=== PATIENT | male | born 1940 | race Two or more races ===

== ENCOUNTER 2020-03-06 09:46 | Outpatient (REF) | payer MEDICARE, SELFPAY ==
[2020-03-06 12:20] LABS: PSA,Total (Free>4and<10) 0.65 ng/mL (0.00-4.00)
== END 2020-03-06 09:47 | disposition home or self-care (01) ==
LOC: HO.10HDL 09:46
PROVIDERS: Visit Provider Urology
DX: N40.1 Benign prostatic hyperplasia with lower urinary tract symptoms (principal); N13.8 Other obstructive and reflux uropathy
CPT/HCPCS: 36415; 84153

== ENCOUNTER → 2020-03-10 08:28 | Outpatient (BNVA) | payer MEDICARE, SELFPAY | PROVIDERS: PCP Internal Medicine Endocrinology, Diabetes & Metabolism; Visit Provider Urology | DX: N40.1 Benign prostatic hyperplasia with lower urinary tract symptoms (principal); N13.8 Other obstructive and reflux uropathy; R39.15 Urgency of urination; N52.9 Male erectile dysfunction, unspecified | CPT/HCPCS: 99214 ==

== ENCOUNTER → 2020-06-26 13:04 | Outpatient (BNVA) | payer MEDICARE, SELFPAY | PROVIDERS: PCP Internal Medicine; Visit Provider Urology | DX: N40.1 Benign prostatic hyperplasia with lower urinary tract symptoms (principal); N13.8 Other obstructive and reflux uropathy; R39.15 Urgency of urination; N52.9 Male erectile dysfunction, unspecified | CPT/HCPCS: 51798; 81002; 99212 ==

== ENCOUNTER → 2021-01-24 13:08 | Outpatient (BNVA) | payer OTHER, SELFPAY | PROVIDERS: Visit Provider Urology | DX: N40.1 Benign prostatic hyperplasia with lower urinary tract symptoms (principal); N13.8 Other obstructive and reflux uropathy; R39.15 Urgency of urination | CPT/HCPCS: 99212 ==

== ENCOUNTER → 2021-08-07 08:49 | Outpatient (BNVA) | payer OTHER, SELFPAY | PROVIDERS: PCP Internal Medicine; Visit Provider Urology | DX: Z13.89 Encounter for screening for other disorder (principal) ==

== ENCOUNTER → 2022-02-15 08:53 | Outpatient (BNVA) | payer OTHER, SELFPAY | PROVIDERS: PCP Internal Medicine; Visit Provider Urology | DX: N40.1 Benign prostatic hyperplasia with lower urinary tract symptoms (principal); N13.8 Other obstructive and reflux uropathy; R39.15 Urgency of urination | CPT/HCPCS: 51798; 99212 ==

== ENCOUNTER → 2022-04-12 14:27 | Outpatient (BNVA) | payer OTHER, SELFPAY | PROVIDERS: PCP Internal Medicine; Visit Provider Urology | DX: N40.1 Benign prostatic hyperplasia with lower urinary tract symptoms (principal); N13.8 Other obstructive and reflux uropathy; N32.81 Overactive bladder; R35.0 Frequency of micturition; N52.9 Male erectile dysfunction, unspecified; Z79.82 Long term (current) use of aspirin; Z79.899 Other long term (current) drug therapy | CPT/HCPCS: 52000; 99212 ==

== ENCOUNTER 2022-04-29 10:42 | Day surgery (SDC) | payer OTHER, SELFPAY ==
[2022-04-29 12:31] VITALS: BMI 38.2
--- NOTE | 2022-04-29 13:09 | P.CONAN_ITS ---
[facility] Active Problems Active Problems: All Active Problems (Updated 04/12/22 @ 15:51 by Juan De Luna MD) Overactive bladder (Acute) Urgency of micturition (Acute) Erectile dysfunction (Acute) BPH with obstruction/lower urinary tract symptoms (Acute) Past Medical History Medical History Coronary artery disease GERD (gastroesophageal reflux disease) HTN (hypertension) Obstructive sleep apnea of adult Tubular adenoma of colon Family History Family History Father No problems noted. Mother No problems noted. Family history of problems with anesthesia: No Surgical History Surgical History H/O angioplasty H/O colonoscopy History of hip replacement History of mandibular surgery History of Problems with Anesthesia: No Social History Social History Patient Tobacco Use Status: Former Tobacco user Advance Directives: Yes Advance Directives on File: Yes Advance Directives Date on File: 03/06/20 Nutrition Risks: No Nutritional Risk Meds Allergies Allergy/AdvReac Type Severity Reaction Status Date / Time mirabegron AdvReac Unknown Hallucinati Verified 04/29/22 11:56 ons Active Medications: Current Medications Fentanyl (Fentanyl Citrate/Pf 100 Mcg/2 Ml Vial) 25 mcg IVPUSH Q5M PRN; Protoc ol PRN Reason: Pain, Moderate (Pain Scale 4-6 Levofloxacin (Levaquin) 500 mg in 100 mls @ 100 mls/hr IV PREOP ONE Stop: 04/29/22 13:25 Ondansetron HCl (Ondansetron Hcl 4 Mg/2 Ml Vial) 4 mg IVPUSH ONCE PRN PRN Reason: Nausea and Vomiting Oxycodone HCl (Oxycodone Hcl Immed Release 5 Mg Tablet) 5 mg PO ONCE PRN PRN Reason: Pain, Severe (Pain Scale 7-10) Home Medications Medication Instructions Recorded Confirmed Last Taken Type aspirin 81 mg tablet,delayed 81 mg PO DAILY 03/04/20 04/29/22 04/22/22 History release budesonide-formoterol HFA 160 2 puff inhalation Q12H 03/04/20 04/29/22 Unknown History mcg-4.5 mcg/actuation aerosol inhaler docusate sodium 100 mg capsule 100 mg PO BID 03/04/20 04/29/22 Unknown History duloxetine 20 mg capsule,delayed 20 mg PO DAILY 03/04/20 04/29/22 Unknown History release flu vacc [id number](65yr up)-PF 240 IM 03/04/20 06/26/20 Unknown History mcg/0.7 mL intramuscular syringe hydrochlorothiazide 12.5 mg tablet 12.5 mg PO DAILY 03/04/20 04/29/22 Unknown History ipratropium 20 mcg-albuterol 100 1 puff inhalation Q6H PRN dyspnea 03/04/20 04/29/22 Unknown History mcg/actuation mist for inhalation metoprolol tartrate 25 mg tablet 25 mg PO BID 03/04/20 04/29/22 Unknown History nitroglycerin 0.4 mg sublingual mg sublingual DIRECTED 03/04/20 06/26/20 Unknown History tablet omeprazole 20 mg capsule,delayed 20 mg PO BID 03/04/20 04/29/22 Unknown History release rosuvastatin 20 mg tablet 20 mg PO BEDTIME 03/04/20 04/29/22 Unknown History tamsulosin 0.4 mg capsule 0.4 mg PO DAILY 03/04/20 04/29/22 Unknown History alendronate 70 mg tablet 70 mg PO QWEEK 08/07/21 04/29/22 Unknown History cholecalciferol (vitamin D3) 25 25 mcg PO DAILY 08/07/21 04/29/22 Unknown History mcg (1,000 unit) tablet (Vitamin D3) donepezil 10 mg tablet 10 mg PO DAILY 08/07/21 04/29/22 Unknown History duloxetine 30 mg capsule,delayed 30 mg PO DAILY 08/07/21 04/29/22 Unknown History release lactulose 10 gram/15 mL oral ml PO 08/07/21 Unknown History solution Exam Exam Date and Time: April 29, 2022 1309 Height,Weight and Vital Signs: Height 5 ft 4 in Weight 101.151 kg Airway Mallampati Class: III Neck ROM: Full Denture: Upper and Lower Heart: rrr Lungs: clear Assessment and Plan Final Anesthetic Review Family History of Problems with Anesthesia: No History of Problems with Anesthesia: No NPO: Yes ASA Class: III Final Preanesthetic Review: No Changes in Pt Med Stat, Meds/Allgs Chart Reviewed, Consent Obtained/Reviewed and Anes Risks/Benef Reviewed Patient Risk: High Procedure Risk: Low Anesthetic Plan Anesthetic Plan: MAC: Disposition: Standard PACU
--- NOTE | 2022-04-29 13:12 | PC.NURSE ---
IV attempt by author to right hand. attempt and insertion completed by abiel washington rn
[2022-04-29 13:13] VITALS: BP 132/67; PULSE 59; RESP 18; TEMP 36.6; O2SAT 96
--- NOTE | 2022-04-29 13:45 | MHC.SHP ---
Pre-Procedural Eval Section A Date of Service: 04/29/22 The patient is an INPATIENT: No Changes since office visit: No Cold of Flu in the past 2 weeks, No New Medical Problems, No Changes in Medication and No Patient answered all questions The History & Physical has been completed within 30 days and I have reviewed it.: Yes Section B Chief Complaint: Overactive bladder Allergies: Allergies Allergy/AdvReac Type Severity Reaction Status Date / Time mirabegron AdvReac Unknown Hallucinati Verified 04/29/22 11:56 ons Plan Diagnosis/Plan: Unchanged (Cystoscopy with Botox) I have reviewed the history and physical and performed a pertinent physical examination on my patient. No changes have occurred unless specified.
--- NOTE | 2022-04-29 14:38 | W.PM.OPN ---
Operative Note Operative Note Date of Service: 04/29/22 Narrative: PreOperative Diagnosis: Overactive bladder with failure of medications Post Operative Diagnosis: Overactive bladder with failure of medications Procedure: Cystoscopy with injection 100 units Botox intra detrusor muscle Surgeon: Dr Juan De Luna Anesthesia: Sedation Indications for procedure: Is a very pleasant 82-year-old male. Has persistent urgency and frequency. Has failed oral medications. At office cystoscopy has effective emptying. For cystoscopy and Botox injection. Is aware of the risks and benefits particularly related to urinary retention and possible infection. Procedure: After informed consent was verified the patient was brought to the operating room and placed in a supine position. Anesthesia was administered per protocol. Cystoscopy performed with 22 Marshallese cystoscope. Bladder was emptied of urine. Bladder was refilled. Using 100 units of Botox mixed in 10 cc of normal saline injections were placed at the back wall of the bladder. 0.5cc placed at each injection site. Injections were placed in a grid 5 across and for high. Injections were placed from the inferior to superior position. Trabeculations on the bladder wall with targeted for each injection site. Procedure was tolerated well. Patient was extubated and transferred in stable condition to the recovery area. Pathology: None Drains: None
[2022-04-29 14:46] VITALS: BP 130/54; PULSE 57; RESP 16; TEMP 36.6; O2SAT 96
[2022-04-29 15:00] VITALS: BP 149/62; PULSE 57; RESP 18; TEMP 36.3; O2SAT 97
== END 2022-04-29 15:30 | disposition home or self-care (01) ==
PROVIDERS: PCP Internal Medicine; Visit Provider Urology
PROC: 3E0K8GC Introduction of Other Therapeutic Substance into Genitourinary Tract, Via Natural or Artificial Opening Endoscopic (ICD-10-PCS; CPT 52287; principal; 2022-04-29 12:20)
DX: N32.81 Overactive bladder (principal); N40.1 Benign prostatic hyperplasia with lower urinary tract symptoms; N13.8 Other obstructive and reflux uropathy; R35.0 Frequency of micturition; R39.15 Urgency of urination; I10 Essential (primary) hypertension; Z79.82 Long term (current) use of aspirin; Z79.899 Other long term (current) drug therapy; Z88.8 Allergy status to other drugs, medicaments and biological substances
CPT/HCPCS: 52287; J0585; J1956

== ENCOUNTER → 2022-05-14 14:40 | Outpatient (BNVA) | payer OTHER, SELFPAY | PROVIDERS: PCP Internal Medicine; Visit Provider Nurse Practitioner Family | DX: N40.1 Benign prostatic hyperplasia with lower urinary tract symptoms (principal); R39.15 Urgency of urination; N13.8 Other obstructive and reflux uropathy; N32.81 Overactive bladder | CPT/HCPCS: 51798; 99212 ==

== ENCOUNTER → 2022-09-12 09:30 | Outpatient (BNVA) | payer OTHER, SELFPAY | PROVIDERS: PCP Internal Medicine; Visit Provider Nurse Practitioner Family | DX: N32.81 Overactive bladder (principal) | CPT/HCPCS: 51798; 99212 ==

== ENCOUNTER 2023-03-14 09:41 | Outpatient (AMB) | payer OTHER, SELFPAY ==
--- NOTE | 2023-03-14 09:51 | A.OFFVIS_ITS ---
Intake Intake Visit Reasons: 6m/PVR Intake Note: Patient is present for 4mo follow up OAB/urinary frequency Urology Medications: vesicare, tamsulosin Blood Thinner: aspirin PVR: 69ml's Ostomy Care Nurse Required: Yes Ostomy Care Nurse Name: Mehul Accompanied by: Self / Same As Patient Allergies mirabegron Adverse Reaction (Unknown, Verified 03/14/23 10:29) Hallucinations Medication List - Last Reconciled 03/14/23 by VASILE Gill-MAGGIE acetaminophen 1,000 mg PO Q8H PRN alendronate 70 mg PO QWEEK aspirin 81 mg PO DAILY blood sugar diagnostic (Vitaldent Ultra Test strips) As directed budesonide-formoterol 160-4.5 mcg/actuation 2 puffs inhalation Q12H cholecalciferol (vitamin D3) (Vitamin D3) 25 mcg PO DAILY docusate sodium 100 mg PO BID donepezil 10 mg PO DAILY duloxetine 30 mg PO DAILY ipratropium-albuterol 20-100 mcg/actuation 1 puff inhalation Q6H PRN lidocaine 5% 1 patch topical DAILY metoprolol tartrate 25 mg PO BID nitroglycerin mg sublingual DIRECTED omeprazole 20 mg PO BID polyethylene glycol 3350 (Gavilax) 17 grams PO DAILY polyvinyl alcohol 1.4% 1 drp ophthalmic (eye) BID-QID PRN rosuvastatin 20 mg PO BEDTIME solifenacin (Vesicare) 10 mg PO BID tamsulosin 0.4 mg PO DAILY HPI HPI Comments History of Present Illness Details Craig is a 82-year-old Central African-speaking male patient of Dr. Bolanos. He has a past medical history of coronary disease, hypertension, GERD, obstructive sleep apnea, and overactive bladder. He presents to the office today for follow-up of his overactive bladder and BPH. In discussion with the patient today reports to be doing and feeling well. He reports episodes of urinary frequency when drinking increased amounts of water. He otherwise denies any bothersome urinary issues or concerns. He is happy with his current voiding parameters on 10 mg of VESIcare and 0.4 mg of Flomax daily. He has previously trialed bladder Botox with Dr. De Luna. In discussion with the patient today he reports urinary symptoms to still be somewhat well controlled. He reports compliance with VESIcare and Flomax daily. In office urinalysis results reviewed with the patient today. PVR 69 mL. When asked he denies urinary urgency, urinary frequency, incontinence, nocturia, hematuria, dysuria, foul smelling urine, changes to urinary stream, flank pain, fever, and or chills. He discusses his upcoming birthday. When asked he offers no other issues or concerns at this time. [facility] Medical History Coronary artery disease HTN (hypertension) GERD (gastroesophageal reflux disease) Obstructive sleep apnea of adult Tubular adenoma of colon Surgical History History of mandibular surgery H/O colonoscopy H/O angioplasty History of hip replacement Family History Father No problems noted. Mother No problems noted. Social History Patient Tobacco Use Status: Former Tobacco user Advance Directives Date on File: 03/06/20 Review of Systems Const All systems reviewed & are unremarkable except as noted in HPI and below Reports as per HPI Eyes Reports no additional complaints Card Reports as per HPI Resp Reports as per HPI GI Reports as per HPI Reports as per HPI Musc Reports no additional complaints Neuro Reports no additional complaints Psych Reports no additional complaints Endo Reports no additional complaints Quintin/Lymph Reports as per HPI Aller/Immun Reports as per HPI Physical Exam Const General: cooperative, healthy appearing, comfortable, no acute distress, well developed and alert Nutritional Appearance: overweight Orientation/consciousness: patient oriented x3 Limitations: ambulation with cane HEENT Head: Yes normal to inspection and Yes normocephalic Eyes General: appearance normal, both eyes and all related structures Neck Neck: Yes normal visual inspection and Yes trachea midline Chest Chest palpation & inspection: normal inspection of the chest GI Inspection: Yes normal to inspection (abdomen is prodruberant ) General: Yes no CVA tenderness Back/Spine/Pelvis Back: no CVA tenderness Skin General skin exam: no rashes or lesions noted Neuro General: patient oriented x3 Extrem General: Yes normal to inspection Psych Appearance: grossly normal Mental Status: mental status grossly normal Speech and movement: Normal speech and movement present Affect: normal affect Attitude: cooperative Thought process: Normal thought process present Thought content: Normal thought content present Insight: Fair insight present (Psych) Judgement: Fair judgement present (Psych) Office Procedures Post Void Residual Post Residual Void Post Void Residual (PVR): 69 [id number] Void Residual by ultrasound Results AMB Urinalysis, Automated UA Leukoctes 0 Mark/uL Last Edit by Charles Navarrete on 03/14/23 10:13 UA Nitrite Negative Last Edit by Makoondikary Navarrete on 03/14/23 10:13 UA Urobilinogen 0.2 mg/dL Last Edit by Intelligent Fingerprintinghuber on 03/14/23 10:13 UA Protein 0 mg/dL Last Edit by Intelligent Fingerprintinghuber on 03/14/23 10:13 UA pH 6.0 Last Edit by Intelligent Fingerprintinghuber on 03/14/23 10:13 UA Blood 0 Bassem/uL Last Edit by Enval on 03/14/23 10:13 UA Specific [place] 1.010 Last Edit by Intelligent Fingerprintinghuber on 03/14/23 10:13 UA Ketone Negative Last Edit by Intelligent Fingerprintinghuber on 03/14/23 10:13 UA Bilirubin 0 mg/dL Last Edit by Enval on 03/14/23 10:13 UA Glucose 0 mg/dL Last Edit by Intelligent Fingerprintinghuber on 03/14/23 10:13 Results Reviewed Results Reviewed: Laboratory Last Values Urine pH (Auto) 6.0 03/14/23 10:00 Specific [place] (Auto) 1.010 03/14/23 10:00 Urine Protein (Auto) 0 mg/dL 03/14/23 10:00 Glucose (UA)(Auto) 0 mg/dL 03/14/23 10:00 Urine Ketones (Auto) Negative 03/14/23 10:00 Urine Blood (Auto) 0 Bassem/uL 03/14/23 10:00 Urine Nitrite (Auto) Negative 03/14/23 10:00 Urine Bilirubin (Auto) 0 mg/dL 03/14/23 10:00 Urine Urobilinogen (Auto) 0.2 mg/dL 03/14/23 10:00 Leukocyte Esterase (Auto) 0 Mark/uL 03/14/23 10:00 Assessment & Plan Assessment & Plan (1) BPH with obstruction/lower urinary tract symptoms: Code(s): N40.1 - Benign prostatic hyperplasia with lower urinary tract symptoms; N13.8 - Other obstructive and reflux uropathy (2) Overactive bladder: Code(s): N32.81 - Overactive bladder Plan In office urinalysis results reviewed with the patient today; as noted above. PVR 69ml's Continue VESIcare and Flomax as prescribed discussed. Will obtain retroperitoneal ultrasound for further assessment evaluation. Will obtain PSA for further assess evaluation. Will further assess lower urinary tract symptoms and question of redo bladder Botox at next follow-up appointment as patient reports symptoms are somewhat returning however still manageable at this time. Follow-up in 3 months with imaging and labs to be completed prior; or sooner with any issues, concerns, in the her questions Orders: Orders AMB Urinalysis Automated 03/14/23 Z13.9 - Encounter for screening, unspecified AMB Post Void Residual by ultrasound 03/14/23 N32.81 - Overactive bladder US retroperitoneal comp 03/14/23 N13.8 - Other obstructive and reflux uropathy, N40.1 - Benign prostatic hyperplasia with lower urinary tract symptoms Patient Instructions: The patient had an opportunity to ask questions regarding the treatment plan. All questions were answered. Physical exam, labs, and imaging were discussed and reviewed in detail. As well as risks, benefits, and discussion of treatment choices. No major barriers to understanding were identified. The patient expressed understanding and agreement with the above treatment plan. The patient was made aware they should contact our office by phone for worsening of their current condition, the appearance of new symptoms, or with any questions or concerns. Compliance is encouraged with any medications and follow up testing that is ordered. It is a privilege to be allowed the opportunity to participate in? your urological care.? Again, if you have any questions or concerns If you have any questions or concerns please do not hesitate to contact me. The office is [phone]. This note is constructed using voice recognition software. While every effort has been made to ensure accuracy hotbed operator errors may have been included. Yours sincerely, VASILE Gill-MAGGIE Coding Level of Care Code Est Pt Level 3 (39756) Diagnoses BPH with obstruction/lower urinary tract symptoms N40.1; N13.8 Overactive bladder N32.81 CPT Codes Post Residual Void - PVR CPT Code: 50893-Ibne Void Residual by ultrasound ([id number])
== END 2023-03-14 11:01 | disposition home or self-care (01) ==
PROVIDERS: PCP Internal Medicine; Visit Provider Nurse Practitioner Family
DX: N40.1 Benign prostatic hyperplasia with lower urinary tract symptoms (principal); N13.8 Other obstructive and reflux uropathy; N32.81 Overactive bladder
CPT/HCPCS: 99213

== ENCOUNTER → 2023-03-14 09:41 | Outpatient (BNVA) | payer OTHER, SELFPAY | PROVIDERS: Visit Provider Nurse Practitioner Family | DX: N40.1 Benign prostatic hyperplasia with lower urinary tract symptoms (principal); N13.8 Other obstructive and reflux uropathy; N32.81 Overactive bladder | CPT/HCPCS: 51798; 81003; 99212 ==

== ENCOUNTER 2023-06-11 11:12 | Outpatient (REF) | payer OTHER, SELFPAY ==
--- NOTE | ~2023-06-11 | US_ITS ---
EXAMINATION: US RETROPERITONEAL COMPLETE (RENAL) CLINICAL INFORMATION: Benign prostatic hyperplasia with lower urinary tract symptoms. COMPARISON: None available. TECHNIQUE: Real-time imaging of the kidneys and bladder. FINDINGS: RIGHT KIDNEY: 9.4 x 5.0 x 5.7 cm (SAG x AP x TRV). The kidney is normal in size, contour, and echogenicity. Renal cortical thickness is normal. No renal calculi or hydronephrosis. A lower pole 14 mm cyst is present. LEFT KIDNEY: 10.4 x 5.4 x 5.8 cm (SAG x AP x TRV). The kidney is normal in size, contour, and echogenicity. Renal cortical thickness is normal. No renal calculi or hydronephrosis. Several cysts are present including a 14 mm mid pole cyst and and an 11 mm upper pole cyst. BLADDER: Bladder is not distended. US/US retroperitoneal comp IMPRESSION: 1. Multiple bilateral renal cysts; no specific follow-up is needed. 2. No obstructive uropathy. 3. Nondistended urinary bladder..
== END 2023-06-11 11:13 | disposition home or self-care (01) ==
LOC: HO.HMGCX 11:12
PROVIDERS: PCP Internal Medicine; Visit Provider Nurse Practitioner Family
DX: N40.1 Benign prostatic hyperplasia with lower urinary tract symptoms (principal); N13.8 Other obstructive and reflux uropathy
CPT/HCPCS: 76770

== ENCOUNTER 2023-08-25 11:18 | Outpatient (AMB) | payer OTHER, SELFPAY ==
--- NOTE | 2023-08-25 11:41 | MHC.OFFVIS ---
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: Yes Accompanied by: Daughter Allergies mirabegron Adverse Reaction (Unknown, Verified 08/25/23 12:09) Hallucinations Medication List - Last Reconciled 08/25/23 by VASILE Gill-MAGGIE acetaminophen 1,000 mg PO Q8H PRN alendronate 70 mg PO QWEEK aspirin 81 mg PO DAILY blood sugar diagnostic ([employer] Ultra Test strips) As directed budesonide-formoterol 160-4.5 mcg/actuation 2 puffs inhalation Q12H cholecalciferol (vitamin D3) (Vitamin D3) 25 mcg PO DAILY docusate sodium 100 mg PO BID donepezil 10 mg PO DAILY duloxetine 30 mg PO DAILY ipratropium-albuterol 20-100 mcg/actuation 1 puff inhalation Q6H PRN lidocaine 5% 1 patch topical DAILY metoprolol tartrate 25 mg PO BID nitroglycerin mg sublingual DIRECTED omeprazole 20 mg PO BID polyethylene glycol 3350 (Gavilax) 17 grams PO DAILY polyvinyl alcohol 1.4% 1 drp ophthalmic (eye) BID-QID PRN rosuvastatin 20 mg PO BEDTIME solifenacin (Vesicare) 10 mg PO BID tamsulosin 0.4 mg PO DAILY HPI HPI Comments History of Present Illness Details Craig is a 83-year-old Citizen Of [place]-speaking male patient of Dr. Bolanos who was accompanied by his daughter at today's office visit. He has a past medical history of coronary disease, hypertension, GERD, obstructive sleep apnea, and overactive bladder. He presents to the office today for follow-up of his overactive bladder and BPH. In discussion with the patient today reports to be doing and feeling well. He reports feeling lower urinary tract symptoms continue despite continuation of Flomax and VESIcare. He reports just this past weekend having had multiple incontinent episodes. He reports urinary urgency and frequency with episodes of incontinence. He otherwise denies nocturia, hematuria, dysuria, foul-smelling urine, changes to urinary stream, flank pain, fever, and or chills. Retroperitoneal ultrasound was ordered for further assessment evaluation. These results reviewed with the patient today. Bilateral kidneys with no hydronephrosis or renal calculi. A lower right renal pole cyst is present. Several cysts are present including a 14 mm mid pole cyst and and an 11 mm upper pole cyst. The bladder is not distended. He has previously trialed Myrbetriq however experienced hallucinations. He has also previously trialed bladder Botox however did not find significant improvement lower urinary tract symptoms. In office urinalysis results reviewed with the patient today. PVR 16 mL. PSAs are as follows: 04/19 0.5, 04/20 0.7, 03/21 0.7, 07/26 0.6 PFSH Medical History Coronary artery disease HTN (hypertension) GERD (gastroesophageal reflux disease) Obstructive sleep apnea of adult Tubular adenoma of colon Surgical History History of mandibular surgery H/O colonoscopy H/O angioplasty History of hip replacement Family History Father No problems noted. Mother No problems noted. Social History Patient Tobacco Use Status: Former Tobacco user Advance Directives Date on File: 03/06/20 Review of Systems Const All systems reviewed & are unremarkable except as noted in HPI and below Reports as per HPI Eyes Reports no additional complaints Card Reports as per HPI Resp Reports as per HPI GI Reports as per HPI Reports as per HPI Musc Reports no additional complaints Neuro Reports no additional complaints Psych Reports no additional complaints Endo Reports no additional complaints Quintin/Lymph Reports as per HPI Aller/Immun Reports as per HPI Physical Exam Const General: cooperative, healthy appearing, comfortable, no acute distress, well developed and alert Nutritional Appearance: overweight Orientation/consciousness: patient oriented x3 Limitations: ambulation with cane HEENT Head: Yes normal to inspection and Yes normocephalic Eyes General: appearance normal, both eyes and all related structures Neck Neck: Yes normal visual inspection and Yes trachea midline Chest Chest palpation & inspection: normal inspection of the chest GI Inspection: Yes normal to inspection (abdomen is prodruberant ) General: Yes no CVA tenderness Back/Spine/Pelvis Back: no CVA tenderness Skin General skin exam: no rashes or lesions noted Neuro General: patient oriented x3 Extrem General: Yes normal to inspection Psych Appearance: grossly normal Mental Status: mental status grossly normal Speech and movement: Normal speech and movement present Affect: normal affect Attitude: cooperative Thought process: Normal thought process present Thought content: Normal thought content present Insight: Fair insight present (Psych) Judgement: Fair judgement present (Psych) Office Procedures Post Void Residual Post Residual Void Post Void Residual (PVR): 16 20326-Suxz Void Residual by ultrasound Results AMB Urinalysis, Automated UA Leukoctes 0 Mark/uL Last Edit by [employer] on 08/25/23 11:53 UA Nitrite Negative Last Edit by [employer] on 08/25/23 11:53 UA Urobilinogen 0.2 mg/dL Last Edit by [employer] on 08/25/23 11:53 UA Protein 0 mg/dL Last Edit by [employer] on 08/25/23 11:53 UA pH 6.0 Last Edit by [employer] on 08/25/23 11:53 UA Blood 0 Bassem/uL Last Edit by [employer] on 08/25/23 11:53 UA Specific Pitman 1.010 Last Edit by [employer] on 08/25/23 11:53 UA Ketone Negative Last Edit by [employer] on 08/25/23 11:53 UA Bilirubin 0 mg/dL Last Edit by [employer] on 08/25/23 11:53 UA Glucose 0 mg/dL Last Edit by [employer] on 08/25/23 11:53 Results Reviewed Results Reviewed: Laboratory Last Values Urine pH (Auto) 6.0 08/25/23 11:43 Specific Pitman (Auto) 1.010 08/25/23 11:43 Urine Protein (Auto) 0 mg/dL 08/25/23 11:43 Glucose (UA)(Auto) 0 mg/dL 08/25/23 11:43 Urine Ketones (Auto) Negative 08/25/23 11:43 Urine Blood (Auto) 0 Bassem/uL 08/25/23 11:43 Urine Nitrite (Auto) Negative 08/25/23 11:43 Urine Bilirubin (Auto) 0 mg/dL 08/25/23 11:43 Urine Urobilinogen (Auto) 0.2 mg/dL 08/25/23 11:43 Leukocyte Esterase (Auto) 0 Mark/uL 08/25/23 11:43 Date of Service: 06/11/23 Procedure(s): US retroperitoneal comp EXAMINATION: US RETROPERITONEAL COMPLETE (RENAL) FINDINGS: RIGHT KIDNEY: 9.4 x 5.0 x 5.7 cm (SAG x AP x TRV). The kidney is normal in size, contour, and echogenicity. Renal cortical thickness is normal. No renal calculi or hydronephrosis. A lower pole 14 mm cyst is present. LEFT KIDNEY: 10.4 x 5.4 x 5.8 cm (SAG x AP x TRV). The kidney is normal in size, contour, and echogenicity. Renal cortical thickness is normal. No renal calculi or hydronephrosis. Several cysts are present including a 14 mm mid pole cyst and and an 11 mm upper pole cyst. BLADDER: Bladder is not distended. IMPRESSION: 1. Multiple bilateral renal cysts; no specific follow-up is needed. 2. No obstructive uropathy. 3. Nondistended urinary bladder. Assessment & Plan Assessment & Plan (1) Overactive bladder: Code(s): N32.81 - Overactive bladder (2) Urgency of micturition: Code(s): R39.15 - Urgency of urination (3) BPH with obstruction/lower urinary tract symptoms: Code(s): N40.1 - Benign prostatic hyperplasia with lower urinary tract symptoms; N13.8 - Other obstructive and reflux uropathy Plan In office urinalysis results reviewed with the patient today; as noted above. PVR 16 mL. Recent retroperitoneal ultrasound results reviewed with the patient today; as noted above. Recent PSA results reviewed with the patient today; as noted above. Patient with multiple failed overactive bladder medications to include Flomax, Myrbetriq, and VESIcare as well as bladder Botox. Continue Flomax and VESIcare; however discussed discontinuation prior to urodynamics testing. Discussed urodynamics for further assessment evaluation; discussed possible InterStim verses trial of Gemtesa. Follow-up in office urodynamics; or sooner with any issues, concerns, and or questions. Orders: Orders AMB Post Void Residual by ultrasound Today N32.81 - Overactive bladder AMB Urinalysis Automated Today Z13.9 - Encounter for screening, unspecified Patient Instructions: The patient had an opportunity to ask questions regarding the treatment plan. All questions were answered. Physical exam, labs, and imaging were discussed and reviewed in detail. As well as risks, benefits, and discussion of treatment choices. No major barriers to understanding were identified. The patient expressed understanding and agreement with the above treatment plan. The patient was made aware they should contact our office by phone for worsening of their current condition, the appearance of new symptoms, or with any questions or concerns. Compliance is encouraged with any medications and follow up testing that is ordered. It is a privilege to be allowed the opportunity to participate in? your urological care.? Again, if you have any questions or concerns If you have any questions or concerns please do not hesitate to contact me. The office is [phone]. This note is constructed using voice recognition software. While every effort has been made to ensure accuracy riveter helper errors may have been included. Yours sincerely, DUSTIN Gill Coding Level of Care Code Est Pt Level 4 (41705) Diagnoses Overactive bladder N32.81 Urgency of micturition R39.15 BPH with obstruction/lower urinary tract symptoms N40.1; N13.8 CPT Codes Post Residual Void - PVR CPT Code: 75664-Gcvv Void Residual by ultrasound ([id number])
== END 2023-08-25 12:08 | disposition home or self-care (01) ==
PROVIDERS: PCP Internal Medicine; Visit Provider Nurse Practitioner Family
DX: N32.81 Overactive bladder (principal); N40.1 Benign prostatic hyperplasia with lower urinary tract symptoms; R39.15 Urgency of urination; N13.8 Other obstructive and reflux uropathy; Z13.9 Encounter for screening, unspecified
CPT/HCPCS: 99214

== ENCOUNTER → 2023-08-25 11:18 | Outpatient (BNVA) | payer OTHER, SELFPAY | PROVIDERS: PCP Internal Medicine; Visit Provider Nurse Practitioner Family | DX: N40.1 Benign prostatic hyperplasia with lower urinary tract symptoms (principal); N13.8 Other obstructive and reflux uropathy; R39.15 Urgency of urination; N32.81 Overactive bladder | CPT/HCPCS: 51798; 81003; 99212 ==

== ENCOUNTER 2023-10-21 11:18 | Outpatient (REF) | payer OTHER, SELFPAY | END 2023-10-21 11:19 | disposition home or self-care (01) | LOC: HO.LAB 11:18 | PROVIDERS: Visit Provider Urology | DX: N32.81 Overactive bladder (principal); R39.15 Urgency of urination; N40.1 Benign prostatic hyperplasia with lower urinary tract symptoms; N13.8 Other obstructive and reflux uropathy | CPT/HCPCS: 87086 ==

== ENCOUNTER 2023-10-31 10:49 | Outpatient (AMB) | payer OTHER, SELFPAY ==
--- NOTE | 2023-10-31 11:07 | AM.OFFVISNUR ---
Intake Intake Visit Reasons: Urodynamics Allergies mirabegron Adverse Reaction (Unknown, Verified 08/25/23 12:09) Hallucinations Office Procedures Urodynamic Studies Consent Discussed risk and benefit or proposed procedure with the patient. Information consent for procedure given to the patient. Discussed technical aspects, risks, benefits and alternatives in full. Addressed all of the patient's questions and concerns regarding the procedure. The patient demonstrated knowledge and understanding. They wish to proceed with this procedure. Preparation The patient was prepped in the usual manner. A tile trimmer was present and in the room. Genitalia was prepped with betadine solution in a sterile manner. Prep: The patient was prepped in the usual manner. A tile trimmer was present and in the room. Genitalia was prepped with betadine solution in a sterile manner. 82285-Ptlhhdnfvnenmx w/ PATIENT NAVIGATOR 89516-Frrkwky-Znlcrrcyegvm First 11965-Dgrd/Urinary Muscle Study 21234-Elwcf-Ugeryycot Pressure Test Procedure code (CPT) selection complete Office Meds nitrofurantoin monohydrate/macrocrystals 100 mg capsule Performing Provider: Raysa Dailey MD Performing Location[facility] [place] [facility] Administered by: Mulugeta Monroe LPN on 10/31/23 11:07 Dose Route Admin Location Dispensed Lot Number Expiration Date NDC Folder Machine Operator 100 mg PO 1 cap Coding CPT Codes Urodynamic Studies - CPT: 52016-Afafvtwbjzowia w/ PATIENT NAVIGATOR ([id number]) Urodynamic Studies - CPT: 11070-Zacisil-Ojdnmgoqfgty First ([id number]) Urodynamic Studies - CPT: 02428-Mkqe/Urinary Muscle Study ([id number]) Urodynamic Studies - CPT: 51984-Eeyiu-Yxahvkldp Pressure Test ([id number]) Assessment & Plan Assessment & Plan Orders: Orders AMB Urodynamics Studies Today N32.81 - Overactive bladder, R39.15 - Urgency of urination Medications: New nitrofurantoin monohyd/m-cryst 100 mg 100 mg PO ONCE 1 cap 0RF N32.81 - Overactive bladder, R39.15 - Urgency of urination
--- NOTE | 2023-10-31 11:13 | A.OFFVIS_ITS ---
Intake Visit Reasons: Urodynamics Intake Note: Patient presents today for a URODYNAMIC Procedure: Meds: Vesicare & Tamsulosin Allergies to Antibiotic: No Known Allergies Blood Thinner: Aspirin Career Technology Teacher Required: Yes Career Technology Teacher Language: Client Services Vice President Name: Keri CastanoSABINO Accompanied by: Self / Same As Patient Allergies mirabegron Adverse Reaction (Unknown, Verified 10/31/23 12:02) Hallucinations HPI Comments Details: 10/31/23--Here for urodynamics. CMG parameters detailed below. Interpretation: During the filling phase sensory urgency was noted, strong urge was noted at 362 mL. the patient felt that he was at capacity at 362 mL Findings consistent with detrusor overactivity. EMG- Appropriate changes in the waveforms were noted through out the study. Review of chart: 08/24/22----Craig is a 83-year-old Sinhala-speaking male patient of Dr. Bolanos who was accompanied by his daughter at today's office visit. He has a past medical history of coronary disease, hypertension, GERD, obstructive sleep apnea, and overactive bladder. He presents to the office today for follow-up of his overactive bladder and BPH. In discussion with the patient today reports to be doing and feeling well. He reports feeling lower urinary tract symptoms continue despite continuation of Flomax and VESIcare. He reports just this past weekend having had multiple incontinent episodes. He reports urinary urgency and frequency with episodes of incontinence. He otherwise denies nocturia, hemat uria, dysuria, foul-smelling urine, changes to urinary stream, flank pain, fever, and or chills. Retroperitoneal ultrasound was ordered for further assessment evaluation. These results reviewed with the patient today. Bilateral kidneys with no hydronephrosis or renal calculi. A lower right renal pole cyst is present. Several cysts are present including a 14 mm mid pole cyst and and an 11 mm upper pole cyst. The bladder is not distended. He has previously trialed Myrbetriq however experienced hallucinations. He has also previously trialed bladder Botox however did not find significant improvement lower urinary tract symptoms. In office urinalysis results reviewed with the patient today. PVR 16 mL. PSAs are as follows: 04/19 0.5, 04/20 0.7, 03/21 0.7, 07/26 0.6 PFSH Medical History Coronary artery disease HTN (hypertension) GERD (gastroesophageal reflux disease) Obstructive sleep apnea of adult Tubular adenoma of colon Surgical History History of mandibular surgery H/O colonoscopy H/O angioplasty History of hip replacement Family History Father No problems noted. Mother No problems noted. Social History Patient Tobacco Use Status: Former Tobacco user Advance Directives Date on File: 03/06/20 Office Procedures Urodynamic Studies Consent Discussed risk and benefit or proposed procedure with the patient. Information consent for procedure given to the patient. Discussed technical aspects, risks, benefits and alternatives in full. Addressed all of the patient's questions and concerns regarding the procedure. The patient demonstrated knowledge and under standing. They wish to proceed with this procedure. Preparation The patient was prepped in the usual manner. A caustic pump operator was present and in the room. Genitalia was prepped with betadine solution in a sterile manner. Prep: The patient was prepped in the usual manner. A caustic pump operator was present and in the room. Genitalia was prepped with betadine solution in a sterile manner. Complex Uroflow Complex uroflow performed by: Raysa Dailey Maximum urinary flow rate (mL/second): 7.9 Voiding time (seconds): 27 Voided volume (mL): 80 Residual urine (mL): 14 ml via Bladder scan Cystometrogram Vaginal/rectal catheter type: rectal First sensation at (mL): 99 mL First desire at (mL): 168 mL Strong desire to void occured at (mL): 362 mL Strong desire detrussor pressure (cm H2O): 41 Maximum fill (mL): 362 mL Voided with max detrussor pressure of (cm H2O): 23 Maximum flow rate (mL/second): 23 mL/s 21804-Pdfwyliyzmcwlg w/ WATERMELON HARVESTING SUPERVISOR 76718-Liqwwwn-Zazvbgqdrpfy First 38333-Qbfl/Urinary Muscle Study 61017-Nqbeu-Haycmizzm Pressure Test Procedure code (CPT) selection complete Office Meds nitrofurantoin monohydrate/macrocrystals 100 mg capsule Performing Provider: Raysa Dailey MD Performing Location[facility] [place] [facility] Administered by: Mulugeta Monroe LPN on 10/31/23 11:07 Dose Route Admin Location Dispensed Lot Number Expiration Date NDC Transcript Clerk 100 mg PO 1 cap Assessment & Plan Assessment & Plan (1) Overactive bladder: Code(s): N32.81 - Overactive bladder Category: Medical Plan UDS consistent with detrusor overactivity Orders: Orders AMB Urodynamics Studies 10/31/23 R39.15 - Urgency of urination, N32.81 - Overactive bladder Patient Instructions: The patient had an opportunity to ask questions regarding treatment plan. The patient expressed understanding and agreement with the above treatment plan. The patient is aware they should contact our office by phone for worsening of their current condition or the appearance of new symptoms. Compliance is encouraged with any medications and followup testing that is ordered. It is a privilege to be allowed the opportunity to participate in the urologic care of your patient. If you have any questions or concerns regarding treatment for the above conditions please do not hesitate to contact me. The office telephone contact is [phone]. This note is constructed in part using voice recognition software. While every effort has been made to ensure accuracy card placer errors may have been included. Yours sincerely, Raysa Dailey MD Coding Level of Care Code Procedure Only Diagnoses Overactive bladder N32.81 CPT Codes Urodynamic Studies - CPT: 81875-Tpbslwkyoedbji w/ WATERMELON HARVESTING SUPERVISOR ([id number]) Urodynamic Studies - CPT: 26928-Ousfgqm-Wvezxifmmapx First ([id number]) Urodynamic Studies - CPT: 45203-Nstn/Urinary Muscle Study ([id number]) Urodynamic Studies - CPT: 33026-Agbti-Juliptcnr Pressure Test ([id number])
== END 2023-10-31 12:29 | disposition home or self-care (01) ==
PROVIDERS: PCP Internal Medicine; Visit Provider Urology
DX: R39.15 Urgency of urination (principal); N32.81 Overactive bladder
CPT/HCPCS: 51728; 51741; 51784; 51797

== ENCOUNTER → 2023-10-31 10:49 | Outpatient (BNVA) | payer OTHER, SELFPAY | PROVIDERS: PCP Internal Medicine; Visit Provider Urology | DX: N32.81 Overactive bladder (principal); R39.15 Urgency of urination | CPT/HCPCS: 51728; 51741; 51784; 51797 ==

== ENCOUNTER 2024-02-05 14:19 | Outpatient (AMB) | payer OTHER, SELFPAY ==
--- NOTE | 2024-02-05 14:21 | MHC.OFFVIS ---
Intake Visit Reasons: overactive bladder follow up Intake Note: Patient presents today for A OVERACTIVE BLADDER F/U Meds: Vesicare & Tamsulosin Allergies to Antibiotic: No Known Allergies Blood Thinner: Aspirin TODAY'S PVR:0ML'S Ammonia Operator Required: Yes Ammonia Operator Language: Bounty Hunter Name: SABINO Forbes Accompanied by: Self / Same As Patient Allergies mirabegron Adverse Reaction (Unknown, Verified 02/05/24 14:22) Hallucinations Medication List - Last Reconciled 02/05/24 by Raysa Dailey MD acetaminophen 1,000 mg PO Q8H PRN alendronate 70 mg PO QWEEK aspirin 81 mg PO DAILY blood sugar diagnostic ([employer] Ultra Test strips) As directed budesonide-formoterol 160-4.5 mcg/actuation 2 puffs inhalation Q12H cholecalciferol (vitamin D3) (Vitamin D3) 25 mcg PO DAILY docusate sodium 100 mg PO BID donepezil 10 mg PO DAILY duloxetine 30 mg PO DAILY ipratropium-albuterol 20-100 mcg/actuation 1 puff inhalation Q6H PRN lidocaine 5% 1 patch topical DAILY metoprolol tartrate 25 mg PO BID mirabegron ER (Myrbetriq) 50 mg PO QAM nitroglycerin mg sublingual DIRECTED omeprazole 20 mg PO BID polyethylene glycol 3350 (Gavilax) 17 grams PO DAILY polyvinyl alcohol 1.4% 1 drp ophthalmic (eye) BID-QID PRN rosuvastatin 20 mg PO BEDTIME solifenacin (Vesicare) 10 mg PO BID tamsulosin 0.4 mg PO DAILY HPI Comments Details: 02/05/24--FU was started on vesicare for OAB symptoms, he had UDS on 10/31/23 which was c/w DO. He is here with his daughter who states he is still leaking alot. Plan will add Myrbetriq 50 mg to take in the AM and vesicare 10 mg q hs and cont. Tamsulosin 0.4 mg qhs. FU in 6 weeks to review symptoms. Review of chart: 10/31/23--Here for urodynamics. CMG parameters detailed below. Interpretation: During the filling phase sensory urgency was noted, strong urge was noted at 362 mL. the patient felt that he was at capacity at 362 mL Findings consistent with detrusor overactivity. EMG- Appropriate changes in the waveforms were noted through out the study. 08/24/22----Craig is a 83-year-old Kiswahili-speaking male patient of Dr. Bolanos who was accompanied by his daughter at today's office visit. He has a past medical history of coronary disease, hypertension, GERD, obstructive sleep apnea, and overactive bladder. He presents to the office today for follow-up of his overactive bladder and BPH. In discussion with the patient today reports to be doing and feeling well. He reports feeling lower urinary tract symptoms continue despite continuation of Flomax and VESIcare. He reports just this past weekend having had multiple incontinent episodes. He reports urinary urgency and frequency with episodes of incontinence. He otherwise denies nocturia, hematuria, dysuria, foul-smelling urine, changes to urinary stream, flank pain, fever, and or chills. Retroperitoneal ultrasound was ordered for further assessment evaluation. These results reviewed with the patient today. Bilateral kidneys with no hydronephrosis or renal calculi. A lower right renal pole cyst is present. Several cysts are present including a 14 mm mid pole cyst and and an 11 mm upper pole cyst. The bladder is not distended. He has previously trialed Myrbetriq however experienced hallucinations. He has also previously trialed bladder Botox however did not find significant improvement lower urinary tract symptoms. In office urinalysis results reviewed with the patient today. PVR 16 mL. PSAs are as follows: 04/19 0.5, 04/20 0.7, 03/21 0.7, 07/26 0.6 PFSH Medical History Coronary artery disease HTN (hypertension) GERD (gastroesophageal reflux disease) Obstructive sleep apnea of adult Tubular adenoma of colon Surgical History History of mandibular surgery H/O colonoscopy H/O angioplasty History of hip replacement Family History Father No problems noted. Mother No problems noted. Social History Patient Tobacco Use Status: Former Tobacco user Advance Directives Date on File: 03/06/20 Review of Systems Const All systems reviewed & are unremarkable except as noted in HPI and below Reports no additional complaints Eyes Reports no additional complaints ENT Reports no additional complaints Card Reports no additional complaints Resp Reports no additional complaints GI Reports no additional complaints Reports as per HPI Musc Reports no additional complaints Skin/Breast Reports system reviewed and no additional complaints, except as documented Neuro Reports no additional complaints Psych Reports no additional complaints Endo Reports no additional complaints Quintin/Lymph Reports no additional complaints Aller/Immun Reports no additional complaints Office Procedures Post Void Residual Post Residual Void Post Void Residual (PVR): 0 [id number] Void Residual by ultrasound Results AMB Urinalysis, Automated UA Leukoctes 0 Mark/uL Last Edit by SHRUTI Byrd on 02/05/24 14:36 UA Nitrite Negative Last Edit by Ramirez Thomas [facility] on 02/05/24 14:36 UA Urobilinogen 0.2 mg/dL Last Edit by Ramirez Thomas [facility] on 02/05/24 14:36 UA Protein 0 mg/dL Last Edit by Ramirez Thomas [facility] on 02/05/24 14:36 UA pH 7.0 Last Edit by Ramirez Thomas [facility] on 02/05/24 14:36 UA Blood 0 Bassem/uL Last Edit by Ramirez Thomas [facility] on 02/05/24 14:36 UA Specific [place] 1.010 Last Edit by Ramirez Thomas [facility] on 02/05/24 14:36 UA Ketone Negative Last Edit by Ramirez Thomas [facility] on 02/05/24 14:36 UA Bilirubin 0 mg/dL Last Edit by Ramirez Thomas [facility] on 02/05/24 14:36 UA Glucose 0 mg/dL Last Edit by Ramirez Thomas [facility] on 02/05/24 14:36 Results Reviewed Results Reviewed: Laboratory Last Values Urine pH (Auto) 7.0 02/05/24 14:35 Specific [place] (Auto) 1.010 02/05/24 14:35 Urine Protein (Auto) 0 mg/dL 02/05/24 14:35 Glucose (UA)(Auto) 0 mg/dL 02/05/24 14:35 Urine Ketones (Auto) Negative 02/05/24 14:35 Urine Blood (Auto) 0 Bassem/uL 02/05/24 14:35 Urine Nitrite (Auto) Negative 02/05/24 14:35 Urine Bilirubin (Auto) 0 mg/dL 02/05/24 14:35 Urine Urobilinogen (Auto) 0.2 mg/dL 02/05/24 14:35 Leukocyte Esterase (Auto) 0 Mark/uL 02/05/24 14:35 Date of Service: 06/11/23 Procedure(s): US retroperitoneal comp EXAMINATION: US RETROPERITONEAL COMPLETE (RENAL) FINDINGS: RIGHT KIDNEY: 9.4 x 5.0 x 5.7 cm (SAG x AP x TRV). The kidney is normal in size, contour, and echogenicity. Renal cortical thickness is normal. No renal calculi or hydronephrosis. A lower pole 14 mm cyst is present. LEFT KIDNEY: 10.4 x 5.4 x 5.8 cm (SAG x AP x TRV). The kidney is normal in size, contour, and echogenicity. Renal cortical thickness is normal. No renal calculi or hydronephrosis. Several cysts are present including a 14 mm mid pole cyst and and an 11 mm upper pole cyst. BLADDER: Bladder is not distended. IMPRESSION: 1. Multiple bilateral renal cysts; no specific follow-up is needed. 2. No obstructive uropathy. 3. Nondistended urinary bladder. Assessment & Plan Assessment & Plan (1) Overactive bladder: Code(s): N32.81 - Overactive bladder Category: Medical (2) BPH with obstruction/lower urinary tract symptoms: Code(s): N40.1 - Benign prostatic hyperplasia with lower urinary tract symptoms; N13.8 - Other obstructive and reflux uropathy Category: Medical Plan UDS consistent with detrusor overactivity Orders: Orders AMB Urinalysis Automated Today Z13.9 - Encounter for screening, unspecified Medications: New mirabegron ER (Myrbetriq) 50 mg PO QAM 30 tabs 6RF tamsulosin 0.4 mg PO DAILY 90 caps 2RF Patient Instructions: The patient had an opportunity to ask questions regarding treatment plan. The patient expressed understanding and agreement with the above treatment plan. The patient is aware they should contact our office by phone for worsening of their current condition or the appearance of new symptoms. Compliance is encouraged with any medications and followup testing that is ordered. It is a privilege to be allowed the opportunity to participate in the urologic care of your patient. If you have any questions or concerns regarding treatment for the above conditions please do not hesitate to contact me. The office telephone contact is [phone]. This note is constructed in part using voice recognition software. While every effort has been made to ensure accuracy cotton puller errors may have been included. Yours sincerely, Raysa Dailey MD Coding Level of Care Code Est Pt Level 4 (61116) Diagnoses Overactive bladder N32.81 BPH with obstruction/lower urinary tract symptoms N40.1; N13.8 CPT Codes Post Residual Void - PVR CPT Code: 09509-Yovp Void Residual by ultrasound ([id number])
== END 2024-02-05 15:21 | disposition home or self-care (01) ==
PROVIDERS: PCP Internal Medicine; Visit Provider Urology
DX: N32.81 Overactive bladder (principal); N40.1 Benign prostatic hyperplasia with lower urinary tract symptoms; N13.8 Other obstructive and reflux uropathy; Z13.9 Encounter for screening, unspecified
CPT/HCPCS: 99214

== ENCOUNTER → 2024-02-05 14:19 | Outpatient (BNVA) | payer OTHER, SELFPAY | PROVIDERS: PCP Internal Medicine; Visit Provider Urology | DX: N32.81 Overactive bladder (principal); N40.1 Benign prostatic hyperplasia with lower urinary tract symptoms; N13.8 Other obstructive and reflux uropathy | CPT/HCPCS: 51798; 81003; 99212 ==

== ENCOUNTER 2024-03-22 09:26 | Outpatient (AMB) | payer OTHER, SELFPAY ==
--- NOTE | 2024-03-22 09:21 | MHC.OFFVIS ---
Intake Visit Reasons: 6w/med review Intake Note: Patient is present for 6W/MED REVIEW Urology Medication:TAMSULSOIN, VERICARE, MYRBETRIQ Antibiotic Allergy:NONE Blood Thinner:ASPIRIN Electronic Device Monitor Required: Yes Electronic Device Monitor Services: Electronic Device Monitor Present Electronic Device Monitor Name: [id number] Allergies mirabegron Adverse Reaction (Unknown, Verified 03/22/24 09:23) Hallucinations HPI Comments Details: 03/22/24-- Craig is a 84-year-old [place]er-speaking male with past medical history of coronary disease, hypertension, GERD, obstructive sleep apnea. He presents for follow-up of his overactive bladder and BPH. Doing much better with the addition of the Myrbetriq 50 mg. Will cont combination medication therapy for bladder symptoms. FU in 6 months. Review of chart: 02/05/24--FU was started on vesicare for OAB symptoms, he had UDS on 10/31/23 which was c/w DO. He is here with his daughter who states he is still leaking alot. Plan will add Myrbetriq 50 mg to take in the AM and vesicare 10 mg q hs and cont. Tamsulosin 0.4 mg qhs. FU in 6 weeks to review symptoms. 10/31/23--Here for urodynamics. CMG parameters detailed below. Interpretation: During the filling phase sensory urgency was noted, strong urge was noted at 362 mL. the patient felt that he was at capacity at 362 mL Findings consistent with detrusor overactivity. EMG- Appropriate changes in the waveforms were noted through out the study. 08/24/22----Craig is a 83-year-old [place]er-speaking male patient of Dr. Bolanos who was accompanied by his daughter at today's office visit. He has a past medical history of coronary disease, hypertension, GERD, obstructive sleep apnea, and overactive bladder. He presents to the office today for follow-up of his overactive bladder and BPH. In discussion with the patient today reports to be doing and feeling well. He reports feeling lower urinary tract symptoms continue despite continuation of Flomax and VESIcare. He reports just this past weekend having had multiple incontinent episodes. He reports urinary urgency and frequency with episodes of incontinence. He otherwise denies nocturia, hematuria, dysuria, foul-smelling urine, changes to urinary stream, flank pain, fever, and or chills. Retroperitoneal ultrasound was ordered for further assessment evaluation. These results reviewed with the patient today. Bilateral kidneys with no hydronephrosis or renal calculi. A lower right renal pole cyst is present. Several cysts are present including a 14 mm mid pole cyst and and an 11 mm upper pole cyst. The bladder is not distended. He has previously trialed Myrbetriq however experienced hallucinations. He has also previously trialed bladder Botox however did not find significant improvement lower urinary tract symptoms. In office urinalysis results reviewed with the patient today. PVR 16 mL. PSAs are as follows: 04/19 0.5, 04/20 0.7, 03/21 0.7, 07/26 0.6 PFSH Medical History Coronary artery disease HTN (hypertension) GERD (gastroesophageal reflux disease) Obstructive sleep apnea of adult Tubular adenoma of colon Surgical History History of mandibular surgery H/O colonoscopy H/O angioplasty History of hip replacement Family History Father No problems noted. Mother No problems noted. Social History Patient Tobacco Use Status: Former Tobacco user Advance Directives Date on File: 03/06/20 Review of Systems Const All systems reviewed & are unremarkable except as noted in HPI and below Reports no additional complaints Eyes Reports no additional complaints ENT Reports no additional complaints Card Reports no additional complaints Resp Reports no additional complaints GI Reports no additional complaints Reports as per HPI Musc Reports no additional complaints Skin/Breast Reports system reviewed and no additional complaints, except as documented Neuro Reports no additional complaints Psych Reports no additional complaints Endo Reports no additional complaints Quintin/Lymph Reports no additional complaints Aller/Immun Reports no additional complaints Telehealth Telehealth Telehealth Platform: Telephone Location of provider rendering services: practice address Location of patient: address on file Patient Identification confirmed using: Name, : Yes Telehealth method: voice only Patient verbally consented to treatment: Yes Patient verbally consented to billing insurance company: Yes Patient informed of any privacy concerns related to visit: Yes Minutes spent on Phone/Video with Pt.: 13 Assessment & Plan Assessment & Plan (1) Overactive bladder: Code(s): N32.81 - Overactive bladder Category: Medical (2) BPH with obstruction/lower urinary tract symptoms: Code(s): N40.1 - Benign prostatic hyperplasia with lower urinary tract symptoms; N13.8 - Other obstructive and reflux uropathy Category: Medical Plan fu in 6 months Coding Level of Care Code Tele Est Pt Level 3 (59823) Diagnoses Overactive bladder N32.81 BPH with obstruction/lower urinary tract symptoms N40.1; N13.8
== END 2024-03-22 11:28 | disposition home or self-care (01) ==
LOC: HO.HUSH 09:26
PROVIDERS: PCP Internal Medicine; Visit Provider Urology
DX: N32.81 Overactive bladder (principal); N40.1 Benign prostatic hyperplasia with lower urinary tract symptoms; N13.8 Other obstructive and reflux uropathy
CPT/HCPCS: 99442

== ENCOUNTER → 2024-03-22 09:26 | Outpatient (BNVA) | payer OTHER, SELFPAY | PROVIDERS: PCP Internal Medicine; Visit Provider Urology ==

== ENCOUNTER 2024-09-13 10:52 | Outpatient (AMB) | payer OTHER, SELFPAY ==
--- NOTE | 2024-09-13 11:38 | MHC.OFFVIS ---
Intake Visit Reasons: 6m/PVR Intake Note: Patient is present for 6m/PVR Urology Medication:TAMSULSOIN, VERICARE, MYRBETRIQ Antibiotic Allergy:NONE Blood Thinner:ASPIRIN PVR:12ml Signal Inspector Required: Yes Signal Inspector Services: Signal Inspector Present Signal Inspector Name: [id number] Duran Allergies mirabegron Adverse Reaction (Unknown, Verified 09/13/24 11:42) Hallucinations Medication List - Last Reconciled 09/13/24 by Raysa Dailey MD acetaminophen 1,000 mg PO Q8H PRN alendronate 70 mg PO QWEEK aspirin 81 mg PO DAILY blood sugar diagnostic (C[employer]uch Ultra Test strips) As directed budesonide-formoterol 160-4.5 mcg/actuation 2 puffs inhalation Q12H cholecalciferol (vitamin D3) (Vitamin D3) 25 mcg PO DAILY docusate sodium 100 mg PO BID donepezil 10 mg PO DAILY duloxetine 30 mg PO DAILY ipratropium-albuterol 20-100 mcg/actuation 1 puff inhalation Q6H PRN lactulose mL PO lidocaine 5% 1 patch topical DAILY losartan 25 mg PO DAILY metoprolol tartrate 25 mg PO BID mirabegron ER (Myrbetriq) 50 mg PO QAM nitroglycerin mg sublingual DIRECTED omeprazole 20 mg PO BID polyethylene glycol 3350 (Gavilax) 17 grams PO DAILY polyvinyl alcohol 1.4% 1 drp ophthalmic (eye) BID-QID PRN rosuvastatin 20 mg PO BEDTIME solifenacin (Vesicare) 10 mg PO BEDTIME tamsulosin 0.4 mg PO DAILY HPI Comments Details: 09/13/24--Craig is an 84-year-old Polish-speaking male here with his daughter who interprets for him, with past medical history of coronary disease, hypertension, GERD, obstructive sleep apnea. He presents for follow-up of his overactive bladder and BPH. Doing much better with the addition of the Myrbetriq 50 mg. Will cont combination medication therapy for bladder symptoms. Continue VESIcare 10 mg in the evening, tamsulosin at bedtime. FU in 6 months. 03/22/24-- Craig is an 84-year-old Polish-speaking male with past medical history of coronary disease, hypertension, GERD, obstructive sleep apnea. He presents for follow-up of his overactive bladder and BPH. Doing much better with the addition of the Myrbetriq 50 mg. Will cont combination medication therapy for bladder symptoms. FU in 6 months. 02/05/24--FU was started on vesicare for OAB symptoms, he had UDS on 10/31/23 which was c/w DO. He is here with his daughter who states he is still leaking alot. Plan will add Myrbetriq 50 mg to take in the AM and vesicare 10 mg q hs and cont. Tamsulosin 0.4 mg qhs. FU in 6 weeks to review symptoms. 10/31/23--Here for urodynamics. CMG parameters detailed below. Interpretation: During the filling phase sensory urgency was noted, strong urge was noted at 362 mL. the patient felt that he was at capacity at 362 mL Findings consistent with detrusor overactivity. EMG- Appropriate changes in the waveforms were noted through out the study. 08/24/22----Craig is a 83-year-old Polish-speaking male patient of Dr. Bolanos who was accompanied by his daughter at today's office visit. He has a past medical history of coronary disease, hypertension, GERD, obstructive sleep apnea, and overactive bladder. He presents to the office today for follow-up of his overactive bladder and BPH. In discussion with the patient today reports to be doing and feeling well. He reports feeling lower urinary tract symptoms continue despite continuation of Flomax and VESIcare. He reports just this past weekend having had multiple incontinent episodes. He reports urinary urgency and frequency with episodes of incontinence. He otherwise denies nocturia, hematuria, dysuria, foul-smelling urine, changes to urinary stream, flank pain, fever, and or chills. Retroperitoneal ultrasound was ordered for further assessment evaluation. These results reviewed with the patient today. Bilateral kidneys with no hydronephrosis or renal calculi. A lower right renal pole cyst is present. Several cysts are present including a 14 mm mid pole cyst and and an 11 mm upper pole cyst. The bladder is not distended. He has previously trialed Myrbetriq however experienced hallucinations. He has also previously trialed bladder Botox however did not find significant improvement lower urinary tract symptoms. In office urinalysis results reviewed with the patient today. PVR 16 mL. PSAs are as follows: 04/19 0.5, 04/20 0.7, 03/21 0.7, 07/26 0.6 PFSH Medical History Coronary artery disease HTN (hypertension) GERD (gastroesophageal reflux disease) Obstructive sleep apnea of adult Tubular adenoma of colon Surgical History History of mandibular surgery H/O colonoscopy H/O angioplasty History of hip replacement Family History Father No problems noted. Mother No problems noted. Social History Patient Tobacco Use Status: Former Tobacco user Advance Directives Date on File: 03/06/20 Review of Systems Const All systems reviewed & are unremarkable except as noted in HPI and below Reports no additional complaints Eyes Reports no additional complaints ENT Reports no additional complaints Card Reports no additional complaints Resp Reports no additional complaints GI Reports no additional complaints Reports as per HPI Musc Reports no additional complaints Skin/Breast Reports system reviewed and no additional complaints, except as documented Neuro Reports no additional complaints Psych Reports no additional complaints Endo Reports no additional complaints Quintin/Lymph Reports no additional complaints Aller/Immun Reports no additional complaints Assessment & Plan Assessment & Plan (1) Overactive bladder: Code(s): N32.81 - Overactive bladder Category: Medical (2) BPH with obstruction/lower urinary tract symptoms: Code(s): N40.1 - Benign prostatic hyperplasia with lower urinary tract symptoms; N13.8 - Other obstructive and reflux uropathy Category: Medical Plan Myrbetriq 50 mg q am, vesicare 10 mg q pm, flomax 0.4 mg fu in 6 months, PSA prior Medications: Changed From solifenacin (Vesicare) 10 mg PO ONCE 90 tabs 3RF R39.15 - Urgency of urination To solifenacin (Vesicare) 10 mg PO BEDTIME 90 tabs 3RF R39.15 - Urgency of urination From solifenacin (Vesicare) 10 mg PO BID 60 tabs 6RF R39.15 - Urgency of urination To solifenacin (Vesicare) 10 mg PO ONCE 90 tabs 3RF R39.15 - Urgency of urination Patient Instructions: The patient had an opportunity to ask questions regarding treatment plan. The patient expressed understanding and agreement with the above treatment plan. The patient is aware they should contact our office by phone for worsening of their current condition or the appearance of new symptoms. Compliance is encouraged with any medications and followup testing that is ordered. It is a privilege to be allowed the opportunity to participate in the urologic care of your patient. If you have any questions or concerns regarding treatment for the above conditions please do not hesitate to contact me. The office telephone contact is [phone]. This note is constructed in part using voice recognition software. While every effort has been made to ensure accuracy slitting machine feeder errors may have been included. Yours sincerely, Raysa Dailey MD Coding Level of Care Code Est Pt Level 4 (25798) Complex EM visit Add On G2211 Diagnoses Overactive bladder N32.81 BPH with obstruction/lower urinary tract symptoms N40.1; N13.8
--- OUTSIDE RECORDS SUMMARY | 2024-09-13 12:45 | XMS_ITS | Patient Health Record ---
[facility] Address [address] [place] [address] Care Team Providers Care Event Mgr Name Role Phone Desire Bolanos III Primary Care Provider Unavailab Aftab Powers Unavailable [phone] Clinical, Operations Unavailable Unavailable Jeremy Maggie Unavailable [phone] Pamela Whitney Unavailable [phone] Allergies No Known Allergies Results Component Value Reference Range Notes Hemoglobin A1c Reviewed date:08/24/2024 11:12:27 AM Interpretation: Performing Lab: Notes/Report: Hemoglobin A1c 6.2 CBC, Platelet; No Differenti al Reviewed date:08/24/2024 11:10:16 AM Interpretation: Performing Lab: Notes/Report: WBC 9.7 RBC 4.50 Hemoglobin 12.7 Hematocrit 38.6 MCV 86.4 MCH 28.4 MCHC 32.9 Platelets 244 RDW 15.3 Vitamin D, 1,25 Dihydroxy Reviewed date:08/24/2024 11:13:37 AM Interpretation: Performing Lab: Notes/Report: Vitamin D, 1,25 Dihydroxy 34.1 Lipid Panel And Chol/HDL Rat io Reviewed date:08/24/2024 11:11:36 AM Interpretation: Performing Lab: Notes/Report: Cholesterol, Total 146 Triglycerides 102 HDL Cholesterol 54 VLDL Cholesterol Bhargav 20.4 LDL Cholesterol Calc 72 T. Chol/HDL Ratio 2.7 Hepatic Function Panel (7) Reviewed date:08/24/2024 11:07:06 AM Interpretation: Performing Lab: Notes/Report: Protein, Total, Serum 6.9 Albumin, Serum 3.4 Bilirubin, Total 0.4 Alkaline Phosphatase, S 58 AST (SGOT) 23 ALT (SGPT) 29 Basic Metabolic Panel (8) Reviewed date:08/24/2024 11:04:46 AM Interpretation: Performing Lab: Notes/Report: Calcium, Serum 10.7 Glucose, Serum 97 BUN 19 Potassium, Serum 4.5 Sodium, Serum 138 Chloride, Serum 104 Creatinine, Serum 1.02 Carbon Dioxide, Total 27 BUN/Creatinine Ratio 18.6 Reason For Referral Reason Initial HMK 13 hrs p er week Auth #[id number]) Diagnosis 1 Other malaise (R53.8 1) Referring Provider First Name Operations Referring Provider Last Name Clinical Referring Provider Speciality Unknown Referred Provider [facility] Referred Provider Specialty Certified [facility] General Notes This referral is lucía ng sent to supply the member's demographic information for authorization # #[id number]) , , This is in addition to the Approval Letter that was sent from [facility]. , , If for any reason you are unable to accommodate this request, please call [facility] at [phone], , Thank You., Yesy Tsai 09/18/2023 12:54:40 PM > Referral Priority Routine Reason inc 4 packs of eric ansing wipes monthly 120 XL pull ups monthly 2 boxes of large gloves monthly prescriber npi [phone] desire bolanos fax [phone] Diagnosis 1 Incontinence (R32) Referring Provider First Name Operations Referring Provider Last Name Clinical Referring Provider Speciality Unknown Referred Provider [employer] General Notes Dwight Kinney 024 08:31:37 AM > fxd per cmp Clinical Notes See doc #[id number]. Sc ript for Pullups Gloves PersonalWipes script Referral Priority Routine Reason Initial [facility] [employer]CH [employer] RECOVERY TECHNICIAN Refe rral Request: Functional Assessment Faxed Separately Diagnosis 1 Dementia without beh avioral disturbance, unspecified dementia type (F03.90) Referring Provider First Name Operations Referring Provider Last Name Clinical Referring Provider Speciality Unknown Referred Provider [facility] Referred Provider Specialty Adult Foster Care Clinical Notes Is the Member ICO or [facility]CO?, Response :, [facility]CO, 2. Primary Contact for Member:, Response :, Contact Name & Number -Contact Name: Mikki Youngblood, Contact Name & Number -Contact Number:: [phone], Notes :Secondary contact: Mireya Kothari, Daughter, , 3. Member's preferred language:, Response :, Mozambican, 4. Still Operator Gin Info:, Response :, Still Operator Gin Name & email -Still Operator Gin Name:: Angela Salguero, Still Operator Gin Name & email -Still Operator Gin email address:: [email or web address], 5. Is this request for any of the following?, Response :, Initial, 6. Is the Member experiencing a change/decline in the following:, Response :, Change in informal support or living situation -Please explain:: Daughter would like to switch from [facility] to AIRCRAFT LAUNCH AND RECOVERY TECHNICIAN services. Reports having a difficult time getting a responsible aide from agency, and some concerns are related due to multiple no shows, conflicts with scheduling and language barrier. Current aide doesn't have a license and is unable to bring member to medical appointments., 7. Who is requesting AIRCRAFT LAUNCH AND RECOVERY TECHNICIAN services or changes in service?, Response :, Member, 8. Will member likely need a surrogate to manage a AIRCRAFT LAUNCH AND RECOVERY TECHNICIAN?, Response :, Yes -Provide surrogate contact if available:: Mikki Youngblood, Daughter, [phone], 9. Please list the ICD-10 diagnosis that supports the need for AIRCRAFT LAUNCH AND RECOVERY TECHNICIAN, Response :, ICD-10 Code & Dx name: -ICD-10 Code:: F03.90, ICD-10 Code & Dx name: -ICD-10 Dx name:: Dementia without behavioral disturbance, unspecified dementia type, 10. List (at least 2) hands on ADL needs this member will require assistance, Response :, List 2 ADL's: -ADL #1: bathing, List 2 ADL's: -ADL#2: dressing, 11. What are the Member's informal supports?, Response :, Limited informal support from daughter, Mikki Youngblood. Daughter works head cager and only provides assistance with phone use, scheduling and managing appointments., 12. Does the Member have an existing LTSS (Halfway Support Service)?, Response :, Yes -Select the following:: Personal Care Agency, 13. Will the AIRCRAFT LAUNCH AND RECOVERY TECHNICIAN be replacing the current LTSS?, Response :, Yes -Select all that apply:: Personal Care Agency, 14. Provide the PCM (Personal Care Management) Agency Name/Contact the member will be using:, Response :, [facility], Notes :Current ALEX: [facility] Not listed, 15. Has the GSSC (Geriatric Senior Pipe Liner)/LTSC (Split Leather Department Supervisor Medical Housekeeper) been notified/aware of AIRCRAFT LAUNCH AND RECOVERY TECHNICIAN request?, Response :, Yes -GSSC Name:: Lawrence Mancia, Yes -GSSC Contact Number:: [phone], Yesy Tsai 08/23/2024 09:59:36 AM > Referral Priority Routine Medications Medication SIG (Take, Route, Frequency, Duration) Notes Start Date End Date Status Losartan Potassium 25 MG 1 tablet Orally Once a day Active Metoprolol Tartrate 25 MG 1 tablet with food Orally Twice a day Per dtr, member is not taking Not-Taking Mirabegron ER 50 MG 1 tablet Orally Once a day Active Omeprazole 20 MG 1 capsule 30 minutes before morning meal Orally Once a day Active Aspirin 81 81 MG 1 tablet Orally Once a day Active Alendronate Sodium 70 MG 1 tablet 30 minutes before the first food, beverage or medicine of the day with plain water Orally 1X Weekly friday Active Symbicort 160-4.5 MCG/ACT 2 puffs Inhalation once daily Active Refresh 1.4-0.6 % 1 drop both eyes Ophthalmic Three times a day Active Tamsulosin HCl 0.4 MG 1 capsule Orally Once a day Active DULoxetine HCl 20 MG 1 capsule Orally Once a day Active Docusate Sodium 100 MG 1 capsule Orally Twice a day Active VESIcare 10 MG 1 tablet Orally Once a day Active Combivent Respimat 20-100 MCG/ACT 1 puff as needed Inhalation every 6 hrs Active Multivitamin - 1 tablet Orally Once a day Active Naproxen 500 MG 1 tablet with food or milk as needed Orally every 12 hrs Per dtr, member is not taking Not-Taking Ammonium Lactate 12 % 1 application as needed Externally Twice a day Per dtr, member is not taking Not-Taking Senna 8.6 MG 1 tablet at bedtime as needed Orally Once a day Active Donepezil HCl 10 MG 1 tablet at bedtime Orally Once a day Active Lidocaine 5 % 1 patch remove after 12 hours Externally Once a day Active Vitamin D3 50 MCG (2000 UT) 1 capsule Orally Once a day Per dtr, member is not taking Not-Taking Albuterol Sulfate 108 (90 Base) MCG/ACT 1 puff as needed Inhalation every 4 hrs Active Acetaminophen Extra Strength 500 MG 1 tablet as needed Orally every 6 hrs Active Fluticasone Propionate 50 MCG/ACT 1 spray in each nostril Nasally as needed for allergies Active Fish Oil 1200 MG 1 capsule Orally Once a day Active Rosuvastatin Calcium 20 MG 1 tablet Orally Once a day Active Immunizations Vaccine Route Administration Date Status Comme nts [id number] Flu Vac (Fluad) PFS Unknown 03/02/2024 Admini stered Flu Vac (Fluad) QIV PFS Adjuvanted Unknown 03/29/2023 A dministered influenza, high-dose, quadrivalent Unknown 02/29/2020 A dministered influenza, high-dose, quadrivalent Unknown 01/30/2021 A dministered influenza, high-dose, quadrivalent Unknown 04/05/2022 A dministered Christopher (J&J) COVID-19 Vaccine IM Unknown 08/28/2020 Ad ministered Christopher (J&J) COVID-19 Vaccine IM Unknown 05/10/2021 Ad ministered PNEUMOCOCCAL VAC (Prevnar 13), PFS Unknown 11/23/2015 A dministered TD ADSORBED 7 YR (adult) Unknown 07/01/2005 Administere d Td Vaccine, 7 Yrs or Older, SDV, IM Unknown 03/27/2016 Administered Zoster Vac ( Zostavax) Unknown 01/08/2017 Administered Problems Problem Type SNOMED Code ICD Code Onset Dates Problem Status W/U Status Risk Notes Problem 59382244 Age-related osteoporosis without current pathological fracture (M81.0) Active confirmed Problem Incontinence (69785694) Incontinence (R32) Inactive confirmed Problem Gastroesophageal reflux disease (140102607) GERD (gastroesophagea l reflux disease) (K21.9) Active confirmed Problem 81630063 SUSANNA (obstructive sleep apnea) (G47.33) Active confirmed Problem Hypertension (86197730) HTN (hypertension) (I10) Inactive confirmed Problem 074876905 Risk for falls (Z91.81) Active confirmed Problem Vitamin D deficiency (78326749) Vitamin D deficiency (E55.9) Active confirmed Problem Benign prostatic hyperplasia (981500311) BPH (benign prostatic hyperplasia) (N40.0) Inactive confirmed Problem Sleep apnea (96922745) Sleep apnea (G47.30) Inactive confirmed Problem Back pain (585243738) Back pain (M54.9) Inactive confirmed Problem DM - Diabetes mellitus (05924552) DM (diabetes mellitus) (E11.9) Inactive confirmed Problem Hyperlipidaemia (66250120) HLD (hyperlipidemia) (E78.5) Active confirmed Problem Arthritis (0255049) Arthritis (M19.90) Inactive confirmed Problem Hypercalcemia (92610284) Hypercalcemia (E83.52) Inactive confirmed Problem 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) History of CT (myocardial infarction) (I25.2) Active confirmed Problem 900803530 Mild cognitive impairment, so stated (G31.84) Inactive confirmed Problem Bladder incontinence (049433681) Bladder incontinence (R32) Active confirmed Problem Hyperparathyroidism (18108634) Hyperparathyroid ism, unspecified (E21.3) Active confirmed dx verified via [facility] Claims Problem 256686917 Cataract extraction status, unspecified eye (Z98.49) Active confirmed Problem Monoclonal gammopath y (11866064) Monoclonal gammopathy (D47.2) Active confirmed dx verified via [facility] Claims Problem Degeneration of cervicothoracic intervertebral disc (3884767091) 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) Active confirmed Problem Sickle cell trait (34813675) Sickle-cell trait (D57.3) Active confirmed dx verified via [facility] Claims Problem 229632257 OAB (overactive bladder) (N32.81) Active confirmed Problem 3882645 Hallucination (R44.3) Inactive confirmed Problem 945585011 Effusion, right wrist (M25.431) Inactive confirmed Problem 684495661845512 Effusion, left wrist (M25.432) Inactive confirmed Problem 811188908 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 (Z79.51) Active confirmed Problem 476938860337000 intermediate (current) use of aspirin (Z79.82) Active confirmed Problem 201262612 Presence of intraocular lens (Z96.1) Active confirmed Problem 009510756 Atherosclerosis of [place] coronary artery of [place] heart without angina pectoris (I25.10) Active confirmed Problem 34682748 Other chronic pain (G89.29) Active confirmed Problem 21709760 Constipation, unspecified constipation type (K59.00) Active confirmed Problem 654850013 Osteoarthritis, unspecified osteoarthritis type, unspecified site (M19.90) Active confirmed Problem 79929569 Hypertensive heart disease without heart failure (I11.9) Active confirmed Problem 65171733289161 Morbid (severe) obesity due to excess calories (E66.01) Active confirmed Problem Long-term current us e of antiplatelet drug (170629704800468) Long-term use of aspirin therapy (Z79.82) Inactive confirmed Problem 22197547 Dementia without behavioral disturbance, unspecified dementia type (F03.90) Active confirmed Problem 38727753 Recurrent major depressive disorder, in full remission (F33.42) Active confirmed Problem 47062890 Type 2 diabetes mellitus with diabetic polyneuropathy, 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) Active confirmed Problem 160469298 Insomnia, unspecified type (G47.00) Active confirmed Problem Pure hypercholesterolemia (599842925) Pure hypercholesterol emia, unspecified (E78.00) Active confirmed dx verified via [facility] Claims Problem 032830003 Benign prostatic hyperplasia with lower urinary tract symptoms, symptom details unspecified (N40.1) Active confirmed Problem 185984773 Moderate persistent asthma, unspecified whether complicated (J45.40) Active confirmed Problem 483035999 Body mass index (BMI) of 38.0 to 38.9 in adult (Z68.38) Active confirmed Problem History of COVID-19 (455121700732573822) History of COVID-19 (Z86.16) Inactive confirmed Vital Signs Height-cm 162.56 cm 08/19/2024 per member repo rt Weight-kg 95.26 kg 08/19/2024 per member repo rt Height 64 in 08/19/2024 per member repo rt Weight 210 lbs 08/19/2024 per member repo rt BMI 36.04 kg/m2 08/19/2024 per member repo rt Encounters Encounter Location Date Provider Diagnosis [address] [address] 06/28/2024 Operations Clinical [address] [address] 08/19/2024 Iris Jeremy Dementia without behavioral disturbance, unspecified dementia type F03.90 ; Recurrent major depressive disorder, in full remission F33.42 ; Moderate persistent asthma, unspecified whether complicated J45.40 ; Type 2 diabetes mellitus with diabetic polyneuropathy, without long-term current use of insulin E11.42 ; Osteoarthritis, unspecified osteoarthritis type, unspecified site M19.90 ; Atherosclerosis of [place] coronary artery of [place] heart without angina pectoris I25.10 ; 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 ; History of CT (myocardial infarction) I25.2 ; Bladder incontinence R32 ; Hypertensive heart disease without heart failure I11.9 ; Vitamin D deficiency E55.9 ; HLD (hyperlipidemia) E78.5 ; GERD (gastroesophageal reflux disease) K21.9 ; Insomnia, unspecified type G47.00 ; Other chronic pain G89.29 ; Morbid (severe) obesity due to excess calories E66.01 ; Constipation, unspecified constipation type K59.00 ; Benign prostatic hyperplasia with lower urinary tract symptoms, symptom details unspecified N40.1 ; 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 Z79.51 ; medical terminologist (current) use of aspirin Z79.82 ; SUSANNA (obstructive sleep apnea) G47.33 ; OAB (overactive bladder) N32.81 ; Body mass index (BMI) of 38.0 to 38.9 in adult Z68.38 ; Risk for falls Z91.81 ; Cataract extraction status, unspecified eye Z98.49 ; Presence of intraocular lens Z96.1 ; Age-related osteoporosis without current pathological fracture M81.0 ; Hyperparathyroidism, unspecified E21.3 ; Sickle-cell trait D57.3 ; Monoclonal gammopathy D47.2 and Pure hypercholesterolemia, unspecified E78.00 [place] [id number] [address] [address] 08/19/2024 Pamela Whitney Dementia without behavioral disturbance, unspecified dementia type F03.90 ; Type 2 diabetes mellitus with diabetic polyneuropathy, without long-term current use of insulin E11.42 ; Osteoarthritis, unspecified osteoarthritis type, unspecified site M19.90 and Other chronic pain G89.29 [facility] 10/18/2023 Operati ons Clinical Dementia without behavioral disturbance, unspecified dementia type F03.90 ; Recurrent major depressive disorder, in full remission F33.42 ; Moderate persistent asthma, unspecified whether complicated J45.40 ; Type 2 diabetes mellitus with diabetic polyneuropathy, without long-term current use of insulin E11.42 ; Osteoarthritis, unspecified osteoarthritis type, unspecified site M19.90 ; Atherosclerosis of [place] coronary artery of [place] heart without angina pectoris I25.10 ; 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 ; History of CT (myocardial infarction) I25.2 ; Bladder incontinence R32 ; Hypertensive heart disease without heart failure I11.9 ; Vitamin D deficiency E55.9 ; HLD (hyperlipidemia) E78.5 ; GERD (gastroesophageal reflux disease) K21.9 ; Insomnia, unspecified type G47.00 ; Other chronic pain G89.29 ; Morbid (severe) obesity due to excess calories E66.01 ; Constipation, unspecified constipation type K59.00 ; Benign prostatic hyperplasia with lower urinary tract symptoms, symptom details unspecified N40.1 ; 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 Z79.51 ; medical terminologist (current) use of aspirin Z79.82 ; SUSANNA (obstructive sleep apnea) G47.33 ; OAB (overactive bladder) N32.81 ; Body mass index (BMI) of 38.0 to 38.9 in adult Z68.38 ; Risk for falls Z91.81 ; Cataract extraction status, unspecified eye Z98.49 and Presence of intraocular lens Z96.[address] [address] 07/17/2024 Operations Clinical Dementia without behavioral disturbance, unspecified dementia type F03.90 ; Recurrent major depressive disorder, in full remission F33.42 ; Moderate persistent asthma, unspecified whether complicated J45.40 ; Type 2 diabetes mellitus with diabetic polyneuropathy, without long-term current use of insulin E11.42 ; Osteoarthritis, unspecified osteoarthritis type, unspecified site M19.90 ; Atherosclerosis of [place] coronary artery of [place] heart without angina pectoris I25.10 ; 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 ; History of CT (myocardial infarction) I25.2 ; Bladder incontinence R32 ; Hypertensive heart disease without heart failure I11.9 ; Vitamin D deficiency E55.9 ; HLD (hyperlipidemia) E78.5 ; GERD (gastroesophageal reflux disease) K21.9 ; Insomnia, unspecified type G47.00 ; Other chronic pain G89.29 ; Morbid (severe) obesity due to excess calories E66.01 ; Constipation, unspecified constipation type K59.00 ; Benign prostatic hyperplasia with lower urinary tract symptoms, symptom details unspecified N40.1 ; 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 Z79.51 ; intermediate (current) use of aspirin Z79.82 ; SUSANNA (obstructive sleep apnea) G47.33 ; OAB (overactive bladder) N32.81 ; Body mass index (BMI) of 38.0 to 38.9 in adult Z68.38 ; Risk for falls Z91.81 ; Cataract extraction status, unspecified eye Z98.49 ; Presence of intraocular lens Z96.1 and Age-related osteoporosis without current pathological fracture M81.0 Assessments Encounter Date Diagnosis (ICD Code) Assessment Notes Treatment Notes Treatment Clinical Notes Section Notes 10/18/2023 Dementia without behavioral disturbance, unspecified dementia type (ICD-10 - F03.90) 07/17/2024 Dementia without behavioral disturbance, unspecified dementia type (ICD-10 - F03.90) [facility] 08/19/2024 Dementia without behavioral disturbance, unspecified dementia type (ICD-10 - F03.90) 08/19/2024 Recurrent major depressive disorder, in full remission (ICD-10 - F33.42) 08/19/2024 Dementia without behavioral disturbance, unspecified dementia type (ICD-10 - F03.90) 08/19/2024 Type 2 diabetes mellitus with diabetic polyneuropathy, without long-term current use of insulin (ICD-10 - E11.42) 08/19/2024 Moderate persistent asthma, unspecified whether complicated (ICD-10 - J45.40) 07/17/2024 Recurrent major depressive disorder, in full remission (ICD-10 - F33.42) Diagnosis from [facility] 10/18/2023 Recurrent major depressive disorder, in full remission (ICD-10 - F33.42) 10/18/2023 Moderate persistent asthma, unspecified whether complicated (ICD-10 - J45.40) 07/17/2024 Moderate persistent asthma, unspecified whether complicated (ICD-10 - J45.40) Diagnosis from [facility] 08/19/2024 Type 2 diabetes mellitus with diabetic polyneuropathy, without long-term current use of insulin (ICD-10 - E11.42) 08/19/2024 Osteoarthritis, unspecified osteoarthritis type, unspecified site (ICD-10 - M19.90) 08/19/2024 Other chronic pain (ICD-10 - G89.29) This OT finds member presents with a need for assistance in 2 plus ADLS, as such this OT recommends that member qualifies for AIRCRAFT LAUNCH AND RECOVERY TECHNICIAN Program. See LUX Luna's Functional Assessment in [facility] for details. 08/19/2024 Osteoarthritis, unspecified osteoarthritis type, unspecified site (ICD-10 - M19.90) 07/17/2024 Type 2 diabetes mellitus with diabetic polyneuropathy, without long-term current use of insulin (ICD-10 - E11.42) Diagnosis [facility] 10/18/2023 Type 2 diabetes mellitus with diabetic polyneuropathy, without long-term current use of insulin (ICD-10 - E11.42) 10/18/2023 Osteoarthritis, unspecified osteoarthritis type, unspecified site (ICD-10 - M19.90) 07/17/2024 Osteoarthritis, unspecified osteoarthritis type, unspecified site (ICD-10 - M19.90) Diagnosis [facility] 08/19/2024 Atherosclerosis of [place] coronary artery of [place] heart without angina pectoris (ICD-10 - I25.10) 08/19/2024 Degeneration of cervicothoracic intervertebral disc (ICD-10 - M50.33) 07/17/2024 Atherosclerosis of [place] coronary artery of [place] heart without angina pectoris (ICD-10 - I25.10) Diagnosis from [facility] 10/18/2023 Atherosclerosis of [place] coronary artery of [place] heart without angina pectoris (ICD-10 - I25.10) 10/18/2023 Degeneration of cervicothoracic intervertebral disc (ICD-10 - M50.33) 07/17/2024 Degeneration of cervicothoracic intervertebral disc (ICD-10 - M50.33) Diagnosis from [facility] 08/19/[address] (myocardial infarction) (ICD-10 - I25.2) 08/19/2024 Bladder incontinence (ICD-10 - R32) 07/17/[address] (myocardial infarction) (ICD-10 - I25.2) Diagnosis from [facility] 10/18/[address] (myocardial infarction) (ICD-10 - I25.2) 10/18/2023 Bladder incontinence (ICD-10 - R32) 07/17/2024 Bladder incontinence (ICD-10 - R32) Diagnosis from [facility] 08/19/2024 Hypertensive heart disease without heart failure (ICD-10 - I11.9) 08/19/2024 Vitamin D deficiency (ICD-10 - E55.9) 07/17/2024 Hypertensive heart disease without heart failure (ICD-10 - I11.9) Diagnosis from [facility] 10/18/2023 Hypertensive heart disease without heart failure (ICD-10 - I11.9) 10/18/2023 Vitamin D deficiency (ICD-10 - E55.9) 07/17/2024 Vitamin D deficiency (ICD-10 - E55.9) Diagnosis from [facility] 08/19/2024 HLD (hyperlipidemia) (ICD-10 - E78.5) 08/19/2024 GERD (gastroesophageal reflux disease) (ICD-10 - K21.9) 07/17/2024 HLD (hyperlipidemia) (ICD-10 - E78.5) Diagnosis from [facility] 10/18/2023 HLD (hyperlipidemia) (ICD-10 - E78.5) 10/18/2023 GERD (gastroesophageal reflux disease) (ICD-10 - K21.9) 07/17/2024 GERD (gastroesophageal reflux disease) (ICD-10 - K21.9) Diagnosis from [facility] 08/19/2024 Insomnia, unspecified type (ICD-10 - G47.00) 08/19/2024 Other chronic pain (ICD-10 - G89.29) 07/17/2024 Insomnia, unspecified type (ICD-10 - G47.00) Diagnosis from [facility] 10/18/2023 Insomnia, unspecified type (ICD-10 - G47.00) 10/18/2023 Other chronic pain (ICD-10 - G89.29) 07/17/2024 Other chronic pain (ICD-10 - G89.29) Diagnosis from [facility] 08/19/2024 Morbid (severe) obesity due to excess calories (ICD-10 - E66.01) 08/19/2024 Constipation, unspecified constipation type (ICD-10 - K59.00) 07/17/2024 Morbid (severe) obesity due to excess calories (ICD-10 - E66.01) Diagnosis from [facility] 10/18/2023 Morbid (severe) obesity due to excess calories (ICD-10 - E66.01) 10/18/2023 Constipation, unspecified constipation type (ICD-10 - K59.00) 07/17/2024 Constipation, unspecified constipation type (ICD-10 - K59.00) [facility] 08/19/2024 Benign prostatic hyperplasia with lower urinary tract symptoms, symptom details unspecified (ICD-10 - N40.1) 08/19/2024 intermediate (current) use of inhaled steroids (ICD-10 - Z79.51) 07/17/2024 Benign prostatic hyperplasia with lower urinary tract symptoms, symptom details unspecified (ICD-10 - N40.1) Diagnosis from [facility] 10/18/2023 Benign prostatic hyperplasia with lower urinary tract symptoms, symptom details unspecified (ICD-10 - N40.1) 10/18/2023 intermediate (current) use of inhaled steroids (ICD-10 - Z79.51) 07/17/2024 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 (ICD-10 - Z79.51) Diagnosis from [facility] 08/19/2024 medical terminologist (current) use of aspirin (ICD-10 - Z79.82) 08/19/2024 SUSANNA (obstructive sleep apnea) (ICD-10 - G47.33) 07/17/2024 intermediate (current) use of aspirin (ICD-10 - Z79.82) Diagnosis from [facility] 10/18/2023 medical terminologist (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) use of aspirin (ICD-10 - Z79.82) 10/18/2023 SUSANNA (obstructive sleep apnea) (ICD-10 - G47.33) 07/17/2024 SUSANNA (obstructive sleep apnea) (ICD-10 - G47.33) Diagnosis from [facility] 08/19/2024 OAB (overactive bladder) (ICD-10 - N32.81) 08/19/2024 Body mass index (BMI) of 38.0 to 38.9 in adult (ICD-10 - Z68.38) 07/17/2024 OAB (overactive bladder) (ICD-10 - N32.81) Diagnosis from [facility] 10/18/2023 OAB (overactive bladder) (ICD-10 - N32.81) 10/18/2023 Body mass index (BMI) of 38.0 to 38.9 in adult (ICD-10 - Z68.38) 07/17/2024 Body mass index (BMI) of 38.0 to 38.9 in adult (ICD-10 - Z68.38) Diagnosis from [facility] 08/19/2024 Risk for falls (ICD-10 - Z91.81) 08/19/2024 Cataract extraction status, unspecified eye (ICD-10 - Z98.49) 07/17/2024 Risk for falls (ICD-10 - Z91.81) Diagnosis from [facility] 10/18/2023 Risk for falls (ICD-10 - Z91.81) 10/18/2023 Cataract extraction status, unspecified eye (ICD-10 - Z98.49) 07/17/2024 Cataract extraction status, unspecified eye (ICD-10 - Z98.49) Diagnosis from [facility] 08/19/2024 Presence of intraocular lens (ICD-10 - Z96.1) 08/19/2024 Age-related osteoporosis without current pathological fracture (ICD-10 - M81.0) 07/17/2024 Presence of intraocular lens (ICD-10 - Z96.1) Diagnosis from [facility] 10/18/2023 Presence of intraocular lens (ICD-10 - Z96.1) 07/17/2024 Age-related osteoporosis without current pathological fracture (ICD-10 - M81.0) Diagnosis from [facility] 08/19/2024 Hyperparathyroidism , unspecified (ICD-10 - E21.3) dx verified via [facility] 08/19/2024 Sickle-cell trait (ICD-10 - D57.3) dx verified via [facility] 08/19/2024 Monoclonal gammopathy (ICD-10 - D47.2) dx verified via [facility] 08/19/2024 Pure hypercholesterolemi a, unspecified (ICD-10 - E78.00) dx verified via [facility] Plan Of Treatment No Information Insurance Providers Payer Name Payer Address Payer Phone Subscriber Number Group Number Insured Name Patient Relationship to Insured Coverage Start Date Coverage End Date [facility] [place] [employer] ([id number] [facility] [address] [place] [address] [id number] Craig Kothari Self - patient is the insured 9 Medical (General) History Surgical History Surgery Date(Month/Year) L MEGHANA 2001 angioplasty 1997
--- OUTSIDE RECORDS SUMMARY | 2024-09-13 12:45 | XMS_ITS | Clinical Summary ---
Author Organization [facility] Address [address] [place] [address] Care Team Providers Care Field Observer Name Role Phone Navdeep Bolanos MD Primary Care Provider [phone] Allergies No known active allergies Medications Medication Sig Dispensed Refills Start Date End Date Status omeprazole (PriLOSEC) 20 MG capsule Take 1 capsule (20 mg total) by mouth daily. 0 Active Docusate Sodium 100 MG capsule Take 100 mg by mouth 2 (two) times a day. 0 Active Metoprolol Succinate 25 MG CS24 Take by mouth 2 (two) times a day. 0 Active solifenacin (VESICARE) 5 MG tablet Take 2 tablets (10 mg total) by mouth daily. 0 Active DULOXETINE HCL PO Take by mouth. 0 Act joshua aspirin EC 81 MG tablet Take 1 tablet (81 mg total) by mouth daily. 0 Active tamsulosin (FLOMAX) 0.4 MG CAPS Take 1 capsule (0.4 mg total) by mouth daily. 0 Active rosuvastatin (CRESTOR) tablet 20 mg Take 1 tablet (20 mg total) by mouth daily. 0 Active donepezil (ARICEPT) 5 MG tablet Take 1 tablet (5 mg total) by mouth every night at bedtime. 0 Active alendronate (FOSAMAX) tablet 70 mg Take 1 tablet (70 mg total) by mouth every 7 days. Take with water on empty stomach/Nothing by mouth and do not lie down for next 30 minutes 0 Active [place]-3 Fatty Acids (FISH OIL OMEGA-3 PO) Take by mouth. 0 Active Multiple Vitamin (MULTI-VITAMIN PO) Take by mouth. 0 Ac tive senna (SENOKOT) 8.6 MG tablet Take 1 tablet by mouth daily. 0 Active acetaminophen (TYLENOL) 325 MG tablet Take 2 tablets (650 mg total) by mouth 2 (two) times a day. 0 Active Budesonide-Formoterol Fumarate (SYMBICORT IN) Inhale into the lungs. 0 Active fluticasone (FLONASE) 50 MCG/ACT nasal spray spray/apply 1 spray in each nostril daily. 0 Active Ipratropium-Albuterol (COMBIVENT RESPIMAT IN) Inhale into the lungs. 0 Active Active Problems No known active problems Family History Medical History Relation Name Comments Cancer Brother Colon Cancer Mother Stomach Cancer Sister Luekima Relation Name Status Comments Brother Mother Sister Social History Tobacco Use Types Packs/Day Years Used Date Smoking Tobacco: Former Smokeless Tobacco: Never Alcohol Use Standard Drinks/Week Comments Never 0 (1 standard drink = 0.6 oz pur e alcohol) Sex and Gender Information Value Date Recorded Sex Assigned at Not on file Gender Identity Not on file Sexual Orientation Not on file Job Start Date Occupation Industry Not on file Not on file Not on file Last Filed Vital Signs Vital Sign Reading Time Taken Comments Blood Pressure 140/69 09/11/2023 10:40 AM EDT Pulse 58 09/11/2023 10:40 AM EDT Temperature 36.2 ??C (97.2 ??F) 09/11/2023 10:40 AM E DT Respiratory Rate - - Oxygen Saturation 99% 09/11/2023 10:40 AM EDT Inhaled Oxygen Concentration - - Weight 98.4 kg (217 lb) 09/11/2023 10:40 AM EDT Height 157.5 cm (5' 2 ) 09/11/2023 10:40 AM EDT Body Mass Index 39.69 09/11/2023 10:40 AM EDT Plan of Treatment Health Maintenance Due Date Last Done Comments Depression Screening 1953 Preventative Health Evaluation 1959 DTap / Tdap / Td (1 - Tdap) 1960 Shingrix-Zoster Vaccine (1 of 2) 1991 Fall Risk Assessment 2006 RSV Adult > 60+ Yrs or (1 - 1-dose 75+ series) 2016 COVID-19 Vaccine (3 - 2024-25 season) 2024 05/10/2021, 08/28/2020 Influenza Vaccine (#1) 2024 3, 04/05/2022, 01/30/2021, Additional history exists Pneumococcal Vaccine Completed 11/23/2015, 08/02/19 11 Hepatitis B Vaccines Aged Out No long er eligible based on patient's age to complete this topic RSV Ped < 20 months Aged Out No longe r eligible based on patient's age to complete this topic Care Teams Field Observer Relationship Specialty Start Date End Date Navdeep Bolanos MD PCP - General Internal Medicine 01/17/21
--- OUTSIDE RECORDS SUMMARY | 2024-09-13 12:45 | XMS_ITS | Encounter Summary ---
Author Organization [facility] Address [address] [place] [address] Care Team Providers Care Hardware Assembler Name Role Phone Navdeep Bolanos MD Primary Care Provider [phone] Encounter Details Date Type Department Care Team (Late st Contact Info) Description 03/23/2024 8:00 AM EDT Hospital Encounter TH HISTORIC ENCOUNTERS [facility]AST[facility] CONVERSION ONLY Navdeep Bolanos MD [address] [place] [id number] Social History Tobacco Use Types Packs/Day Years [...] Encounters Date Type Department Care Team (Late st Contact Info) Description 01/12/2025 8:15 AM EDT [facility] [address] [phone] Conchita Pedraza MD [address] [id number] 01/26/2025 8:30 AM EDT Office Visit [facility] - [address] [phone] Navdeep Bolanos MD [address] [place] [id number] 05/02/2025 9:30 AM EST Office Visit Endocrinology - [address] [phone] Alfredo Cole MD [address] [place] [address] 08/31/2025 9:30 AM EDT Office Visit [facility] Hematology Oncology [address] [place] [phone] Etelvina Johnson MD [address] [place] [address] documented as of this encounter Visit Diagnoses Not on filedocumented in this encounter Care Teams Hardware Assembler Relationship Specialty Start Date End Date Navdeep Bolanos MD PCP - General Internal Medicine 12/14/19 04/26/24 documented as of this encounter
--- OUTSIDE RECORDS SUMMARY | 2024-09-13 12:45 | XMS_ITS ---
Author Organization [facility] Address [address] [place] [address] Care Team Providers [facility] Director Name Role Phone Epi Bolanos MD Primary Care Provider Jose Ramon Spann Unavailable [phone] Allergies No Known Allergies REASON FOR VISIT At Risk Footcare, Ingrown Nail, Toe Irritation Medications Medication SIG (Take, Route, Frequency, Duration) Notes Start Date End Date Status Compression Stockings 20-30mm Hg 1 pair wear daily for 30 days Active Ammonium Lactate 12 % 1 application to affected area Externally to feet Twice a day for 30 days Active Vitamin D 25 MCG (1000 UT) 1 tablet Orally Once a day for 30 day(s) Not-Taking Extra Depth Orthopedic Shoes (1 Pair) with Customized Heat Molded Multidensity Innersoles (3 Pair) as directed Dx: NIDDM/Polyneuropathy (E11.42), Hammertoe Foot Deformity (M20.41,M20.42), Preulcerative Skin Lesion(s) (L85.1 Active VESIcare 10 MG 1 tablet Orally Once a day for 30 day(s) Active Tamsulosin HCl 0.4 MG 1 capsule Orally O nce a day for 30 day(s) Active Rosuvastatin Calcium 20 MG 1 tablet Orally Once a day for 30 day(s) Active Omeprazole 20 MG 1 capsule 30 minutes before morning meal Orally Once a day for 30 day(s) Active Polyvinyl Alcohol 1.4 % as directed Ophthalmic Active Polyethylene Glycol - as directed Active Nitroglycerin 0.4 MG as directed Sublingual Active Lidocaine 5 % 1 patch remove after 12 hours Externally Once a day Active Gabapentin 100 MG 1 capsule Orally Onc e a day for 30 day(s) Active Naproxen 500 MG 1 tablet with food o r milk as needed Orally every 12 hrs Active Metoprolol Tartrate 25 MG 1 tablet with food Orally Twice a day for 30 day(s) Active DULoxetine HCl 30 MG 1 capsule Orally On ce a day for 30 day(s) Active Docusate Sodium 100 MG 1 capsule as need ed Orally Once a day for 30 day(s) Active Fluticasone Furoate 50 MCG/ACT 1 puff Inhalation Once a day Active Combivent Respimat 20-100 MCG/ACT 1 puff as needed Inhalation every 6 hrs Active Budesonide-Formoterol Fumarate 160-4.5 MCG/ACT 2 puffs Inhalation Twice a day Active Aspirin 81 MG 1 tablet Orally Once a day for 30 day(s) Active Alendronate Sodium 70 MG 1 tablet 30 min utes before the first food, beverage or medicine of the day with plain water Orally for 30 day(s) Active Acetaminophen 500 MG 1 tablet as needed Orally every 6 hrs Active Social History Tobacco Use: Social History Observation Description Date Details (start date - stop date) Former Smoker NA - NA Tobacco Use/Smoking Question Answer Notes Are you a: former smoker Additional Findings: Tobacco Non-User Current no n-smoker Alcohol Screen Question Answer Notes Did you have a drink containing alcohol in the p ast year? No Points 0 Interpretation Negative Tobacco use other than smoking: Question Answer Notes Are you an other tobacco user? No Vital Signs Height 5 ft 4 in in 04/21/2024 Weight 211 lbs 04/21/2024 BMI 36.21 kg/m2 04/21/2024 Procedures Procedure Date Ordered Date Performed Result Body Sit e 76328-DMGKIIT NAIL, 6 OR MORE 04/21/2024 N/A 02824-Yyjhgero Plate 04/21/2024 N/A 93454-NGAG SKIN LESIONS, OVER 4 04/21/2024 N/A Encounters Encounter Location Date Provider Diagnosis [facility] [address] [address] 04/21/2024 Jose Ramon Ghotra Type 2 diabetes mellitus with diabetic polyneuropathy E11.42 ; Tinea unguium B35.1 ; Ingrown nail L60.0 ; Other hammer toe(s) (acquired), right foot M20.41 and Other hammer toe(s) (acquired), left foot M20.42 Assessments Encounter Date Diagnosis (ICD Code) Assessment Notes Treatment Notes Treatment Clinical Notes Section Notes 04/21/2024 Type 2 diabetes mellitus with diabetic polyneuropathy (ICD-10 - E11.42) 04/21/2024 Tinea unguium (ICD-10 - B35.1) 04/21/2024 Ingrown nail (ICD-10 - L60.0) 04/21/2024 Other hammer toe(s) (acquired), right foot (ICD-10 - M20.41) Response to treatment,Impro vement 04/21/2024 Other hammer toe(s) (acquired), left foot (ICD-10 - M20.42) Response to treatment,Impro vement Plan Of Treatment Pending Test Test Name Order Date [id number] NAIL, 6 OR MORE 04/21/2024 13536-Obhwrupf Plate 04/21/2024 87289-BSWU SKIN LESIONS, OVER 4 04/21/20 24 Next Appt Details Follow Up: 3 Months, Reason: Provider Name:Jose Ramon Ghotra , 10/27/2024 08:45:00 AM, [address], [address], [place], [address], Procedure Notes * Category Sub-Category Detail Notes Nail Avulsion Procedure A fine sterile e levator was placed between the eponychium, nail fold, and nail plate to separate the the structures. A sterile nail splitter, and/or sterile 316 blade, was then used to longitudinally section the nail along its entire length through the eponychium to the area under the nail fold. The offending portion of nail was from the nail bed with a rolling action and then removed with a hemostat. No underlying bone was identified. There was minimal bleeding as hemostasis was achieved through the temporary use of either a digital tournaquet or the aforementioned local with epinephrine. A bacitracin sterile dressing was applied. Local wound aftercare instructions were discussed and dispensed. The patient was informed of both conservative and future surgical procedures to prevent recurrence. Tylenol or Motrin was recommended for pain or discomfort (37387), DIABETES: Pt was advised as to the risk of delayed or nonhealing due to diabetes. Pt is to call the office with any questions, concerns, or complications, DIABETES: Matricectomy deferred at this time due to diabetes risk Anesthesia was deferred - NEURO BERHANE: patient has medically documented neuropathic condition affecting sensation Location Lateral nail border, T5 Debride Nail 6-10 Nail debridement Performance o f this nail treatment by a nonprofessional would put this patients foot and overall health at risk. Therefore, debridement to affected nail(s), as described in exam, was performed extensively to reduce/remove overall nail length, girth, thickness, subungual debris, and necrotic tissue, by manual and/or electrical means through the use of a nail nipper and/or dremel-type cnc grinder, to a more viable healthy nail plate or bed tissue 6-10. Silver nitrate used for any petechial bleeding as necessary. Definitive antifungal treatment options have been reviewed and discussed with the patient. The patient chooses, no pharmaceutical tx - 91924 Keratoma Treatment Parring or Cutting o f Benign Hyperkeratotic Lesion(s) (-57) More than 4 Lesions - The Benign hyperkeratotic lesions, as described in exam, were pared, and/or cut utilizing a sterile 15 blade, tissue nippers, and/or dremel - 71369 Progress Notes * MURRELL pEiioDOB:[birth year] (84 yo M)Acc No.[id number]:04/21/2024 Progress Note Patient:?Craig MURRELL Provider:?Jose Ramon Ghotra DPM :1940???Age:84 Y???Sex:Male Kade e:04/21/2024 Address:[address] [place], [place] [id number] Pcp:Epi Bolanos MD Subjective: * Chief Complaints: * ???At Risk FootcareIngrown N ailToe Irritation * HPI: ???At Risk footcare:?Pt States Last PCP Visit:?Date?01/05/2024 ???Toe pain:?Treatments:?Rx shoes .? * ROS:?General/Constitutional:?Nausea?denies.?Vomiting?denies.?Hunger Thirst?denies.?Loss appetite?denies.?Chills?denies.?Fatigue?denies.?Fever?denies.?Night Sweats?denies.?Unexplained weight loss?denies.?Unexplained weight gain?denies.?HEENTM:?Dentures?admits.?Dizziness?denies.?Glasses/contacts?admits.?Retinopathy?de nies.?Blurred/double vision?denies.?TMJ?denies.?Discharge/drainage?denies.?Implants?denies.?Sore throat?denies.?Dental implants?denies.?Hard of hearing ?denies.?Difficulty chewing/swallowing/speaking?denies.?Nose bleeds?denies.?Sore mouth?denies.?Respiratory:?On Oxygen?denies.?Pneumonia/pleurisy?denies.?Bronchitis?denies.?Emphysema?denies.?C oughing?denies.?Cough blood?denies.?Shortness of breath?denies.?Wheezing?admits.?Cardiovascular:?Pacemaker?denies.?MVP?denies.?WPW?denies.?CHF?denies.?Heart attack?denies.?Septal defect?denies.?Rapid beat?denies.?Chest pain ?denies.?Atrial Fib.?denies.?Murmur/Palpitations?denies.?Gastrointestinal:?Hemorrhoids?denies.?Stomach/Abdominal pain?denies.?Dark blood stool?denies.?Irritable bowel ?denies.?Constipation?admits.?Diarrhea?denies.?Hematology:?Swelling?admits.?Clots?denies.?Varicose Veins?denies.?Bruising?admits, on aspirin.?Bleeding problem?admits, on anticoagulants.?Genitourinary:?Blood urine?denies.?Frequent/Painfu/urination/bladder control?denies.?Kidney stones?denies.?Infection (UTI)?denies.?Nephropathy?denies.?sex trans dis (STD)?denies.?Prostate?admits.?Musculoskeletal:?Hammertoes?admits.?Bunions?denies.?Back Pain?admits.?Muscle Cramps/ Resting?denies.?Muscle cramps / walking?admits.?Generalized aches and pains?denies.?Weakness?denies.?Integ.:?Al?denies.?Scars?denies.?Corns/calluses?admits.?Ingrown nails?admits.?Painful nails?denies.?Open Sores?denies.?Rashes?denies.?Neurologic:?Difficulty sleeping?admits.?Brain disorder?denies.?Numbness?admits.?Balance trouble?admits.?Confusion?denies.?Fainting/blackouts?denies.?Tingling?admits, bilateral lower extremities.?Tremors?denies.? * Medical History:? * Surgical History:?No Surgica l History documented. * Hospitalization/Major Diagno stic Procedure:?No Hospitalization History. * Family History:?Mother: dece ased, diagnosed with Other malignant neoplasm of unspecified site.?Father: .? * Social History:?Tobacco Use:?Tobacco Use/Smoking?Are you a:?former smoker ?Additional Findings: Tobacco Non-User?Current non-smoker ?Tobacco use other than smoking?Are you an other tobacco user??No ???Drugs/Alcohol:?Drugs?Have you used drugs other than those for medical reasons in the past 12 months??No ?Alcohol Screen?Did you have a drink containing alcohol in the past year??No ?Points?0 ?Interpretation?Negative ???Miscellaneous:?Caffeine: yes, frequency:. ?Children: yes. ?Marital status: single. ?Occupation: Retired. * Medications:?TakingAcetamino phen 500 MG Tablet 1 tablet as needed Orally every 6 hrs Alendronate Sodium 70 MG Tablet 1 tablet 30 minutes before the first food, beverage or medicine of the day with plain water Orally Aspirin 81 MG Tablet Delayed Release 1 tablet Orally Once a day Budesonide-Formoterol Fumarate 160-4.5 MCG/ACT Aerosol 2 puffs Inhalation Twice a day Combivent Respimat 20-100 MCG/ACT Aerosol Solution 1 puff as needed Inhalation every 6 hrs Docusate Sodium 100 MG Capsule 1 capsule as needed Orally Once a day DULoxetine HCl 30 MG Capsule Delayed Release Particles 1 capsule Orally Once a day Fluticasone Furoate 50 MCG/ACT Aerosol Powder Breath Activated 1 puff Inhalation Once a day Gabapentin 100 MG Capsule 1 capsule Orally Once a day Lidocaine 5 % Patch 1 patch remove after 12 hours Externally Once a day Metoprolol Tartrate 25 MG Tablet 1 tablet with food Orally Twice a day Naproxen 500 MG Tablet 1 tablet with food or milk as needed Orally every 12 hrs Nitroglycerin 0.4 MG Tablet Sublingual as directed Sublingual Omeprazole 20 MG Capsule Delayed Release 1 capsule 30 minutes before morning meal Orally Once a day Polyethylene Glycol - Powder as directed Polyvinyl Alcohol 1.4 % Solution as directed Ophthalmic Rosuvastatin Calcium 20 MG Tablet 1 tablet Orally Once a day Tamsulosin HCl 0.4 MG Capsule 1 capsule Orally Once a day VESIcare 10 MG Tablet 1 tablet Orally Once a day Ammonium Lactate 12 % Cream 1 application to affected area Externally to feet Twice a day Compression Stockings 20-30mm Hg closed toe- knee high 1 pair wear daily Extra Depth Orthopedic Shoes (1 Pair) with Customized Heat Molded Multidensity Innersoles (3 Pair) as directed Dx: NIDDM/Polyneuropathy (E11.42), Hammertoe Foot Deformity (M20.41,M20.42), Preulcerative Skin Lesion(s) (L85.1 Taking Acetaminophen 500 MG Tablet 1 tablet as needed Orally every 6 hrs Taking Alendronate Sodium 70 MG Tablet 1 tablet 30 minutes before the first food, beverage or medicine of the day with plain water Orally Taking Aspirin 81 MG Tablet Delayed Release 1 tablet Orally Once a day Taking Budesonide-Formoterol Fumarate 160-4.5 MCG/ACT Aerosol 2 puffs Inhalation Twice a day Taking Combivent Respimat 20-100 MCG/ACT Aerosol Solution 1 puff as needed Inhalation every 6 hrs Taking Docusate Sodium 100 MG Capsule 1 capsule as needed Orally Once a day Taking DULoxetine HCl 30 MG Capsule Delayed Release Particles 1 capsule Orally Once a day Taking Fluticasone Furoate 50 MCG/ACT Aerosol Powder Breath Activated 1 puff Inhalation Once a day Taking Gabapentin 100 MG Capsule 1 capsule Orally Once a day Taking Lidocaine 5 % Patch 1 patch remove after 12 hours Externally Once a day Taking Metoprolol Tartrate 25 MG Tablet 1 tablet with food Orally Twice a day Taking Naproxen 500 MG Tablet 1 tablet with food or milk as needed Orally every 12 hrs Taking Nitroglycerin 0.4 MG Tablet Sublingual as directed Sublingual Taking Omeprazole 20 MG Capsule Delayed Release 1 capsule 30 minutes before morning meal Orally Once a day Taking Polyethylene Glycol - Powder as directed Taking Polyvinyl Alcohol 1.4 % Solution as directed Ophthalmic Taking Rosuvastatin Calcium 20 MG Tablet 1 tablet Orally Once a day Taking Tamsulosin HCl 0.4 MG Capsule 1 capsule Orally Once a day Taking VESIcare 10 MG Tablet 1 tablet Orally Once a day Taking Ammonium Lactate 12 % Cream 1 application to affected area Externally to feet Twice a day Taking Compression Stockings 20-30mm Hg closed toe- knee high 1 pair wear daily Taking Extra Depth Orthopedic Shoes (1 Pair) with Customized Heat Molded Multidensity Innersoles (3 Pair) as directed Dx: NIDDM/Polyneuropathy (E11.42), Hammertoe Foot Deformity (M20.41,M20.42), Preulcerative Skin Lesion(s) (L85.1 Not-Taking/PRNVitamin D 25 MCG (1000 UT) Tablet 1 tablet Orally Once a day Medication List reviewed and reconciled with the patientNot-Taking/PRN Vitamin D 25 MCG (1000 UT) Tablet 1 tablet Orally Once a day Medication List reviewed and reconciled with the patient * Allergies:?N.K.D.A.yes[Aller gies Verified] Objective: * Vitals:?Ht: 5 ft 4 in, Wt: 2 11, BMI: 36.21, Shoe size: 7.5-8, BS: does not test, Wt-k.71 kg. * Examination: ???Neurological: ?SENSORY:? Neurological exam demonstrates, reduced light touch sensation, reduced sharp/dull pin prick discrimination , plantar aspects, B/L, 5.07 monofilament test performed at plantar aspects of 5 varied sites per foot shows sensation, reduced , B/L.?Nails: ?NAILS are:?Elongated, overgrown, dystrophic, lytic, greater than 3mm thick, discolored and friable with crumbly malodorous subungual debris, 1-5 B/L.?Ingrown Nail: ?INSPECTION:? Reveals nail incurvation, dull pain on palpation due to neuropathy, groove hypertrophy, Lateral nail border, T5.?Dermatologic: ?SKIN FINDINGS:? Skin exam reveals Keratotic lesion(s) located at, Medial plantar, IPJ, TA, Medial plantar, IPJ, T5, SUB MTH (s), 1, B/L , SUB MTH (s), 5, B/L ,Plantar, Heel(s), B/L .?Orthopedic: ?DIGITAL DEFORMITIES:?Digital contracture, PIPJ, 2-5 B/L, incompl-reducible to push-up test, no over, nor underlapping, no longer, with evidence of shoe producing skin irritation.?FOOTWEAR:?good condition, exhibit proper fit and accommodation for pedal deformities. OT were inspected and noted to be worn, but in good condition giving proper support at the present time.? Assessment: * Assessment: 1.?Type 2 diabetes mellitus with diabetic polyneuropathy - E11.42 (Primary)???2.?Tinea unguium - B35.1???3.?Ingrown nail - L60.0???Specify :Lateral nail border, T5???4.?Other hammer toe(s) (acquired), right foot - M20.41???Specify :Chronic problem, Stable (1=3,2=4)???Notes :Response to treatment,Improvement???5.?Other hammer toe(s) (acquired), left foot - M20.42???Specify :Chronic problem, Stable (1=3,2=4)???Notes :Response to treatment,Improvement??? Plan: * Treatment: 2.?Ingrown nail?Procedure: 34713-Kmtusnqm Plate * Procedures:?Debride Nail 6-10:?Nail debridement?Performance of this nail treatment by a nonprofessional would put this patients foot and overall health at risk. Therefore, debridement to affected nail(s), as described in exam, was performed extensively to reduce/remove overall nail length, girth, thickness, subungual debris, and necrotic tissue, by manual and/or electrical means through the use of a nail nipper and/or dremel-type cnc grinder, to a more viable healthy nail plate or bed tissue 6-10. Silver nitrate used for any petechial bleeding as necessary. Definitive antifungal treatment options have been reviewed and discussed with the patient. The patient chooses, no pharmaceutical tx - 03764.?Keratoma Treatment:?Parring or Cutting of Benign Hyperkeratotic Lesion(s)?(-57) More than 4 Lesions - The Benign hyperkeratotic lesions, as described in exam, were pared, and/or cut utilizing a sterile 15 blade, tissue nippers, and/or dremel - 17647.?Nail Avulsion:?Location?Lateral nail border, T5.?Anesthesia?was deferred - NEUROPATHY: patient has medically documented neuropathic condition affecting sensation.?Procedure?A fine sterile elevator was placed between the eponychium, nail fold, and nail plate to separate the the structures. A sterile nail splitter, and/or sterile 316 blade, was then used to longitudinally section the nail along its entire length through the eponychium to the area under the nail fold. The offending portion of nail was from the nail bed with a rolling action and then removed with a hemostat. No underlying bone was identified. There was minimal bleeding as hemostasis was achieved through the temporary use of either a digital tournaquet or the aforementioned local with epinephrine. A bacitracin sterile dressing was applied. Local wound aftercare instructions were discussed and dispensed. The patient was informed of both conservative and future surgical procedures to prevent recurrence. Tylenol or Motrin was recommended for pain or discomfort (25799), DIABETES: Pt was advised as to the risk of delayed or nonhealing due to diabetes. Pt is to call the office with any questions, concerns, or complications, DIABETES: Matricectomy deferred at this time due to diabetes risk.? * Procedure Codes:?50501 DEBRI DE NAIL, 6 OR MORE, Modifiers: XS 50438 Avulsion Plate, Modifiers: XS , [id number] TRIM SKIN LESIONS, OVER 4, Modifiers: XS * Preventive Medicine:? ??Counseling:?Discussion:?-13: Office or other outpatient visit for the evaluation and management of an established patient, which required a medically appropriate history and/or examination and LOW level of DECISION MAKING for: 1 STABLE ACUTE UNCOMPLICATED PROBLEM, 2 OR MORE MINOR PROBLEMS, OR 1 STABLE CHRONIC PROBLEM, THAT POSE(S) A LOW RISK FOR MORBIDITY/MORTALITY. The visit on the day of the encounter encompassed interpreting the data and educating the patient as to the nature of their condition, treatment options available according to their individual PMH, meds, allergies, and overall health/living conditions, as well as any potential risks or complications that may occur from a failure to adhere to, and participate in, the recommended course of therapy. The discussion included a complete verbal, and/or written explanation of the examination results, any x-rays taken, the proposed diagnosis, and outline of the treatment plan. A schedule for future care needs was also explained. The patient verbalized an understanding of the instructions at this time and agreed to be an active participant in their treatment. If the patient should think of any questions or concerns after the visit, I have encouraged the patient to call the office.?Shoe Gear Counseling:?A thorough inspection of the patients Rxed shoegear and inserts was performed and findings communicated. We reviewed the many important medical advantages for adhering to regularly wearing these shoe and insert accomidative devices daily as well as reviewed the fact that a failure in accepting these recommedations may be deleterious, unable to prevent, and disadvantagely result in, many pedal complications such as skin irritation, skin ulceration, infection, and even loss of toe/foot/leg/or even their life. Time was also spent reviewing the proper footcare techniques including daily skin moisturization, daily foot inspection for any interruption in skin integrity, open lesions, or sign of infection such as redness/malodor/drainage/swelling as well as daily shoe inspection for the presence of internal foreign bodies and shoe as well as insert wear. Patient questions re: shoes, inserts, and self foot inspections were answered to their satisfaction as the patient verbally confirmed a full understanding of the above information.? * Follow Up:?3 Months * Images: * Sign off status: Completed true * Provider:?Jose Ramon Ghotra DPM Date:?2023 Generated for Priya bustillo/Lenka/Talat on:?09/13/2024 12:45 PM EDT History and Physical Notes * HPI (History of Present Illness) Category Sub-Category Detail Notes Category Not es Toe pain Treatments: Rx shoes At Risk footcare Pt States Last PCP Visit: Date: 4 Examination Category Sub-Category Detail Notes Category Not es Ingrown Nail INSPECTION: Reveals nail inc urvation, dull pain on palpation due to neuropathy, groove hypertrophy, Lateral nail border, T5 Neurological SENSORY: Neurological exa m demonstrates, reduced light touch sensation, reduced sharp/dull pin prick discrimination , plantar aspects, B/L, 5.07 monofilament test performed at plantar aspects of 5 varied sites per foot shows sensation, reduced , B/L Dermatologic SKIN FINDINGS: Skin exam reveal s Keratotic lesion(s) located at, Medial plantar, IPJ, TA, Medial plantar, IPJ, T5, SUB MTH (s), 1, B/L , SUB MTH (s), 5, B/L ,Plantar, Heel(s), B/L Orthopedic FOOTWEAR EVALUATION: good condit ion, exhibit proper fit and accommodation for pedal deformities. OT were inspected and noted to be worn, but in good condition giving proper support at the present time DIGITAL DEFORMITIES: Digital contracture , PIPJ, 2-5 B/L, incompl-reducible to push-up test, no over, nor underlapping, no longer, with evidence of shoe producing skin irritation Nails NAILS are: Elongated, overg rown, dystrophic, lytic, greater than 3mm thick, discolored and friable with crumbly malodorous subungual debris, 1-5 B/L
--- OUTSIDE RECORDS SUMMARY | 2024-09-13 12:45 | XMS_ITS ---
Author Organization [facility] Address [address] [place] [address] Care Team Providers Care Hearing Examiner Name Role Phone Epi Bolanos MD Primary Care Provider Jose Ramon Spann Unavailable [phone] REASON FOR VISIT At Risk Footcare, Ingrown Nail, Toe Irritation Medications Medication SIG (Take, Route, Frequency, Duration) Notes Start Date End Date Status Fluticasone Furoate 50 MCG/ACT 1 puff Inhalation Once a day Active Gabapentin 100 MG 1 capsule Orally Onc e a day for 30 day(s) Active Combivent Respimat 20-100 MCG/ACT 1 puff as needed Inhalation every 6 hrs Active Docusate Sodium 100 MG 1 capsule as need ed Orally Once a day for 30 day(s) Active DULoxetine HCl 30 MG 1 capsule Orally On ce a day for 30 day(s) Active Acetaminophen 500 MG 1 tablet as needed Orally every 6 hrs Active Alendronate Sodium 70 MG 1 tablet 30 min utes before the first food, beverage or medicine of the day with plain water Orally for 30 day(s) Active Vitamin D 25 MCG (1000 UT) 1 tablet Orally Once a day for 30 day(s) Not-Taking Aspirin 81 MG 1 tablet Orally Once a day for 30 day(s) Active Budesonide-Formoterol Fumarate 160-4.5 MCG/ACT 2 puffs Inhalation Twice a day Active VESIcare 10 MG 1 tablet Orally Once a day for 30 day(s) Active Ammonium Lactate 12 % 1 application to affected area Externally to feet Twice a day for 30 days Active Compression Stockings 20-30mm Hg 1 pair wear daily for 30 days Active Rosuvastatin Calcium 20 MG 1 tablet Orally Once a day for 30 day(s) Active Tamsulosin HCl 0.4 MG 1 capsule Orally O nce a day for 30 day(s) Active Naproxen 500 MG 1 tablet with food o r milk as needed Orally every 12 hrs Active Nitroglycerin 0.4 MG as directed Sublingual Active Omeprazole 20 MG 1 capsule 30 minutes before morning meal Orally Once a day for 30 day(s) Active Polyethylene Glycol - as directed Active Polyvinyl Alcohol 1.4 % as directed Ophthalmic Active Lidocaine 5 % 1 patch remove after 12 hours Externally Once a day Active Metoprolol Tartrate 25 MG 1 tablet with food Orally Twice a day for 30 day(s) Active Extra Depth Orthopedic Shoes (1 Pair) with Customized Heat Molded Multidensity Innersoles (3 Pair) as directed Dx: NIDDM/Polyneuropathy (E11.42), Hammertoe Foot Deformity (M20.41,M20.42), Preulcerative Skin Lesion(s) (L85.1 Active Social History Tobacco Use: Social History [...] Signs Height 5 ft 4 in in 01/19/2024 Weight 215 lbs 01/19/2024 BMI 36.9 kg/m2 01/19/2024 Procedures Procedure Date Ordered Date Performed Result Body Sit e 10974-FQGXBIP NAIL, 6 OR MORE 01/19/2024 N/A 90273-Kwvsyazc Plate 01/19/2024 N/A 78216-PDKP SKIN LESIONS, OVER 4 01/19/2024 N/A Encounters Encounter Location Date Provider Diagnosis [facility] [address] [address] 01/19/2024 Jose Ramon Ghotra Type 2 diabetes mellitus with diabetic polyneuropathy E11.42 ; Tinea unguium B35.1 ; Ingrown nail L60.0 ; Other hammer toe(s) (acquired), right foot M20.41 ; Other hammer toe(s) (acquired), left foot M20.42 and Type 2 diabetes mellitus with diabetic peripheral angiopathy without gangrene E11.51 Assessments Encounter Date Diagnosis (ICD Code) Assessment Notes Treatment Notes Treatment Clinical Notes Section Notes 01/19/2024 Type 2 diabetes mellitus with diabetic polyneuropathy (ICD-10 - E11.42) 01/19/2024 Tinea unguium (ICD-10 - B35.1) 01/19/2024 Ingrown nail (ICD-10 - L60.0) 01/19/2024 Other hammer toe(s) (acquired), right foot (ICD-10 - M20.41) Patient Educated with: DIABETIC FOOT CARE INSTRUCTIONS. pdf (DIABETIC FOOT CARE INSTRUCTIONS. pdf) 01/19/2024 Other hammer toe(s) (acquired), left foot (ICD-10 - M20.42) 01/19/2024 Type 2 diabetes mellitus with diabetic peripheral angiopathy without gangrene (ICD-10 - E11.51) Plan Of Treatment Medication Medication Name Sig Start Date Stop Date Notes Extra Depth Orthopedic Shoes (1 Pair) with Customized Heat Molded Multidensity Innersoles (3 Pair) as directed Dx: NIDDM/Polyneuropathy (E11.42), Hammertoe Foot Deformity (M20.41,M20.42), Preulcerative Skin Lesion(s) (L85.1 Treatment Notes Assessment Notes Other hammer toe(s) (acquired), right fo ot Patient Educated with: DIABETIC FOOT CARE INSTRUCTIONS.pdf (DIABETIC FOOT CARE INSTRUCTIONS.pdf) Pending Test Test Name Order Date 61833-AKMCZHG NAIL, 6 OR MORE 01/19/2024 59135-Honisass Plate 01/19/2024 52636-WUQH SKIN LESIONS, OVER 4 01/19/20 24 Next Appt Details Follow Up: 2 Months, Reason: Provider Name:Jose Ramon Ghotra , 10/27/2024 08:45:00 AM, [address] [facility], [address], [place], [address], Procedure Notes * Category Sub-Category Detail Notes Nail Avulsion Procedure A fine sterile e levator was placed between the eponychium, nail fold, and nail plate to separate the the structures. A sterile nail splitter, and/or sterile #316 blade, was then used to longitudinally section the nail along its entire length through the eponychium to the area under the nail fold. The offending portion of nail was from the nail bed with a rolling action and then removed with a hemostat. No underlying bone was identified. A bacitracin sterile dressing was applied. Local wound aftercare instructions were discussed and dispensed. The patient was informed of both conservative and future surgical procedures to prevent recurrence (33133), DIABETES: Pt was advised as to the risk of delayed or nonhealing due to diabetes. Pt is to call the office with any questions, concerns, or complications Anesthesia was deferred - NEURO BERHANE: patient has medically documented neuropathic condition affecting sensation Location Lateral nail border, T5 Debride Nail 6-10 Nail debridement Performance o f this nail treatment by a nonprofessional would put this patients foot and overall health at risk. Therefore, nail debridement was performed extensively to reduce/remove overall nail length, girth, thickness, subungual debris, and necrotic tissue, by manual and/or electrical means through the use of a nail nipper and/or dremel-type grinder carbon plant, to a more viable healthy nail plate or bed tissue 6-10. Silver nitrate used for any petechial bleeding as necessary. Definitive antifungal treatment options have been reviewed and discussed with the patient. The patient chooses, no pharmaceutical tx (58852) Keratoma Treatment Parring or Cutting o f Benign Hyperkeratotic Lesion(s) 96267 ( >4 Lesions) - The Benign hyperkeratotic lesions, as described above were pared, and/or cut utilizing a sterile #15 blade, tissue nippers, and/or dremel Progress Notes * Epi MURRELLZulmaOB:[birth year] (83 yo M)Acc No.[id number]:01/19/2024 Progress Note Patient:?Craig Murrell Provider:?Jose Ramon Ghotra DPM :1940???Age:83 Y???Sex:Male Kade e:01/19/2024 Address:[address] [place], [place] [id number] Pcp:Epi Bolanos MD Subjective: * Chief Complaints: * ???At Risk FootcareIngrown N ailToe Irritation * HPI: ???At Risk footcare:?Pt States Last PCP Visit:?Date?01/05/2024 ???Toe pain:?Location:?B/L feet.?Duration:?several years.?Course:?worse.?Aggravated by:?shoes, any pressure.?Treatments:?change in shoes , Rx shoes , states still needs.? * ROS:?General/Constitutional:?Nausea?denies.?Vomiting?denies.?Hunger Thirst?denies.?Loss appetite?denies.?Chills?denies.?Fatigue?denies.?Fever?denies.?Night Sweats?denies.?Unexplained weight loss?denies.?Unexplained [...] 1 tablet as needed Orally every 6 hrsAlendronate Sodium 70 MG Tablet 1 tablet 30 minutes before the first food, beverage or medicine of the day with plain water Orally Aspirin 81 MG Tablet Delayed Release 1 tablet Orally Once a dayBudesonide-Formoterol Fumarate 160-4.5 MCG/ACT Aerosol 2 puffs Inhalation Twice a dayCombivent Respimat 20-100 MCG/ACT Aerosol Solution 1 puff as needed Inhalation every 6 hrsDocusate Sodium 100 MG Capsule 1 capsule as needed Orally Once a dayDULoxetine HCl 30 MG Capsule Delayed Release Particles 1 capsule Orally Once a dayFluticasone Furoate 50 MCG/ACT Aerosol Powder Breath Activated 1 puff Inhalation Once a dayGabapentin 100 MG Capsule 1 capsule Orally Once a dayLidocaine 5 % Patch 1 patch remove after 12 hours Externally Once a dayMetoprolol Tartrate 25 MG Tablet 1 tablet with food Orally Twice a dayNaproxen 500 MG Tablet 1 tablet with food or milk as needed Orally every 12 hrsNitroglycerin 0.4 MG Tablet Sublingual as directed Sublingual Omeprazole 20 MG Capsule Delayed Release 1 capsule 30 minutes before morning meal Orally Once a dayPolyethylene Glycol - Powder as directed Polyvinyl Alcohol 1.4 % Solution as directed Ophthalmic Rosuvastatin Calcium 20 MG Tablet 1 tablet Orally Once a dayTamsulosin HCl 0.4 MG Capsule 1 capsule Orally Once a dayVESIcare 10 MG Tablet 1 tablet Orally Once a dayAmmonium Lactate 12 % Cream 1 application to affected area Externally to feet Twice a dayCompression Stockings 20-30mm Hg closed toe- knee high 1 pair wear dailyExtra Depth Orthopedic Shoes (1 Pair) with Customized Heat Molded Multidensity Innersoles (3 Pair) as directed Dx: NIDDM/Polyneuropathy (E11.42), Hammertoe Foot Deformity (M20.41,M20.42), Preulcerative Skin Lesion(s) (L85.1Taking Acetaminophen 500 MG Tablet 1 tablet as needed Orally every 6 hrsTaking Alendronate Sodium 70 MG Tablet 1 tablet 30 minutes before the first food, beverage or medicine of the day with plain water Orally Taking Aspirin 81 MG Tablet Delayed Release 1 tablet Orally Once a dayTaking Budesonide-Formoterol Fumarate 160-4.5 MCG/ACT Aerosol 2 puffs Inhalation Twice a dayTaking Combivent Respimat 20-100 MCG/ACT Aerosol Solution 1 puff as needed Inhalation every 6 hrsTaking Docusate Sodium 100 MG Capsule 1 capsule as needed Orally Once a dayTaking DULoxetine HCl 30 MG Capsule Delayed Release Particles 1 capsule Orally Once a dayTaking Fluticasone Furoate 50 MCG/ACT Aerosol Powder Breath Activated 1 puff Inhalation Once a dayTaking Gabapentin 100 MG Capsule 1 capsule Orally Once a dayTaking Lidocaine 5 % Patch 1 patch remove after 12 hours Externally Once a dayTaking Metoprolol Tartrate 25 MG Tablet 1 tablet with food Orally Twice a dayTaking Naproxen 500 MG Tablet 1 tablet with food or milk as needed Orally every 12 hrsTaking Nitroglycerin 0.4 MG Tablet Sublingual as directed Sublingual Taking Omeprazole 20 MG Capsule Delayed Release 1 capsule 30 minutes before morning meal Orally Once a dayTaking Polyethylene Glycol - Powder as directed Taking Polyvinyl Alcohol 1.4 % Solution as directed Ophthalmic Taking Rosuvastatin Calcium 20 MG Tablet 1 tablet Orally Once a dayTaking Tamsulosin HCl 0.4 MG Capsule 1 capsule Orally Once a dayTaking VESIcare 10 MG Tablet 1 tablet Orally Once a dayTaking Ammonium Lactate 12 % Cream 1 application to affected area Externally to feet Twice a dayTaking Compression Stockings 20-30mm Hg closed toe- knee high 1 pair wear dailyTaking Extra Depth Orthopedic Shoes (1 Pair) with Customized Heat Molded Multidensity Innersoles (3 Pair) as directed Dx: NIDDM/Polyneuropathy (E11.42), Hammertoe Foot Deformity (M20.41,M20.42), Preulcerative Skin Lesion(s) (L85.1Not-Taking/PRNVitamin D 25 MCG (1000 UT) Tablet 1 tablet Orally Once a dayMedication List reviewed and reconciled with the patientNot-Taking/PRN Vitamin D 25 MCG (1000 UT) Tablet 1 tablet Orally Once a dayMedication List reviewed and reconciled with the patient * Allergies:?yes[Allergies Darryn ified] Objective: * Vitals:?Ht: 5 ft 4 in, Wt:21 5, BMI: 36.9, Shoe size:7.5-8, BS:119, Wt-k.52 kg. * Examination: ???Neurological: ?SENSORY:? Neurological exam [...] B/L , SUB MTH (s), 5, B/L , Heel(s), B/L .?Vascular: ?DP PULSES:?0/4, B/L.?PT PULSES:?0/4, B/L.?CAPILLARY FILL TIME:?delayed, all digits, B/L.?SKIN TEMPERTURE GRADIENT OF THE LOWER EXTERMITIES:?decreased, cool to cool, proximal to distal, B/L.?HAIR GROWTH/TEXTURE/ELASTICITY/TURGOR:?decreased, B/L.?PIGMENTATION:?mottled, B/L.?EDEMA:?2/4, non-pitting, without, aching pain, B/L, Ankle(s).?CLAUDICATION:?denies, B/L.?REST PAIN:?denies, B/L.?Orthopedic: ?MUSCLE STRENGTH:?5/5 all groups in a symmetrical fashion , B/L.?GAIT ABNORMALITY:?apropulsive , cane-assisted.?FOOT MORPHOLOGY:? Pes Cavus structure, No Charcot collapse/destruction noted at [facility].?DIGITAL DEFORMITIES:?Digital contracture, PIPJ, 2-5 B/L, incompl-reducible to push-up test, no over, nor underlapping,?with evidence of shoe producing skin irritation.?FOOTWEAR:?STILL, worn, OT were inspected and noted to be severely worn , in poor condition not giving proper support at the present time, shoe gear properties exacerbate patient's foot/toe deformity .?General Examination: ?GENERAL APPEARANCE:?Reveals a pleasant, alert, well nourished, well- developed, well hydrated individual, who demonstrates proper attention to hygiene/body habitus, and is in no acute distress, Pt serves as own historian for office visit today.?ORIENTED:?person, place, and time.?FOOT EXAM:?Lower Extremity Neurological Exam performed:?Yes ?Footwear Evaluation?Footwear Evaluation performed:?Yes??? Assessment: * Assessment: 1.?Type 2 diabetes mellitus with diabetic polyneuropathy - E11.42 (Primary)?2.?Tinea unguium - B35.1?3.?Ingrown nail - L60.0, Lateral nail border, T5?4.?Other hammer toe(s) (acquired), right foot - M20.41, Chronic problem, Worse (4),Rx Management (4)?5.?Other hammer toe(s) (acquired), left foot - M20.42, Chronic problem, Worse (4),Rx Management (4) 6.?Type 2 diabetes mellitus with diabetic peripheral angiopathy without gangrene - E11.51? Plan: * Treatment: 2.?Ingrown nail?Procedure: 47432-Irkwewqg Plate 3.?Other hammer toe(s) (acqu ired), right foot? Start Extra Depth Orthopedic Shoes (1 Pair) with Customized Heat Molded Multidensity Innersoles (3 Pair), as directed, Dx: NIDDM/Polyneuropathy (E11.42), Hammertoe Foot Deformity (M20.41,M20.42), Preulcerative Skin Lesion(s) (L85.1, 1, Refills 0.?? Notes: Patient Educated with: DIABETIC FOOT CARE INSTRUCTIONS.pdf (DIABETIC FOOT CARE INSTRUCTIONS.pdf)?? * Procedures:?Debride Nail 6-10:?Nail debridement?Performance of this nail treatment by a nonprofessional would put this patients foot and overall health at risk. Therefore, nail debridement was performed extensively to reduce/remove overall nail length, girth, thickness, subungual debris, and necrotic tissue, by manual and/or electrical means through the use of a nail nipper and/or dremel-type grinder carbon plant, to a more viable healthy nail plate or bed tissue 6-10. Silver nitrate used for any petechial bleeding as necessary. Definitive antifungal treatment options have been reviewed and discussed with the patient. The patient chooses, no pharmaceutical tx (93848).?Keratoma Treatment:?Parring or Cutting of Benign Hyperkeratotic Lesion(s)?90679 ( >4 Lesions) - The Benign hyperkeratotic lesions, as described above were pared, and/or cut utilizing a sterile #15 blade, tissue nippers, and/or dremel.?Nail Avulsion:?Location?Lateral nail border, T5.?Anesthesia?was deferred - NEUROPATHY: patient has medically documented neuropathic condition affecting sensation.?Procedure?A fine sterile elevator was placed between the eponychium, nail fold, and nail plate to separate the the structures. A sterile nail splitter, and/or sterile #316 blade, was then used to longitudinally section the nail along its entire length through the eponychium to the area under the nail fold. The offending portion of nail was from the nail bed with a rolling action and then removed with a hemostat. No underlying bone was identified. A bacitracin sterile dressing was applied. Local wound aftercare instructions were discussed and dispensed. The patient was informed of both conservative and future surgical procedures to prevent recurrence (59789), DIABETES: Pt was advised as to the risk of delayed or nonhealing due to diabetes. Pt is to call the office with any questions, concerns, or complications.? * Procedure Codes:?88124 DEBRI DE NAIL, 6 OR MORE, Modifiers: XS 47190 Avulsion Plate, Modifiers: XS , [id number] TRIM SKIN LESIONS, OVER 4, Modifiers: XS * Preventive Medicine:? ??Counseling:?Discussion:?-14: Office or other outpatient visit for the evaluation and management of an established patient, which required a medically appropriate history and/or examination and MODERATE level of DECISION MAKING for: 1 OR MORE CHRONIC PROBLEM(S) THATS WORSENING, 2 STABLE CHRONIC PROBLEMS, A NEWLY DIAGNOSED PROBLEM WITH UNCERTAIN PROGNOSIS, AN ACUTE COMPLICATED INJURY WITH MULTIPLE TREATMENT OPTIONS, OR AN ACUTE PROBLEM WITH ACCOMPANYING SYSTEMIC SYMPTOMS, THAT POSE(S) A MODERATE RISK OF MORBIDITY. THIS CONDITION MAY ALSO INCLUDE RX DRUG MANAGEMENT, OR A DECISON FOR MINOR SURGERY. The visit on the day of the [...] have encouraged the patient to call the office.?Digital Surgery:?Digital surgery was discussed with the patient, We elected to try conservative treatment at the present time, due to the patients medical history and increased asssociated post-operative risks.?Digital Treatment:?HT- I explained to the patient the possible etiologies of Hammertoes, including genetics/foot type/shoegear/activity level/exercise routine and the risks/benefits of all the different treatment options for their pain including: No treatment at all, Rest, Ice, New/supportive/wider/deeper Shoegear, Digital Padding/Strapping/Taping/Bracing/Gel protective sleeves, Foot/Ankle AFO Bracing, Stretching exercises, Deep Tissue Massage, Arch support/shoe inserts with splay metatarsal padding, and Custom orthoses. I insisted that any digital devices be removed daily and not worn overnight for safety. The patient is to carefully examine the toes daily for any skin irritation while using any splinting or padding device. The advantages and disadvantages of each option were discussed and the patients questions re: shoegear, padding, custom vs prefabricated inserts, activity level, and consistency in home treatment regimens for optimal success were answered to their verbally confirmed satisfaction.?Shoe Gear Counseling:?SHOE Rx - The patient was counseled in great detail on their muscoloskeletal foot and toe deformities which coincided with the dermatological presentations visualized on exam. We discussed how their deformities put the integrity of their feet at risk for potential pedal complications which makes the accomidative diabetic shoes and cutomizable inserts medically necessary. We discussed the different shoe and insert treatment types and options, as well as the important advantages for adhering to regularly wearing these accomidative devices daily. The patient was made aware of the fact that a failure to abide by these recommedations may be deleterious to their foot health as they are able to prevent many pedal complications such as skin irritation, skin ulceration, infection, and even loss of toe/foot/leg/or life. Time was also spent with the patient dispensing and discussing proper diabetic footcare techniques including daily skin moisturization, daily foot inspection for any interruption in skin integrity including open lesions, or sign of infection such as redness/malodor/drainage/swelling. Also discussed and recommended were procedures regarding daily shoe inspection for the presence of internal foreign bodies as well as any visualized irregular shoe or insert wear. Patient questions re: shoes, inserts, and self foot inspections were answered to their satisfaction as the patient verbally confirmed a full understanding of the above information. A Rx for Extra Depth Orthopedic Shoes with 3 pair of custom heat-molded inserts was dispensed.? ??Screening/Special Tests:?Fall Risk?Assessment:?Performed ?Plan of Care:?Documented ?Screening:?No falls in the past year Despite related balance issues/unsteady gate ?FALLS: Screening for Future Fall Risk?Have you had any falls with injury in the past year??No * Follow Up:?2 Months * Images: * Sign off status: Completed true * Provider:?Jose Ramon Ghotra DPM Date:?2023 Generated for Priya bustillo/Lenka/eTcatysmheavenly on:?09/13/2024 12:45 PM EDT History and Physical Notes * HPI (History of Present Illness) Category Sub-Category Detail Notes Category Not es Toe pain Location: B/L feet Duration: several years Course: worse Aggravated by: shoes, any pressure Treatments: change in shoes , Rx shoes , states still needs At Risk footcare Pt States Last PCP [...] B/L , SUB MTH (s), 5, B/L , Heel(s), B/L Orthopedic GAIT ABNORMALITY: apropulsive , cane-assi sted FOOT MORPHOLOGY: Pes Cavus structure, No Charcot collapse/destruction noted at [facility] FOOTWEAR EVALUATION: STILL, worn, OT wer e inspected and noted to be severely worn , in poor condition not giving proper support at the present time, shoe gear properties exacerbate patient's foot/toe deformity DIGITAL DEFORMITIES: Digital contracture , PIPJ, 2-5 B/L, incompl-reducible to push-up test, no over, nor underlapping, with evidence of shoe producing skin irritation MUSCLE STRENGTH: 5/5 all groups in a symmetrical fashion , B/L General Examination GENERAL APPEARANCE: Reveals a pleasant, alert, well nourished, well-developed, well hydrated individual, who demonstrates proper attention to hygiene/body habitus, and is in no acute distress, Pt serves as own historian for office visit today FOOT EXAM: Lower Extremity Neurological Exa m performed:: Yes ORIENTED: person, place, and t edie Footwear Evaluation Footwear Evaluation performe d:: Yes Vascular DP PULSES (B): 0/4, B/L PT PULSES (B): 0/4, B/L CAPILLARY FILL TIME: delayed, all digits , B/L TEMPERTURE GRADIENT (C): decreased, cool to cool, proximal to distal, B/L TROPHIC CONDITION-TEXTURE/ELASTICITY/TURGOR/HAIR GROWTH (B): decreased, B/L EDEMA (C): 2/4, non-pitting, wi thout, aching pain, B/L, Ankle(s) CLAUDICATION (C): denies, B/L REST PAIN: denies, B/L GIDEON'S SIGN: PALPABLE CORDS: PIGMENTATION: mottled, B/L Nails NAILS are: Elongated, overg rown, dystrophic, lytic, greater than 3mm thick, discolored and friable with crumbly malodorous subungual debris, 1-5 B/L
--- OUTSIDE RECORDS SUMMARY | 2024-09-13 12:45 | XMS_ITS ---
Author Organization [facility] Address [address] [place] [address] Care Team Providers Care Staff Analyst Name Role Phone Epi Bolanos MD Primary Care Provider Jose Ramon Spann Unavailable [phone] Allergies No Known Allergies REASON FOR VISIT At Risk Footcare, Ingrown Nail, Toe Irritation Medications Medication SIG (Take, Route, Frequency, Duration) Notes Start Date End Date Status Ammonium Lactate 12 % 1 application to affected area Externally to feet Twice a day for 30 days Active Compression Stockings 20-30mm Hg 1 pair wear daily for 30 days Active Metoprolol Tartrate 25 MG 1 tablet with food Orally Twice a day for 30 day(s) Not-Taking Vitamin D 25 MCG (1000 UT) 1 tablet Orally Once a day for 30 day(s) Not-Taking Extra Depth Orthopedic Shoes (1 Pair) with Customized Heat Molded Multidensity Innersoles (3 Pair) as directed Dx: NIDDM/Polyneuropathy (E11.42), Hammertoe Foot Deformity (M20.41,M20.42), Preulcerative Skin Lesion(s) (L85.1 07/26/2024 Active Polyvinyl Alcohol 1.4 % as directed Ophthalmic Active Rosuvastatin Calcium 20 MG 1 tablet Orally Once a day for 30 day(s) Active Tamsulosin HCl 0.4 MG 1 capsule Orally O nce a day for 30 day(s) Active VESIcare 10 MG 1 tablet Orally Once a day for 30 day(s) Active Polyethylene Glycol - as directed Active Gabapentin 100 MG 1 capsule Orally Onc e a day for 30 day(s) Active Lidocaine 5 % 1 patch remove after 12 hours Externally Once a day Active Naproxen 500 MG 1 tablet with food o r milk as needed Orally every 12 hrs Active Nitroglycerin 0.4 MG as directed Sublingual Active Omeprazole 20 MG 1 capsule 30 minutes before morning meal Orally Once a day for 30 day(s) Active Budesonide-Formoterol Fumarate 160-4.5 MCG/ACT 2 puffs Inhalation Twice a day Active Combivent Respimat 20-100 MCG/ACT 1 puff as needed Inhalation every 6 hrs Active Docusate Sodium 100 MG 1 capsule as need ed Orally Once a day for 30 day(s) Active DULoxetine HCl 30 MG 1 capsule Orally On ce a day for 30 day(s) Active Fluticasone Furoate 50 MCG/ACT 1 puff Inhalation Once a day Active Losartan Potassium A ctive Acetaminophen 500 MG 1 tablet as needed Orally every 6 hrs Active Alendronate Sodium 70 MG 1 tablet 30 min utes before the first food, beverage or medicine of the day with plain water Orally for 30 day(s) Active Aspirin 81 MG 1 tablet Orally Once a day for 30 day(s) Active Social History Tobacco Use: Social History Observation Description Date Details (start date - stop date) Never Smoker NA - NA Tobacco use other than smoking: Question Answer Notes Are you an other tobacco user? No Tobacco Control (Standard) Question Answer Notes Tobacco use: Nonsmoker Vital Signs Height 5 ft 4 in in 07/26/2024 Weight 206 lbs 07/26/2024 BMI 35.36 kg/m2 07/26/2024 Blood pressure systolic 136 mm Hg 07/26/19 25 Blood pressure diastolic 72 mm Hg 025 Procedures Procedure Date Ordered Date Performed Result Body Sit e 59288-KSBWUFA NAIL, 6 OR MORE 07/26/2024 N/A 77818-Okpofuvt Plate 07/26/2024 N/A 82793-ZGMD SKIN LESIONS, OVER 4 07/26/2024 N/A Encounters Encounter Location Date Provider Diagnosis [facility] [address] [address] 07/26/2024 Jose Ramon Ghotra Type 2 diabetes mellitus with diabetic polyneuropathy E11.42 ; Tinea unguium B35.1 ; Ingrown nail L60.0 ; Other hammer toe(s) (acquired), right foot M20.41 and Other hammer toe(s) (acquired), left foot M20.42 Assessments Encounter Date Diagnosis (ICD Code) Assessment Notes Treatment Notes Treatment Clinical Notes Section Notes 07/26/2024 Type 2 diabetes mellitus with diabetic polyneuropathy (ICD-10 - E11.42) 07/26/2024 Tinea unguium (ICD-10 - B35.1) 07/26/2024 Ingrown nail (ICD-10 - L60.0) 07/26/2024 Other hammer toe(s) (acquired), right foot (ICD-10 - M20.41) Patient Educated with: DIABETIC FOOT CARE INSTRUCTIONS. pdf (DIABETIC FOOT CARE INSTRUCTIONS. pdf) 07/26/2024 Other hammer toe(s) (acquired), left foot (ICD-10 - M20.42) Plan Of Treatment Medication Medication Name Sig Start Date Stop Date Notes Extra Depth Orthopedic Shoes (1 Pair) with Customized Heat Molded Multidensity Innersoles (3 Pair) as directed Dx: NIDDM/Polyneuropathy (E11.42), Hammertoe Foot Deformity (M20.41,M20.42), Preulcerative Skin Lesion(s) (L85.1 07/26/2024 Treatment Notes Assessment Notes Other hammer toe(s) (acquired), right fo ot Patient Educated with: DIABETIC FOOT CARE INSTRUCTIONS.pdf (DIABETIC FOOT CARE INSTRUCTIONS.pdf) Pending Test Test Name Order Date 11261-IDRIXNT NAIL, 6 OR MORE 07/26/2024 45539-Nihivyix Plate 07/26/2024 16571-PXXQ SKIN LESIONS, OVER 4 07/26/19 25 Next Appt Details Follow Up: 3 Months, Reason: Provider Name:Jose Ramon Ghotra , 10/27/2024 08:45:00 AM, [address] [facility], [address], [place], [address], Procedure Notes * Category Sub-Category Detail Notes [...] Motrin was recommended for pain or discomfort (16666), DIABETES: Pt was advised as to the risk of delayed or nonhealing due to diabetes. Pt is to call the office with any questions, concerns, or complications, DIABETES: Matricectomy deferred at this time due to diabetes risk Anesthesia was deferred - NEURO BERHANE: patient has medically documented neuropathic condition affecting sensation Location Lateral nail border, T5 Debride Nail 6-10 Nail debridement Due to the cl inical pathology outlined in the exam findings, performance of this nail treatment is medically necessary as its management by an unskilled/untrained nonprofessional would put this patients foot and overall health at risk. Therefore, debridement to affected nail(s), as described in exam ( TA, T1, T2, T3, T4, T5, T6, T7, T8, T9 ), was performed exclusively by the physician of record to reduce/remove overall nail length, girth, thickness, subungual debris, and necrotic tissue, by manual and/or electrical means through the use of a nail nipper and/or dremel-type machine grinder, to a more viable healthy nail plate or bed tissue 6-10 nails in total. Silver nitrate was used for any petechial bleeding as necessary. Definitive antifungal treatment options, both pharmaceutical and surgical, have been reviewed and discussed with the patient. The patient solely prefers the use of intermittent/as needed professional debridement services for their nail condition and understands the need for additional periodic treatments to maintain effectiveness in symptomatic relief - 33780 Keratoma Treatment Parring or Cutting o f Benign Hyperkeratotic Lesion(s) (-57) More than 4 Lesions - Due to the a t risk nature of the patients medical condition as documented in the exam findings, performance of this keratoderma treatment is medically necessary as its management by an unskilled/untrained nonprofessional would put this patients foot and overall health at risk. Therefore, the benign hyperkeratotic lesions, ( 8 ) in total, locations as stated and described in the exam ( Medial plantar, IPJ, TA, Medial plantar, IPJ, T5, SUB MTH (s), 1, B/L , SUB MTH (s), 5, B/L ,Plantar, Heel(s), B/L ), were pared, and/or cut utilizing a sterile 15 blade, tissue nippers, and/or power dremel instrumentation by the physician of [facility] - 11818 Progress Notes * Audrey MUR[birth year]OB:[birth year] (84 yo M)Acc No.[id number]:07/26/2024 Progress Note Patient:?Craig MURRELL Provider:?Jose Ramon Ghotra DPM :1940???Age:84 Y???Sex:Male Kade e:07/26/2024 Address:[address] [place], [place] [id number] Pcp:Epi Bolanos MD Subjective: * Chief Complaints: * ???At Risk FootcareIngrown N ailToe Irritation * HPI: ???At Risk footcare:?Pt States Last PCP Visit:?Date?07/09/2024 ?Misc?Patient accompanied by, Daughter,LINDSAY, who serves as, Urogynecology Physician/Oil Rigger, and/who is physically present in exam room at time of visit.?Toe pain:?Location:?B/L feet.?Duration:?several years.?Course:?worse.?Aggravated by:?shoes, any pressure.?Treatments:?change in shoes.? * ROS:?General/Constitutional:?Nausea?denies.?Vomiting?denies.?Hunger Thirst?denies.?Loss appetite?denies.?Chills?denies.?Fatigue?denies.?Fever?denies.?Night Sweats?denies.?Unexplained weight loss?denies.?Unexplained weight gain?denies.?HEENTM:?Dentures?admits.?Dizziness?denies.?Glasses/contacts?admits.?Retinopathy?den ies.?Blurred/double vision?denies.?TMJ?denies.?Discharge/drainage?denies.?Implants?denies.?Sore throat?denies.?Dental implants?denies.?Hard of hearing ?denies.?Difficulty chewing/swallowing/speaking?denies.?Nose bleeds?denies.?Sore mouth?denies.?Respiratory:?On O xygen?denies.?Pneumonia/pleurisy?denies.?Bronchitis?denies.?Emphysema?denies.?Co ughing?denies.?Cough blood?denies.?Shortness of breath?denies.?Wheezing?admits.?Cardiovascular:?Pacemaker?denies.?MVP?denies.?WPW?denies.?CHF?denies.?Heart attack?denies.?Septal defect?denies.?Rapid beat?denies.?Chest pain ?denies.?Atrial Fib.?denies.?Murmur/Palpitations?denies.?Gastrointestinal:?Hemorrhoids?denies.?Stomach/Abdominal pain?denies.?Dark blood stool?denies.?Irritable bowel ?denies.?Constipation?admits.?Diarrhea?denies.?Hematology:?Swelling?admits.?Clots?denies.?Varicose Veins?denies.?Bruising?admits, on aspirin.?Bleeding problem?admits, on anticoagulants.?Genitourinary:?Blood urine?denies.?Frequent/Painfu/urination/bladder control?denies.?Kidney stones?denies.?Infection (UTI)?denies.?Nephropathy?denies.?sex trans dis (STD)?denies.?Prostate?admits.?Musculoskeletal:?Hammertoes?admits.?Bunions?denies.?Back Pain?admits.?Muscle Cramps/ Resting?denies.?Muscle cramps / walking?admits.?Generalized aches and pains?denies.?Weakness?denies.?Integ.:?Al?denies.?Scars?denies.?Corns/calluses?admits.?Ingrown nails?admits.?Painful nails?denies.?Open Sores?denies.?Rashes?denies.?Neurologic:?Difficulty sleeping?admits.?Brain disorder?denies.?Numbness?admits.?Balance trouble?admits.?Confusion?denies.?Fainting/blackouts?denies.?Tingling?admits, bilateral lower extremities.?Tremors?denies.? * Medical History:? * Surgical History:?Denies Pas t Surgical History * Hospitalization/Major Diagno stic Procedure:?Denies Past Hospitalization * Family History:?Mother: dece ased, diagnosed with Other malignant neoplasm of unspecified site.?Father: .? * Social History:?Tobacco Use:?Tobacco use other than smoking?Are you an other tobacco user??No ?Tobacco Control (Standard)?Tobacco use:?Nonsmoker ???Miscellaneous:?Caffeine: yes, frequency:. ?Children: yes. ?Exercise: no. ?Marital status: single. ?Occupation: Retired. * Medications:?TakingLosartan Potassium Acetaminophen 500 MG Tablet 1 tablet as [...] after 12 hours Externally Once a day Naproxen 500 MG Tablet 1 [...] knee high 1 pair wear daily Taking Losartan Potassium Taking Acetaminophen 500 MG Tablet 1 tablet [...] 12 hours Externally Once a day Taking Naproxen 500 MG Tablet [...] toe- knee high 1 pair wear daily Not-Taking/PRNMetoprolol Tartrate 25 MG Tablet 1 tablet with food Orally Twice a day Vitamin D 25 MCG (1000 UT) Tablet 1 tablet Orally Once a day Medication List reviewed and reconciled with the patientNot-Taking/PRN Metoprolol Tartrate 25 MG Tablet 1 tablet with food Orally Twice a day Not-Taking/PRN Vitamin D 25 MCG (1000 UT) Tablet 1 tablet Orally Once a day Medication List reviewed and reconciled with the patient * Allergies:?N.K.D.A.yes[Aller gies Verified] Objective: * Vitals:?Ht: 5 ft 4 in, Wt: 2 06, BMI: 35.36, Shoe size: 7.5-8, BP: 136/72 mm Hg, BS: not taken, Wt-k.44 kg. * ???Past Orders: ???Lab:HEMOGLOBIN A1C (GLYCO HEMOGLOBIN) (Order Date - 01/07/2024) (Collection Date & Time - 01/07/2024 11:22 AM) ? Value Reference Range ?HEMOGLOBIN A1C % (HH) 6.2 * Examination: ???Ophthalmology Referral: ?DIABETES EYE EXAM?Procedure Performed:?Yes ?Date of Exam Performed?03/10/2024 ?Diabetic Retinopathy Screening:?Yes ?Retinal Screening Performed:?Yes ?Findings of Diabetic Eye Exam:?no retinopathy?Neurological: ?SENSORY:? Neurological exam demonstrates, reduced light touch sensation, reduced sharp/dull pin prick discrimination , plantar aspects, B/L, 5.07 monofilament test performed at plantar aspects of 5 varied sites per foot shows sensation, reduced , B/L.?Nails: ?NAILS are:?Elongated, overgrown, dystrophic, lytic, greater than 3mm thick, discolored and friable with crumbly malodorous subungual debris , TA, T1, T2, T3, T4, T5, T6, T7, T8, T9.?Dermatologic: ?SKIN FINDINGS:? Skin exam reveals Keratotic lesion(s) located at, Medial plantar, IPJ, TA, Medial plantar, IPJ, T5, SUB MTH (s), 1, B/L , SUB MTH (s), 5, B/L ,Plantar, Heel(s), B/L .?Ingrown Nail: ?INSPECTION:? Reveals nail incurvation, dull pain on palpation due to neuropathy, groove hypertrophy, Lateral nail border, T5.?Orthopedic: ?MUSCLE STRENGTH:?5/5 all groups in a symmetrical fashion , B/L.?GAIT ABNORMALITY:?apropulsive , cane-assisted.?FOOT MORPHOLOGY:? Pes Cavus structure, No Charcot collapse/destruction noted at MTJ.?DIGITAL DEFORMITIES:?Digital contracture, PIPJ, 2-5 B/L, incompl-reducible to push-up test, no over, nor underlapping,?there is?evidence of shoe producing skin irritation.?FOOTWEAR:?worn, OT were inspected and noted to be [...] and time.?FOOT EXAM:?Lower Extremity Neurological Exam performed:?Yes Date ?Visual exam of foot performed:?Yes ?Date?07/26/2024 ?Footwear Evaluation?Footwear Evaluation performed:?Yes?Vascular: ?DP PULSES (B):?0/4, B/L.?PT PULSES (B):?0/4, B/L.?CAPILLARY FILL TIME:?delayed, all digits, B/L.?TROPHIC CONDITION-TEXTURE/ELASTICITY/TURGOR/HAIR GROWTH (B):?decreased, with sparse to absent hair growth, B/L.?TEMPERTURE GRADIENT (C):?decreased, cool to cool, proximal to distal, B/L.?PIGMENTATION:?mottled, B/L.?EDEMA (C):?2/4, non-pitting, without, aching pain, B/L, Ankle(s).?CLAUDICATION (C):?denies, B/L.?REST PAIN:?denies, B/L.? Assessment: * Assessment: 1.?Type 2 diabetes mellitus with diabetic polyneuropathy - E11.42 (Primary)???2.?Tinea unguium - B35.1???3.?Ingrown nail - L60.0???Specify :Lateral nail border, T5???4.?Other hammer toe(s) (acquired), right foot - M20.41???Specify :Chronic problem, Worse (4),Rx Management (4)???5.?Other hammer toe(s) (acquired), left foot - M20.42???Specify :Chronic problem, Worse (4),Rx Management (4)??? Plan: * Treatment: 2.?Ingrown nail?Procedure: 63538-Qghvnztr Plate 3.?Other hammer toe(s) (acqu ired), right foot? Start Extra Depth Orthopedic Shoes (1 Pair) with Customized Heat Molded Multidensity Innersoles (3 Pair), as directed, Dx: NIDDM/Polyneuropathy (E11.42), Hammertoe Foot Deformity (M20.41,M20.42), Preulcerative Skin Lesion(s) (L85.1, 1, Refills 0.?? Notes: Patient Educated with: DIABETIC FOOT CARE INSTRUCTIONS.pdf (DIABETIC FOOT CARE INSTRUCTIONS.pdf)?? * Procedures:?Debride Nail 6-10:?Nail debridement?Due to the clinical pathology outlined in the exam findings, performance of this nail treatment is medically necessary as its management by an unskilled/untrained nonprofessional would put this patients foot and overall health at risk. Therefore, debridement to affected nail(s), as described in exam (?TA, T1, T2, T3, T4, T5, T6, T7, T8, T9?), was performed exclusively by the physician of record to reduce/remove overall nail length, girth, thickness, subungual debris, and necrotic tissue, by manual and/or electrical means through the use of a nail nipper and/or dremel-type machine grinder, to a more viable healthy nail plate or bed tissue 6- 10 nails in total. Silver nitrate was used for any petechial bleeding as necessary. Definitive antifungal treatment options, both pharmaceutical and surgical, have been reviewed and discussed with the patient. The patient solely prefers the use of intermittent/as needed professional debridement services for their nail condition and understands the need for additional periodic treatments to maintain effectiveness in symptomatic relief - 98335.?Keratoma Treatment:?Parring or Cutting of Benign Hyperkeratotic Lesion(s)?(-57) More than 4 Lesions - Due to the at risk nature of the patients medical condition as documented in the exam findings, performance of this keratoderma treatment is medically necessary as its management by an unskilled/untrained nonprofessional would put this patients foot and overall health at risk. Therefore, the benign hyperkeratotic lesions, ( 8 ) in total, locations as stated and described in the exam (?Medial plantar,?IPJ,?TA,?Medial plantar,?IPJ,?T5,?SUB MTH (s),?1,?B/L?,?SUB MTH (s),?5,?B/L?,Plantar,?Heel(s),?B/L?), were pared, and/or cut utilizing a sterile 15 blade, tissue nippers, and/or power dremel instrumentation by the physician of record - 89032.?Nail Avulsion:?Location?Lateral nail border, T5.?Anesthesia?was deferred - NEUROPATHY: [...] Motrin was recommended for pain or discomfort (83503), DIABETES: Pt was advised as to the risk of delayed or nonhealing due to diabetes. Pt is to call the office with any questions, concerns, or complications, DIABETES: Matricectomy deferred at this time due to diabetes risk.? * Procedure Codes:?27553 DEBRI DE NAIL, 6 OR MORE, Modifiers: XS 24991 Avulsion Plate, Modifiers: XS , [id number] TRIM SKIN LESIONS, OVER 4, Modifiers: XS [...] custom heat-molded inserts was dispensed.? ??Screening/Special Tests:?Fall Risk?Screening:?No falls in the past year ?FALLS: Screening for Future Fall Risk?Have you had any falls with injury in the past year??No * Follow Up:?3 Months * Images: * Sign off status: Completed true * Provider:?Jose Ramon Ghotra DPM Date:?2024 Generated for Priya bustillo/Lenka/Talat on:?09/13/2024 12:45 PM EDT History and Physical Notes * HPI (History of Present Illness) Category Sub-Category Detail Notes Category Not es Toe pain Location: B/L feet Duration: several years Course: worse Aggravated by: shoes, any pressure Treatments: change in shoes At Risk footcare Pt States Last PCP Visit: Date: 5 [facility] Patient accompanied by, Daughter, LINDSAY, who serves as, Urogynecology Physician/Oil Rigger, and/who is physically present in exam room at time of visit Examination Category Sub-Category Detail Notes Category Not [...] (s), 5, B/L ,Plantar, Heel(s), B/L Orthopedic GAIT ABNORMALITY: apropulsive , cane-assi sted FOOT MORPHOLOGY: Pes Cavus structure, No Charcot collapse/destruction noted at MTJ FOOTWEAR EVALUATION: worn, OT were inspe cted and noted to be severely worn , in poor condition not giving proper support at the present time, shoe gear properties exacerbate patient's foot/toe deformity DIGITAL DEFORMITIES: Digital contracture , PIPJ, 2-5 B/L, incompl-reducible to push-up test, no over, nor underlapping, there is evidence of shoe producing skin irritation MUSCLE STRENGTH: 5/5 all groups in a symmetrical fashion , B/L General Examination GENERAL APPEARANCE: Reveals a pleasant, alert, well nourished, well-developed, well hydrated individual, who demonstrates proper attention to hygiene/body habitus, and is in no acute distress, Pt serves as own historian for office visit today FOOT EXAM: Lower Extremity Neurological Exa m performed:: Yes Date Visual exam of foot performed:: Yes Date: 07/26/2024 ORIENTED: person, place, and t edie Footwear Evaluation Footwear Evaluation performe d:: Yes Ophthalmology Referral DIABETES EYE EXAM Procedure Perform ed:: Yes ?Date of Exam Performed: 03/10/2024 Diabetic Retinopathy Screening:: Yes Retinal Screening Performed:: Yes Findings of Diabetic Eye Exam:: no retin opathy Vascular DP PULSES (B): 0/4, B/L PT PULSES (B): 0/4, B/L CAPILLARY FILL TIME: delayed, all digits , B/L TEMPERTURE GRADIENT (C): decreased, cool to cool, proximal to distal, B/L TROPHIC CONDITION-TEXTURE/ELASTICITY/TURGOR/HAIR GROWTH (B): decreased, with sparse to absent hair gr owth, B/L EDEMA (C): 2/4, non-pitting, wi thout, aching pain, B/L, Ankle(s) CLAUDICATION (C): denies, B/L REST PAIN: denies, B/L GIDEON'S SIGN: PALPABLE CORDS: PIGMENTATION: mottled, B/L Nails NAILS are: Elongated, overg rown, dystrophic, lytic, greater than 3mm thick, discolored and friable with crumbly malodorous subungual debris , TA, T1, T2, T3, T4, T5, T6, T7, T8, T9
--- OUTSIDE RECORDS SUMMARY | 2024-09-13 12:45 | XMS_ITS | Patient Health Record ---
Author Organization [facility] Address [address] [place] [address] Care Team Providers Care Pharmacy Aide Name Role Phone Margareth Thapa Primary Care Provider Unavailabl e Allergies No Known Allergies Reason For Referral No Information Medications Medication SIG (Take, Route, Frequency, Duration) Notes Start Date End Date Status Tamsulosin HCl 0.4 MG 1 capsule Orally O nce a day Active hydroCHLOROthiazide 12.5 MG 1 tablet in the morning Orally Once a day Active Docusate Sodium 100 MG 1 capsule as need ed Orally bid Active Polyvinyl Alcohol 1.4 % as directed Ophthalmic Active Omeprazole 20 MG 1 capsule 30 minutes before morning meal Orally Once a day Active MiraLax 17 GM 1 packet mixed with 8 ounces of fluid Orally every 48 hr prn Active Nitroglycerin 0.4 MG as directed Sublingual Active Rosuvastatin Calcium 20 MG 1 tablet Oral ly Once a day Active Aspirin 81 MG 1 tablet Orally Once a day Active Nasal Mcdowell 0.05 % 2 sprays in each nostril as needed Nasally daily Active Combivent Respimat 20-100 MCG/ACT 1 puff as needed Inhalation every 6 hrs Active Metoprolol Tartrate 25 MG 1 tablet with food Orally Twice a day Active VESIcare 10 MG 1 tablet Orally Once a day Active DULoxetine HCl 30 MG 1 capsule Orally On ce a day Active Orlistat 120 MG 1 capsule with each main meal Orally Three times a day Active Symbicort 160-4.5 MCG/ACT 2 puffs Inhala tion every 12 hr Active Problems Problem Type SNOMED Code ICD Code Onset Dates Problem Status W/U Status Risk Notes Problem [id number] Type 2 diabetes mellitus with diabetic polyneuropathy, unspecified whether assisted insulin use (E11.42) Active confirmed Plan Of Treatment No Information Insurance Providers Payer Name Payer Address Payer Phone Subscriber Number Group Number Insured Name Patient Relationship to Insured Coverage Start Date Coverage End Date [facility] [address] [place] [address] [phone] [id number] Craig Kothari Self - patient is the insured Medical (General) History Medical History History ICD Code Morbid obesity E66.01 Body mass index [BMI]40.0-44.9, adult Z6 8.41 Other intervertebral disc degeneration, lumbar region M51.36 Drug induced constipation K59.03 Moderate persistent asthma, uncomplicate d J45.40 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 Z79.891 Unspecified cataract H26.9 Type 2 diabetes mellitus with diabetic n europathy, unspecified E11.40 Gastro-esophageal reflux disease without esophagitis K21.9 Type 2 diabetes mellitus with other diab etic neurological complication E11.49 Old myocardial infarction I25.2 Low back pain M54.5 Pain in left foot M79.672 Sleep related leg cramps G47.62 Obstructive sleep apnea (adult) (pediatr ic) G47.33 Type 2 diabetes mellitus with diabetic c ataract E11.36 Essential hypertension I10 Hyperlipidemia, unspecified E78.5 Personal history of colonic polyps Z86.0 10 Chronic rhinitis J31.0 Cervicalgia M54.2 Benign prostatic hyperplasia without low er urinary tract symptoms N40.0 Hip replacement Surgical History Surgery Date(Month/Year) Hip replacement Hospitalization History Reason Date(Month/Year) Hip replacement
--- OUTSIDE RECORDS SUMMARY | 2024-09-13 12:45 | XMS_ITS ---
Author Organization [facility] Address [address] [place] [address] Care Team Providers Care Opinion Polls Survey Worker Name Role Phone Navdeep Bolanos III Primary Care Provider Unavailab Aftab Powers Unavailable [phone] Maggie Luna Unavailable [phone] Allergies No Known Allergies REASON FOR VISIT field SCO MDS RA-initial VOCATIONAL NURSE LVN eval Medications Medication SIG (Take, Route, Frequency, Duration) Notes Start Date End Date Status Metoprolol Tartrate 25 MG 1 tablet with food Orally Twice a day Per dtr, member is not taking Not-Taking Naproxen 500 MG 1 tablet with food or milk as needed Orally every 12 hrs Per dtr, member is not taking Not-Taking Ammonium Lactate 12 % 1 application as needed Externally Twice a day Per dtr, member is not taking Not-Taking Vitamin D3 50 MCG (1999 UT) 1 capsule Orally Once a day Per dtr, member is not taking Not-Taking DULoxetine HCl 20 MG 1 capsule Orally Once a day Active Aspirin 81 81 MG 1 tablet Orally Once a day Active Alendronate Sodium 70 MG 1 tablet 30 minutes before the first food, beverage or medicine of the day with plain water Orally 1X Weekly friday Active Tamsulosin HCl 0.4 MG 1 capsule [...] morning meal Orally Once a day Active Symbicort 160-4.5 MCG/ACT 2 puffs Inhalation once daily Active Refresh 1.4-0.6 % 1 drop both eyes Ophthalmic Three times a day Active Donepezil HCl 10 MG 1 tablet at bedtime Orally Once a day Active Acetaminophen Extra Strength 500 MG 1 tablet as needed Orally every 6 hrs Active Fluticasone Propionate 50 MCG/ACT 1 spray in each nostril Nasally as needed for allergies Active Fish Oil 1200 MG 1 capsule Orally Once a day Active Rosuvastatin Calcium 20 MG 1 tablet Orally Once a day Active Losartan Potassium 25 MG 1 tablet Orally Once a day Active Mirabegron ER 50 MG 1 tablet Orally Once a day Active Senna 8.6 MG 1 tablet at bedtime as needed Orally Once a day Active Lidocaine 5 % 1 patch remove after 12 hours Externally Once a day Active Albuterol Sulfate 108 (90 Base) MCG/ACT 1 puff as needed Inhalation every 4 hrs Active Problems Problem Type SNOMED Code ICD Code Onset Dates Problem Status W/U Status Risk Notes Problem Hyperparathyroidism (45011005) Hyperparathyr oidism, unspecified (E21.3) Active confirmed dx verified via [employer] Problem Sickle cell trait (39116172) Sickle-cell trait (D57.3) Active confirmed dx verified via [employer] Problem Monoclonal gammopath y (72232101) Monoclonal gammopathy (D47.2) Active confirmed dx verified via [employer] Problem Pure hypercholesterolemia (042215120) Pure hypercholeste rolemia, unspecified (E78.00) Active confirmed dx verified via [employer] Encounters Encounter Location Date Provider Diagnosis [address] [address] 08/19/2024 Iris Jeremy Dementia without behavioral disturbance, unspecified dementia type F03.90 ; Recurrent major depressive disorder, in full remission F33.42 ; Moderate persistent asthma, unspecified whether complicated J45.40 ; Type 2 diabetes mellitus with diabetic polyneuropathy, without long-term current use of insulin E11.42 ; Osteoarthritis, unspecified osteoarthritis type, unspecified site M19.90 ; Atherosclerosis of [place] coronary artery of [place] heart without angina pectoris I25.10 ; 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 ; History of NM (myocardial infarction) I25.2 ; Bladder incontinence R32 [...] tract symptoms, symptom details unspecified N40.1 ; buttermaker (current) use of inhaled steroids Z79.51 ; buttermaker (current) use of aspirin Z79.82 ; SUSANNA [...] gammopathy D47.2 and Pure hypercholesterolemia, unspecified E78.00 Assessments Encounter Date Diagnosis (ICD Code) Assessment Notes Treatment Notes Treatment Clinical Notes Section Notes 08/19/2024 Dementia without behavioral disturbance, unspecified dementia type (ICD-10 - F03.90) 08/19/2024 Recurrent major depressive disorder, in full remission (ICD-10 - F33.42) 08/19/2024 Moderate persistent asthma, unspecified whether complicated (ICD-10 - J45.40) 08/19/2024 Type 2 diabetes mellitus with diabetic polyneuropathy, without long-term current use of insulin (ICD-10 - E11.42) 08/19/2024 Osteoarthritis, unspecified osteoarthritis type, unspecified site (ICD-10 - M19.90) 08/19/2024 Atherosclerosis of [place] coronary artery of [place] heart without angina pectoris (ICD-10 - I25.10) 08/19/2024 Degeneration of cervicothoracic intervertebral disc (ICD-10 - M50.33) 08/19/2024 History of NM (myocardial infarction) (ICD-10 - I25.2) 08/19/2024 Bladder incontinence (ICD-10 - R32) 08/19/2024 Hypertensive heart disease without heart failure (ICD-10 - I11.9) 08/19/2024 Vitamin D deficiency (ICD-10 - E55.9) 08/19/2024 HLD (hyperlipidemia) (ICD-10 - E78.5) 08/19/2024 GERD (gastroesophageal reflux disease) (ICD-10 - K21.9) 08/19/2024 Insomnia, unspecified type (ICD-10 - G47.00) 08/19/2024 Other chronic pain (ICD-10 - G89.29) 08/19/2024 Morbid (severe) obesity due to excess calories (ICD-10 - E66.01) 08/19/2024 Constipation, unspecified constipation type (ICD-10 - K59.00) 08/19/2024 Benign prostatic hyperplasia with lower urinary tract symptoms, symptom details unspecified (ICD-10 - N40.1) 08/19/2024 half-way (current) use of inhaled steroids (ICD-10 - Z79.51) 08/19/2024 half-way (current) use of aspirin (ICD-10 - Z79.82) 08/19/2024 SUSANNA (obstructive sleep apnea) (ICD-10 - G47.33) 08/19/2024 OAB (overactive bladder) (ICD-10 - N32.81) 08/19/2024 Body mass index (BMI) of 38.0 to 38.9 in adult (ICD-10 - Z68.38) 08/19/2024 Risk for falls (ICD-10 - Z91.81) 08/19/2024 Cataract extraction status, unspecified eye (ICD-10 - Z98.49) 08/19/2024 Presence of intraocular lens (ICD-10 - Z96.1) 08/19/2024 Age-related osteoporosis without current pathological fracture (ICD-10 - M81.0) 08/19/2024 Hyperparathyroidism, unspecified (ICD-10 - E21.3) dx verified via [employer] 08/19/2024 Sickle-cell trait (ICD-10 - D57.3) dx verified via [employer] 08/19/2024 Monoclonal gammopathy (ICD-10 - D47.2) dx verified via [employer] 08/19/2024 Pure hypercholesterolemia , unspecified (ICD-10 - E78.00) dx verified via [employer] Plan Of Treatment No Information Progress Notes * Audrey MURRE[birth year]OB:[birth year] (84 yo M)Acc No.[id number]:08/19/2024 Patient:?MURRELLEpiio ??External Provider:?Maggie Luna RN :1940???Age:84 Y???Sex:Male Kade e:08/19/2024 Address:[address] [place] [address], [address], [id number] Pcp:Navdeep Bolanos II I Patient's Default Facility:[facility] Subjective: * Chief Complaints: * ???field SCO MDS RA-initial VOCATIONAL NURSE LVN eval * HPI: ???Depression Screening:?PHQ-9?Little interest or pleasure in doing things?Not at all ?Feeling down, depressed, or hopeless?Not at all ?Trouble falling or staying asleep, or sleeping too much?Not at all ?Feeling tired or having little energy?Several days ?Poor appetite or overeating?Not at all ?Feeling bad about yourself or that you are a failure, or have let yourself or your family down?Not at all ?Trouble concentrating on things, such as reading the newspaper or watching television?Not at all ?Moving or speaking so slowly that other people could have noticed; or the opposite, being so fidgety or restless that you have been moving around a lot more than usual?Not at all ?Thoughts that you would be better off or of hurting yourself in some way?Not at all ?Total Score?1 ?Interpretation?Minimal Depression * Medical History:?? * Surgical History:? * Hospitalization/Major Diagno stic Procedure:? * Medications:?TakingMirabegro n ER 50 MG Tablet Extended Release 24 Hour 1 tablet Orally Once a day Losartan Potassium 25 MG Tablet 1 tablet Orally Once a day Lidocaine 5 % Patch 1 patch remove after 12 hours Externally Once a day Albuterol Sulfate 108 (90 Base) MCG/ACT Aerosol Powder Breath Activated 1 puff as needed Inhalation every 4 hrs Senna 8.6 MG Tablet 1 tablet at bedtime as needed Orally Once a day Donepezil HCl 10 MG Tablet 1 tablet at bedtime Orally Once a day Fish Oil 1200 MG Capsule 1 capsule Orally Once a day Rosuvastatin Calcium 20 MG Tablet 1 tablet Orally Once a day Acetaminophen Extra Strength 500 MG Tablet 1 tablet as needed Orally every 6 hrs Fluticasone Propionate 50 MCG/ACT Suspension 1 spray in each nostril Nasally as needed for allergies Combivent Respimat 20-100 MCG/ACT Aerosol Solution 1 puff as needed Inhalation every 6 hrs Multivitamin - Tablet 1 tablet Orally Once a day Omeprazole 20 MG Capsule Delayed Release 1 capsule 30 minutes before morning meal Orally Once a day Symbicort 160-4.5 MCG/ACT Aerosol 2 puffs Inhalation once daily Refresh 1.4-0.6 % Solution 1 drop both eyes Ophthalmic Three times a day Aspirin 81 81 MG Tablet Delayed Release 1 tablet Orally Once a day Alendronate Sodium 70 MG Tablet 1 tablet 30 minutes before the first food, beverage or medicine of the day with plain water Orally 1X Weekly , Notes to Pharmacist: fridayDocusate Sodium 100 MG Capsule 1 capsule Orally Twice a day VESIcare 10 MG Tablet 1 tablet Orally Once a day Tamsulosin HCl 0.4 MG Capsule 1 capsule Orally Once a day DULoxetine HCl 20 MG Capsule Delayed Release Particles 1 capsule Orally Once a day Taking Mirabegron ER 50 MG Tablet Extended Release 24 Hour 1 tablet Orally Once a day Taking Losartan Potassium 25 MG Tablet 1 tablet Orally Once a day Taking Lidocaine 5 % Patch 1 patch remove after 12 hours Externally Once a day Taking Albuterol Sulfate 108 (90 Base) MCG/ACT Aerosol Powder Breath Activated 1 puff as needed Inhalation every 4 hrs Taking Senna 8.6 MG Tablet 1 tablet at bedtime as needed Orally Once a day Taking Donepezil HCl 10 MG Tablet 1 tablet at bedtime Orally Once a day Taking Fish Oil 1200 MG Capsule 1 capsule Orally Once a day Taking Rosuvastatin Calcium 20 MG Tablet 1 tablet Orally Once a day Taking Acetaminophen Extra Strength 500 MG Tablet 1 tablet as needed Orally every 6 hrs Taking Fluticasone Propionate 50 MCG/ACT Suspension 1 spray in each nostril Nasally as needed for allergies Taking Combivent Respimat 20-100 MCG/ACT Aerosol Solution 1 puff as needed Inhalation every 6 hrs Taking Multivitamin - Tablet 1 tablet Orally Once a day Taking Omeprazole 20 MG Capsule Delayed Release 1 capsule 30 minutes before morning meal Orally Once a day Taking Symbicort 160-4.5 MCG/ACT Aerosol 2 puffs Inhalation once daily Taking Refresh 1.4-0.6 % Solution 1 drop both eyes Ophthalmic Three times a day Taking Aspirin 81 81 MG Tablet Delayed Release 1 tablet Orally Once a day Taking Alendronate Sodium 70 MG Tablet 1 tablet 30 minutes before the first food, beverage or medicine of the day with plain water Orally 1X Weekly , Notes to Pharmacist: Docusate Sodium 100 MG Capsule 1 capsule Orally Twice a day Taking VESIcare 10 MG Tablet 1 tablet Orally Once a day Taking Tamsulosin HCl 0.4 MG Capsule 1 capsule Orally Once a day Taking DULoxetine HCl 20 MG Capsule Delayed Release Particles 1 capsule Orally Once a day Not-TakingMetoprolol Tartrate 25 MG Tablet 1 tablet with food Orally Twice a day , Notes to Pharmacist: Per dtr, member is not takingNaproxen 500 MG Tablet 1 tablet with food or milk as needed Orally every 12 hrs , Notes to Pharmacist: Per dtr, member is not takingAmmonium Lactate 12 % Lotion 1 application as needed Externally Twice a day , Notes to Pharmacist: Per dtr, member is not takingVitamin D3 50 MCG (2000 UT) Tablet Chewable 1 capsule Orally Once a day , Notes to Pharmacist: Per dtr, member is not takingMedication List reviewed and reconciled with the patientNot-Taking Metoprolol Tartrate 25 MG Tablet 1 tablet with food Orally Twice a day , Notes to Pharmacist: Per dtr, member is not takingNot-Taking Naproxen 500 MG Tablet 1 tablet with food or milk as needed Orally every 12 hrs , Notes to Pharmacist: Per dtr, member is not takingNot-Taking Ammonium Lactate 12 % Lotion 1 application as needed Externally Twice a day , Notes to Pharmacist: Per dtr, member is not takingNot-Taking Vitamin D3 50 MCG (2000 UT) Tablet Chewable 1 capsule Orally Once a day , Notes to Pharmacist: Per dtr, member is not takingMedication List reviewed and reconciled with the patient * Allergies:?N.K.D.A.no[Allerg ies Verified] Objective: * Vitals:? Assessment: * Assessment: 1.?Dementia without behavior al disturbance, unspecified dementia type - F03.90 (Primary)???2.?Recurrent major depressive disorder, in full remission - F33.42???3.?Moderate persistent asthma, unspecified whether complicated - J45.40???4. 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 Bladder incontinence - R32???10.?Hypertensive heart disease without heart failure - I11.9???11.?Vitamin D deficiency - E55.9???12.?HLD (hyperlipidemia) - E78.5???13.?GERD (gastroesophageal reflux disease) - K21.9 ??14.?Insomnia, unspecified type - G47.00???15.?Other chronic pain - G89.29???16.?Morbid (severe) obesity due to excess calories - E66.01???17.?Constipation, unspecified constipation type - K59.00???18. Benign prostatic hyperplasia with lower urinary tract symptoms, symptom details unspecified - N40.1???19.?half-way (current) use of inhaled steroids - Z79.51???20.?half-way (current) use of aspirin - Z79.82???21.?SUSANNA (obstructive sleep apnea) - G47.33???22.?OAB (overactive bladder) - N32.81???23.?Body mass index (BMI) of 38.0 to 38.9 in adult - Z68.38???24.?Risk for falls - Z91.81???25.?Cataract extraction status, unspecified eye - Z98.49?? 26.?Presence of intraocular lens - Z96.1???27.?Age-related osteoporosis without current pathological fracture - M81.0???28.?Hyperparathyroidism, unspecified - E21.3???Notes :dx verified via [employer]???29.?Sickle-cell trait - D57.3???Notes :dx verified via [employer]???30.?Monoclonal gammopathy - D47.2???Notes :dx verified via [employer]???31.?Pure hypercholesterolemia, unspecified - E78.00???Notes :dx verified via [employer]??? Plan: * Treatment: * Procedure Codes:? Care Plan: * Problems:? * * Sign off status: Completed true * Provider:?Maggie Luna RN Date:?08/01 Generated for Priya bustillo/Lenka/Talat on:?09/13/2024 12:44 PM EDT History and Physical Notes * HPI (History of Present Illness) Category Sub-Category Detail Notes Category Not es Depression Screening PHQ-9 Little inte rest or pleasure in doing things: Not at all Feeling down, depressed, or hopeless: No t at all Trouble falling or staying asleep, or sl eeping too much: Not at all Feeling tired or having little energy: S everal days Poor appetite or overeating: Not at all Feeling bad about yourself o r that you are a failure, or have let yourself or your family down: Not at all Trouble concentrating on thi ngs, such as reading the newspaper or watching television: Not at all Moving or speaking so slowly that other people could have noticed; or the opposite, being so fidgety or restless that you have been moving around a lot more than usual: Not at all Thoughts that you would be b deepthi off or of hurting yourself in some way: Not at all Total Score: 1 Interpretation: Minimal Depression
--- OUTSIDE RECORDS SUMMARY | 2024-09-13 12:46 | XMS_ITS | Clinical Summary ---
Author Organization [facility] Address [address] [place] [address] Phone Care Team Providers Care Sheet Layer Name Role Phone Navdeep Bolanos MD Primary Care Provider [phone] Allergies No known active allergies Medications fluticasone propionate (FLONASE) 50 mcg/actuation nasal spray PLACE 1 SPRAY IN EACH NOSTRIL ONCE A DAY 04/16/20 21 Active donepeziL (ARICEPT) 10 mg tablet Take 1 tablet (10 mg total) by mouth. 02/25/20 23 Active DULoxetine (CYMBALTA) [address] capsule Take 1 capsule (30 mg total) by mouth 1 (one) time each day. 02/25/20 23 Active rosuvastatin (CRESTOR) 20 mg tablet Take 1 tablet (20 mg total) by mouth. 02/25/20 23 Active tamsulosin (FLOMAX) 0.4 mg 24 hr capsule Take 1 capsule (0.4 mg total) by mouth. 02/25/20 23 Active omeprazole (PriLOSEC) [address] capsule Take 1 capsule (20 mg total) by mouth 2 (two) times a day. 02/25/20 23 Active acetaminophen (TYLENOL) 500 mg tablet Take 2 tablets (650 mg total) by mouth 2 (two) times a day. Active albuterol HFA (PROAIR HFA ; PROVENTIL HFA ; VENTOLIN HFA) 90 mcg/actuation inhaler Inhale 2 puffs by mouth. 01/18/20 23 Active diclofenac (VOLTAREN) 1 % topical gel APPLY 4 GRAMS TOPICALLY 4 TIMES A DAY 12/19/19 Active blood sugar diagnostic (Voxauch Verio test strips) test strip USE TO TEST BLOOD SUGAR ONCE DAILY 12/19/19 Active aspirin 81 mg EC tablet Take 1 tablet (81 mg total) by mouth 1 (one) time each day. 11/05/19 23 Active polyethylene glycol (MIRALAX) 17 gram packet Take 17 g by mouth. 06/24/19 23 Active lidocaine (LIDODERM) 5 % patch PLACE 1 PATCH ONTO THE SKIN EVERY 24 HOURS. APPLY FOR NO MORE THAN 12 HOURS IN ANY 24 HOUR PERIOD. 30 patch 5 05/19/20 24 Active losartan (COZAAR) 25 mg tablet Take 1 tablet (25 mg total) by mouth 1 (one) time each day. 05/19/20 24 Active solifenacin (VESICARE) 10 mg tablet Take 1 tablet (10 mg total) by mouth 1 (one) time each day. 06/14/19 25 Active docusate sodium (COLACE) 100 mg capsule Take 1 capsule (100 mg total) by mouth 2 (two) times a day. 180 capsule 07/09/19 25 Active senna (SENOKOT) 8.6 mg tablet Take 1 tablet (8.6 mg total) by mouth 1 (one) time each day. 90 tablet 1 07/09/19 25 Active mirabegron (Myrbetriq) 50 mg tablet extended release 24 hr 24 hr tablet Take 1 tablet (50 mg total) by mouth 1 (one) time each day. 90 tablet 1 07/09/19 25 Active budesonide-for moteroL (SYMBICORT) 160-4.5 mcg/actuation inhaler INHALE 2 PUFFS TWICE DAILY,RINSE THROAT AND MOUTH AFTER USE TO REDUCE AFTERTASTE AND INCIDENCE OF CANDIDIASIS,DO NOT SWALLOW 3 each 1 08/07/19 25 Active lactulose (CHRONULAC) solution Take 15 mL (10 g total) by mouth 1 (one) time each day. 600 mL 11 08/06/19 25 Active senna-docusate (PERICOLACE) 8.6-50 mg per tablet Take 1 tablet by mouth 1 (one) time each day. 30 each 11 08/06/19 25 026 Active psyllium (METAMUCIL) 3.4 gram packet Take 1 packet by mouth 1 (one) time each day. 30 packet 11 08/06/19 25 Active polyethylene glycol (MIRALAX) 17 gram packet Take 17 g by mouth 1 (one) time each day. 510 g 11 08/06/19 25 026 Active alendronate (FOSAMAX) 70 mg tablet TAKE 1 TABLET BY MOUTH EVERY 7 DAYS. 12 tablet 1 08/27/19 25 Active alendronate (FOSAMAX) 70 mg tablet Take 1 tablet (70 mg total) by mouth every 7 (seven) days. 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 Lee: Hallucinations consistent with complex sleep hallucinations. Monoclonal gammopathy 01/18/2021 Overview (08/06/2023): Follows with hematology. Sickle cell trait ([facility] V24) 01/18/2021 Overview (08/06/2023): Following with hematology. COVID-19 06/08/2020 Genital herpes 04/06/2020 Lumbar spondylosis 03/25/2018 Overview (08/06/2023): MRI 01/15/2018 Constipation due to pain medication 01/16/2018 Moderate persistent asthma without complication 03/20/2017 Cataract 07/12/2016 Diabetic neuropathy ([facility] V24, [facility] V28) 0 07/10/2016 Gastroesophageal reflux disease 11/03/2015 Type 2 diabetes mellitus wit h neurological manifestations ([facility] V24, [facility] V28) 02/22/2015 Old KS (myocardial infarction) 09/14/2013 Overview (08/06/2023): Hx [place] 1997. Low back pain 01/02/2012 Foot pain, left 07/01/2011 Leg cramps, sleep related 01/09/2011 SUSANNA (obstructive sleep apnea) 09/19/2010 Overview (08/06/2023): [facility] Home Polysomnogram: Date 02/11/2017; AHI 8, Unclassified apneas 0; Obstructive apneas 2; Central apneas 1; Mixed apneas 0; hypopneas 16; average oxygen saturation 94% (lowest 89% without saturations <88% for 5% or more of study) [facility] Polysomnogram: Date 11/11/2018; Wt 229#; BMI 39; SE 40%; SM 46%; REM 12%; RDI 6 (AHI 6), REM (RDI 12 - AHI 12), Central apneas 1; Obstructive apneas 5; Mixed apneas 2; hypopneas 4; RERAs 0; average oxygen saturation 94% (lowest 88%); PLMs 82. - Obstructive Sleep Apnea - mild; mostly obstructive apneas and hypopneas; by 2019 polysomnogram. HTN (hypertension) 08/01/2010 Type 2 diabetes mellitus wit h cataract ([facility] [employer] V24, [employer] [employer] V28) 08/01/2010 Hyperlipidemia 08/01/2010 BPH (benign prostatic hyperplasia) 08/01/2010 Neck pain 08/01/2010 Rhinitis 08/01/2010 Encounters Date Type Department Care Team Description 09/10/2024 9:50 AM EDT - 09/10/2024 11:59 PM EDT Hospital Encounter [facility] MRI [address] [place] [phone] Chronic left hip pain; Status post total replacement of left hip; History of femur fracture; Lytic bone lesion of left femur Discharge Disposition: Home or Self Care 09/03/2024 Telephone Adult Medicine [address] [phone] Laclair, Miguelina, NURSE ORTHOPEDIC Fitting for DME 08/30/2024 Telephone Adult [address] [phone] Laclair, Miguelina, NURSE ORTHOPEDIC Fitting for DME 08/30/[address] [phone] Laclair, Miguelina, NURSE ORTHOPEDIC Fitting for DME (Faxed form from [facility]) 08/26/2024 8:30 AM EDT Consult Orthopedic Surgery [facility] [address] [facility] [address] [place] [phone] Archie Moore MD Chronic left hip pain (Primary Dx); Status post total replacement of left hip; Gait instability; History of femur fracture; Lytic bone lesion of left femur; Lumbar spondylosis; Chronic left-sided low back pain without sciatica 08/23/2024 Telephone Adult [address] [phone] Laclair, Miguelina, NURSE ORTHOPEDIC Fitting for DME (Faxed form from [employer]) 08/19/2024 9:30 AM EDT Office Visit [facility] Hematology Oncology [address] [place] [address] Etelvina Johnson MD Monoclonal gammopathy (Primary Dx); Pancytopenia (CMS/HCC V24, CMS/HCC V28); IgA monoclonal gammopathy 08/05/2024 8:00 AM EST Office Visit Gastroenterology - [place] [facility] 175 [facility] [address] [place] [phone] Ralph Edwards PA Constipation, unspecified constipation type (Primary Dx); Abdominal discomfort 07/12/2024 9:30 AM EST Office Visit Pulmonolgy [facility] 175 [facility] [address] [place] [phone] Conchita Pedraza MD SUSANNA on CPAP (Primary Dx); Moderate persistent asthma, unspecified whether complicated; Ex-smoker 07/12/2024 [facility] [address] [facility] [address] [place] [phone] Lizbet Meng MA DME request (Order for CPAP ) 07/09/2024 2:15 PM EST - 07/09/2024 11:59 PM EST Hospital Encounter [address] [phone] Chronic left hip pain Discharge Disposition: Home or Self Care 07/09/2024 1:15 PM EST Office Visit Adult Medicine [address] [phone] Navdeep Bolanos MD Diet-controlled diabetes mellitus ([facility] V24, [facility] V28) (Primary Dx); Primary hypertension; Hypercholesterolemia ; Encounter for long-term (current) use of medications; Hyperparathyroidism ([facility] V24); Chronic left hip pain; Monoclonal gammopathy; Mild dementia without behavioral disturbance, psychotic disturbance, mood disturbance, or anxiety, unspecified dementia type ([facility] V24, [facility] V28) 06/28/2024 Nurse Triage Adult Medicine [address] [phone] Navdeep Bolanos MD Constipation from Last 3 Months Immunizations Name Administration Dates Next Due Influenza Quadravalent, MDCK , 0.5ml, preservative free (Flucelvax) 6mo and older 03/25/2019 Influenza trivalent, 0.5mL ( Fluzone High-dose) 65yo and older 03/29/2023,04/05/2022,01/30/2021,02/28,02/18/2018,03/13/2017,02/02/2016 ,02/13/2015 Influenza trivalent, with pr eservative (Fluzone; Afluria) 6mo and older 02/10/2013,03/17/2012,02/13/2011 JULIAN/Xquva SARS-CoV-2 COVID -19, vector-nr, rS-Ad26, preservative free 08/28/2020 Pneumococcal conjugate 13 va lent (Prevnar 13, PCV13) 2mo and older 11/23/2015 Pneumococcal polysaccharide 23 valent (Pneumovax 23) 2yo and older 08/01/2010 Td Tetanus diptheria (Tdvax) 7yo and older 03/27/2016,07/01/2005 Zoster Live 01/08/2017 Surgical History Surgery Date Site/Laterality Comments SINUS SURGERY PROCEDURE: UT UNLISTED PROCEDURE ACCESSORY SINUSES FOOT SURGERY PROCEDURE: HISTORICAL FOOT SURGERY HIP ARTHROPLASTY PROCEDURE: HISTORICAL HIP REPLACEMENT UPPER GASTROINTESTINAL ENDOSCOPY 11/24/2015 PROCEDURE: UT UPPER GI ENDOSCOPY PERFORMED; COMMENT: Esophageal erosion, gastritis, duodenum normal; no H. pylori and nl esophageal biopsies COLONOSCOPY 02/25/2017 PROCEDURE: HISTORICAL COLONOSCOPY; COMMENT: Diminutive colonic polyps ? 3 , all 3 tubular adenomas. Medical History Medical History Date Comments Hyperlipidemia 08/01/2010 DX:Hyperlipidemi a Diabetic neuropathy ([facility] V24, [facility] V28) 07/10/2016 DX:Diabetic neuropathy (HCC) Type 2 diabetes mellitus wit h cataract (CMS/HCC V24, [facility] V28) 08/01/2010 DX:Type 2 diabetes mellitus with cataract (HCC); COMMENT: History of [place] 1998 Cataract 07/12/2016 DX:Cataract Old KS (myocardial infarction) 09/14/2013 D X:Old KS (myocardial infarction); COMMENT: Hx [place] 1997. Type 2 diabetes mellitus wit h neurological manifestations (CMS/HCC V24, [facility] V28) 02/22/2015 DX:Type 2 diabetes mellitus with neurological manifestations (HCC) BPH (benign prostatic hyperplasia) 08/01/2010 DX:BPH (benign prostatic hyperplasia) Chronic prescription opiate use 11/27/2016 DX:Chronic prescription opiate use Constipation due to pain medication 01/16/2018 DX:Constipation due to pain medication Degenerative disc disease, lumbar 03/25/2018 DX:Degenerative disc disease, lumbar; COMMENT: MRI 01/15/2018 Foot pain, left 07/01/2011 DX:Foot pain, le ft Former smoker 03/20/2017 DX:Former smoker Gastroesophageal reflux disease 11/03/2015 DX:Gastroesophageal reflux disease History of colonic polyps 08/01/2010 DX:His tory of colonic polyps; COMMENT: With Dr Sophia Tyler. The patient has tubular adenomas CN 7.12 with adenoma. 02/25/2017: [facility], diminutive tubular adenoma ? 3 . HTN (hypertension) 08/01/2010 DX:HTN (hyper tension) Leg cramps, sleep related 01/09/2011 DX:Leg cramps, sleep related Low back pain 01/02/2012 DX:Low back pain Moderate persistent asthma w ithout complication 03/20/2017 DX:Moderate persistent asthm a without complication Neck pain 08/01/2010 DX:Neck pain Obesity (BMI 30-39.9) 03/20/2017 DX:Obesity (BMI 30-39.9) Obesity hypoventilation synd agatha ([facility] V24, [facility] V28) 03/20/2017 DX:Obesity hypoventilation syndrome (HCC) SUSANNA (obstructive sleep apnea) 09/19/2010 DX :SUSANNA (obstructive sleep apnea); COMMENT: [facility] Home Polysomnogram: Date 02/11/2017; AHI 8, Unclassified apneas 0; Obstructive apneas 2; Central apneas 1; Mixed apneas 0; hypopneas 16; average oxygen saturation 94% (lowest 89% without saturations <88% for 5% or more of study) 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) 03/20/2017 D X:Overlap syndrome (HCC) Rhinitis 08/01/2010 DX:Rhinitis History of hip replacement, total, left 01/02/2012 DX:History of hip replacemen t, total, left Obesity DX:Obesity Family History Medical History Relation Name Comments Cancer Brother 1 Colon Diabetes Father Cancer Mother Stomach Diabetes Mother cancer Cancer Sister Luekima Relation Name Status Comments Brother 1 Brother 2 colon cancer Father Mother Sister Social History Tobacco Use Types Packs/Day Years Used Date Smoking Tobacco: Former Cigarettes 0.3 3.1 1 06/16/1954 - 06/02/1958 Passive Smoke Exposure: Past Smokeless Tobacco: Never Tobacco Cessation:Counseling Given: Not Answered Alcohol Use Standard Drinks/Week Comments No 0 (1 standard drink = 0.6 oz pur e alcohol) Sex and Gender Information Value Date Recorded Sex Assigned at Male 04/27/2024 1:44 PM EST Legal Sex Male 6:15 AM EST Gender Identity Male 04/27/2024 1:44 PM EST Sexual Orientation Choose not to disclose 2023 1:44 PM EST Obstetrics History Last Filed Vital Signs Vital Sign Reading Time Taken Comments Blood Pressure 153/58 08/19/2024 9:28 AM EDT Pulse 67 08/19/2024 9:28 AM EDT Temperature 36.1 ??C (97 ??F) 08/19/2024 9:28 AM EDT Respiratory Rate 18 07/12/2024 9:16 AM EST Oxygen Saturation 99% 08/19/2024 9:28 AM EDT Inhaled Oxygen Concentration - - Weight 95.3 kg (210 lb) 08/26/2024 8:37 AM EDT Height 162.6 cm (5' 4 ) 08/26/2024 8:37 AM EDT Body Mass Index 36.05 08/26/2024 8:37 AM EDT Plan of Treatment Upcoming Encounters Date Type Department Care Team (Late st Contact Info) Description 01/12/2025 8:15 AM EDT Office Visit Pulmonolgy [facility] [address] [phone] Conchita Pedraza MD [address] [address] 01/26/2025 8:30 AM EDT Office Visit Adult Medicine [address] [phone] Navdeep Bolanos MD [address] [place] [address] 05/02/2025 9:30 AM EST Office Visit Endocrinology [address] [phone] Alfredo Cole MD [address] [place] [phone] 08/31/2025 9:30 AM EDT Office Visit [facility] Hematology Oncology [address] [place] [phone] Etelvina Johnson MD [address] [place] [address] Health Maintenance Due Date Last Done Comments Diabetes: Annual Foot Exam 1950 RSV Immunization Adult Patients (1 - 1-dose 75+ series) 2016 Zoster Vaccines (2 of 3) 03/05/2017 01/08/2017 Medicare Annual Wellness Visit 05/11/2022 Social Influencers of Health Screening 05/11/2022 Colorectal Cancer Screening: Colonoscopy 08/06/2023 09/26/2022 Depression Screening 08/07/2023 08/06/2022 Falls Risk Assessment 08/07/2023 08/06/2022 COVID-19 Vaccine ( season) 2024 05/10/2021, 08/28/2020 Diabetes: Blood Sugar Control Test (HGBA1C) 02/05/2025 08/05/2024, 01/07/2024 Diabetes: Annual Retina Eye Exam 03/11/2025 03/11/2024 Diabetes: Annual Urine Albumin-Creatinine Ratio (uACR) 08/05/2025 08/05/2024, 03/03/2023 Diabetes: Annual GFR (Glomerular Filtration Rate) 08/05/2025 08/05/2024, 01/07/2024, 01/07/2024 Hypertension/CHF/CAD Annual BMP Blood Test 08/05/2025 08/05/2024, 01/07/2024, 01/07/2024 DTaP,Tdap,and Td Vaccines (3 - Td or Tdap) 03/27/2026 03/27/2016, 07/01/2005 Cholesterol Screening (Lipid Panel) 08/05/2029 08/05/2024, 01/07/2024, 03/03/2023 Pneumococcal Vaccine: 50+ Years Completed 11/23/2015, 08/01/2010 Influenza Vaccine Completed 03/02/2024, , 04/05/2022, Additional history exists HIB Vaccines Aged Out No longer eligi ble based on patient's age to complete this topic HPV Vaccines Aged Out No longer eligi ble based on patient's age to complete this topic Hepatitis A Vaccines Aged Out No long er eligible based on patient's age to complete this topic Hepatitis B Vaccines Aged Out No long er eligible based on patient's age to complete this topic IPV Vaccines Aged Out No longer eligi ble based on patient's age to complete this topic MMR Vaccines Aged Out No longer eligi ble based on patient's age to complete this topic Meningococcal ACWY Vaccine Aged Out N o longer eligible based on patient's age to complete this topic Meningococcal B Vaccine Aged Out No l onger eligible based on patient's age to complete this topic RSV Immunization Patients Under 20 months Aged Out No longer eligible based on patient's age to complete this topic Varicella Vaccines Aged Out No longer eligible based on patient's age to complete this topic Procedures Procedure Name Priority Date/Time Associated Diagnosis Comments MR FEMUR WO AND W CONTRAST LEFT Routine 09/10/2024 10:59 AM EDT Chronic left hip pain Status post total replacement of left hip History of femur fracture Lytic bone lesion of left femur HEMOGLOBIN A1C Routine 08/05/2024 9:42 AM EST Diet-controlled diabetes mellitus ([facility] V24, [facility] V28) LIPID PANEL WITH REFLEX TO DIRECT LDL Routine 08/05/2024 9:42 AM EST Hypercholesterolemi a VITAMIN D 25 HYDROXY Routine 08/05/2024 9:42 AM EST Hyperparathyroidism ([facility] V24) COMPREHENSIVE METABOLIC PANEL Routine 08/05/2024 9:42 AM EST Monoclonal paraproteinemia Sickle-cell trait ([facility] V24) Monoclonal gammopathy MICROALBUMIN CREATININE URINE RATIO Routine 08/05/2024 9:42 AM EST Diet-controlled diabetes mellitus ([facility] V24, [facility] V28) IMMUNOGLOBULIN IGM Routine 08/05/2024 9: 42 AM EST Monoclonal paraproteinemia Sickle-cell trait ([facility] V24) Monoclonal gammopathy COMPLETE BLOOD COUNT Routine 08/05/2024 9:42 AM EST Monoclonal paraproteinemia Sickle-cell trait ([facility]/HCC V24) Monoclonal gammopathy LACTATE DEHYDROGENASE Routine 08/05/2024 9:42 AM EST Monoclonal paraproteinemia Sickle-cell trait ([facility]/HCC V24) Monoclonal gammopathy VISCOSITY, SERUM Routine 08/05/2024 9:42 AM EST Monoclonal paraproteinemia Sickle-cell trait ([facility] V24) Monoclonal gammopathy XR HIP 2-3 VIEWS LEFT Routine 07/09/2024 2:40 PM EST Chronic left hip pain DIABETIC RETINOPATHY SCREENING Routine 03/11/2024 3:55 PM EDT from Last 3 Months or Most Recently Relevant to Health Maintenance Results * MR Femur wo and w Contrast Left (09/10/2024 10:59 AM EDT) Anatomical Region Laterality Modality Lower Extremities, Femur Left Magneti c Resonance 09/10/2024 1:46 PM EDT Impressions 09/10/2024 2:03 PM EDT Benign bony callus formation in the femoral shaft near the tip of the femoral stem component of a hip arthroplasty. ??No focal bony lesion to correlate with an associated central lucency seen on the previous outside radiograph. ??Images from that study are not available for comparison. -------- FINAL REPORT -------- Dictated By: Joao Linn Dictated Date: 09/10/2024 13:46 ET Assigned Physician: Joao Linn Reviewed and Electronically Signed By: Joao Linn Signed Date: 09/10/2024 14:03 ET Workstation ID: [id number] Transcribed By: Self Edit Transcribed Date: 09/10/2024 13:46 ET Narrative 09/10/2024 2:03 PM EDT MRI of the left femur, 09/10/2024. HISTORY: Lesion seen on x-ray. ??History of MGUS. ??Concern for malignancy. ??Chronic left hip pain. ??History of femur fracture. COMPARISON: An outside radiograph dated 07/09/2024 is not available for review. ??The report for that study describes a stable expansile bony abnormality involving the medial aspect of the proximal/mid shaft of the left femur distal to a hip prosthesis with suggestion of a central lucent component. TECHNIQUE: Multiplanar multisequence MRI of the left femur with and without intravenous contrast. IV contrast dose: 20 mL intravenous Dotarem from a 20 mL vial with 0 mL discarded. FINDINGS: Susceptibility artifact in the region of the left hip joint and along the proximal left femoral shaft secondary to the patient's hip arthroplasty. ??There is benign bony callus formation predominantly along the medial aspect of the femoral shaft centered approximately 4 cm inferior to the tip of the femoral stem component. There is irregular T2 hyperintensity within the soft tissues posterior to the proximal femur at the level of the femoral stem component of the arthroplasty which is likely secondary to susceptibility artifact. ??Otherwise unremarkable appearance of the regional musculature. ??No soft tissue fluid collection or mass. Limited views of the right thigh on the large [id number] images are unremarkable. Procedure Note Joao Linn MD - 09/10/2024 MRI of the left femur, 09/10/2024. HISTORY: Lesion seen on x-ray. History of MGUS. Concern for malignancy.Chronic left hip pain. History of femur fracture. COMPARISON: An outside radiograph dated 07/09/2024 is not available forreview. The report for that study describes a stable expansile bonyabnormality involving the medial aspect of the proximal/mid shaft of theleft femur distal to a hip prosthesis with suggestion of a central lucentcomponent. TECHNIQUE: Multiplanar multisequence MRI of the left femur with andwithout intravenous contrast. IV contrast dose: 20 mL intravenous Dotarem from a 20 mL vial with 0 mLdiscarded. FINDINGS: Susceptibility artifact in the region of the left hip joint and along theproximal left femoral shaft secondary to the patient's hip arthroplasty.There is benign bony callus formation predominantly along the medialaspect of the femoral shaft centered approximately 4 cm inferior to thetip of the femoral stem component. There is irregular T2 hyperintensity within the soft tissues posterior tothe proximal femur at the level of the femoral stem component of thearthroplasty which is likely secondary to susceptibility artifact.Otherwise unremarkable appearance of the regional musculature. No softtissue fluid collection or mass. Limited views of the right thigh on the large [id number] images areunremarkable. IMPRESSION: Benign bony callus formation in the femoral shaft near the tip of thefemoral stem component of a hip arthroplasty. No focal bony lesion tocorrelate with an associated central lucency seen on the previous outsideradiograph. Images from that study are not available for comparison. -------- FINAL REPORT -------- Dictated By: Joao Linn Dictated Date: 09/10/2024 13:46 ET Assigned Physician: Joao Linn Reviewed and Electronically Signed By: Joao Linn Signed Date: 09/10/2024 14:03 ET Workstation ID: [id number] Transcribed By: Self Edit Transcribed Date: 09/10/2024 13:46 ET Archie Moore MD IMG MRI PROCEDURES Fi nal Result * Lipid panel with reflex to direct LDL (08/05/2024 9:42 AM EST) Cholesterol 146 0 - 200 mg/dL LAB CHEMISTRY METHOD 08/05/2024 1:15 PM [facility] Triglycerides 102 0 - 150 mg/dL LAB CHEMISTRY METHOD 08/05/2024 1:15 PM [facility] HDL 54 >=40 mg/dL LAB CHEMISTRY METHOD 08/05/2024 1:15 PM [facility] LDL Calculated 72 0 - 100 mg/dL LAB CHEMISTRY METHOD 08/05/2024 1:15 PM [facility] VLDL Cholesterol Bhargav 20.4 mg/dL LAB CHEMISTRY METHOD 08/05/2024 1:15 PM [facility] Non HDL Chol. (LDL+VLDL) 92 <145 mg/dL LAB CHEMISTRY METHOD 08/05/2024 1:15 PM [facility] Chol/HDL Ratio 2.7 0.0 - 4.4 LAB CHEMISTRY METHOD 08/05/2024 1:15 PM [facility] Blood Venous blood specimen / Unknown Venipuncture / Unknown 08/05/2024 9:42 AM EST 08/05/2024 9:42 AM EST us Navdeep Bolanos MD LAB BLOOD ORDERABLES Final Resu lt Performing Organization Address [facility]/ZIP Co de Phone Number [facility] [address] [place] [address], * Viscosity, serum (08/05/2024 9:42 AM EST) Viscosity Serum 1.6 1.5 - 1.9 7:36 AM EDT [facility] Comment: UNITS OF MEASURE: Relative to H2O Test Performed at: [facility] [address] ??[id number] ? I Zohra BORRERO, PhD, KARINA Blood Venous blood specimen / Unknown Venipuncture / Unknown 08/05/2024 9:42 AM EST 08/05/2024 9:42 AM EST us Etelvina Johnson MD LAB BLOOD ORDERABLES Final R esult [facility] [address] [place] [address] * Microalbumin creatinine urine ratio (08/05/2024 9:42 AM EST) Creatinine, Urine 54.0 mg/dL LAB CHEMISTRY METHOD 08/05/2024 1:04 PM EST [facility] Microalb, Ur 8.7 0.0 - 29.0 mg/L LAB CHEMISTRY METHOD 08/05/2024 1:04 PM EST [facility] Microalb/Creat Ratio 16 <30 mg/g creat LAB CHEMISTRY METHOD 08/05/2024 1:04 PM EST [facility] Urine Urine specimen obtained by clean catch procedure / Unknown Non-blood Collection / Unknown 08/05/2024 9:42 AM EST 08/05/2024 9:42 AM EST us Navdeep Bolanos MD LAB URINE ORDERABLES Final Resu lt Performing Organization Address [facility]/ZIP Co de Phone Number [facility] [address] [place] [address], [place] [phone] * Vitamin D 25 hydroxy (08/05/2024 9:42 AM EST) Pathologist [facility] Vit D, 25-Hydroxy 34.1 30.0 - 80.0 ng/mL LAB CHEMISTRY METHOD 08/05/2024 1:09 PM [facility] Blood Venous blood specimen / Unknown Venipuncture / Unknown 08/05/2024 9:42 AM EST 08/05/2024 9:42 AM EST us Navdeep Bolanos MD LAB BLOOD ORDERABLES Final Resu lt Performing Organization Address City/[facility]/ZIP Co de Phone Number [facility] [address] [place] [address], [place] [phone] * (ABNORMAL) Complete blood count (08/05/2024 9:42 AM EST) [facility] WBC 9.7 4.8 - 10.8 K/mcL LAB HEMETOLOGY METHOD 08/05/2024 12:27 PM [facility] RBC 4.50 4.50 - 5.50 M/mcL LAB HEMETOLOGY METHOD 08/05/2024 12:27 PM [facility] Hemoglobin 12.7(L) 13.5 - 17.5 g/dL LAB HEMETOLOGY METHOD 08/05/2024 12:27 PM [facility] Hematocrit 38.6(L) 42.0 - 54.0 % LAB HEMETOLOGY METHOD 08/05/2024 12:27 PM [facility] MCV 86.4 79.0 - 98.0 FL LAB HEMETOLOGY METHOD 08/05/2024 12:27 PM EST [facility] MCH 28.4 27.0 - 32.0 pcg LAB HEMETOLOGY METHOD 08/05/2024 12:27 PM [facility] MCHC 32.9 32.0 - 37.0 g/dL LAB HEMETOLOGY METHOD 08/05/2024 12:27 PM [facility] RDW 15.3(H) 11.0 - 15.0 % LAB HEMETOLOGY METHOD 08/05/2024 12:27 PM [facility] Platelets 244 130 - 400 K/mcL LAB HEMETOLOGY METHOD 08/05/2024 12:27 PM [facility] MPV 12.3(H) 7.0 - 11.0 FL LAB HEMETOLOGY METHOD 08/05/2024 12:27 PM [facility] NRBC 0.0 <1.0 % LAB HEMETOLOGY METHOD 08/05/2024 12:27 PM [facility] NRBC Absolute 0.00 <0.10 K/mcL LAB HEMETOLOGY METHOD 08/05/2024 12:27 PM [facility] Blood Venous blood specimen / Unknown Venipuncture / Unknown 08/05/2024 9:42 AM EST 08/05/2024 9:42 AM EST us Etelvina Johnson MD LAB BLOOD ORDERABLES Final R esult [facility] [address] [place] [address], * Lactate dehydrogenase (08/05/2024 9:42 AM EST) LDH 166 120 - 246 unit/L LAB CHEMISTRY METHOD 08/05/2024 1:01 PM [facility] Blood Venous blood specimen / Unknown Venipuncture / Unknown 08/05/2024 9:42 AM EST 08/05/2024 9:42 AM EST us Etelvina Johnson MD LAB BLOOD ORDERABLES Final R esult Performing Organization Address City/[facility]/ZIP Co de Phone Number [facility] [address] [place] [address], [place] [phone] * Hemoglobin A1c (08/05/2024 9:42 AM EST) Hemoglobin A1C 6.2 <6.5 % LAB CHEMISTRY METHOD 08/05/2024 8:59 PM EST [facility] Mean Bld Glu Estim. 131 mg/dL LAB CHEMISTRY METHOD 08/05/2024 8:59 PM EST [facility] Blood Venous blood specimen / Unknown Venipuncture / Unknown 08/05/2024 9:42 AM EST 08/05/2024 9:42 AM EST us Navdeep Bolanos MD LAB BLOOD ORDERABLES Final Resu lt Performing Organization Address [facility] Co de Phone Number [facility] [address] [place] [address], [place] [phone] * Immunoglobulin IgM (08/05/2024 9:42 AM EST) IgM 223 23 - 259 mg/dL LAB CHEMISTRY METHOD 08/05/2024 1:15 PM EST [facility] Blood Venous blood specimen / Unknown Venipuncture / Unknown 08/05/2024 9:42 AM EST 08/05/2024 9:42 AM EST us Etelvina Johnson MD LAB BLOOD ORDERABLES Final R esult Performing Organization Address City/[facility]/ZIP Co de Phone Number [facility] [address] [place] [address], [place] [phone] * (ABNORMAL) Comprehensive metabolic panel (08/05/2024 9:42 AM EST) Sodium 138 133 - 145 mmol/L LAB CHEMISTRY METHOD 08/05/2024 1:15 PM [facility] Potassium 4.5 3.5 - 5.5 mmol/L LAB CHEMISTRY METHOD 08/05/2024 1:15 PM [facility] Chloride 104 96 - 110 mmol/L LAB CHEMISTRY METHOD 08/05/2024 1:15 PM [facility] CO2 27 21 - 32 mmol/L LAB CHEMISTRY METHOD 08/05/2024 1:15 PM [facility] Anion Gap 7 3 - 11 LAB CHEMISTRY METHOD 08/05/2024 1:15 PM [facility] Glucose 97 70 - 100 mg/dL LAB CHEMISTRY METHOD 08/05/2024 1:15 PM [facility] BUN 19 5 - 25 mg/dL LAB CHEMISTRY METHOD 08/05/2024 1:15 PM [facility] Creatinine 1.02 0.70 - 1.30 mg/dL LAB CHEMISTRY METHOD 08/05/2024 1:15 PM [facility] eGFR 73 >=60 mL/min/1. 73m2 LAB CHEMISTRY METHOD 08/05/2024 1:15 PM [facility] Comment:Calculation based on the??Chronic Kidney Disease Epidemiology Collaboration (CKD-EPI) equation refit??without adjustment for race. BUN/Creatinine Ratio 18.6 LAB CHEMISTRY METHOD 08/05/2024 1:15 PM [facility] Calcium 10.7(H) 8.5 - 10.5 mg/dL LAB CHEMISTRY METHOD 08/05/2024 1:15 PM [facility] AST (SGOT) 23 10 - 42 unit/L LAB CHEMISTRY METHOD 08/05/2024 1:15 PM [facility] ALT (SGPT) 29 10 - 60 unit/L LAB CHEMISTRY METHOD 08/05/2024 1:15 PM EST [facility] Alkaline Phosphatase 58 42 - 121 unit/L LAB CHEMISTRY METHOD 08/05/2024 1:15 PM EST [facility] Total Protein 6.9 6.0 - 8.0 g/dL LAB CHEMISTRY METHOD 08/05/2024 1:15 PM EST [facility] Albumin 3.4 3.2 - 5.0 g/dL LAB CHEMISTRY METHOD 08/05/2024 1:15 PM EST [facility] Total Bilirubin 0.4 0.0 - 1.4 mg/dL LAB CHEMISTRY METHOD 08/05/2024 1:15 PM EST [facility] Blood Venous blood specimen / Unknown Venipuncture / Unknown 08/05/2024 9:42 AM EST 08/05/2024 9:42 AM EST Etelvina Johnson MD LAB BLOOD ORDERABLES Final R esult [facility] [address] [place] [address], * XR Hip 2-3 Views Left (07/09/2024 2:40 PM EST) Anatomical Region Laterality Modality Lower Extremities, Hip Left Radiograp hic Imaging 07/10/2024 10:4 7 AM EST Impressions 07/10/2024 11:07 AM EST Left hip prosthesis again noted without a complication evident. ??Stable bony abnormality involving the left femoral shaft. POS - [id number] -------- FINAL REPORT -------- Dictated By: Shireen Rogers Dictated Date: 07/10/2024 10:47 ET Assigned Physician: Shireen Rogers Reviewed and Electronically Signed By: Shireen Rogers Signed Date: 07/10/2024 11:07 ET Workstation ID: [id number] Transcribed By: Self Edit Transcribed Date: 07/10/2024 10:47 ET Narrative 07/10/2024 11:07 AM EST EXAM: Pelvic and left hip x-ray. HISTORY: Chronic left hip pain. COMPARISON: 02/16/2021 VIEWS: AP view of the pelvis and AP and frog-lateral views of the left hip performed. FINDINGS: ?? Intact left hip prosthesis again noted without periprosthetic lucency to indicate loosening or infection. ??Femoral head component is centered in the acetabular cup. No evidence of an acute fracture or dislocation. ??Pelvic ring is intact. ??Stable expansile bony abnormality involving the medial aspect of the proximal/mid shaft of the left femur distal to the prosthesis. ??Suggestion of a central lucent component with overlying smooth solid periosteal reaction, similar to the prior exam. ??Vascular calcifications in the soft tissues. ?? Procedure Note Shireen Rogers MD - 07/10/2024 EXAM: Pelvic and left hip x-ray. HISTORY: Chronic left hip pain. COMPARISON: 02/16/2021 VIEWS: AP view of the pelvis and AP and frog-lateral views of the left hipperformed. FINDINGS: Intact left hip prosthesis again noted without periprosthetic lucency toindicate loosening or infection. Femoral head component is centered inthe acetabular cup. No evidence of an acute fracture or dislocation.Pelvic ring is intact. Stable expansile bony abnormality involving themedial aspect of the proximal/mid shaft of the left femur distal to theprosthesis. Suggestion of a central lucent component with overlyingsmooth solid periosteal reaction, similar to the prior exam. Vascularcalcifications in the soft tissues. IMPRESSION: Left hip prosthesis again noted without a complication evident. Stablebony abnormality involving the left femoral shaft. POS - [id number] -------- FINAL REPORT -------- Dictated By: Shireen Rogers Dictated Date: 07/10/2024 10:47 ET Assigned Physician: Shireen Rogers Reviewed and Electronically Signed By: Shireen Rogers Signed Date: 07/10/2024 11:07 ET Workstation ID: [id number] Transcribed By: Self Edit Transcribed Date: 07/10/2024 10:47 ET us Navdeep Bolanos MD IMG XR PROCEDURES Final Result * Diabetic Retinopathy Screening (03/11/2024 3:55 PM EDT) us Historical Provider MD IN CLINIC/BEDSIDE ORDERAB LES Final Result from Last 3 Months or Most Recently Relevant to Health Maintenance Insurance [employer] MEDICARE Member Subscriber Plan / Payer (Ef fective 2020-Present) Name:Craig Kothari Relation to Subscriber:Self Name:Craig Kothari Payer ID:[id number] Group ID:[id number] Type:Not on file Address: [place] [address] [place] [address] Care Teams Sheet Layer Relationship Specialty Start Date End Date Navdeep Bolanos MD [address] [place] [address] PCP - General Internal Medicine 04/27/24
--- OUTSIDE RECORDS SUMMARY | 2024-09-13 12:46 | XMS_ITS | Encounter Summary ---
Author Organization [facility] Address [address] [place] [address] Care Team Providers Care Batch Dumper Name Role Phone Navdeep Bolanos MD Primary Care Provider Reason for Visit * Reason Onset Date Comments Fitting for DME 09/03/2024 Encounter Details Date Type Department Care Team (Late st Contact Info) Description 09/03/2024 Telephone Adult Medicine [address] [phone] Miguelina Luther LPN Fitting for DME Social History Tobacco Use Types Packs/Day Years [...] PM EST documented as of this encounter Progress Notes * Miguelina Luther LPN - 09/03/2024 2:15 PM EDT Received request from [employer] for updated diabetic notes for pt diabetic shoes Note faxed to [phone] documented in this encounter Plan of Treatment Upcoming Encounters Date Type Department Care Team (Late st Contact Info) Description 01/12/2025 8:15 AM EDT Office Visit Pulmonolgy [facility] [address] [phone] Conchita Pedraza MD [address] [address] 01/26/2025 8:30 AM EDT Office Visit [place] [facility] [place] [address] [phone] Navdeep Bolanos MD [address] [place] [address] 05/02/2025 9:30 AM EST Office Visit Endocrinology [address] [phone] Alfredo Cole MD [address] [place] [address] 08/31/2025 9:30 AM EDT Office Visit [facility] Hematology Oncology [address] [place] [phone] Etelvina Johnson MD [address] [place] [address] documented as of this encounter Visit Diagnoses Not on filedocumented in this encounter Care Teams Batch Dumper Relationship Specialty Start Date End Date Navdeep Bolanos MD [address] [place] [address] PCP - General Internal Medicine 04/27/24 documented as of this encounter
--- OUTSIDE RECORDS SUMMARY | 2024-09-13 12:46 | XMS_ITS | Patient Health Record ---
[facility] Address [address] [place] [id number] Care Team Providers Care Street Commissioner Name Role Phone Epi Bolanos MD Primary Care Provider Jose Ramon Spann Unavailable [phone] Allergies No Known Allergies Results Component Value Reference Range Notes HEMOGLOBIN A1C (GLYCOHEMOGLO BIN) Reviewed date:07/26/2024 11:23:50 AM Interpretation: Performing Lab: Notes/Report: HEMOGLOBIN A1C % (HH) 6.2 Reason For Referral No Information Medications Medication SIG (Take, Route, Frequency, Duration) Notes Start Date End Date Status Budesonide-Formoterol Fumarate 160-4.5 MCG/ACT 2 puffs Inhalation Twice a day Active Polyvinyl Alcohol 1.4 % as directed Ophthalmic Active Combivent Respimat 20-100 MCG/ACT 1 puff as needed Inhalation every 6 hrs Active DULoxetine HCl 30 MG 1 capsule Orally On ce a day for 30 day(s) Active VESIcare 10 MG 1 tablet Orally Once a day for 30 day(s) Active Fluticasone Furoate 50 MCG/ACT 1 puff Inhalation Once a day Active Ammonium Lactate 12 % 1 application to affected area Externally to feet Twice a day for 30 days Active Gabapentin 100 MG 1 capsule Orally Onc e a day for 30 day(s) Active Compression Stockings 20-30mm Hg 1 pair wear daily for 30 days Active Lidocaine 5 % 1 patch remove after 12 hours Externally Once a day Active Metoprolol Tartrate 25 MG 1 tablet with food Orally Twice a day for 30 day(s) Not-Taking Losartan Potassium A ctive Naproxen 500 MG 1 tablet with food o r milk as needed Orally every 12 hrs Active Vitamin D 25 MCG (1000 UT) 1 tablet Orally Once a day for 30 day(s) Not-Taking Extra Depth Orthopedic Shoes (1 Pair) with Customized Heat Molded Multidensity Innersoles (3 Pair) as directed Dx: NIDDM/Polyneuropathy (E11.42), Hammertoe Foot Deformity (M20.41,M20.42), Preulcerative Skin Lesion(s) (L85.1 07/26/2024 Active Acetaminophen 500 MG 1 tablet as needed Orally every 6 hrs Active Nitroglycerin 0.4 MG as directed Sublingual Active Alendronate Sodium 70 MG 1 tablet 30 min utes before the first food, beverage or medicine of the day with plain water Orally for 30 day(s) Active Omeprazole 20 MG 1 capsule 30 minutes before morning meal Orally Once a day for 30 day(s) Active Aspirin 81 MG 1 tablet Orally Once a day for 30 day(s) Active Polyethylene Glycol - as directed Active Rosuvastatin Calcium 20 MG 1 tablet Orally Once a day for 30 day(s) Active Docusate Sodium 100 MG 1 capsule as need ed Orally Once a day for 30 day(s) Active Tamsulosin HCl 0.4 MG 1 capsule Orally O nce a day for 30 day(s) Active Immunizations Vaccine Route Administration Date Status Comme nts COVID-19 Stanley [employer] Stanley/Christopher Unknown 05/10/2021 A dministered 08/28/20 Social History Tobacco Use: Social History Observation Description Date Details (start date - stop date) Never Smoker NA - NA Alcohol Screen Question Answer Notes Did you have a drink containing alcohol in the p ast year? No Points 0 Interpretation Negative Tobacco use other than smoking: Question Answer Notes Are you an other tobacco user? No Tobacco Control (Standard) Question Answer Notes Tobacco use: Nonsmoker Problems Problem Type SNOMED Code ICD Code Onset Dates Problem Status W/U Status Risk Notes Problem Acquired hammer toe of right foot (1551017026377857 ) Other hammer toe(s) (acquired), right foot (M20.41) Active confirmed Response to treatment, Improvemen t Problem Type 2 diabetes mellitus with peripheral angiopathy (873567372) Type 2 diabetes mellitus with diabetic peripheral angiopathy without gangrene (E11.51) Active confirmed Problem Acquired hammer toe of left foot (8928783106133346 ) Other hammer toe(s) (acquired), left foot (M20.42) Active confirmed Response to treatment, Improvemen t Problem Polyneuropathy due to type 2 diabetes mellitus (519791564) Type 2 diabetes mellitus with diabetic polyneuropathy (E11.42) Active confirmed Vital Signs Blood pressure diastolic 72 mm Hg 07/26/2024 Height 5 ft 4 in in 07/26/2024 Blood pressure systolic 136 mm Hg 07/26/2024 Weight 206 lbs 07/26/2024 BMI 35.36 kg/m2 07/26/2024 Procedures Procedure Date Ordered Date Performed Result Body Sit e 29304-VFBLMLR NAIL, 6 OR MORE 01/19/2024 N/A 45961-Yrivodry Plate 01/19/2024 N/A 78635-BDVO SKIN LESIONS, OVER 4 01/19/2024 N/A 90206-QVIOSTG NAIL, 6 OR MORE 04/21/2024 N/A 74097-Grywbwyi Plate 04/21/2024 N/A 54894-LJIA SKIN LESIONS, OVER 4 04/21/2024 N/A 49334-KJNRIJX NAIL, 6 OR MORE 07/26/2024 N/A 97257-Gibnglja Plate 07/26/2024 N/A 95334-IQBR SKIN LESIONS, OVER 4 07/26/2024 N/A Encounters Encounter Location Date Provider Diagnosis [address] [phone] 01/19/2024 Jose Ramon Parryunier Type 2 diabetes mellitus with diabetic polyneuropathy E11.42 ; Tinea unguium B35.1 ; Ingrown nail L60.0 ; Other hammer toe(s) (acquired), right foot M20.41 ; Other hammer toe(s) (acquired), left foot M20.42 and Type 2 diabetes mellitus with diabetic peripheral angiopathy without gangrene E11.[address] [facility] [phone] 04/21/2024 Jose Ramon Ghotra Type 2 diabetes mellitus with diabetic polyneuropathy E11.42 ; Tinea unguium B35.1 ; Ingrown nail L60.0 ; Other hammer toe(s) (acquired), right foot M20.41 and Other hammer toe(s) (acquired), left foot M20.42 [facility] [address] [phone] 07/26/2024 Jose Ramon Ghotra Type 2 diabetes mellitus with diabetic polyneuropathy E11.42 ; Tinea unguium B35.1 ; Ingrown nail L60.0 ; Other hammer toe(s) (acquired), right foot M20.41 and Other hammer toe(s) (acquired), left foot M20.[address] [phone] 11/12/2023 Jose Ramon [place] [address] [phone] 12/01/2023 Jose Ramon Ghotra Assessments Encounter Date Diagnosis (ICD Code) Assessment Notes Treatment Notes Treatment Clinical Notes Section Notes 01/19/2024 Type 2 diabetes mellitus with diabetic polyneuropathy (ICD-10 - E11.42) 01/19/2024 Tinea unguium (ICD-10 - B35.1) 04/21/2024 Type 2 diabetes mellitus with diabetic polyneuropathy (ICD-10 - E11.42) 04/21/2024 Tinea unguium (ICD-10 - B35.1) 07/26/2024 Type 2 diabetes mellitus with diabetic polyneuropathy (ICD-10 - E11.42) 07/26/2024 Tinea unguium (ICD-10 - B35.1) 07/26/2024 Ingrown nail (ICD-10 - L60.0) 04/21/2024 Ingrown nail (ICD-10 - L60.0) 01/19/2024 Ingrown nail (ICD-10 - L60.0) 01/19/2024 Other hammer toe(s) (acquired), right foot (ICD-10 - M20.41) Patient Educated with: DIABETIC FOOT CARE INSTRUCTIONS. pdf (DIABETIC FOOT CARE INSTRUCTIONS. pdf) 04/21/2024 Other hammer toe(s) (acquired), right foot (ICD-10 - M20.41) Response to treatment,Impro vement 04/21/2024 Other hammer toe(s) (acquired), left foot (ICD-10 - M20.42) Response to treatment,Impro vement 07/26/2024 Other hammer toe(s) (acquired), right foot (ICD-10 - M20.41) Patient Educated with: DIABETIC FOOT CARE INSTRUCTIONS. pdf (DIABETIC FOOT CARE INSTRUCTIONS. pdf) 01/19/2024 Other hammer toe(s) (acquired), left foot (ICD-10 - M20.42) 01/19/2024 Type 2 diabetes mellitus with diabetic peripheral angiopathy without gangrene (ICD-10 - E11.51) 07/26/2024 Other hammer toe(s) (acquired), left foot (ICD-10 - M20.42) Plan Of Treatment Pending Test Test Name Order Date 19059-KWYTDEM NAIL, 6 OR MORE 08/30/2021 51462-YWCNQBK NAIL, 6 OR MORE 11/29/2021 54196-NOUEKEJ NAIL, 6 OR MORE 06/06/2022 99455-JEKNPYC NAIL, 6 OR MORE 02/28/2022 63170-LJZSWUI NAIL, 6 OR MORE 08/19/2022 97854-CPBKNNA NAIL, 6 OR MORE 10/31/2022 68183-XAACRMC NAIL, 6 OR MORE 02/06/2023 12733-MLHNIXV NAIL, 6 OR MORE 04/21/2023 64368-CXAXTIF NAIL, 6 OR MORE 09/03/2023 55412-NYYOHYF NAIL, 6 OR MORE 01/19/2024 23636-LDJQLNQ NAIL, 6 OR MORE 04/21/2024 13653-BSIIWWM NAIL, 6 OR MORE 07/26/2024 24607-Oatpcjwv Plate 07/26/2024 54812-Emfvnxnj Plate 04/21/2024 46597-Otnoeumg Plate 01/19/2024 71462-Wsoiaqes Plate 09/03/2023 71222-Bwgnqjsc Plate 04/21/2023 28750-Rlgkpxvf Plate 02/06/2023 68884-Nnsudcfv Plate 10/31/2022 47021-Gcopbkku Plate 08/19/2022 17470-Nrxwmgrq Plate 02/28/2022 15791-Xjitklvr Plate 06/06/2022 96585-Wddxasgj Plate 11/29/2021 91763-Dwrodpbn Plate 08/30/2021 78843-Jnumktze Plate Each Additional 09/2022 01157-Edbcgxvk Plate Each Additional 74290-EDAG SKIN LESIONS, OVER 4 07/26/19 64626-JRBK SKIN LESIONS, OVER 4 04/21/20 77169-THQI SKIN LESIONS, OVER 4 09/03/19 42460-HUKC SKIN LESIONS, OVER 4 01/19/20 17171-MSWO SKIN LESIONS, OVER 4 04/21/20 00535-KIXG SKIN LESIONS, OVER 4 06/06/19 81188-FEQH SKIN LESIONS, OVER 4 08/31/19 78494-YIYV SKIN LESIONS, OVER 4 11/30/19 14739-IINB SKIN LESIONS, OVER 4 02/29/20 06375-KLZF SKIN LESIONS, OVER 4 08/20/19 72845-ZPZO SKIN LESIONS, OVER 4 11/01/19 86081-KCWU SKIN LESIONS, OVER 4 02/07/20 Next Appt Details Provider Name:Jose Ramon Sood Paradise , 10/27/2024 08:45:00 AM, [address] [facility], [address], [place], [address], Insurance Providers Payer Name Payer Address Payer Phone Subscriber Number Group Number Insured Name Patient Relationship to Insured Coverage Start Date Coverage End Date [facility] [employer] Claims [address] [place] [id number] Craig Kothari Self - patient is the insured Medical (General) History Medical History History ICD Code asthma Back,Hip,and Knee pain Dementia Diabetes mellitus Heart disease High blood pressure Joint implants/screws Osteopenia Reflux ( GERD) Sleep apnea Surgical History Surgery Date(Month/Year)
--- OUTSIDE RECORDS SUMMARY | 2024-09-13 12:46 | XMS_ITS ---
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 Name Role Phone Navdeep Bolanos III Primary Care Provider Unavailab Aftab Powers Unavailable [phone] Clinical, Operations Unavailable Unavailable Allergies No Known Allergies REASON FOR VISIT MDS assessment Medications Medication SIG (Take, Route, Frequency, Duration) Notes Start Date End Date Status Acetaminophen Extra Strength 500 MG 1 tablet as needed Orally every 6 hrs Active Rosuvastatin Calcium 20 MG 1 tablet Orally Once a day Active Fish Oil 1200 MG 1 capsule Orally Once a day Active Donepezil HCl 10 MG 1 tablet at bedtime Orally Once a day Active Senna 8.6 MG 1 tablet at bedtime as needed Orally Once a day Active Vitamin D3 50 MCG (2000 UT) 1 capsule Orally Once a day doctor discontinued Not-Taking Losartan Potassium 25 MG 1 tablet Orally Once a day Active Mirabegron ER 50 MG 1 tablet Orally Once a day Active Albuterol Sulfate 108 (90 Base) MCG/ACT 1 puff as needed Inhalation every 4 hrs Active Lidocaine 5 % 1 patch remove after 12 hours Externally Once a day Active Ammonium Lactate 12 % 1 application as needed Externally Twice a day not taking Not-Taking Naproxen 500 MG 1 tablet with food or milk as needed Orally every 12 hrs not taking Not-Taking Metoprolol Tartrate 25 MG 1 tablet with food Orally Twice a day not taking Not-Taking DULoxetine HCl 20 MG 1 capsule Orally Once a day Active Tamsulosin HCl 0.4 MG 1 capsule Orally Once a day Active VESIcare 10 MG 1 tablet Orally Once a day Active Docusate Sodium 100 MG 1 capsule Orally Twice a day Active Alendronate Sodium 70 MG 1 tablet 30 minutes before the first food, beverage or medicine of the day with plain water Orally 1X Weekly friday Active Aspirin 81 81 MG 1 tablet Orally Once a day Active Refresh 1.4-0.6 % 1 drop both eyes Ophthalmic Three times a day Active Multivitamin - 1 tablet Orally Once a day Active Combivent Respimat 20-100 MCG/ACT 1 puff as needed Inhalation every 6 hrs Active Fluticasone Propionate 50 MCG/ACT 1 spray in each nostril Nasally as needed for allergies Active Symbicort 160-4.5 MCG/ACT 2 puffs Inhalation once daily Active Omeprazole 20 MG 1 capsule 30 minutes before morning meal Orally Once a day Active Problems Problem Type SNOMED Code ICD Code Onset Dates Problem Status W/U Status Risk Notes Problem [id number] Age-related osteoporosis without current pathological fracture (M81.0) Active confirmed Encounters Encounter Location Date Provider Diagnosis 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 ; History of MN (myocardial infarction) I25.2 ; Bladder incontinence R32 [...] tract symptoms, symptom details unspecified N40.1 ; [facility] (current) use of inhaled steroids Z79.51 ; [facility] term [facility] (current) use of aspirin Z79.82 ; SUSANNA [...] Treatment Notes Treatment Clinical Notes Section Notes 07/17/2024 Dementia without behavioral disturbance, unspecified dementia type (ICD-10 - F03.90) Diagnosis from [facility] 07/17/2024 Recurrent major depressive disorder, in full remission (ICD-10 - F33.42) Diagnosis from [facility] 07/17/2024 Moderate persistent asthma, unspecified whether complicated (ICD-10 - J45.40) Diagnosis from [facility] 07/17/2024 Type 2 diabetes mellitus with diabetic polyneuropathy, without long-term current use of insulin (ICD-10 - E11.42) Diagnosis from [facility] 07/17/2024 Osteoarthritis, unspecified osteoarthritis type, unspecified site (ICD-10 - M19.90) Diagnosis from [facility] 07/17/2024 Atherosclerosis of [place] coronary artery of [place] heart without angina pectoris (ICD-10 - I25.10) Diagnosis from [facility] 07/17/2024 Degeneration of cervicothoracic intervertebral disc (ICD-10 - M50.33) Diagnosis from [facility] 07/17/2024 History of MN (myocardial infarction) (ICD-10 - I25.2) Diagnosis from [facility] 07/17/2024 Bladder incontinence (ICD-10 - R32) Diagnosis from [facility] 07/17/2024 Hypertensive heart disease without heart failure (ICD-10 - I11.9) Diagnosis from [facility] 07/17/2024 Vitamin D deficiency (ICD-10 - E55.9) Diagnosis from [facility] 07/17/2024 HLD (hyperlipidemia) (ICD-10 - E78.5) Diagnosis from [facility] 07/17/2024 GERD (gastroesophageal reflux disease) (ICD-10 - K21.9) Diagnosis from [facility] 07/17/2024 Insomnia, unspecified type (ICD-10 - G47.00) Diagnosis from [facility] 07/17/2024 Other chronic pain (ICD-10 - G89.29) Diagnosis from [facility] 07/17/2024 Morbid (severe) obesity due to excess calories (ICD-10 - E66.01) Diagnosis from [facility] 07/17/2024 Constipation, unspecified constipation type (ICD-10 - K59.00) Diagnosis from [facility] 07/17/2024 Benign prostatic hyperplasia with lower urinary tract symptoms, symptom details unspecified (ICD-10 - N40.1) Diagnosis from [facility] 07/17/2024 [facility] (current) use of inhaled steroids (ICD-10 - Z79.51) [facility] 07[facility]/2024 [facility] (current) use of aspirin (ICD-10 - Z79.82) [facility] 07/17/2024 SUSANNA (obstructive sleep apnea) (ICD-10 - G47.33) Diagnosis from [facility] 07/17/2024 OAB (overactive bladder) (ICD-10 - N32.81) Diagnosis from [facility] 07/17/2024 Body mass index (BMI) of 38.0 to 38.9 in adult (ICD-10 - Z68.38) Diagnosis from [facility] 07/17/2024 Risk for falls (ICD-10 - Z91.81) Diagnosis from [facility] 07/17/2024 Cataract extraction status, unspecified eye (ICD-10 - Z98.49) Diagnosis from [facility] 07/17/2024 Presence of intraocular lens (ICD-10 - Z96.1) Diagnosis from [facility] 07/17/2024 Age-related osteoporosis without current pathological fracture (ICD-10 - M81.0) Diagnosis from [facility] Plan Of Treatment No Information Progress Notes * Epi MURRELLZulmaOB:[birth year] (84 yo M)Acc No.[id number]:07/17/2024 Patient:?Craig MURRELL ??External Provider:?Operations Clinical?Resource:Sophia Barbour :1940???Age:84 Y???Sex:Male Kade e:07/17/2024 Address:[address] [place] [id number] Pcp:Navdeep Bolanos II I Patient's Default Facility:[facility] Subjective: * Chief Complaints: * ???MDS assessment * HPI: ???Depression Screening:?PHQ-9?Little interest or pleasure [...] such as reading the newspaper or watching television?Nearly every day ?Moving or speaking so slowly that other people could have noticed; or the opposite, being so fidgety or restless that you have been moving around a lot more than usual?Not at all ?Thoughts that you would be better off or of hurting yourself in some way?Not at all ?Total Score?4 ?Interpretation?Minimal Depression ???Virtual Care Visit Information:?Visit Location, Methods & Consent:?*REQUIRED* Virtual Care communication method:?Both audio and video ?Member Verbal Consent Obtained:?Yes * Medical History:?? * Surgical History:? * [...] Twice a day , Notes to Pharmacist: not takingNaproxen 500 MG Tablet 1 tablet with food or milk as needed Orally every 12 hrs , Notes to Pharmacist: not takingAmmonium Lactate 12 % Lotion 1 application as needed Externally Twice a day , Notes to Pharmacist: not takingVitamin D3 50 MCG (2000 UT) Tablet Chewable 1 capsule Orally Once a day , Notes to Pharmacist: doctor discontinuedMedication List reviewed and reconciled with the patientNot-Taking Metoprolol Tartrate 25 MG Tablet 1 tablet with food Orally Twice a day , Notes to Pharmacist: not takingNot-Taking Naproxen 500 MG Tablet 1 tablet with food or milk as needed Orally every 12 hrs , Notes to Pharmacist: not takingNot-Taking Ammonium Lactate 12 % Lotion 1 application as needed Externally Twice a day , Notes to Pharmacist: not takingNot-Taking Vitamin D3 50 MCG (2000 UT) Tablet Chewable 1 capsule Orally Once a day , Notes to Pharmacist: doctor discontinuedMedication List reviewed and reconciled with the patient * Allergies:?N.K.D.A.no[Allerg ies Verified] Objective: Assessment: * Assessment: 1.?Dementia without behavior al disturbance, unspecified dementia type - F03.90?2.?Recurrent major depressive disorder, in full remission - F33.42?3.?Moderate persistent asthma, unspecified whether complicated - J45.40?4.?Type 2 diabetes mellitus with diabetic polyneuropathy, without long-term current use of insulin - E11.42?5.?Osteoarthritis, unspecified osteoarthritis type, unspecified site - M19.90?6.?Atherosclerosis of [place] coronary artery of [place] heart without angina pectoris - I25.10?7.?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?8.?History of MN (myocardial infarction) - I25.2?9.?Bladder incontinence - R32?10.?Hypertensive heart disease without heart failure - I11.9?11.?Vitamin D deficiency - E55.9?12.?HLD (hyperlipidemia) - E78.5?13.?GERD (gastroesophageal reflux disease) - K21.9?14.?Insomnia, unspecified type - G47.00?15.?Other chronic pain - G89.29?16.?Morbid (severe) obesity due to excess calories - E66.01?17.?Constipation, unspecified constipation type - K59.00?18.?Benign prostatic hyperplasia with lower urinary tract symptoms, symptom details unspecified - N40.1?19.?[facility] (current) use of inhaled steroids - Z79.51?20.?[facility] (current) use of aspirin - Z79.82?21.?SUSANNA (obstructive sleep apnea) - G47.33?22.?OAB (overactive bladder) - N32.81?23.?Body mass index (BMI) of 38.0 to 38.9 in adult - Z68.38?24.?Risk for falls - Z91.81?25.?Cataract extraction status, unspecified eye - Z98.49?26. Presence of intraocular lens - Z96.1?27.?Age-related osteoporosis without current pathological fracture - M81.0? Diagnosis from [facility]. Plan: * Treatment: * Procedure Codes:? Care Plan: * Problems:? * * Sign off status: Completed true * Provider:?Operations Clinical Date:?07/03 Generated for Priya bustillo/Lenka/Kashifitting on:?09/13/2024 12:45 PM EDT History and Physical [...] as reading the newspaper or watching television: Nearly every day Moving or speaking so slowly that other people could have noticed; or the opposite, being so fidgety or restless that you have been moving around a lot more than usual: Not at all Thoughts that you would be b deepthi off or of hurting yourself in some way: Not at all Total Score: 4 Interpretation: Minimal Depression Virtual Care Visit Information Visit Location, Methods & Consent: *REQUIRED* Virtual Care communication method:: Both audio and video Member Verbal Consent Obtained:: Yes
--- OUTSIDE RECORDS SUMMARY | 2024-09-13 12:46 | XMS_ITS ---
Author Organization [facility] Address [address] [place] [address] Care Team Providers [employer] Patternmaker Name Role Phone Navdeep Bolanos III Primary Care Provider Unavailab Aftab Powers Unavailable [phone] Pamela Whitney Unavailable [phone] REASON FOR VISIT OT Functional Assessment Vital Signs Weight 210 lbs 08/19/2024 Weight-kg 95.26 kg 08/19/2024 Height 64 in 08/19/2024 Height-cm 162.56 cm 08/19/2024 BMI 36.04 kg/m2 08/19/2024 per member report Encounters Encounter Location Date Provider Diagnosis [place] [id number] [facility] [address] [place] [address] 08/19/2024 Pamela Whitney Dementia without behavioral disturbance, unspecified dementia type F03.90 ; Type 2 diabetes mellitus with diabetic polyneuropathy, without long-term current use of insulin E11.42 ; Osteoarthritis, unspecified osteoarthritis type, unspecified site M19.90 and Other chronic pain G89.29 Assessments Encounter Date Diagnosis (ICD Code) Assessment [...] this OT recommends that member qualifies for LINE PILOT Program. See LUX Luna's Functional Assessment in [facility] for details. Plan Of Treatment Treatment Notes Assessment Notes Other chronic pain This OT finds member presents with a need for assistance in 2 plus ADLS, as such this OT recommends that member qualifies for LINE PILOT Program. See RN Maggie Luna's Functional Assessment in [facility]iding [facility] for details. Progress Notes * Audrey MURRELLOB:[birth year] (84 yo M)Acc No.[id number]:08/19/2024 Patient:?Craig MURRELL ??External Provider:?Pamela Dillard OT :1940???Age:84 Y???Sex:Male Kade e:08/19/2024 Address:[address] [place], [place] [id number] Pcp:Navdeep Bolanos II I Patient's Default Facility:[facility] Subjective: * Chief Complaints: * ???OT Functional Assessment * HPI: ???COVID-19 Screening (Questions Revised 10/04/2019):?COVID-19 Screening?Member or any household member has any new or worsening breathing problems:?No ?Member or any household member has other general or non-respiratory symptoms:?No ?Member or any household member has been in close contact with anyone diagnosed or suspected case of COVID:?No ???Virtual Care Visit Information:?Visit Location, Methods & Consent:?*REQUIRED* Virtual Care communication method:?Both audio and video Doxy.me computer to phone ?Patient's location during visit:?Member's home ?Provider's location during visit:?Private Office in OT's home, RN at member's home ?Member Verbal Consent Obtained:?Yes We know that your privacy is very important, and we want you to know that we take all steps to make sure your privacy is protected, including all confidentiality protections under the law. [facility]s virtual care platforms are HIPAA compliant and meet other (federal and state) privacy and security laws. Even though your communications with [facility] are private and secure, there is always some risk with any information that is transmitted through the internet. ???History of Present Illness:? Member is an 84-year-old Martiniquais-speaking male with medical history significant for, but not limited to dementia, MDD, asthma, DMII with diabetic polyneuropathy, OA, degeneration of cervicothoracic intervertebral disc, OR, bladder incontinence, insomnia, chronic pain, morbid obesity, BPH, and osteoporosis. Member seen this date for LINE PILOT Initial Assessment. LUX Luna completing home visit, present in the home were RN, member, and member's daughter/potential surrogate Mikki. This OT joining assessment virtually utilizing audio/visual components of [email or web address]. Member lives alone in a first floor apartment of a building with no stairs to enter. Home appears clean and free of clutter. Member found this date seated in recliner, well-groomed and appropriately dressed. Member is currently authorized for 20.75 hours of [facility] care/week. ? interpreter translator offered; member preferred his daughter and LUX Glass interpret as needed and his daughter answer assessment questions on his behalf due to dementia. Member verified his name//address. ? Member denies recent falls, hospitalizations, and ED visits. ? Member wears glasses. * Medical History:?? * Surgical History:? * Hospitalization/Major Diagno stic Procedure:? * Medications:? Objective: * Vitals:?Wt: 210 lbs, Wt-k.26 kg, Ht: 64 in, Ht-cm: 162.56 cm, BMI: 36.04 Index. per member report. * Examination: ???Current equipment( include make model and date of purchase): ???rollator, cane, bedside commode, bed assist rail, shower chair, HHSH, grab bar in shower. ???Range of Motion: ???Member demonstrates BUE ROM WFL, reports pain in B shoulders at end ranges. ???Sensation: ???Member reports pain in his low back and BLEs, rated 8/10 at the time of the assessment. ???Balance ( indicate sitting or standing): ???Ambulation: Independent. Member demonstrates independent household mobility with rollator. ???Pressure relief ( method and level of independence): ???Bed Mobility: Independent. Member demonstrates sit <> supine transfers independently utilizing bedrail this date. ???Transfer status ( include any devices used): ???Independent. Member demonstrates sit to stand and stand step transfers from recliner and edge of bed independently with rollator. ???Recommended Equipment include justification of medical necessity: ???Recommending a handheld urinal for member to use at nighttime for increased safety. ???MRADL status: ???Medication Management: Param Neal Potential surrogate reports that she sets medications up into a weekly medication [employer] task force planners to ensure safe and correct medication administration and plans to continue managing this task. Potential surrogate reports that member requires assistance and reminders to take medications due to dementia and assistance to apply pain patches due to difficulty reaching. ? Bathing: Rod Macedo has tub/shower combination with a grab bar, HHSH, and shower chair. Tub transfer not observed at the time of the assessment due to need for assistance and safety concerns; member reports that he requires hands-on assistance with transfer for steadying due to decreased balance and pain. Potential surrogate reports that member showers daily and is able to wash his bilateral upper extremities, chest, abdomen, micki area, buttocks, and upper legs independently, requires assistance to wash his distal lower extremities/feet due to back pain with bending and his back due to difficulty reaching secondary to shoulder pain. ? Hair Washing: Rod Macedo reports that he requires assistance to wash his hair in the shower 2-3x/week due to shoulder pain. ? Grooming: Latisha Neal Member reports that he is able to complete oral care, clip his fingernails, and lotion his upper body independently. Member reports that he requires assistance with toenail care (clinical manager home care) ?to lotion his distal lower extremities/feet, to shave his face, and to comb his hair due to back pain with bending and difficulty reaching secondary to shoulder pain, impaired vision, poor dexterity secondary to diabetic polyneuropathy, and impaired memory secondary to dementia. ? Dressing: Latisha Macedo reports that he is able to thread BUEs into shirtsleeves, requires assistance to bring shirt overhead due to shoulder pain. Member reports that he requires assistance to thread BLEs into underwear and pants, and to don socks and shoes due to back pain with bending. He reports that he is able to hike pants and underpants independently once they are threaded. ? Self Feeding: Setup. Member reports that he is able to feed himself independently with setup due to difficulty unscrewing water bottles and opening packages due to impaired hand strength and diabetic polyneuropathy. ? Toileting: Rod Macedo demonstrates independent transfers on and off the toilet with rollator. Member reports that he is continent of bowel, incontinent of bladder, and wears pull-ups to help manage this. When he is continent on the toilet, member reports that he is able to manage his clothing and hygiene independently. When he experiences an episode of incontinence, member reports that he requires assistance to change a soiled pull-up(3x/day) due to back pain with bending. ? Nighttime Toileting: Independent. Member reports that he wakes at nighttime to toilet, is able to transfer in/out of bed, on/off toilet, and manage his clothing and hygiene independently, as he does during the day. Recommending a handheld urinal for member to use at nighttime for increased safety. ? Laundry: Dependent. Washer/dryer located outside of member's apartment in his apartment building. Member reports that he is unable to carry laundry, load washer/dryer, fold laundry, or put it due to back pain with bending and difficulty reaching secondary to shoulder pain, impaired vision, poor dexterity secondary to diabetic polyneuropathy, and impaired memory secondary to dementia. ? Housekeeping: Dependent. Member reports that he is unable to assist with any aspect of housekeeping tasks due to back pain with bending and difficulty reaching secondary to shoulder pain, impaired vision, poor dexterity secondary to diabetic polyneuropathy, and impaired memory secondary to dementia. ? Shopping: Param Duncan. Member reports that he accompanies his potential LINE PILOT to the grocery store or verbalizes a list. He reports that he requires assistance to manage grocery bags, put items away, and reach for items on shelves due to back pain with bending and difficulty reaching secondary to shoulder pain, impaired vision, poor dexterity secondary to diabetic polyneuropathy, and impaired memory secondary to dementia. ? Meal Prep: Param Duncan. Member reports that he is able to reheat food in the microwave, as well as retrieve snacks from the fridge. Member reports that he is unable to wash, chop, or assist with preparing meals due to back pain with bending and difficulty reaching secondary to shoulder pain, impaired vision, poor dexterity secondary to diabetic polyneuropathy, and impaired memory secondary to dementia. ? Transportation: Dependent. Member reports that he does not drive, and that a potential LINE PILOT drives and accompanies him to all medical appointments due to impaired memory and language barrier. ??? Assessment: * Assessment: 1.?Dementia without behavior al disturbance, unspecified dementia type - F03.90 (Primary)???2.?Type 2 diabetes mellitus with diabetic polyneuropathy, without long-term current use of insulin - E11.42???3.?Osteoarthritis, unspecified osteoarthritis type, unspecified site - M19.90???4.?Other chronic pain - G89.29??? Plan: * Treatment: * Procedure Codes:?47942 DISAB ILITY EXAMINATION, Modifiers: 95 Care Plan: * Problems:? * * Sign off status: Completed true * Provider:?Pamela Dillard OT Date:? 025 Generated for Priya bustillo/Lenka/Talat on:?09/13/2024 12:46 PM EDT History and Physical Notes * HPI (History of Present Illness) Category Sub-Category Detail Notes Category Not es History of Present Illness Member is an 84-year-old Martiniquais-speaking male with medical history significant for, but not limited to dementia, MDD, asthma, DMII with diabetic polyneuropathy, OA, degeneration of cervicothoracic intervertebral disc, OR, bladder incontinence, insomnia, chronic pain, morbid obesity, BPH, and osteoporosis. Member seen this date for LINE PILOT Initial Assessment. LUX Luna completing home visit, present in the home were RN, member, and member's daughter/potential surrogate Mikki. This OT joining assessment virtually utilizing audio/visual components of Jazmín.. Member lives alone in a first floor apartment of a building with no stairs to enter. Home appears clean and free of clutter. Member found this date seated in recliner, well-groomed and appropriately dressed. Member is currently authorized for 20.75 hours of [facility] care/week. interpreter translator offered; member preferred his daughter and RN Maggie Glass interpret as needed and his daughter answer assessment questions on his behalf due to dementia. Member verified his name//address. Member denies recent falls, hospitalizations, and ED visits. Member wears glasses. COVID-19 Screening (Questions Revised 10/04/2019) COVID-19 Screening Member or any household member has any new or worsening breathing problems:: No Member or any household memb er has other general or non-respiratory symptoms:: No Member or any household memb er has been in close contact with anyone diagnosed or suspected case of COVID:: No Virtual Care Visit Information Visit Location, Methods & Consent: *REQUIRED* Virtual Care communication method:: Both audio and video Doxy.Wikirin computer to phone Patient's location during visit:: Member 's home Provider's location during visit:: [facility] Office in OT's home, RN at member's home Member Verbal Consent Obtained:: Yes We know that your privacy is very important, and we want you to know that we take all steps to make sure your privacy is protected, including all confidentiality protections under the law. [facility]'s virtual care platforms are HIPAA compliant and meet other (federal and state) privacy and security laws. Even though your communications with [facility] are private and secure, there is always some risk with any information that is transmitted through the internet. Examination Category Sub-Category Detail Notes Category Not es Current equipment( include make model and date of purchase) rollator, cane, beds fco commode, bed assist rail, shower chair, HHSH, grab bar in shower Range of Motion Member john BAILEY ROM WFL, reports pain in B shoulders at end ranges. Transfer status ( include any devices used) Independent. Member demonstrates sit to stand and stand step transfers from recliner and edge of bed independently with rollator. Sensation Member reports pain in his low back and BLEs, rated 8/10 at the time of the assessment. Pressure relief ( method and level of independence) Bed Mobility: Independent. Member demonstrates sit <> supine transfers independently utilizing bedrail this date. MRADL status Medication Management: Max A. Potential surrogate reports that she sets medications up into a weekly medication [employer] task force planners to ensure safe and correct medication administration and plans to continue managing this task. Potential surrogate reports that member requires assistance and reminders to take medications due to dementia and assistance to apply pain patches due to difficulty reaching. Bathing: Rod Neal Member has tub/shower combination with a grab bar, HHSH, and shower chair. Tub transfer not observed at the time of the assessment due to need for assistance and safety concerns; member reports that he requires hands-on assistance with transfer for steadying due to decreased balance and pain. Potential surrogate reports that member showers daily and is able to wash his bilateral upper extremities, chest, abdomen, micki area, buttocks, and upper legs independently, requires assistance to wash his distal lower extremities/feet due to back pain with bending and his back due to difficulty reaching secondary to shoulder pain. Hair Washing: Rod Duncan. Member reports that he requires assistance to wash his hair in the shower 2-3x/week due to shoulder pain. Grooming: Latisha Duncan. Member reports that he is able to complete oral care, clip his fingernails, and lotion his upper body independently. Member reports that he requires assistance with toenail care (clinical manager home care) to lotion his distal lower extremities/feet, to shave his face, and to comb his hair due to back pain with bending and difficulty reaching secondary to shoulder pain, impaired vision, poor dexterity secondary to diabetic polyneuropathy, and impaired memory secondary to dementia. Dressing: Latisha A. Member reports that he is able to thread BUEs into shirtsleeves, requires assistance to bring shirt overhead due to shoulder pain. Member reports that he requires assistance to thread BLEs into underwear and pants, and to don socks and shoes due to back pain with bending. He reports that he is able to hike pants and underpants independently once they are threaded. Self Feeding: Setup. Member reports that he is able to feed himself independently with setup due to difficulty unscrewing water bottles and opening packages due to impaired hand strength and diabetic polyneuropathy. Toileting: Rod Macedo demonstrates independent transfers on and off the toilet with rollator. Member reports that he is continent of bowel, incontinent of bladder, and wears pull-ups to help manage this. When he is continent on the toilet, member reports that he is able to manage his clothing and hygiene independently. When he experiences an episode of incontinence, member reports that he requires assistance to change a soiled pull-up(3x/day) due to back pain with bending. Nighttime Toileting: Independent. Member reports that he wakes at nighttime to toilet, is able to transfer in/out of bed, on/off toilet, and manage his clothing and hygiene independently, as he does during the day. Recommending a handheld urinal for member to use at nighttime for increased safety. Laundry: Dependent. Washer/dryer located outside of member's apartment in his apartment building. Member reports that he is unable to carry laundry, load washer/dryer, fold laundry, or put it due to back pain with bending and difficulty reaching secondary to shoulder pain, impaired vision, poor dexterity secondary to diabetic polyneuropathy, and impaired memory secondary to dementia. Housekeeping: Dependent. Member reports that he is unable to assist with any aspect of housekeeping tasks due to back pain with bending and difficulty reaching secondary to shoulder pain, impaired vision, poor dexterity secondary to diabetic polyneuropathy, and impaired memory secondary to dementia. Shopping: Param Duncan. Member reports that he accompanies his potential LINE PILOT to the grocery store or verbalizes a list. He reports that he requires assistance to manage grocery bags, put items away, and reach for items on shelves due to back pain with bending and difficulty reaching secondary to shoulder pain, impaired vision, poor dexterity secondary to diabetic polyneuropathy, and impaired memory secondary to dementia. Meal Prep: Param Duncan. Member reports that he is able to reheat food in the microwave, as well as retrieve snacks from the fridge. Member reports that he is unable to wash, chop, or assist with preparing meals due to back pain with bending and difficulty reaching secondary to shoulder pain, impaired vision, poor dexterity secondary to diabetic polyneuropathy, and impaired memory secondary to dementia. Transportation: Dependent. Member reports that he does not drive, and that a potential LINE PILOT drives and accompanies him to all medical appointments due to impaired memory and language barrier. Balance ( indicate sitting or standing) Ambulation: Indepen dent. Member demonstrates independent household mobility with rollator. Recommended Equipment include justification of medical necessity Recommending a handheld urinal for member to use at nighttime for increased safety.
--- OUTSIDE RECORDS SUMMARY | 2024-09-13 12:46 | XMS_ITS | Encounter Summary ---
Author Organization [facility] Address [address] [place] [address] Care Team Providers Care Rn Hospice Name Role Phone Navdeep Bolanos MD Primary Care Provider [phone] Reason for Referral * Imaging (Routine) - Pending Review Specialty Diagnoses / Procedures Referred By Contac t Referred To Contact Radiology Diagnoses Chronic left hip pain Status post total replacement of left hip History of femur fracture Lytic bone lesion of left femur Procedures MR Femur wo and w Contrast Left Archie Moore MD [address] [place] [address] Phone: tel: fax: [address] [address] Phone: tel: Referral ID Status Reason Start Date Expiration Date V isits Requested Visits Authorized [id number] Pending Review 08/26/2024 08/26/2025 1 1 Reason for Visit * Imaging (Routine) - Pending Review Specialty Diagnoses / Procedures Referred By Contac t Referred To Contact Radiology Diagnoses Chronic left hip pain Status post total replacement of left hip History of femur fracture Lytic bone lesion of left femur Procedures MR Femur wo and w Contrast Left Archie Moore MD [address] [address] Phone: tel: fax: [address] [address] Phone: tel: Referral ID Status Reason Start Date Expiration Date V isits Requested Visits Authorized [id number] Pending Review 08/26/2024 08/26/2025 1 1 Encounter Details Date Type Department Care Team (Latest Contact Info) Description 09/10/2024 9:50 AM EDT - 09/10/2024 11:59 PM EDT Hospital Encounter [facility] [address] [place] [address] Chronic left hip pain; Status post total replacement of left hip; History of femur fracture; Lytic bone lesion of left femur Discharge Disposition: Home or Self Care Social History Tobacco Use Types Packs/Day Years [...] PM EST documented as of this encounter Medications at Time of Discharge acetaminophen (TYLENOL) 500 mg tablet Take 2 tablets (650 mg total) by mouth 2 (two) times a day. albuterol HFA (PROAIR HFA ; PROVENTIL HFA ; VENTOLIN HFA) 90 mcg/actuation inhaler Inhale 2 puffs by mouth. 01/17/2023 alendronate (FOSAMAX) 70 mg tablet TAKE 1 TABLET BY MOUTH EVERY 7 DAYS. 12 tablet 1 08/26/2024 aspirin 81 mg EC tablet Take 1 tablet (81 mg total) by mouth 1 (one) time each day. 11/04/2022 blood sugar diagnostic (OneTouch Verio test strips) test strip USE TO TEST BLOOD SUGAR ONCE DAILY 12/18/2022 budesonide-formo teroL (SYMBICORT) 160-4.5 mcg/actuation inhaler INHALE 2 PUFFS TWICE DAILY,RINSE THROAT AND MOUTH AFTER USE TO REDUCE AFTERTASTE AND INCIDENCE OF CANDIDIASIS,DO NOT SWALLOW 3 each 1 08/06/2024 diclofenac (VOLTAREN) 1 % topical gel APPLY 4 GRAMS TOPICALLY 4 TIMES A DAY 12/18/2022 docusate sodium (COLACE) 100 mg capsule Take 1 capsule (100 mg total) by mouth 2 (two) times a day. 180 capsule 1 07/09/2024 donepeziL (ARICEPT) 10 mg tablet Take 1 tablet (10 mg total) by mouth. 02/24/2023 DULoxetine (CYMBALTA) [address] capsule Take 1 capsule (30 mg total) by mouth 1 (one) time each day. 02/24/2023 fluticasone propionate (FLONASE) 50 mcg/actuation nasal spray PLACE 1 SPRAY IN EACH NOSTRIL ONCE A DAY 2021 lactulose (CHRONULAC) solution Take 15 mL (10 g total) by mouth 1 (one) time each day. 600 mL 11 08/05/2024 lidocaine (LIDODERM) 5 % patch PLACE 1 PATCH ONTO THE SKIN EVERY 24 HOURS. APPLY FOR NO MORE THAN 12 HOURS IN ANY 24 HOUR PERIOD. 30 patch 5 05/19/2024 losartan (COZAAR) 25 mg tablet Take 1 tablet (25 mg total) by mouth 1 (one) time each day. 05/19/2024 mirabegron (Myrbetriq) 50 mg tablet extended release 24 hr 24 hr tablet Take 1 tablet (50 mg total) by mouth 1 (one) time each day. 90 tablet 1 07/09/2024 omeprazole (PriLOSEC) [address] capsule Take 1 capsule (20 mg total) by mouth 2 (two) times a day. 02/24/2023 polyethylene glycol (MIRALAX) 17 gram packet Take 17 g by mouth. 06/24/2022 polyethylene glycol (MIRALAX) 17 gram packet Take 17 g by mouth 1 (one) time each day. 510 g 11 08/05/2024 psyllium (METAMUCIL) 3.4 gram packet Take 1 packet by mouth 1 (one) time each day. 30 packet 11 08/05/2024 rosuvastatin (CRESTOR) 20 mg tablet Take 1 tablet (20 mg total) by mouth. 02/24/2023 senna (SENOKOT) 8.6 mg tablet Take 1 tablet (8.6 mg total) by mouth 1 (one) time each day. 90 tablet 1 07/09/2024 senna-docusate (PERICOLACE) 8.6-50 mg per tablet Take 1 tablet by mouth 1 (one) time each day. 30 each 11 08/05/2024 solifenacin (VESICARE) 10 mg tablet Take 1 tablet (10 mg total) by mouth 1 (one) time each day. 06/14/2024 tamsulosin (FLOMAX) 0.4 mg 24 hr capsule Take 1 capsule (0.4 mg total) by mouth. 02/24/2023 documented as of this encounter Discharge Disposition Disposition Code Departure Means Destination Home or Self Care documented in this encounter Plan of Treatment Upcoming Encounters Date Type Department Care Team (Late st Contact Info) Description 01/12/2025 8:15 AM EDT Office Visit Pulmonolgy [address] [phone] Conchita Pedraza MD [address] [place] [address] 01/26/2025 8:30 AM EDT Office Visit Adult Medicine [address] [phone] Navdeep Bolanos MD [address] [place] [address] 05/02/2025 9:30 AM EST Office Visit Endocrinology [address] [phone] Alfredo Cole MD [address] [place] [address] 08/31/2025 9:30 AM EDT Office Visit [facility] Hematology Oncology [address] [place] [address] Etelvina Johnson MD [address] [place] [address] documented as of this encounter Procedures Procedure Name Priority Date/Time Associated Diagnosis Comments MR FEMUR WO AND W CONTRAST LEFT Routine 09/10/2024 10:59 AM EDT Chronic left hip pain Status post total replacement of left hip History of femur fracture Lytic bone lesion of left femur documented in this encounter Results * MR Femur wo and w [...] Signed Date: 09/10/2024 14:03 ET Workstation ID: [id number] Transcribed By: Self Edit Transcribed Date: 09/10/2024 [...] of the right thigh on the large [id number] images are unremarkable. Procedure Note Joao Linn [...] of the right thigh on the large [id number] images areunremarkable. IMPRESSION: Benign bony callus formation [...] Signed Date: 09/10/2024 14:03 ET Workstation ID: [id number] Transcribed By: Self Edit Transcribed Date: 09/10/2024 13:46 ET Archie Moore MD IMG MRI PROCEDURES Fi nal Result documented in this encounter Visit Diagnoses Diagnosis Chronic left hip pain Status post total replacement of left hip History of femur fracture Lytic bone lesion of left femur documented in this encounter Administered Medications Inactive Administered Medications - up to 3 most recent administrations Medication Order MAR Action Action Date Dose Rate Site gadoterate meglumine (CLARISCAN, DOTAREM) injection 20 mL 20 mL, intravenous, Once in imaging, Starting on Fri09/10/24 at 1059, For 1 dose Given 09/10/2024 11:00 AM EDT 20 mL documented in this encounter Orders Medications Ordered That Raúl ht Not Have Been Administered Count Last Ordered Date First Ordered Date gadoterate meglumine (FERDINAND CAN, DOTAREM) injection 20 mL 1 09/10/2024 documented in this encounter Care Teams Rn Hospice Relationship Specialty Start Date End Date Navdeep Bolanos MD [address] [place] [phone] PCP - General Internal Medicine 04/27/24 documented as of this encounter
== END 2024-09-13 12:15 | disposition home or self-care (01) ==
PROVIDERS: PCP Internal Medicine; Visit Provider Urology
DX: N40.1 Benign prostatic hyperplasia with lower urinary tract symptoms (principal); N32.81 Overactive bladder; N13.8 Other obstructive and reflux uropathy; Z13.9 Encounter for screening, unspecified
CPT/HCPCS: 99214; G2211

== ENCOUNTER → 2024-09-13 10:52 | Outpatient (BNVA) | payer OTHER, SELFPAY | PROVIDERS: PCP Internal Medicine; Visit Provider Urology | DX: N40.1 Benign prostatic hyperplasia with lower urinary tract symptoms (principal); N13.8 Other obstructive and reflux uropathy; N32.81 Overactive bladder | CPT/HCPCS: 51798; 81003; 99212 ==

== ENCOUNTER 2025-03-17 09:59 | Outpatient (REF) | payer OTHER, SELFPAY ==
--- OUTSIDE RECORDS SUMMARY | 2023-11-12 05:00 | XMS_ITS ---
Author Organization [facility] Address [address] [place] [address] Care Team Providers Care Workshop Manager Name Role Phone Epi Bolanos MD Primary Care Provider Unavailabl Jose Ramon Marcum Unavailable [phone] Encounters Encounter Location Date Provider Diagnosis [address] [address] 11/12/2023 Jose Ramon Ghotra Plan Of Treatment Next Appt Details Provider Name:Jose Ramon Ghotra , 05/11/2025 11:00:00 AM, [facility] [address], [address], Progress Notes * Epi MURRELLioDOB:[birth year] (84 yo M)Acc No.[id number]:11/12/2023 Progress Note Patient: Craig ALCALA Provider: Shey Ghotra DPM :1940 A ge:83 Y S ex:Male Date:11/12/2023 Address:[address] [place] [address], [id number] Pcp:Epi Bolanos MD Subjective: * Chief Complaints: [...] Ghotra DPM Date: 0 11/12/2023 Generated for Priya bustillo/Lenka/Talat on: 1 11:54 AM EDT
--- OUTSIDE RECORDS SUMMARY | 2024-03-23 08:00 | XMS_ITS | Encounter Summary ---
Author Organization [employer] Address [address] [place] [address] Care Team Providers Care Paving Foreman Name Role Phone Navdeep Bolanos MD Primary Care Provider [phone] Encounter Details Date Type Department Care Team (Late Contact Info) Description 03/23/2024 8:00 AM EDT Hospital Encounter TH HISTORIC ENCOUNTERS [facility] CONVERSION ONLY Navdeep Bolanos MD [address] [place] [phone] Social History Tobacco Use Types Packs/Day Years [...] Description 05/02/2025 9:30 AM EST Office Visit [facility] - [address] [phone] Alfredo Cole MD [address] [place] [address] 06/16/2025 3:30 PM EST Office Visit Pulmonology - [place] [address] [phone] Conchita Pedraza MD [address] [address] 08/01/2025 4:30 PM EST Office Visit [facility] [place] [address] [place] [address] Navdeep Bolanos MD [address] [place], [place] 08/31/2025 9:30 AM EDT Office Visit [facility] Hematology Oncology [address] [place] [address] Etelvina Johnson MD [address] [place] [address] documented as of this encounter Visit Diagnoses Not on filedocumented in this encounter Care Teams Paving Foreman Relationship Specialty Start Date End Date Navdeep Bolanos MD PCP - General Internal Medicine 12/14/19 04/26/24 documented as of this encounter
[2025-03-17 11:49] LABS: PSA,Total (Free>4and<10) 1.05 ng/mL (0.00-4.00)
--- OUTSIDE RECORDS SUMMARY | 2025-03-17 11:54 | XMS_ITS | Encounter Summary ---
Author Organization [facility] Address [address] [place] [address] Care Team Providers Care Superintendent [employer] Name Role Phone Navdeep Bolanos MD Primary Care Provider Encounter Details Date Type Department Care Team (Late st Contact Info) Description 03/09/2025 Telephone Infectious Disease - [place] [address] [facility] [address] [place] [address] Faye Machuca MA Social History Tobacco Use Types Packs/Day Years [...] as of this encounter Progress Notes * Faye Machuca MA - 03/09/2025 3:48 PM EDT LVM to make pt daughter aware of below Please call and inform patient daughter, I did obtain echocardiogram from EMR from [facility], performed on 07/02/2024. Also remind daughter to bring patient for chest x-ray. documented in this encounter Plan of Treatment Upcoming Encounters Date Type Department Care Team (Late st Contact Info) Description 05/02/2025 9:30 AM EST Office Visit Endocrinology [address] [phone] Alfredo Cole MD [address] [place] [address] 06/16/2025 3:30 PM EST Office Visit Pulmonology - [place] [address] [phone] Conchita Pedraza MD [address] [address] 08/01/2025 4:30 PM EST Office Visit [facility] Medicine [place] - [address] [phone] Navdeep Bolanos MD [address] [place] [address] 08/31/2025 9:30 AM EDT Office Visit [facility] Hematology Oncology [address] [place] [address] Etelvina Johnson MD [address] [place] [address] documented as of this encounter Visit Diagnoses Not on filedocumented in this encounter Care Teams [employer] Relationship Specialty Start Date End Date Navdeep Bolanos MD [address] [place] [address] PCP - General Internal Medicine 04/27/24 documented as of this encounter
--- OUTSIDE RECORDS SUMMARY | 2025-03-17 11:54 | XMS_ITS | Clinical Summary ---
Author Organization [facility] Address [address] [place] [address] Phone Care Team Providers Care Doctor Of Veterinary Medicine Name Role Phone Navdeep Bolanos MD Primary Care Provider Allergies No known active allergies Medications fluticasone propionate (FLONASE) 50 mcg/actuation nasal spray PLACE 1 SPRAY IN EACH NOSTRIL ONCE A DAY 04/16/20 21 Active tamsulosin (FLOMAX) 0.4 mg 24 hr capsule Take 1 capsule (0.4 mg total) by mouth. 02/25/20 23 Active acetaminophen (TYLENOL) 500 mg tablet Take 2 tablets (650 mg total) by mouth 2 (two) times a day. Active diclofenac (VOLTAREN) 1 % topical gel APPLY 4 GRAMS TOPICALLY 4 TIMES A DAY 12/19/19 23 Active polyethylene glycol (MIRALAX) 17 gram packet Take 17 g by mouth. 06/24/19 23 Active losartan (COZAAR) 25 mg tablet Take 1 tablet (25 mg total) by mouth 1 (one) time each day. 05/19/20 24 Active solifenacin (VESICARE) 10 mg tablet Take 1 tablet (10 mg total) by mouth 1 (one) time each day. 06/14/19 25 Active senna (SENOKOT) 8.6 mg tablet Take 1 tablet (8.6 mg total) by mouth 1 (one) time each day. 90 tablet 1 07/09/19 25 Active mirabegron (Myrbetriq) 50 mg tablet extended release 24 hr 24 hr tablet Take 1 tablet (50 mg total) by mouth 1 (one) time each day. 90 tablet 07/09/19 25 Active lactulose (CHRONULAC) solution Take 15 mL (10 g total) by mouth 1 (one) time each day. 600 mL 08/06/19 25 Active senna-docusate (PERICOLACE) 8.6-50 mg per tablet Take 1 tablet by mouth 1 (one) time each day. 30 each 08/06/19 25 026 Active Additional Information Patient not taking.Reported on 03/07/2025 psyllium (METAMUCIL) 3.4 gram packet Take 1 packet by mouth 1 (one) time each day. 30 packet 08/06/19 25 Active polyethylene glycol (MIRALAX) 17 gram packet Take 17 g by mouth 1 (one) time each day. 510 g 08/06/19 25 026 Active aspirin 81 mg EC tablet TAKE 1 TABLET BY MOUTH EVERY DAY 90 tablet 1 09/22/19 25 Active DULoxetine (CYMBALTA) [address] capsule TAKE 1 CAPSULE BY MOUTH EVERY DAY 90 capsule 1 09/22/19 25 Active rosuvastatin (CRESTOR) 20 mg tablet TAKE 1 TABLET BY MOUTH EVERYDAY AT BEDTIME 90 tablet 1 09/22/19 25 Active omeprazole (PriLOSEC) [address] capsule TAKE 1 CAPSULE BY MOUTH TWICE A DAY 180 capsule 1 09/22/19 25 Active donepeziL (ARICEPT) 10 mg tablet TAKE 1 TABLET BY MOUTH EVERYDAY AT BEDTIME 90 tablet 1 09/22/19 25 Active docusate sodium (COLACE) 100 mg capsule TAKE 1 CAPSULE BY MOUTH TWICE A DAY 180 capsule 1 11/06/19 25 Active lidocaine (LIDODERM) 5 % patchIndicatio ns:Lumbar spondylosis Apply topically 1 (one) time each day. Remove & discard patch within 12 hours or as directed by MD. 30 patch 5 01/13/20 25 Active alendronate (FOSAMAX) 70 mg tablet TAKE 1 TABLET BY MOUTH EVERY 7 DAYS. 12 tablet 1 02/03/20 25 Active albuterol HFA (PROAIR HFA ; PROVENTIL HFA ; VENTOLIN HFA) 90 mcg/actuation inhaler Inhale 2 puffs by mouth every 6 (six) hours if needed for wheezing. 1 each 11 03/07/20 25 026 Active budesonide-for moteroL (SYMBICORT) 160-4.5 mcg/actuation inhaler Inhale 2 puffs by mouth 2 (two) times a day. Rinse mouth with water after use to reduce aftertaste and incidence of candidiasis. Do not swallow. 3 each 3 03/07/20 25 026 Active blood sugar diagnostic (OneTouch Verio test strips) test strip USE TO TEST BLOOD SUGAR ONCE DAILY 100 strip 1 03/11/20 25 Active albuterol HFA (PROAIR HFA ; PROVENTIL HFA ; VENTOLIN HFA) 90 mcg/actuation inhaler Inhale 2 puffs by mouth. 01/18/20 23 025 Discontinued(R eorder) blood sugar diagnostic (OneTouch Verio test strips) test strip USE TO TEST BLOOD SUGAR ONCE DAILY 100 strip 1 09/14/19 25 025 Discontinued budesonide-for moteroL (SYMBICORT) 160-4.5 mcg/actuation inhaler TAKE 2 PUFFS BY MOUTH TWICE A DAY RINSE MOUTH AND THROAT AFTER USE. DO NOT SWALLOW. 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 Lee: Hallucinations consistent with complex sleep hallucinations. Monoclonal gammopathy 01/18/2021 Overview (08/06/2023): Follows with hematology. Sickle cell trait ([facility] V24) 01/18/2021 Overview (08/06/2023): Following with hematology. COVID-19 06/08/2020 Genital herpes 04/06/2020 Lumbar spondylosis 03/25/2018 Overview (08/06/2023): MRI 01/15/2018 Constipation due to pain medication 01/16/2018 Moderate persistent asthma without complication 03/20/2017 Cataract 07/12/2016 Diabetic neuropathy ([facility] V24, [facility] V28) 0 07/10/2016 Gastroesophageal reflux disease 11/03/2015 Type 2 diabetes mellitus wit h neurological manifestations ([facility] V24, [facility] V28) 02/22/2015 Old IN (myocardial infarction) 09/14/2013 Overview (08/06/2023): Hx IN 1998. Low back pain 01/02/2012 Foot pain, left 07/01/2011 Leg cramps, sleep related 01/09/2011 SUSANNA (obstructive sleep apnea) 09/19/2010 Overview (08/06/2023): [facility] Home Polysomnogram: Date 02/11/2017; AHI 8, Unclassified apneas 0; Obstructive apneas 2; Central apneas 1; Mixed apneas 0; hypopneas 16; average oxygen saturation 94% (lowest 89% without saturations <88% for 5% or more of study) [facility] Polysomnogram: Date 11/11/2018; Wt 229#; BMI 39; [...] Type 2 diabetes mellitus wit h cataract ([facility] V24, [facility] V28) 08/01/2010 Hyperlipidemia 08/01/2010 BPH (benign prostatic hyperplasia) 08/01/2010 Neck pain 08/01/2010 Rhinitis 08/01/2010 Encounters Date Type Department Care Team Description 03/09/2025 Telephone Infectious Disease [address] [phone] [place] [facility] [place] 03/07/2025 3:45 PM EDT Office Visit Pulmonology [address] [phone] Conchita Pedraza MD SUSANNA (obstructive sleep apnea) (Primary Dx); Moderate persistent asthma, unspecified whether complicated; Ex-smoker 02/15/2025 Telephone Pulmonology [address] [phone] Conchita Pedraza MD 02/01/2025 Telephone Pulmonology [address] [phone] Faye Machuca MS 01/12/2025 2:00 PM EDT Office Visit Adult Medicine [address] [phone] Mary Adams NP Type 2 diabetes mellitus with neurological manifestations ([facility] V24, [facility] V28) (Primary Dx); Mild dementia without behavioral disturbance, psychotic disturbance, mood disturbance, or anxiety, unspecified dementia type ([facility] V24, [facility] V28); Other fatigue; SUSANNA (obstructive sleep apnea); Hyperlipidemia, unspecified hyperlipidemia type; Lumbar spondylosis 12/22/2024 Telephone Adult Medicine [address] [phone] Navdeep Bolanos MD from Last 3 Months Immunizations Immunization Administration Dates Next Due Influenza Quadravalent, MDCK , 0.5ml, preservative free (Flucelvax) 6mo and older 03/25/2019 Influenza trivalent, 0.5mL ( Fluzone High-dose) 65yo and older 03/29/2023,04/05/2022,01/30/2021,02/28,02/18/2018,03/13/2017,02/02/2016 ,02/13/2015 Influenza trivalent, with pr eservative (Fluzone; Afluria) 6mo and older 02/10/2013,03/17/2012,02/13/2011 Auto Mute/IZEA SARS-CoV-2 COVID -19, vector-nr, rS-Ad26, preservative free 08/28/2020 Pneumococcal conjugate 13 va lent (Prevnar 13, PCV13) 2mo and older 11/23/2015 Pneumococcal polysaccharide 23 valent (Pneumovax 23) 2yo and older 08/01/2010 Td Tetanus diptheria (Tdvax) 7yo and older 03/27/2016,07/01/2005 Zoster Live 01/08/2017 Surgical History Surgery Date Site/Laterality Comments SINUS SURGERY PROCEDURE: [facility] UNLISTED PROCEDURE ACCESSORY SINUSES FOOT SURGERY PROCEDURE: HISTORICAL FOOT SURGERY HIP ARTHROPLASTY PROCEDURE: HISTORICAL HIP REPLACEMENT UPPER GASTROINTESTINAL ENDOSCOPY 11/24/2015 PROCEDURE: [facility] UPPER GI ENDOSCOPY PERFORMED; COMMENT: Esophageal erosion, gastritis, duodenum normal; no H. pylori and nl esophageal biopsies COLONOSCOPY 02/25/2017 PROCEDURE: HISTORICAL COLONOSCOPY; COMMENT: Diminutive colonic polyps 3, all 3 tubular adenomas. Medical History Medical History Date Comments Hyperlipidemia 08/01/2010 DX:Hyperlipidemi a Diabetic neuropathy ([facility] V24, [facility] V28) 07/10/2016 DX:Diabetic neuropathy (HCC) Type 2 diabetes mellitus wit h cataract ([facility] V24, [facility] V28) 08/01/2010 DX:Type 2 diabetes mellitus with cataract (HCC); COMMENT: History of IN 1997 Cataract 07/12/2016 DX:Cataract Old IN (myocardial infarction) 09/14/2013 D X:Old IN (myocardial infarction); COMMENT: Hx IN 1997. Type 2 diabetes mellitus wit h neurological manifestations ([facility] V24, [facility] V28) 02/22/2015 DX:Type 2 diabetes mellitus with [...] tubular adenomas CN 7.12 with adenoma. 02/25/2017: [facility], diminutive tubular adenoma 3. HTN (hypertension) 08/01/2010 DX:HTN (hyper tension) Leg cramps, sleep related 01/09/2011 DX:Leg cramps, sleep related Low back pain 01/02/2012 DX:Low back pain Moderate persistent asthma w ithout complication 03/20/2017 DX:Moderate persistent asthm a without complication Neck pain 08/01/2010 DX:Neck pain Obesity (BMI 30-39.9) 03/20/2017 DX:Obesity (BMI 30-39.9) Obesity hypoventilation synd agatha ([facility] V24, [facility] V28) 03/20/2017 DX:Obesity hypoventilation syndrome (HCC) SUSANNA (obstructive sleep apnea) 09/19/2010 DX :SUSANNA (obstructive sleep apnea); COMMENT: [facility] Home Polysomnogram: Date 02/11/2017; AHI 8, Unclassified apneas 0; Obstructive apneas 2; Central apneas 1; Mixed apneas 0; hypopneas 16; average oxygen saturation 94% (lowest 89% without saturations <88% for 5% or more of study) 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) 03/20/2017 D X:Overlap syndrome (HCC) Rhinitis 08/01/2010 DX:Rhinitis History of hip replacement, total, left 01/02/2012 DX:History of hip replacemen t, total, left Obesity DX:Obesity Family History Medical History Relation Name Comments Cancer Brother 1 Colon Diabetes Father Cancer Mother Stomach Diabetes Mother cancer Cancer Sister Caitlinekima Relation Name Status Comments Brother 1 Brother [...] Sign Reading Time Taken Comments Blood Pressure 128/70 03/07/2025 3:49 PM EDT Pulse 71 03/07/2025 3:49 PM EDT Temperature 36.6 C (97.8 F) 03/07/2025 3:49 PM EDT Respiratory Rate 20 03/07/2025 3:49 PM EDT Oxygen Saturation 95% 03/07/2025 3:49 PM EDT Inhaled Oxygen Concentration - - Weight 95.3 kg (210 lb 3.2 oz) 03/07/2025 3:49 P M EDT Height 162.6 cm (5' 4 ) 03/07/2025 3:49 PM EDT Body Mass Index 36.08 03/07/2025 3:49 PM EDT Plan of Treatment Upcoming Encounters Date Type Department Care Team (Late st Contact Info) Description 05/02/2025 9:30 AM EST Office Visit Endocrinology [address] [phone] Alfredo Cole MD [address] [place] [phone] 06/16/2025 3:30 PM EST Office Visit Pulmonology - [address] [place] [phone] Conchita Pedraza MD [address] [phone] 08/01/2025 4:30 PM EST Office Visit Adult Medicine [facility] [address], [place] [phone] Navdeep Bolanos MD [address] [place], [place] 08/31/2025 9:30 AM EDT Office Visit [facility] Hematology Oncology [address] [place] [phone] Etelvina Johnson MD [address] [place] [address] Health Maintenance Due Date Last Done Comments Diabetes: Annual Foot Exam 1950 RSV Immunization Adult Patients (1 - 1-dose 75+ series) 2016 Zoster Vaccines (2 of 3) 03/05/2017 01/08/2017 Medicare Annual Wellness Visit 05/11/2022 Social Influencers of Health Screening 05/11/2022 Colorectal Cancer Screening: Colonoscopy 08/06/2023 09/26/2022 Falls Risk Assessment 08/07/2023 08/06/2022 Depression Screening 06/02/2024 COVID-19 Vaccine ( season) 2025 05/10/2021, 08/28/2020 Influenza Vaccine (#1) 2025 , 03/29/2023, 04/05/2022, Additional history exists Diabetes: Blood Sugar Control Test (HGBA1C) 02/05/2025 [...] Pneumococcal Vaccine: 50+ Years Completed 11/23/2015, 08/01/2010 HIB Vaccines Aged Out No longer eligi [...] Procedure Name Priority Date/Time Associated Diagnosis Comments ECHO OUTSIDE IMAGES/REPORT Routine 03/08/2025 1:04 PM EDT OVERNIGHT PULSE OXIMETRY Routine 02/16/2025 10:06 AM EDT SUSANNA (obstructive sleep apnea) POC GLUCOSE Routine 01/12/2025 1:57 PM EDT Type 2 diabetes mellitus with neurological manifestations ([facility] V24, [facility] V28) POLYSOMNOGRAM WITH CPAP Routine 01/10/2025 8:41 AM EDT SUSANNA (obstructive sleep apnea) MICROALBUMIN CREATININE URINE RATIO Routine 08/05/2024 9:42 AM EST Diet-controlled diabetes mellitus (CMS/HCC V24, CMS/HCC V28) COMPREHENSIVE METABOLIC PANEL Routine 08/05/2024 9:42 AM EST Monoclonal paraproteinemia Sickle-cell trait ([facility] V24) Monoclonal gammopathy HEMOGLOBIN A1C Routine 08/05/2024 9:42 AM EST Diet-controlled diabetes mellitus ([facility] V24, [facility] V28) LIPID PANEL WITH REFLEX TO DIRECT LDL Routine 08/05/2024 9:42 AM EST Hypercholesterolemia DIABETIC RETINOPATHY SCREENING Routine 03/11/2024 3:55 PM EDT from Last 3 Months or Most Recently Relevant to Health Maintenance Results * Echo Outside Images/Report (03/08/2025 1:04 PM EDT) Anatomical Region Laterality Modality Ultrasound Historical Provider CV ECHO PROCEDURES Final Result * Pulse oximetry, overnight (02/16/2025 10:06 AM EDT) Conchita Pedraza MD RESPIRATORY CARE ORDERABLES Kiesha l Result * POC glucose manually resulted (01/12/2025 1:57 PM EDT) Glucose POC 122 mg/dL Blood Capillary blood specimen / Unknown 01/12/2025 1:57 PM EDT Mary Adams NP POINT OF CARE TEST ENTER/EDIT ORDERABLES Final Result * Polysomnography with PAP (01/10/2025 8:41 AM EDT) Conchita Pedraza MD [facility] ORDERABLES Final Re sult * Lipid panel with reflex to direct LDL (08/05/2024 9:42 AM EST) Cholesterol 146 0 - 200 mg/dL LAB CHEMISTRY METHOD 08/05/2024 1:15 PM EST [facility] Triglycerides 102 0 - 150 mg/dL LAB CHEMISTRY METHOD 08/05/2024 1:15 PM EST [facility] HDL 54 >=40 mg/dL LAB CHEMISTRY METHOD 08/05/2024 1:15 PM EST [facility] LDL Calculated 72 0 - 100 mg/dL LAB CHEMISTRY METHOD 08/05/2024 1:15 PM EST [facility] VLDL Cholesterol Bhargav 20.4 mg/dL LAB CHEMISTRY METHOD 08/05/2024 1:15 PM EST [facility] Non HDL Chol. (LDL+VLDL) 92 <145 mg/dL LAB CHEMISTRY METHOD 08/05/2024 1:15 PM EST [facility] Chol/HDL Ratio 2.7 0.0 - 4.4 LAB CHEMISTRY METHOD 08/05/2024 1:15 PM EST [facility] Blood Venous blood specimen / Unknown Venipuncture / Unknown 08/05/2024 9:42 AM EST 08/05/2024 9:42 AM EST us Navdeep Bolanos MD LAB BLOOD ORDERABLES Final Resu lt [facility] [address] [place] [address], [place] [phone] * Microalbumin creatinine urine ratio (08/05/2024 9:42 AM EST) Creatinine, Urine 54.0 mg/dL LAB CHEMISTRY METHOD 08/05/2024 1:04 PM [facility] Microalb, Ur 8.7 0.0 - 29.0 mg/L LAB CHEMISTRY METHOD 08/05/2024 1:04 PM EST [facility] Microalb/Creat Ratio 16 <30 mg/g creat LAB CHEMISTRY METHOD 08/05/2024 1:04 PM EST [facility] Urine Urine specimen obtained by clean catch procedure / Unknown Non-blood Collection / Unknown 08/05/2024 9:42 AM EST 08/05/2024 9:42 AM EST us Navdeep Bolanos MD LAB URINE ORDERABLES Final Resu lt Performing Organization Address [facility]/ZIP Co de Phone Number [facility] [address] [place] [address], [place] [phone] * Hemoglobin A1c (08/05/2024 9:42 AM EST) [facility] Hemoglobin A1C 6.2 <6.5 % LAB CHEMISTRY METHOD 08/05/2024 8:59 PM EST [facility] Mean Bld Glu Estim. 131 mg/dL LAB CHEMISTRY METHOD 08/05/2024 8:59 PM [facility] Blood Venous blood specimen / Unknown Venipuncture / Unknown 08/05/2024 9:42 AM EST 08/05/2024 9:42 AM EST us Navdeep Bolanos MD LAB BLOOD ORDERABLES Final Resu lt Performing Organization Address [facility]/ZIP Co de Phone Number [facility] [address] [place] [address], [place] [phone] * (ABNORMAL) Comprehensive metabolic panel (08/05/2024 9:42 AM EST) [facility] Sodium 138 133 - 145 mmol/L LAB CHEMISTRY METHOD 08/05/2024 1:15 PM [facility] Potassium 4.5 3.5 - 5.5 mmol/L LAB CHEMISTRY METHOD 08/05/2024 1:15 PM [facility] Chloride 104 96 - 110 mmol/L LAB CHEMISTRY METHOD 08/05/2024 1:15 PM [facility] CO2 27 21 - 32 mmol/L LAB CHEMISTRY METHOD 08/05/2024 1:15 PM [facility] Anion Gap 7 3 - 11 LAB CHEMISTRY METHOD 08/05/2024 1:15 PM [facility] Glucose 97 70 - 100 mg/dL LAB CHEMISTRY METHOD 08/05/2024 1:15 PM [facility] BUN 19 5 - 25 mg/dL LAB CHEMISTRY METHOD 08/05/2024 1:15 PM [facility] Creatinine 1.02 0.70 - 1.30 mg/dL LAB CHEMISTRY METHOD 08/05/2024 1:15 PM [facility] eGFR 73 >=60 mL/min/1. 73m2 LAB CHEMISTRY METHOD 08/05/2024 1:15 PM [facility] Comment:Calculation based on the Chronic Kidney Disease Epidemiology Collaboration (CKD-EPI) equation refit without adjustment for race. BUN/Creatinine Ratio 18.6 LAB CHEMISTRY METHOD 08/05/2024 1:15 PM [facility] Calcium 10.7(H) 8.5 - 10.5 mg/dL LAB CHEMISTRY METHOD 08/05/2024 1:15 PM [facility] AST (SGOT) 23 10 - 42 unit/L LAB CHEMISTRY METHOD 08/05/2024 1:15 PM [facility] ALT (SGPT) 29 10 - 60 unit/L LAB CHEMISTRY METHOD 08/05/2024 1:15 PM [facility] Alkaline Phosphatase 58 42 - 121 unit/L LAB CHEMISTRY METHOD 08/05/2024 1:15 PM [facility] Total Protein 6.9 6.0 - 8.0 g/dL LAB CHEMISTRY METHOD 08/05/2024 1:15 PM [facility] Albumin 3.4 3.2 - 5.0 g/dL LAB CHEMISTRY METHOD 08/05/2024 1:15 PM [facility] Total Bilirubin 0.4 0.0 - 1.4 mg/dL LAB CHEMISTRY METHOD 08/05/2024 1:15 PM [facility] Blood Venous blood specimen / Unknown Venipuncture / Unknown 08/05/2024 9:42 AM EST 08/05/2024 9:42 AM EST Etelvina Johnson MD LAB BLOOD ORDERABLES Final R esult [facility] [address] [place] [address], * Diabetic Retinopathy Screening (03/11/2024 3:55 PM EDT) us Historical Provider MD IN CLINIC/BEDSIDE ORDERAB LES Final Result from Last 3 Months or Most Recently Relevant to Health Maintenance Insurance [employer] Member Subscriber Plan / Payer (Ef fective 2020-Present) Name:Craig Kothari Relation to Subscriber:Self Name:Craig Kothari Payer ID:[id number] Group ID:[id number] Type:Not on file Address: [place] [address] [place] [id number] Care Teams Doctor Of Veterinary Medicine Relationship Specialty Start Date End Date Navdeep Bolanos MD [address] [place] [phone] PCP - General Internal Medicine 04/27/24
--- OUTSIDE RECORDS SUMMARY | 2025-03-17 11:54 | XMS_ITS | Clinical Summary ---
Author Organization [facility] Address [address] [place] [address] Care Team Providers Care Stone Trimmer Name Role Phone Navdeep Bolanos MD Primary Care Provider [phone] Allergies No known active allergies Medications Medication [...] down for next 30 minutes 0 Active [place]-3 Fatty Acids (FISH OIL OMEGA-3 PO) Take [...] 58 09/11/2023 10:40 AM EDT Temperature 36.2 C (97.2 F) 09/11/2023 10:40 AM EDT Respiratory Rate - - Oxygen Saturation 99% [...] - 1-dose 75+ series) 2016 COVID-19 Vaccine ( season) 2025 05/10/2021, 08/28/2020 Influenza Vaccine (#1) 2025 3, 04/05/2022, 01/30/2021, Additional history exists Pneumococcal Vaccine Completed 11/23/2015, 08/02/19 11 Hepatitis B Vaccines Aged Out No long er eligible based on patient's age to complete this topic RSV Ped < 20 months Aged Out No longe r eligible based on patient's age to complete this topic Care Teams Stone Trimmer Relationship Specialty Start Date End Date Navdeep Bolanos MD PCP - General Internal Medicine 01/17/21
--- OUTSIDE RECORDS SUMMARY | 2025-03-17 11:54 | XMS_ITS | Patient Health Record ---
Author Organization [facility] avril Address [address] [place] [address] Care Team Providers Care Category Development Analyst Name Role Phone Navdeep Bolanos III Primary Care Provider Unavailab Aftab Powers Unavailable [phone] Clinical, Operations Unavailable Unavailable Jeremy Maggie Unavailable [phone] Pamela Whitney Unavailable [phone] Allergies No Known Allergies Results Component Value Reference Range Notes Basic Metabolic Panel (8) Reviewed date:08/24/2024 11:04:46 AM Interpretation: Performing Lab: Notes/Report: Calcium, Serum 10.7 Glucose, Serum 97 BUN 19 Potassium, Serum 4.5 Sodium, Serum 138 Chloride, Serum 104 Creatinine, Serum 1.02 Carbon Dioxide, Total 27 BUN/Creatinine Ratio 18.6 Hepatic Function Panel (7) Reviewed date:08/24/2024 11:07:06 AM Interpretation: Performing Lab: Notes/Report: Protein, Total, Serum 6.9 Albumin, Serum 3.4 Bilirubin, Total 0.4 Alkaline Phosphatase, S 58 AST (SGOT) 23 ALT (SGPT) 29 CBC, Platelet; No Differenti al Reviewed date:08/24/2024 11:10:16 AM Interpretation: Performing Lab: Notes/Report: WBC 9.7 RBC 4.50 Hemoglobin 12.7 Hematocrit 38.6 MCV 86.4 MCH 28.4 MCHC 32.9 Platelets 244 RDW 15.3 Lipid Panel And Chol/HDL Rat io Reviewed date:08/24/2024 11:11:36 AM Interpretation: Performing Lab: Notes/Report: Cholesterol, Total 146 Triglycerides 102 HDL Cholesterol 54 VLDL Cholesterol Bhargav 20.4 LDL Cholesterol Calc 72 T. Chol/HDL Ratio 2.7 Hemoglobin A1c Reviewed date:08/24/2024 11:12:27 AM Interpretation: Performing Lab: Notes/Report: Hemoglobin A1c 6.2 Vitamin D, 1,25 Dihydroxy Reviewed date:08/24/2024 11:13:37 AM Interpretation: Performing Lab: Notes/Report: Vitamin D, 1,25 Dihydroxy 34.1 Reason For Referral Reason Initial [facility] SPEECH AND LANGUAGE ASSISTANT Refe rral Request: Functional Assessment Faxed Separately Diagnosis 1 Dementia without beh avioral disturbance, unspecified dementia type (F03.90) Referring Provider First Name Operations Referring Provider Last Name Clinical Referring Provider Speciality Unknown Referred Provider Access Care [employer]. Referred Provider Specialty Adult Foster Care Clinical Notes Is the Member ICO or SCO?, Response :, SCO, 2. Primary Contact for Member:, Response :, Contact Name & Number -Contact Name: Mikki Younbglood, Contact Name & Number -Contact Number:: [phone], Notes :Secondary contact: Mireya Kothari, Daughter, , 3. Member's preferred language:, Response :, Czech, 4. Veneer Clipper Info:, Response :, Veneer Clipper Name & email -Veneer Clipper Name:: Angela Salguero, Veneer Clipper Name & email -Veneer Clipper email address:: [email or web address], 5. Is this request for any of the following?, Response :, Initial, 6. Is the Member experiencing a change/decline in the following:, Response :, Change in informal support or living situation -Please explain:: Daughter would like to switch from PCHM to SPEECH AND LANGUAGE ASSISTANT services. Reports having a difficult time getting a responsible aide from agency, and some concerns are related due to multiple no shows, conflicts with scheduling and language barrier. Current aide doesn't have a license and is unable to bring member to medical appointments., 7. Who is requesting SPEECH AND LANGUAGE ASSISTANT services or changes in service?, Response :, Member, 8. Will member likely need a surrogate to manage a SPEECH AND LANGUAGE ASSISTANT?, Response :, Yes -Provide surrogate contact if available:: Mikki Youngblood, Daughter, [phone], 9. Please list the ICD-10 diagnosis that supports the need for SPEECH AND LANGUAGE ASSISTANT, Response :, ICD-10 Code & Dx name: [...] support from daughter, Mikki Youngblood. Daughter works multimedia author and only provides assistance with phone use, scheduling and managing appointments., 12. Does the Member have an existing LTSS (Custodial Support Service)?, Response :, Yes -Select the following:: Personal Care Agency, 13. Will the SPEECH AND LANGUAGE ASSISTANT be replacing the current LTSS?, Response :, Yes -Select all that apply:: Personal Care Agency, 14. Provide the PCM (Personal Care Management) Agency Name/Contact the member will be using:, Response :, [facility], Notes :Current ALEX: [facility] [employer] Not listed, 15. Has the [facility] ([facility]LTSC (Custodial Account Management Assistant) been notified/aware of SPEECH AND LANGUAGE ASSISTANT request?, Response :, Yes -[facility] Name:: Lawrence Mancia, Yes -[facility] Contact Number:: [phone], Yesy Tsai 08/23/2024 09:59:36 AM > Referral Priority Routine Medications Medication SIG (Take, Route, Frequency, Duration) Notes Start Date End Date Status Aspirin 81 81 MG 1 tablet Orally Once a day Active Symbicort 160-4.5 MCG/ACT 2 puffs Inhalation once daily Active Alendronate Sodium 70 MG 1 tablet 30 minutes before the first food, beverage or medicine of the day with plain water Orally 1X Weekly friday Active Combivent Respimat 20-100 MCG/ACT 1 puff as needed Inhalation every 6 hrs Active Fluticasone Propionate 50 MCG/ACT 1 spray in each nostril Nasally as needed for allergies Active Omeprazole 20 MG 1 capsule 30 minutes before morning meal Orally Once a day Active Multivitamin - 1 tablet Orally Once a day Active Fish Oil 1200 MG 1 capsule Orally Once a day Active Acetaminophen Extra [...] UT) 1 capsule Orally Once a day Member's daughter reports member not taking. Not-Taking Donepezil HCl 10 MG 1 tablet at bedtime Orally Once a day Active Senna 8.6 MG 1 tablet at bedtime as needed Orally Once a day Active Diclofenac Sodium 1 % 4 grams Externally 4 times a day Active Metoprolol Tartrate 25 MG 1 tablet with food Orally Twice a day Member's daughter reports member not taking. Not-Taking Refresh 1.4-0.6 % 1 drop both eyes Ophthalmic Three times a day Member's daughter reports member not taking. Not-Taking Losartan Potassium 25 MG 1 tablet Orally Once a day Active Ammonium Lactate 12 % 1 application as needed Externally Twice a day Member's daughter reports member not taking. Not-Taking Mirabegron ER 50 MG 1 tablet Orally Once a day Active Naproxen 500 MG 1 tablet with food or milk as needed Orally every 12 hrs Member's daughter reports member not taking. Not-Taking VESIcare 10 MG 1 tablet Orally Once a day Active Docusate Sodium 100 MG 1 capsule Orally Twice a day Active DULoxetine HCl 20 MG 1 capsule Orally Once a day Active Tamsulosin HCl 0.4 MG 1 capsule Orally Once a day Active Immunizations Vaccine Route Administration Date Status Comme [facility] [id number] Flu Vac (Fluad) PFS Unknown 03/02/2024 Admini [...] Problem Status W/U Status Risk Notes Problem Age-related osteoporosis (598409601) Age-related osteoporosis without current pathological fracture (M81.0) Active confirmed Problem Incontinence (12645532) Incontinence (R32) Inactive confirmed Problem Tinea unguium (098967319) Tinea unguium (B35.1) Active confirmed Problem Gastroesophageal reflux disease (754411769) GERD (gastroesophagea l reflux disease) (K21.9) Active confirmed Problem Pain of left hip joint (finding) (208985740720057) Pain in left hip (M25.552) Active confirmed Problem Obstructive sleep apnea syndrome (97854827) SUSANNA (obstructive sleep apnea) (G47.33) Active confirmed Problem Hypertension (99718417) HTN (hypertension) (I10) Inactive confirmed Problem History of fall (025246723) Risk for falls (Z91.81) Active confirmed Problem Walking disability (976675743) Difficulty in walking, not elsewhere classified (R26.2) Active confirmed Problem Old healed fracture of bone (072202985) Personal history of (healed) traumatic fracture (Z87.81) Active confirmed Problem Vitamin D deficiency (13947878) Vitamin D deficiency (E55.9) Active confirmed Problem Benign prostatic hyperplasia (442388750) BPH (benign prostatic hyperplasia) (N40.0) Inactive confirmed Problem Sleep apnea (65115640) Sleep apnea (G47.30) Inactive confirmed Problem Back pain (647913303) Back pain (M54.9) Inactive confirmed Problem DM - Diabetes mellitus (34827540) DM (diabetes mellitus) (E11.9) Inactive confirmed Problem Disorder of bone (89451866) Disorder of bone, unspecified (M89.9) Active confirmed Problem Hyperlipidaemia (07989552) HLD (hyperlipidemia) (E78.5) Active confirmed Problem Arthritis (8261269) Arthritis (M19.90) Inactive confirmed Problem Hypercalcemia (51678298) Hypercalcemia (E83.52) Inactive confirmed Problem Abnormal gait (58482652) Unsteadiness on feet (R26.81) Active confirmed Problem Old myocardial infarction (3258871) History of ND (myocardial infarction) (I25.2) Active confirmed Problem Mild cognitive disorder (624059988) Mild cognitive impairment, so stated (G31.84) Inactive confirmed Problem Bladder incontinence (847589266) Bladder incontinence (R32) Active confirmed Problem Neurologic disorder associated with type II diabetes mellitus (712746304) Type 2 diabetes mellitus with other diabetic neurological complication (E11.49) Active confirmed Problem Hyperparathyroidism (50688504) Hyperparathyroid ism, unspecified (E21.3) Active confirmed dx verified via [facility] Claims Problem Obstructive uropathy (1346172) Other obstructive and reflux uropathy (N13.8) Active confirmed Problem History of cataract extraction (112962023) Cataract extraction status, unspecified eye (Z98.49) Active confirmed Problem Ingrowing nail (627108298) Ingrowing nail (L60.0) Active confirmed Problem Lumbosacral spondylosis without myelopathy (94856297) Spondylosis without myelopathy or radiculopathy, lumbar region (M47.816) Active confirmed Problem Fatigue (01362418) Other fatigue (R53.83) Active confirmed Problem Monoclonal gammopath y (69461244) Monoclonal gammopathy (D47.2) Active confirmed dx verified via [facility] Claims Problem Degeneration of cervicothoracic intervertebral disc (9416342756) 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) Active confirmed Problem Sickle cell trait (07850323) Sickle-cell trait (D57.3) Active confirmed dx verified via [facility] Claims Problem Overactive urinary bladder (disorder) (241706537) OAB (overactive bladder) (N32.81) Active confirmed Problem Hallucinations (4673662) Hallucination (R44.3) Inactive confirmed Problem Wrist joint effusion (384841795) Effusion, right wrist (M25.431) Inactive confirmed Problem Wrist joint effusion (475671510) Effusion, left wrist (M25.432) Inactive confirmed Problem Disorder of thigh (disorder) (121801272) Other specified disorders of bone, thigh (M89.8X5) Active confirmed Problem Long-term current us e of inhaled steroid (343912241) computer technology instructor (current) use of inhaled steroids (Z79.51) Active confirmed Problem Long-term current us e of antiplatelet drug (186147875378989) computer technology instructor (current) use of aspirin (Z79.82) Active confirmed Problem Intraocular lens implant (772948798) Presence of intraocular lens (Z96.1) Active confirmed Problem History of artificia l joint (865954697) 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) Active confirmed Problem Atherosclerosis of coronary artery without angina pectoris (880077705328585) Atherosclerosis of [place] coronary artery of [place] heart without angina pectoris (I25.10) Active confirmed Problem Chronic pain (79162340) Other chronic pain (G89.29) Active confirmed Problem Constipation (53709184) Constipation, unspecified constipation type (K59.00) Active confirmed Problem Osteoarthritis (398812427) Osteoarthritis, unspecified osteoarthritis type, unspecified site (M19.90) Active confirmed Problem Hypertensive heart disease without congestive heart failure (94070388) Hypertensive heart disease without heart failure (I11.9) Active confirmed Problem Morbid obesity (disorder) (543889748) Morbid (severe) obesity due to excess calories (E66.01) Active confirmed Problem Long-term current us e of antiplatelet drug (070647298070399) Long-term use of aspirin therapy (Z79.82) Inactive confirmed Problem Dementia (68594320) Dementia wit hout behavioral disturbance, unspecified dementia type (F03.90) Active confirmed Problem Recurrent major depression in full remission (95213267) Recurrent major depressive disorder, in full remission (F33.42) Active confirmed Problem Polyneuropathy due t o type 2 diabetes mellitus (237804717) Type 2 diabetes mellitus with diabetic polyneuropathy, 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) Active confirmed Problem Insomnia (599626781) Insomnia, unspecified type (G47.00) Active confirmed Problem Pure hypercholesterolemia (085406659) Pure hypercholesterol emia, unspecified (E78.00) Active confirmed dx verified via [facility] Claims Problem Lower urinary tract symptoms due to benign prostatic hypertrophy (19179243880402) Benign prostatic hyperplasia with lower urinary tract symptoms, symptom details unspecified (N40.1) Active confirmed Problem Uncomplicated moderate persistent asthma (785398904) Moderate persistent asthma, unspecified whether complicated (J45.40) Active confirmed Problem Body mass index 35.0 0 to 39.99 (506177862832753) Body mass index (BMI) of 38.0 to 38.9 in adult (Z68.38) Active confirmed Problem History of COVID-19 (445256251170905723) History of COVID-19 (Z86.16) Inactive confirmed Problem Low back pain (581186656) Low back pain, unspecified (M54.50) Active confirmed Vital Signs Height-cm 162.56 cm 02/21/2025 Weight-kg 96.62 kg 02/21/2025 Height 64 in 02/21/2025 Weight 213 lbs 02/21/2025 BMI 36.56 kg/m2 02/21/2025 Encounters Encounter Location Date Provider Diagnosis [address] [address] 07/17/2024 Operations Clinical Dementia without behavioral disturbance, unspecified dementia type F03.90 ; Recurrent major depressive disorder, in full remission F33.42 ; Moderate persistent asthma, unspecified whether complicated J45.40 ; Type 2 diabetes mellitus with diabetic polyneuropathy, without long-term current use of insulin E11.42 ; Osteoarthritis, unspecified osteoarthritis type, unspecified site M19.90 ; Atherosclerosis of [place] coronary artery of [place] heart without angina pectoris I25.10 ; 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 ; History of ND (myocardial infarction) I25.2 ; Bladder incontinence R32 [...] tract symptoms, symptom details unspecified N40.1 ; computer technology instructor (current) use of inhaled steroids Z79.51 ; computer technology instructor (current) use of aspirin Z79.82 ; SUSANNA (obstructive sleep apnea) G47.33 ; OAB (overactive bladder) N32.81 ; Body mass index (BMI) of 38.0 to 38.9 in adult Z68.38 ; Risk for falls Z91.81 ; Cataract extraction status, unspecified eye Z98.49 ; Presence of intraocular lens Z96.1 and Age-related osteoporosis without current pathological fracture M81.[address] [address] 08/19/2024 Pamela Whitney Dementia without behavioral disturbance, unspecified dementia type F03.90 ; Type 2 diabetes mellitus with diabetic polyneuropathy, without long-term current use of insulin E11.42 ; Osteoarthritis, unspecified osteoarthritis type, unspecified site M19.90 and Other chronic pain G89.29 [facility] [address] [place] [address] 08/19/2024 Iris Jeremy Dementia without behavioral disturbance, unspecified dementia type F03.90 ; Recurrent major depressive disorder, in full remission F33.42 ; Moderate persistent asthma, unspecified whether complicated J45.40 ; Type 2 diabetes mellitus with diabetic polyneuropathy, without long-term current use of insulin E11.42 ; Osteoarthritis, unspecified osteoarthritis type, unspecified site M19.90 ; Atherosclerosis of [place] coronary artery of [place] heart without angina pectoris I25.10 ; 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 ; History of ND (myocardial infarction) I25.2 ; Bladder incontinence R32 [...] tract symptoms, symptom details unspecified N40.1 ; halfway (current) use of inhaled steroids Z79.51 ; halfway (current) use of aspirin Z79.82 ; SUSANNA [...] gammopathy D47.2 and Pure hypercholesterolemia, unspecified E78.00 [facility] [address] [place] [address] 02/21/2025 Operations Clinical Dementia without behavioral disturbance, unspecified dementia type F03.90 ; Recurrent major depressive disorder, in full remission F33.42 ; Moderate persistent asthma, unspecified whether complicated J45.40 ; Type 2 diabetes mellitus with diabetic polyneuropathy, without long-term current use of insulin E11.42 ; Osteoarthritis, unspecified osteoarthritis type, unspecified site M19.90 ; Atherosclerosis of [place] coronary artery of [place] heart without angina pectoris I25.10 ; 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 ; History of ND (myocardial infarction) I25.2 ; Bladder incontinence R32 [...] tract symptoms, symptom details unspecified N40.1 ; computer technology instructor (current) use of inhaled steroids Z79.51 ; halfway (current) use of aspirin Z79.82 ; SUSANNA [...] Sickle-cell trait D57.3 ; Monoclonal gammopathy D47.2 ; Pure hypercholesterolemia, unspecified E78.00 ; Ingrowing nail L60.0 ; Tinea unguium B35.1 ; Type 2 diabetes mellitus with other diabetic neurological complication E11.49 ; Spondylosis without myelopathy or radiculopathy, lumbar region M47.816 ; Other fatigue R53.83 ; Difficulty in walking, not elsewhere classified R26.2 ; Pain in left hip M25.552 ; Low back pain, unspecified M54.50 ; Disorder of bone, unspecified M89.9 ; Unsteadiness on feet R26.81 ; Personal history of (healed) traumatic fracture Z87.81 ; Presence of left artificial hip joint Z96.642 ; Other specified disorders of bone, thigh M89.8X5 and Other obstructive and reflux uropathy N13.[address] [address] 06/28/2024 Operations Clinical Assessments Encounter Date Diagnosis (ICD Code) Assessment Notes Treatment Notes Treatment Clinical Notes Section Notes 07/17/2024 Dementia without behavioral disturbance, unspecified dementia type (ICD-10 - F03.90) Diagnosis from [facility] 08/19/2024 Dementia without behavioral disturbance, unspecified dementia type (ICD-10 - F03.90) 08/19/2024 Recurrent major depressive disorder, in full remission (ICD-10 - F33.42) 08/19/2024 Dementia without behavioral disturbance, unspecified dementia type (ICD-10 - F03.90) 02/21/2025 Dementia without behavioral disturbance, unspecified dementia type (ICD-10 - F03.90) 02/21/2025 Recurrent major depressive disorder, in full remission (ICD-10 - F33.42) 08/19/2024 Type 2 diabetes mellitus with diabetic polyneuropathy, without long-term current use of insulin (ICD-10 - E11.42) 08/19/2024 Moderate persistent asthma, unspecified whether complicated (ICD-10 - J45.40) 07/17/2024 Recurrent major depressive disorder, in full remission (ICD-10 - F33.42) Diagnosis from [facility] 07/17/2024 Moderate persistent asthma, unspecified whether complicated (ICD-10 - J45.40) Diagnosis from [facility] 08/19/2024 Type 2 diabetes mellitus with diabetic polyneuropathy, without long-term current use of insulin (ICD-10 - E11.42) 02/21/2025 Moderate persistent asthma, unspecified whether complicated (ICD-10 - J45.40) 08/19/2024 Osteoarthritis, unspecified osteoarthritis type, unspecified site (ICD-10 - M19.90) 02/21/2025 Type 2 diabetes mellitus with diabetic polyneuropathy, without long-term current use of insulin (ICD-10 - E11.42) 08/19/2024 Osteoarthritis, unspecified osteoarthritis type, unspecified site (ICD-10 - M19.90) 08/19/2024 Other chronic pain (ICD-10 - G89.29) This OT finds member presents with a need for assistance in 2 plus ADLS, as such this OT recommends that member qualifies for SPEECH AND LANGUAGE ASSISTANT Program. See RN Maggie Luna's Functional Assessment in [facility] for details. 07/17/2024 Type 2 diabetes mellitus with diabetic polyneuropathy, without long-term current use of insulin (ICD-10 - E11.42) Diagnosis from [facility] 07/17/2024 Osteoarthritis, unspecified osteoarthritis type, unspecified site (ICD-10 - M19.90) Diagnosis from [facility] 08/19/2024 Atherosclerosis of [place] coronary artery of [place] heart without angina pectoris (ICD-10 - I25.10) 02/21/2025 Osteoarthritis, unspecified osteoarthritis type, unspecified site (ICD-10 - M19.90) 02/21/2025 Atherosclerosis of [place] coronary artery of [place] heart without angina pectoris (ICD-10 - I25.10) 08/19/2024 Degeneration of cervicothoracic intervertebral disc (ICD-10 - M50.33) 07/17/2024 Atherosclerosis of [place] coronary artery of [place] heart without angina pectoris (ICD-10 - I25.10) Diagnosis from [facility] 07/17/2024 Degeneration of cervicothoracic intervertebral disc (ICD-10 - M50.33) Diagnosis from [facility] 08/19/2024 History of ND (myocardial infarction) (ICD-10 - I25.2) 02/21/2025 Degeneration of cervicothoracic intervertebral disc (ICD-10 - M50.33) 02/21/2025 History of ND (myocardial infarction) (ICD-10 - I25.2) 08/19/2024 Bladder incontinence (ICD-10 - R32) 07/17/2024 History of ND (myocardial infarction) (ICD-10 - I25.2) Diagnosis from [facility] 07/17/2024 Bladder incontinence (ICD-10 - R32) Diagnosis from [facility] 08/19/2024 Hypertensive heart disease without heart failure (ICD-10 - I11.9) 02/21/2025 Bladder incontinence (ICD-10 - R32) 02/21/2025 Hypertensive heart disease without heart failure (ICD-10 - I11.9) 08/19/2024 Vitamin D deficiency (ICD-10 - E55.9) 07/17/2024 Hypertensive heart disease without heart failure (ICD-10 - I11.9) Diagnosis from [facility] 08/19/2024 HLD (hyperlipidemia) (ICD-10 - E78.5) 07/17/2024 Vitamin D deficiency (ICD-10 - E55.9) Diagnosis from [facility] 02/21/2025 Vitamin D deficiency (ICD-10 - E55.9) 02/21/2025 HLD (hyperlipidemia) (ICD-10 - E78.5) 07/17/2024 HLD (hyperlipidemia) (ICD-10 - E78.5) Diagnosis from [facility] 08/19/2024 GERD (gastroesophageal reflux disease) (ICD-10 - K21.9) 07/17/2024 GERD (gastroesophageal reflux disease) (ICD-10 - K21.9) Diagnosis from [facility] 02/21/2025 GERD (gastroesophageal reflux disease) (ICD-10 - K21.9) 08/19/2024 Insomnia, unspecified type (ICD-10 - G47.00) 08/19/2024 Other chronic pain (ICD-10 - G89.29) 07/17/2024 Insomnia, unspecified type (ICD-10 - G47.00) Diagnosis from [facility] 02/21/2025 Insomnia, unspecified type (ICD-10 - G47.00) 02/21/2025 Other chronic pain (ICD-10 - G89.29) 07/17/2024 Other chronic pain (ICD-10 - G89.29) Diagnosis from [facility] 08/19/2024 Morbid (severe) obesity due to excess calories (ICD-10 - E66.01) 08/19/2024 Constipation, unspecified constipation type (ICD-10 - K59.00) 07/17/2024 Morbid (severe) obesity due to excess calories (ICD-10 - E66.01) Diagnosis from [facility] 02/21/2025 Morbid (severe) obesity due to excess calories (ICD-10 - E66.01) 02/21/2025 Constipation, unspecified constipation type (ICD-10 - K59.00) 07/17/2024 Constipation, unspecified constipation type (ICD-10 - K59.00) Diagnosis from [facility] 08/19/2024 Benign prostatic hyperplasia with lower urinary tract symptoms, symptom details unspecified (ICD-10 - N40.1) 08/19/2024 halfway (current) use of inhaled steroids (ICD-10 - Z79.51) 07/17/2024 Benign prostatic hyperplasia with lower urinary tract symptoms, symptom details unspecified (ICD-10 - N40.1) Diagnosis from [facility] 02/21/2025 Benign prostatic hyperplasia with lower urinary tract symptoms, symptom details unspecified (ICD-10 - N40.1) 02/21/2025 computer technology instructor (current) use of inhaled steroids (ICD-10 - Z79.51) 07/17/2024 computer technology instructor (current) use of inhaled steroids (ICD-10 - Z79.51) Diagnosis from [facility] 08/19/2024 halfway (current) use of aspirin (ICD-10 - Z79.82) 07/17/2024 halfway (current) use of aspirin (ICD-10 - Z79.82) Diagnosis from [facility] 08/19/2024 SUSANNA (obstructive sleep apnea) (ICD-10 - G47.33) 02/21/2025 halfway (current) use of aspirin (ICD-10 - Z79.82) 07/17/2024 SUSANNA (obstructive sleep apnea) (ICD-10 - G47.33) Diagnosis from [facility] 08/19/2024 OAB (overactive bladder) (ICD-10 - N32.81) 02/21/2025 SUSANNA (obstructive sleep apnea) (ICD-10 - G47.33) 08/19/2024 Body mass index (BMI) of 38.0 to 38.9 in adult (ICD-10 - Z68.38) 07/17/2024 OAB (overactive bladder) (ICD-10 - N32.81) Diagnosis from [facility] 02/21/2025 OAB (overactive bladder) (ICD-10 - N32.81) 02/21/2025 Body mass index (BMI) of 38.0 to 38.9 in adult (ICD-10 - Z68.38) 08/19/2024 Risk for falls (ICD-10 - Z91.81) 07/17/2024 Body mass index (BMI) of 38.0 to 38.9 in adult (ICD-10 - Z68.38) Diagnosis from [facility] 08/19/2024 Cataract extraction status, unspecified eye (ICD-10 - Z98.49) 07/17/2024 Risk for falls (ICD-10 - Z91.81) Diagnosis from [facility] 02/21/2025 Risk for falls (ICD-10 - Z91.81) 08/19/2024 Presence of intraocular lens (ICD-10 - Z96.1) 07/17/2024 Cataract extraction status, unspecified eye (ICD-10 - Z98.49) Diagnosis from [facility] 02/21/2025 Cataract extraction status, unspecified eye (ICD-10 - Z98.49) 02/21/2025 Presence of intraocular lens (ICD-10 - Z96.1) 07/17/2024 Presence of intraocular lens (ICD-10 - Z96.1) Diagnosis from [facility] 08/19/2024 Age-related osteoporosis without current pathological fracture (ICD-10 - M81.0) 08/19/2024 Hyperparathyroidism , unspecified (ICD-10 - E21.3) dx verified via [facility] 07/17/2024 Age-related osteoporosis without current pathological fracture (ICD-10 - M81.0) Diagnosis from [facility] 02/21/2025 Age-related osteoporosis without current pathological fracture (ICD-10 - M81.0) 08/19/2024 Sickle-cell trait (ICD-10 - D57.3) dx verified via [facility] 02/21/2025 Hyperparathyroidism , unspecified (ICD-10 - E21.3) dx verified via [facility] 02/21/2025 Sickle-cell trait (ICD-10 - D57.3) dx verified via [facility] 08/19/2024 Monoclonal gammopathy (ICD-10 - D47.2) dx verified via [facility] 08/19/2024 Pure hypercholesterolemi a, unspecified (ICD-10 - E78.00) dx verified via [facility] 02/21/2025 Monoclonal gammopathy (ICD-10 - D47.2) dx verified via [facility] 02/21/2025 Pure hypercholesterolemi a, unspecified (ICD-10 - E78.00) dx verified via [facility] 02/21/2025 Ingrowing nail (ICD-10 - L60.0) 02/21/2025 Tinea unguium (ICD-10 - B35.1) 02/21/2025 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) 02/21/2025 Spondylosis without myelopathy or radiculopathy, lumbar region (ICD-10 - M47.816) 02/21/2025 Other fatigue (ICD-10 - R53.83) 02/21/2025 Difficulty in walking, not elsewhere classified (ICD-10 - R26.2) 02/21/2025 Pain in left hip (ICD-10 - M25.552) 02/21/2025 Low back pain, unspecified (ICD-10 - M54.50) 02/21/2025 Disorder of bone, unspecified (ICD-10 - M89.9) 02/21/2025 Unsteadiness on feet (ICD-10 - R26.81) 02/21/2025 Personal history of (healed) traumatic fracture (ICD-10 - Z87.81) 02/21/2025 Presence of left artificial hip joint (ICD-10 - Z96.642) 02/21/2025 Other specified disorders of bone, thigh (ICD-10 - M89.8X5) 02/21/2025 Other obstructive and reflux uropathy (ICD-10 - N13.8) Plan Of Treatment No Information Insurance Providers Payer Name Payer Address Payer Phone Subscriber Number Group Number Insured Name Patient Relationship to Insured Coverage Start Date Coverage End Date [facility] ([id number]) [address] [facility] [address] [place] [address] [id number] Craig Kothari Self - patient is the insured 1 9 Medical (General) History Surgical History Surgery Date(Month/Year) L MEGHANA 2001 angioplasty 1998
--- OUTSIDE RECORDS SUMMARY | 2025-03-17 11:54 | XMS_ITS | Patient Health Record ---
Author Organization [facility] Address [address] [place] [address] Care Team Providers Care Neurosurgery Physician Name Role Phone Epi Bolanos MD Primary Care Provider Jose Ramon Spann Unavailable [phone] Allergies No Known Allergies Results Component Value Reference Range Notes HEMOGLOBIN A1C (GLYCOHEMOGLO BIN) Reviewed date:10/27/2024 08:56:30 AM Interpretation: Performing Lab: Notes/Report: HEMOGLOBIN A1C % (HH) 6.2 HEMOGLOBIN A1C (GLYCOHEMOGLO BIN) Reviewed date:01/26/2025 11:05:56 AM Interpretation: Performing Lab: Notes/Report: HEMOGLOBIN A1C % (HH) 6.2 Reason For Referral No Information Medications Medication SIG (Take, Route, Frequency, Duration) Notes Start Date End Date Status Aspirin 81 MG 1 tablet Orally Once a day; Duration: 30 day(s) Active Omeprazole 20 MG 1 capsule 30 minutes before morning meal Orally Once a day; Duration: 30 day(s) Active Ammonium Lactate 12 % 1 application to affected area Externally to feet Twice a day; Duration: 30 days Active Nitroglycerin 0.4 MG as directed Sublingual Active Alendronate Sodium 70 MG 1 tablet 30 min utes before the first food, beverage or medicine of the day with plain water Orally; Duration: 30 day(s) Active Vitamin D 25 MCG (1000 UT) 1 tablet Orally Once a day; Duration: 30 day(s) Not-[place] ing Acetaminophen 500 MG 1 tablet as needed Orally every 6 hrs Active Naproxen 500 MG 1 tablet with food o r milk as needed Orally every 12 hrs Active DULoxetine HCl 30 MG 1 capsule Orally On ce a day; Duration: 30 day(s) Active Tamsulosin HCl 0.4 MG 1 capsule Orally O nce a day; Duration: 30 day(s) Active Docusate Sodium 100 MG 1 capsule as need ed Orally Once a day; Duration: 30 day(s) Active Rosuvastatin Calcium 20 MG 1 tablet Orally Once a day; Duration: 30 day(s) Active Combivent Respimat 20-100 MCG/ACT 1 puff as needed Inhalation every 6 hrs Active Polyvinyl Alcohol 1.4 % as directed Ophthalmic Active Budesonide-Formoterol Fumarate 160-4.5 MCG/ACT 2 puffs Inhalation Twice a day Active Polyethylene Glycol - as directed Active Losartan Potassium A ctive Metoprolol Tartrate 25 MG 1 tablet with food Orally Twice a day; Duration: 30 day(s) Not-Taking Lidocaine 5 % 1 patch remove after 12 hours Externally Once a day Active Extra Depth Orthopedic Shoes (1 Pair) with Customized Heat Molded Multidensity Innersoles (3 Pair) as directed Dx: NIDDM/Polyneuropathy (E11.42), Hammertoe Foot Deformity (M20.41,M20.42), Preulcerative Skin Lesion(s) (L85.1 07/26/2024 Active Gabapentin 100 MG 1 capsule Orally Onc e a day; Duration: 30 day(s) Active Compression Stockings 20-30mm Hg 1 pair wear daily; Duration: 30 days Active Fluticasone Furoate 50 MCG/ACT 1 puff Inhalation Once a day Active VESIcare 10 MG 1 tablet Orally Once a day; Duration: 30 day(s) Active Immunizations Vaccine Route Administration Date Status Comme nts Influenza Unknown 01/26/2025 Refused COVID-19 Stanley & Stanley/Christopher Unknown 05/10/2021 A dministered 08/28/20 Social History Tobacco Use: Social History Observation Description Date Details (start date - stop date) Never Smoker NA - NA Tobacco use other than smoking: Question Answer Notes Are you an other tobacco user? No Tobacco Control (Standard) Question Answer Notes Tobacco use: Nonsmoker Additional Findings: Tobacco non-user Current no nsmoker AUDIT-C (Standard) Question Answer Notes Did you have a drink containing alcohol in the p ast year? No Points 0 Interpretation Negative Problems Problem Type SNOMED Code ICD Code Onset Dates Problem Status W/U Status Risk Notes Problem Acquired hammer toe of right foot (5053861193534294 ) Other hammer toe(s) (acquired), right foot (M20.41) Active confirmed Response to treatment, Improvebill t Problem Type 2 diabetes mellitus with peripheral angiopathy (542340831) Type 2 diabetes mellitus with diabetic peripheral angiopathy without gangrene (E11.51) Active confirmed Problem Acquired hammer toe of left foot (1488515719235035 ) Other hammer toe(s) (acquired), left foot (M20.42) Active confirmed Response to treatment, Improvebill t Problem Polyneuropathy due to type 2 diabetes mellitus (096223598) Type 2 diabetes mellitus with diabetic polyneuropathy (E11.42) Active confirmed Vital Signs Blood pressure diastolic 70 mm Hg 01/26/2025 Height 5 ft 4 in in 01/26/2025 Blood pressure systolic 130 mm Hg 01/26/2025 Weight 215 lbs 01/26/2025 BMI 36.9 kg/m2 01/26/2025 Procedures Procedure Date Ordered Date Performed Result Body Sit e 07823-UDRIWXG NAIL, 6 OR MORE 04/21/2024 N/A 59066-Qpynkdhb Plate 04/21/2024 N/A 86390-HVJS SKIN LESIONS, OVER 4 04/21/2024 N/A 98108-RDCJYQQ NAIL, 6 OR MORE 07/26/2024 N/A 42968-Eoaujcyd Plate 07/26/2024 N/A 15118-MQFJ SKIN LESIONS, OVER 4 07/26/2024 N/A 79620-XNLSEGD NAIL, 6 OR MORE 10/27/2024 N/A 63850-Dzlwtmrn Plate 10/27/2024 N/A 76565-XLRD SKIN LESIONS, OVER 4 10/27/2024 N/A 76208-MPUKDQZ NAIL, 6 OR MORE 01/26/2025 N/A 20945-Ezsqmezw Plate 01/26/2025 N/A 18413-RWGZ SKIN LESIONS, OVER 4 01/26/2025 N/A Encounters Encounter Location Date Provider Diagnosis [facility] [address] [place] [phone] 04/21/2024 Jose Ramon Ghotra Type 2 diabetes mellitus with diabetic polyneuropathy E11.42 ; Tinea unguium B35.1 ; Ingrown nail L60.0 ; Other hammer toe(s) (acquired), right foot M20.41 and Other hammer toe(s) (acquired), left foot M20.[address] [address] 07/26/2024 Jose Ramon Ghotra Type 2 diabetes mellitus with diabetic polyneuropathy E11.42 ; Tinea unguium B35.1 ; Ingrown nail L60.0 ; Other hammer toe(s) (acquired), right foot M20.41 and Other hammer toe(s) (acquired), left foot M20.[address] [address] 10/27/2024 Jose Ramoncandis Ghotra Type 2 diabetes mellitus with diabetic polyneuropathy E11.42 ; Tinea unguium B35.1 ; Ingrown nail L60.0 ; Other hammer toe(s) (acquired), right foot M20.41 and Other hammer toe(s) (acquired), left foot M20.[address] [address] 01/26/2025 Jose Ramon Ghotra Type 2 diabetes mellitus with diabetic polyneuropathy E11.42 ; Tinea unguium B35.1 and Ingrown nail L60.0 Assessments Encounter Date Diagnosis (ICD Code) Assessment Notes Treatment Notes Treatment Clinical Notes Section Notes 04/21/2024 Type 2 diabetes mellitus with diabetic polyneuropathy (ICD-10 - E11.42) 04/21/2024 Tinea unguium (ICD-10 - B35.1) 07/26/2024 Type 2 diabetes mellitus with diabetic polyneuropathy (ICD-10 - E11.42) 07/26/2024 Tinea unguium (ICD-10 - B35.1) 10/27/2024 Type 2 diabetes mellitus with diabetic polyneuropathy (ICD-10 - E11.42) 10/27/2024 Tinea unguium (ICD-10 - B35.1) 01/26/2025 Type 2 diabetes mellitus with diabetic polyneuropathy (ICD-10 - E11.42) 01/26/2025 Tinea unguium (ICD-10 - B35.1) 01/26/2025 Ingrown nail (ICD-10 - L60.0) 10/27/2024 Ingrown nail (ICD-10 - L60.0) 07/26/2024 Ingrown nail (ICD-10 - L60.0) 04/21/2024 Ingrown nail (ICD-10 - L60.0) 04/21/2024 Other hammer toe(s) (acquired), right foot (ICD-10 - M20.41) Response to treatment,Impro vement 10/27/2024 Other hammer toe(s) (acquired), right foot (ICD-10 - M20.41) 10/27/2024 Other hammer toe(s) (acquired), left foot (ICD-10 - M20.42) 04/21/2024 Other hammer toe(s) (acquired), left foot (ICD-10 - M20.42) Response to treatment,Impro vement 07/26/2024 Other hammer toe(s) (acquired), right foot (ICD-10 - M20.41) Patient Educated with: DIABETIC FOOT CARE INSTRUCTIONS. pdf (DIABETIC FOOT CARE INSTRUCTIONS. pdf) 07/26/2024 Other hammer toe(s) (acquired), left foot (ICD-10 - M20.42) Plan Of Treatment Pending Test Test Name Order Date 02154-HMVOBNA NAIL, 6 OR MORE 08/30/2021 92294-LEAVOFF NAIL, 6 OR MORE 11/29/2021 82395-TQLOBRD NAIL, 6 OR MORE 06/06/2022 51797-EZZRNBV NAIL, 6 OR MORE 02/28/2022 10461-MCGYKOE NAIL, 6 OR MORE 08/19/2022 95316-CFKYGUP NAIL, 6 OR MORE 10/31/2022 68800-TJUWGHN NAIL, 6 OR MORE 02/06/2023 83930-TYIWWQS NAIL, 6 OR MORE 04/21/2023 75750-ULGBEQP NAIL, 6 OR MORE 09/03/2023 21073-FENLLMX NAIL, 6 OR MORE 01/19/2024 48638-MMYURKN NAIL, 6 OR MORE 04/21/2024 60029-OSVXELX NAIL, 6 OR MORE 07/26/2024 10166-QNMHCJW NAIL, 6 OR MORE 10/27/2024 96746-FRRDBFB NAIL, 6 OR MORE 01/26/2025 65369-Rixlllmt Plate 01/26/2025 34141-Bmzoigdx Plate 10/27/2024 14752-Iadkdvex Plate 07/26/2024 51143-Uutypoar Plate 04/21/2024 87528-Fwvbsdll Plate 01/19/2024 29868-Irvvpaag Plate 09/03/2023 84080-Nvogummq Plate 04/21/2023 33319-Ucnwkrhb Plate 02/06/2023 16159-Ndhegyfg Plate 10/31/2022 98803-Kyjwiequ Plate 08/19/2022 91903-Mrtlvnex Plate 02/28/2022 98453-Nffozjex Plate 06/06/2022 56337-Xdtotstf Plate 11/29/2021 49718-Gtgmkfaz Plate 08/30/2021 62463-Zsucjmis Plate Each Additional 09/2022 45004-Igfbuphk Plate Each Additional 68622-PKJY SKIN LESIONS, OVER 4 01/27/20 38232-HIIN SKIN LESIONS, OVER 4 07/26/19 58945-VLTY SKIN LESIONS, OVER 4 10/28/19 13347-VMLY SKIN LESIONS, OVER 4 04/21/20 23 74693-VPTL SKIN LESIONS, OVER 4 09/03/19 39547-VXYB SKIN LESIONS, OVER 4 01/19/20 24 67068-TZGT SKIN LESIONS, OVER 4 04/21/20 91861-TPAI SKIN LESIONS, OVER 4 06/06/19 28116-SEHJ SKIN LESIONS, OVER 4 08/31/19 01315-JAWJ SKIN LESIONS, OVER 4 11/30/19 72814-UTOW SKIN LESIONS, OVER 4 02/29/20 22 42619-DCCO SKIN LESIONS, OVER 4 08/20/19 71874-JXIK SKIN LESIONS, OVER 4 11/01/19 07019-SQRT SKIN LESIONS, OVER 4 02/07/20 Next Appt Details Provider Name:Jose Ramon Ghotra , 05/11/2025 11:00:00 AM, [address] [facility] [address], [place], [address], Insurance Providers Payer Name Payer Address Payer Phone Subscriber Number Group Number Insured Name Patient Relationship to Insured Coverage Start Date [facility]age End Date [facility] [address] [place] [address] [id number] Craig Kothari Self - patient is the insured Medical (General) History Medical History History ICD Code asthma Back,Hip,and Knee pain Dementia Diabetes mellitus Heart disease High blood pressure Joint implants/screws Osteopenia Reflux ( GERD) Sleep apnea Surgical History Surgery Date(Month/Year)
--- OUTSIDE RECORDS SUMMARY | 2025-03-17 11:54 | XMS_ITS | Encounter Summary ---
Author Organization [facility] Address [address] [place] [address] Care Team Providers Care Die Sinking Machine Operator Name Role Phone Navdeep Bolanos MD Primary Care Provider [phone] Reason for Visit * Reason Onset Date Comments Results 02/15/2025 Encounter Details Date Type Department Care Team ([facility] Contact Info) Description 02/15/2025 Telephone Pulmonology - [place] [address] [facility] [address] [place] [phone] Conchita Pedraza MD [address] [facility] [address] [place] [address] Social History Tobacco Use Types Packs/Day Years [...] as of this encounter Progress Notes * Conchita Pedraza MD - 02/16/2025 11:47 AM EDT Inform patient overnight oximetry, qualify for him for oxygen at night. I will discuss with him during follow-up visit on 03/07/2025, but if patient would like us to proceed with oxygen at nighttime earlier, I could see the patient sometime next week. * Maggie Porter MA - 02/16/2025 10:07 AM EDT Results scanned into other order please review results * Latoya Cervantes - 02/15/2025 3:08 PM EDT Overnight oximetry results from [facility] received. Results are attached to encounter. documented in this encounter Plan of Treatment Upcoming Encounters Date Type Department Care Team (Late st Contact Info) Description 05/02/2025 9:30 AM EST Office Visit Endocrinology - [address] [phone] Alfredo Cole MD [address] [place] [address] 06/16/2025 3:30 PM EST Office Visit Pulmonology - [address] [address] Conchita Pedraza MD [address] [address] 08/01/2025 4:30 PM EST Office Visit [facility] - [address] [phone] Navdeep Bolanos MD [address] [place] [address] 08/31/2025 9:30 AM EDT Office Visit [facility] Hematology Oncology [address] [place] [address] Etelvina Johnson MD [address] [place] [address] documented as of this encounter Procedures Procedure Name Priority Date/Time Associated Diagnosis Comments OVERNIGHT PULSE OXIMETRY Routine 02/16/2025 10:06 AM EDT SUSANNA (obstructive sleep apnea) documented in this encounter Results * Pulse oximetry, overnight (02/16/2025 10:06 AM EDT) Conchita Pedraza MD RESPIRATORY CARE ORDERABLES Kiesha l Result documented in this encounter Visit Diagnoses Diagnosis SUSANNA (obstructive sleep apnea) Obstructive sleep apnea (adult) (pediatric) documented in this encounter Care Teams Die Sinking Machine Operator Relationship Specialty Start Date End Date Navdeep Bolanos MD [address] [place] [phone] PCP - General Internal Medicine 04/27/24 documented as of this encounter
--- OUTSIDE RECORDS SUMMARY | 2025-03-17 11:54 | XMS_ITS | Patient Health Record ---
Author Organization [facility] Address [address] [facility] [address] [place] [address] Care Team Providers Care Research Nurse Name Role Phone Margareth Thapa Primary Care [...] tablet Orally Once a day Active Nasal [place] 0.05 % 2 sprays in each nostril [...] Problem Status W/U Status Risk Notes Problem Polyneuropathy due to type 2 diabetes mellitus (133092639) Type 2 diabetes mellitus with diabetic polyneuropathy, unspecified whether shelter insulin use (E11.42) Active confirmed Plan Of Treatment No Information Insurance Providers Payer Name Payer Address Payer Phone Subscriber Number Group Number Insured Name Patient Relationship to Insured Coverage Start Date Coverage End Date [facility] [address] [place] [address] [phone] [id number] Craig Kothari Self - patient is the insured Medical (General) History Medical History History ICD Code Morbid obesity E66.01 Body mass index [BMI]40.0-44.9, adult Z6 8.41 Other intervertebral disc degeneration, lumbar region M51.36 Drug induced constipation K59.03 Moderate persistent asthma, uncomplicate d J45.40 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
== END 2025-03-17 10:00 | disposition home or self-care (01) ==
LOC: HO.LAB 09:59
PROVIDERS: PCP Internal Medicine; Visit Provider Urology
DX: Z12.5 Encounter for screening for malignant neoplasm of prostate (principal)
CPT/HCPCS: 36415; 84153

== ENCOUNTER 2025-03-18 09:49 | Outpatient (AMB) | payer OTHER, SELFPAY ==
--- OUTSIDE RECORDS SUMMARY | 2023-11-12 05:00 | XMS_ITS ---
Author Organization [facility] Address [address] [place] [address] Care Team Providers Care Freight Representative Name Role Phone Epi Bolanos MD Primary Care Provider Unavailabl Jose Ramon Marcum Unavailable [phone] Encounters Encounter Location Date Provider Diagnosis [address] [address] 11/12/2023 Jose Ramon Ghotra Plan Of Treatment Next Appt Details Provider Name:Jose Ramon Ghotra , 05/11/2025 11:00:00 AM, [facility] [address], [address], Progress Notes * Epi MURRELLioDOB:[birth year] (84 yo M)Acc No.[id number]:11/12/2023 Progress Note Patient: Craig ALCALA Provider: Shey Ghotra DPM :1940 A ge:83 Y S ex:Male Date:11/12/2023 Address:[address] [place] [address], [id number] Pcp:Epi Bolanos MD Subjective: * Chief Complaints: * * Medical History: Objective: * Vitals: Assessment: Plan: * Treatment: * Images: * The named appointment provid er may or may not be the originator of this progress note, and it is not deemed complete until electronically signed by the appointment provider. Sign off status: Pending * Provider: Shey Ghotra DPM Date: 0 11/12/2023 Generated for Pirya bustillo/Lenka/Talat on: 1 11:24 AM EDT
--- OUTSIDE RECORDS SUMMARY | 2024-03-23 08:00 | XMS_ITS | Encounter Summary ---
Author Organization [employer] Address [address] [place] [address] Care Team Providers Care Video News Editor Name Role Phone Navdeep Bolanos MD Primary Care Provider [phone] Encounter Details Date Type Department Care Team (Late Contact Info) Description 03/23/2024 8:00 AM EDT Hospital Encounter TH HISTORIC ENCOUNTERS [facility] CONVERSION ONLY Navdeep Bolanos MD [address] [place] [phone] Social History Tobacco Use Types Packs/Day Years Used Date Smoking Tobacco: Former Cigarettes 0.3 3.1 1 06/16/1954 - 06/02/1958 Passive Smoke Exposure: Past Smokeless Tobacco: Never Alcohol Use Standard Drinks/Week Comments No 0 (1 standard drink = 0.6 oz pur e alcohol) Sex and Gender Information Value Date Recorded Sex Assigned at Male 04/27/2024 1:44 PM EST Legal Sex Male 6:15 AM EST Gender Identity Male 04/27/2024 1:44 PM EST Sexual Orientation Choose not to disclose 2023 1:44 PM EST documented as of this encounter Plan of Treatment Upcoming Encounters Date Type Department Care Team (Late Contact Info) Description 05/02/2025 9:30 AM EST Office Visit [facility] - [address] [phone] Alfredo Cole MD [address] [place] [address] 06/16/2025 3:30 PM EST Office Visit Pulmonology - [place] [address] [phone] Conchita Pedraza MD [address] [address] 08/01/2025 4:30 PM EST [facility] [place] [address] [place] [address] Navdeep Bolanos MD [address] [place], [place] 08/31/2025 9:30 AM EDT Office Visit [facility] Hematology Oncology [address] [place] [phone] Etelvina Johnson MD [address] [place] [address] documented as of this encounter Visit Diagnoses Not on filedocumented in this encounter Care Teams Video News Editor Relationship Specialty Start Date End Date Navdeep Bolanos MD PCP - General Internal Medicine 12/14/19 04/26/24 documented as of this encounter
--- NOTE | 2025-03-18 10:23 | MHC.OFFVIS ---
Intake Visit Reasons: 6m/PSA Intake Note: Patient is present for 6m/PSA 03/17 Total PSA: 1.05 Urology Medication:TAMSULSOIN, VERICARE, MYRBETRIQ Antibiotic Allergy:NONE Blood Thinner:ASPIRIN PVR:5ml Allergies mirabegron Adverse Reaction (Unknown, Verified 03/18/25 10:23) Hallucinations HPI Comments Details: 03/18/25--Craig is here for a six-month follow-up. He is managed for overactive bladder and BPH symptoms he is currently prescribed Myrbetriq VESIcare and tamsulosin. Recent PSA 03/17/2025 is 1.05 ng/mL bladder scan PVR 5 mL 09/13/24--Craig is an 84-year-old [place]-speaking male here with his daughter who interprets for him, with past medical history of coronary disease, hypertension, GERD, obstructive sleep apnea. He presents for follow-up of his overactive bladder and BPH. Doing much better with the addition of the Myrbetriq 50 mg. Will cont combination medication therapy for bladder symptoms. Continue VESIcare 10 mg in the evening, tamsulosin at bedtime. FU in 6 months. 03/22/24-- Craig is an 84-year-old [place]-speaking male with past medical history of coronary disease, hypertension, GERD, obstructive sleep apnea. He presents for follow-up of his overactive bladder and BPH. Doing much better with the addition of the Myrbetriq 50 mg. Will cont combination medication therapy for bladder symptoms. FU in 6 months. 02/05/24--FU was started on vesicare for OAB symptoms, he had UDS on 10/31/23 which was c/w DO. He is here with his daughter who states he is still leaking alot. Plan will add Myrbetriq 50 mg to take in the AM and vesicare 10 mg q hs and cont. Tamsulosin 0.4 mg qhs. FU in 6 weeks to review symptoms. 10/31/23--Here for urodynamics. CMG parameters detailed below. Interpretation: During the filling phase sensory urgency was noted, strong urge was noted at 362 mL. the patient felt that he was at capacity at 362 mL Findings consistent with detrusor overactivity. EMG- Appropriate changes in the waveforms were noted through out the study. 08/24/22----Craig is a 83-year-old [place]-speaking male patient of Dr. Bolanos who was accompanied by his daughter at today's office visit. He has a past medical history of coronary disease, hypertension, GERD, obstructive sleep apnea, and overactive bladder. He presents to the office today for follow-up of his overactive bladder and BPH. In discussion with the patient today reports to be doing and feeling well. He reports feeling lower urinary tract symptoms continue despite continuation of Flomax and VESIcare. He reports just this past weekend having had multiple incontinent episodes. He reports urinary urgency and frequency with episodes of incontinence. He otherwise denies nocturia, hematuria, dysuria, foul-smelling urine, changes to urinary stream, flank pain, fever, and or chills. Retroperitoneal ultrasound was ordered for further assessment evaluation. These results reviewed with the patient today. Bilateral kidneys with no hydronephrosis or renal calculi. A lower right renal pole cyst is present. Several cysts are present including a 14 mm mid pole cyst and and an 11 mm upper pole cyst. The bladder is not distended. He has previously trialed Myrbetriq however experienced hallucinations. He has also previously trialed bladder Botox however did not find significant improvement lower urinary tract symptoms. In office urinalysis results reviewed with the patient today. PVR 16 mL. PSAs are as follows: 04/19 0.5, 04/20 0.7, 03/21 0.7, 07/26 0.6 PFSH Medical History Coronary artery disease HTN (hypertension) GERD (gastroesophageal reflux disease) Obstructive sleep apnea of adult Tubular adenoma of colon Surgical History History of mandibular surgery H/O colonoscopy H/O angioplasty History of hip replacement Family History Father No problems noted. Mother No problems noted. Social History Patient Tobacco Use Status: Former Tobacco user Advance Directives Date on File: 03/06/20 Office Procedures Post Void Residual Post Residual Void Post Void Residual (PVR): 5 14470-Xwix Void Residual by ultrasound Results AMB Urinalysis, Automated UA Leukoctes 0 Mark/uL Last Edit by Adriana Del Angel on 03/18/25 14:27 UA Nitrite Negative Last Edit by Adriana Del Angel on 03/18/25 14:27 UA Urobilinogen 0.2 mg/dL Last Edit by Adriana Del Angel on 03/18/25 14:27 UA Protein 0 mg/dL Last Edit by Adriana Del Angel on 03/18/25 14:27 UA pH 6.0 Last Edit by Adriana Del Angel on 03/18/25 14:27 UA Blood 0 Bassem/uL Last Edit by Adriana Del Angel on 03/18/25 14:27 UA Specific [place] 1.010 Last Edit by Adriana Del Angel on 03/18/25 14:27 UA Ketone Negative Last Edit by Adriana Del Angel on 03/18/25 14:27 UA Bilirubin 0 mg/dL Last Edit by Adriana Del Angel on 03/18/25 14:27 UA Glucose 0 mg/dL Last Edit by Adriana Del Angel on 03/18/25 14:27 Assessment & Plan Assessment & Plan Orders: Orders AMB Urinalysis Automated Today N32.81 - Overactive bladder Coding CPT Codes Post Residual Void - PVR CPT Code: 42218-Gdss Void Residual by ultrasound ([id number])
--- OUTSIDE RECORDS SUMMARY | 2025-03-18 11:24 | XMS_ITS | Patient Health Record ---
Author Organization [facility] Address [address] [facility] [address] [place] [address] Care Team Providers Care Inspector Poising Name Role Phone Margareth Thapa Primary Care [...] tablet Orally Once a day Active Nasal [place] 0.05 % 2 sprays in each nostril [...] Polyneuropathy due to type 2 diabetes mellitus (349856331) Type 2 diabetes mellitus with diabetic polyneuropathy, unspecified whether detention insulin use (E11.42) Active confirmed Plan Of Treatment No Information Insurance Providers Payer Name Payer Address Payer Phone Subscriber Number Group Number Insured Name Patient Relationship to Insured Coverage Start Date Coverage End Date [facility] [address] [place] [address] [phone] [id number] Craig Kothari Self - patient is the insured Medical (General) History Medical History History ICD Code Morbid obesity E66.01 Body mass index [BMI]40.0-44.9, adult Z6 8.41 Other intervertebral disc degeneration, lumbar region M51.36 Drug induced constipation K59.03 Moderate persistent asthma, uncomplicate d 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
--- OUTSIDE RECORDS SUMMARY | 2025-03-18 11:24 | XMS_ITS | Patient Health Record ---
Author Organization [facility] Address [address] [place] [address] Care Team Providers Care Clinical Operations Leader Name Role Phone Epi Bolanos MD Primary Care Provider Jose Ramon Spann Unavailable [phone] Allergies No Known Allergies Results Component Value [...] Problem Acquired hammer toe of right foot (7083215824455371 ) Other hammer toe(s) (acquired), right foot (M20.41) Active confirmed Response to treatment, Improvebill t Problem Type 2 diabetes mellitus with peripheral angiopathy (934806685) Type 2 diabetes mellitus with diabetic peripheral angiopathy without gangrene (E11.51) Active confirmed Problem Acquired hammer toe of left foot (0666576733937114 ) Other hammer toe(s) (acquired), left foot (M20.42) Active confirmed Response to treatment, Improvebill t Problem Polyneuropathy due to type 2 diabetes mellitus (686289637) Type 2 diabetes mellitus with diabetic polyneuropathy (E11.42) Active confirmed Vital Signs Blood pressure diastolic 70 mm Hg 01/26/2025 Height 5 ft 4 in in 01/26/2025 Blood pressure systolic 130 mm Hg 01/26/2025 Weight 215 lbs 01/26/2025 BMI 36.9 kg/m2 01/26/2025 Procedures Procedure Date Ordered Date Performed Result Body Sit e 35195-LDJCMEW NAIL, 6 OR MORE 04/21/2024 N/A 05491-Pgngfqnt Plate 04/21/2024 N/A 25174-LWEQ SKIN LESIONS, OVER 4 04/21/2024 N/A 17271-EZWFAVA NAIL, 6 OR MORE 07/26/2024 N/A 58603-Pgcmmyws Plate 07/26/2024 N/A 79941-RVXV SKIN LESIONS, OVER 4 07/26/2024 N/A 61844-PMDXXVO NAIL, 6 OR MORE 10/27/2024 N/A 78501-Uzfgawkk Plate 10/27/2024 N/A 08930-AZMI SKIN LESIONS, OVER 4 10/27/2024 N/A 76332-DEGVDOL NAIL, 6 OR MORE 01/26/2025 N/A 85699-Ilosohuw Plate 01/26/2025 N/A 82010-DBMJ SKIN LESIONS, OVER 4 01/26/2025 N/A Encounters Encounter Location Date Provider Diagnosis [facility] [place] [address] [place] [id number] 04/21/2024 Jose Ramon Ghotra Type 2 diabetes mellitus with diabetic polyneuropathy E11.42 ; Tinea unguium B35.1 ; Ingrown nail L60.0 ; Other hammer toe(s) (acquired), right foot M20.41 and Other hammer toe(s) (acquired), left foot M20.[address] [address] 07/26/2024 Jose Ramon Ghotra Type 2 diabetes mellitus with diabetic polyneuropathy E11.42 ; Tinea unguium B35.1 ; Ingrown nail L60.0 ; Other hammer toe(s) (acquired), right foot M20.41 and Other hammer toe(s) (acquired), left foot M20.[address] [address] 10/27/2024 Jose Ramoncandis Ghotra Type 2 diabetes mellitus with diabetic polyneuropathy E11.42 ; Tinea unguium B35.1 ; Ingrown nail L60.0 ; Other hammer toe(s) (acquired), right foot M20.41 and Other hammer toe(s) (acquired), left foot M20.[address] [address] 01/26/2025 Jose Ramon Ghotra Type 2 diabetes [...] Treatment Pending Test Test Name Order Date 20521-UINIPND NAIL, 6 OR MORE 08/30/2021 06196-PEYEZZX NAIL, 6 OR MORE 11/29/2021 44989-JSVYGWX NAIL, 6 OR MORE 06/06/2022 41733-PZFHFFY NAIL, 6 OR MORE 02/28/2022 06868-VAUFEBE NAIL, 6 OR MORE 08/19/2022 44276-GYWAUKQ NAIL, 6 OR MORE 10/31/2022 11597-JSWQTZO NAIL, 6 OR MORE 02/06/2023 65265-TMINLCD NAIL, 6 OR MORE 04/21/2023 16045-UAHAUIE NAIL, 6 OR MORE 09/03/2023 09896-JMIZBVZ NAIL, 6 OR MORE 01/19/2024 79970-LFWKZIC NAIL, 6 OR MORE 04/21/2024 35783-KGFYMLT NAIL, 6 OR MORE 07/26/2024 98604-IQYVWPL NAIL, 6 OR MORE 10/27/2024 75839-LFGZNAO NAIL, 6 OR MORE 01/26/2025 32867-Jffdrmmx Plate 01/26/2025 15510-Stwinmrm Plate 10/27/2024 81084-Edkdacdf Plate 07/26/2024 36908-Gzmqgpwi Plate 04/21/2024 61126-Uxiszrfv Plate 01/19/2024 46230-Seokmeic Plate 09/03/2023 19164-Vvensjyk Plate 04/21/2023 75770-Ppbgvqah Plate 02/06/2023 39585-Xxpfgohs Plate 10/31/2022 71196-Ydswufyz Plate 08/19/2022 32102-Swvdwzba Plate 02/28/2022 90541-Tlbzheui Plate 06/06/2022 83632-Nychzlwq Plate 11/29/2021 52728-Qsjbpfyg Plate 08/30/2021 81581-Fblqejwh Plate Each Additional 09/2022 94157-Olkglmev Plate Each Additional 57359-QIPD SKIN LESIONS, OVER 4 01/27/20 02169-FOMT SKIN LESIONS, OVER 4 07/26/19 31660-FLEL SKIN LESIONS, OVER 4 10/28/19 74577-HUKH SKIN LESIONS, OVER 4 04/21/20 23 01348-CFUI SKIN LESIONS, OVER 4 09/03/19 85925-LOPA SKIN LESIONS, OVER 4 01/19/20 24 71507-NNBS SKIN LESIONS, OVER 4 04/21/20 32724-VMDB SKIN LESIONS, OVER 4 06/06/19 89870-DXCV SKIN LESIONS, OVER 4 08/31/19 77480-SFAV SKIN LESIONS, OVER 4 11/30/19 00911-PVNF SKIN LESIONS, OVER 4 02/29/20 22 69496-UZGX SKIN LESIONS, OVER 4 08/20/19 41553-XJYS SKIN LESIONS, OVER 4 11/01/19 24481-VZZO SKIN LESIONS, OVER 4 02/07/20 Next Appt Details Provider Name:Jose Ramon Ghotra , 05/11/2025 11:00:00 AM, [address], [place], [address], Insurance Providers Payer Name Payer Address Payer Phone Subscriber Number Group Number Insured Name Patient Relationship to Insured Coverage Start Date Coverage End Date [facility] [address] [place] [id number] Craig Kothari Self - patient is the insured Medical (General) History Medical History History ICD Code asthma Back,Hip,and Knee pain Dementia Diabetes mellitus Heart disease High blood pressure Joint implants/screws Osteopenia Reflux ( GERD) Sleep apnea Surgical History Surgery Date(Month/Year)
--- OUTSIDE RECORDS SUMMARY | 2025-03-18 11:24 | XMS_ITS | Encounter Summary ---
Author Organization [facility] Address [address] [place] [address] Care Team Providers Care Flame Channeler Name Role Phone Navdeep Bolanos MD Primary Care Provider [phone] Reason for Visit * Reason Onset Date Comments Results 02/15/2025 Encounter Details Date Type Department Care Team ([facility] Contact Info) Description 02/15/2025 Telephone Pulmonology - [place] [address] [facility] [address] [place] [phone] Conchita Pedraza MD [address] [facility] [address] [place] [address] Social History Tobacco Use Types Packs/Day Years [...] 3:08 PM EDT Overnight oximetry results from [facility] received. Results are attached to encounter. documented in this encounter Plan of Treatment Upcoming Encounters Date Type Department Care Team (Late st Contact Info) Description 05/02/2025 9:30 AM EST Office Visit Endocrinology - [address] [phone] Alfredo Cole MD [address] [place] [address] 06/16/2025 3:30 PM EST Office Visit Pulmonology - [address] [phone] Conchita Pedraza MD [address] [address] 08/01/2025 4:30 PM EST Office Visit [facility] - [address] [phone] Navdeep Bolanos MD [address] [place] [address] 08/31/2025 9:30 AM EDT Office Visit [facility] Hematology Oncology [address] [place] [address] Etelvina Johnson MD [address] [place] [address] documented as of this encounter Procedures Procedure [...] (pediatric) documented in this encounter Care Teams Flame Channeler Relationship Specialty Start Date End Date Navdeep Bolanos MD [address] [place] [phone] PCP - General Internal Medicine 04/27/24 documented as of this encounter
--- OUTSIDE RECORDS SUMMARY | 2025-03-18 11:24 | XMS_ITS | Patient Health Record ---
Author Organization [facility] avril Address [address] [place] [address] Care Team Providers Care Conditioning Machine Operator Name Role Phone Navdeep Bolanos III Primary Care Provider Unavailab Aftab Powers Unavailable [phone] Clinical, Operations Unavailable Unavailable Jeremy Maggie Unavailable [phone] Pamela Whitney Unavailable [phone] Allergies No Known Allergies Results Component Value [...] 34.1 Reason For Referral Reason Initial SCO MANAGER CREDIT COLLECTIONS Refe rral Request: Functional Assessment Faxed Separately Diagnosis 1 Dementia without beh avioral disturbance, unspecified dementia type (F03.90) Referring Provider First Name Operations Referring Provider Last Name Clinical Referring Provider Speciality Unknown Referred Provider Access [facility] [employer]. Referred Provider Specialty Adult Foster Care Clinical Notes Is the Member ICO or SCO?, Response :, SCO, 2. Primary Contact for Member:, Response :, Contact Name & Number -Contact Name: Mikki Youngblood, Contact Name & Number -Contact Number:: [phone], Notes :Secondary contact: Mireya Kothair, Daughter, , 3. Member's preferred language:, Response :, Lao, 4. Ged Instructor Info:, Response :, Ged Instructor Name & email -Ged Instructor Name:: Angela Salguero, Ged Instructor Name & email -Ged Instructor email address:: [email or web address], 5. Is this request for any of the following?, Response :, Initial, 6. Is the Member experiencing a change/decline in the following:, Response :, Change in informal support or living situation -Please explain:: Daughter would like to switch from [employer] to MANAGER CREDIT COLLECTIONS services. Reports having a difficult time getting a responsible aide from agency, and some concerns are related due to multiple no shows, conflicts with scheduling and language barrier. Current aide doesn't have a license and is unable to bring member to medical appointments., 7. Who is requesting MANAGER CREDIT COLLECTIONS services or changes in service?, Response :, Member, 8. Will member likely need a surrogate to manage a MANAGER CREDIT COLLECTIONS?, Response :, Yes -Provide surrogate contact if available:: Mikki Youngblood, Daughter, [phone], 9. Please list the ICD-10 diagnosis that supports the need for MANAGER CREDIT COLLECTIONS, Response :, ICD-10 Code & Dx name: [...] support from daughter, Mikki Youngblood. Daughter works financial reporting director and only provides assistance with phone use, scheduling and managing appointments., 12. Does the Member have an existing LTSS ([facility] Support Service)?, Response :, Yes -Select the following:: Personal Care Agency, 13. Will the MANAGER CREDIT COLLECTIONS be replacing the current LTSS?, Response :, Yes -Select all that apply:: Personal Care Agency, 14. Provide the PCM (Personal Care Management) Agency Name/Contact the member will be using:, Response :, [facility], Notes :Current ALEX: [facility] [employer] Not listed, 15. Has the GSSC (Geriatric Senior Dry Cleaner)/LTSC (Chcf Custodial Supervisor) been notified/aware of MANAGER CREDIT COLLECTIONS request?, Response :, Yes -GSSC Name:: Lawrence Mancia, Yes -GSSC Contact Number:: [phone], Yesy Tsai 08/23/2024 09:59:36 AM > Referral [...] Immunizations Vaccine Route Administration Date Status Comme [facility] [id number] Flu Vac (Fluad) PFS Unknown 03/02/2024 Admini [...] W/U Status Risk Notes Problem Age-related osteoporosis (763764727) Age-related osteoporosis without current pathological fracture (M81.0) Active confirmed Problem Incontinence (57118075) Incontinence (R32) Inactive confirmed Problem Tinea unguium (042495206) Tinea unguium (B35.1) Active confirmed Problem Gastroesophageal reflux disease (780445593) GERD (gastroesophagea l reflux disease) (K21.9) Active confirmed Problem Pain of left hip joint (finding) (038123060359848) Pain in left hip (M25.552) Active confirmed Problem Obstructive sleep apnea syndrome (72660967) SUSANNA (obstructive sleep apnea) (G47.33) Active confirmed Problem Hypertension (42046243) HTN (hypertension) (I10) Inactive confirmed Problem History of fall (769142736) Risk for falls (Z91.81) Active confirmed Problem Walking disability (233333566) Difficulty in walking, not elsewhere classified (R26.2) Active confirmed Problem Old healed fracture of bone (387020651) Personal history of (healed) traumatic fracture (Z87.81) Active confirmed Problem Vitamin D deficiency (39559817) Vitamin D deficiency (E55.9) Active confirmed Problem Benign prostatic hyperplasia (236737793) BPH (benign prostatic hyperplasia) (N40.0) Inactive confirmed Problem Sleep apnea (45293631) Sleep apnea (G47.30) Inactive confirmed Problem Back pain (721755718) Back pain (M54.9) Inactive confirmed Problem DM - Diabetes mellitus (52501556) DM (diabetes mellitus) (E11.9) Inactive confirmed Problem Disorder of bone (99371478) Disorder of bone, unspecified (M89.9) Active confirmed Problem Hyperlipidaemia (17868586) HLD (hyperlipidemia) (E78.5) Active confirmed Problem Arthritis (7411068) Arthritis (M19.90) Inactive confirmed Problem Hypercalcemia (94170764) Hypercalcemia (E83.52) Inactive confirmed Problem Abnormal gait (55265231) Unsteadiness on feet (R26.81) Active confirmed Problem Old myocardial infarction (2155099) History of [place] (myocardial infarction) (I25.2) Active confirmed Problem Mild cognitive disorder (582525678) Mild cognitive impairment, so stated (G31.84) Inactive confirmed Problem Bladder incontinence (495952991) Bladder incontinence (R32) Active confirmed Problem Neurologic disorder associated with type II diabetes mellitus (432135693) Type 2 diabetes mellitus with other diabetic neurological complication (E11.49) Active confirmed Problem Hyperparathyroidism (95588214) Hyperparathyroid ism, unspecified (E21.3) Active confirmed dx verified via [facility] Claims Problem Obstructive uropathy (1653173) Other obstructive and reflux uropathy (N13.8) Active confirmed Problem History of cataract extraction (658944929) Cataract extraction status, unspecified eye (Z98.49) Active confirmed Problem Ingrowing nail (503803396) Ingrowing nail (L60.0) Active confirmed Problem Lumbosacral spondylosis without myelopathy (51954276) Spondylosis without myelopathy or radiculopathy, lumbar region (M47.816) Active confirmed Problem Fatigue (53547346) Other fatigue (R53.83) Active confirmed Problem Monoclonal gammopath y (80031114) Monoclonal gammopathy (D47.2) Active confirmed dx verified via [employer] Claims Problem Degeneration of cervicothoracic intervertebral disc (2376831842) 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) Active confirmed Problem Sickle cell trait (33513886) Sickle-cell trait (D57.3) Active confirmed dx verified via [employer] Claims Problem Overactive urinary bladder (disorder) (410572244) OAB (overactive bladder) (N32.81) Active confirmed Problem Hallucinations (7336064) Hallucination (R44.3) Inactive confirmed Problem Wrist joint effusion (261743180) Effusion, right wrist (M25.431) Inactive confirmed Problem Wrist joint effusion (676846120) Effusion, left wrist (M25.432) Inactive confirmed Problem Disorder of thigh (disorder) (861420621) Other specified disorders of bone, thigh (M89.8X5) Active confirmed Problem Long-term current us e of inhaled steroid (586531800) terminal press operator (current) use of inhaled steroids (Z79.51) Active confirmed Problem Long-term current us e of antiplatelet drug (317285557637211) terminal press operator (current) use of aspirin (Z79.82) Active confirmed Problem Intraocular lens implant (113539416) Presence of intraocular lens (Z96.1) Active confirmed Problem History of artificia l joint (725109977) 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) Active confirmed Problem Atherosclerosis of coronary artery without angina pectoris (089330685535867) Atherosclerosis of houl[place] coronary artery of [place] heart without angina pectoris (I25.10) Active confirmed Problem Chronic pain (60312030) Other chronic pain (G89.29) Active confirmed Problem Constipation (64371514) Constipation, unspecified constipation type (K59.00) Active confirmed Problem Osteoarthritis (178266209) Osteoarthritis, unspecified osteoarthritis type, unspecified site (M19.90) Active confirmed Problem Hypertensive heart disease without congestive heart failure (65409327) Hypertensive heart disease without heart failure (I11.9) Active confirmed Problem Morbid obesity (disorder) (695738053) Morbid (severe) obesity due to excess calories (E66.01) Active confirmed Problem Long-term current us e of antiplatelet drug (707761411422332) Long-term use of aspirin therapy (Z79.82) Inactive confirmed Problem Dementia (70333191) Dementia wit hout behavioral disturbance, unspecified dementia type (F03.90) Active confirmed Problem Recurrent major depression in full remission (06007661) Recurrent major depressive disorder, in full remission (F33.42) Active confirmed Problem Polyneuropathy due t o type 2 diabetes mellitus (218633033) Type 2 diabetes mellitus with diabetic polyneuropathy, 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) Active confirmed Problem Insomnia (345468994) Insomnia, unspecified type (G47.00) Active confirmed Problem Pure hypercholesterolemia (560776980) Pure hypercholesterol emia, unspecified (E78.00) Active confirmed dx verified via [employer] Claims Problem Lower urinary tract symptoms due to benign prostatic hypertrophy (12493104791531) Benign prostatic hyperplasia with lower urinary tract symptoms, symptom details unspecified (N40.1) Active confirmed Problem Uncomplicated moderate persistent asthma (570829452) Moderate persistent asthma, unspecified whether complicated (J45.40) Active confirmed Problem Body mass index 35.0 0 to 39.99 (396792620123232) Body mass index (BMI) of 38.0 to 38.9 in adult (Z68.38) Active confirmed Problem History of COVID-19 (219050685699432358) History of COVID-19 (Z86.16) Inactive confirmed Problem Low back pain (314948445) Low back pain, unspecified (M54.50) Active confirmed Vital Signs Height-cm 162.56 cm 02/21/2025 Weight-kg 96.62 kg 02/21/2025 Height 64 in 02/21/2025 Weight 213 lbs 02/21/2025 BMI 36.56 kg/m2 02/21/2025 Encounters Encounter Location Date Provider Diagnosis [address] [address] 07/17/2024 Operations Clinical Dementia without behavioral disturbance, unspecified dementia type F03.90 ; Recurrent major depressive disorder, in full remission F33.42 ; Moderate persistent asthma, unspecified whether complicated J45.40 ; Type 2 diabetes mellitus with diabetic polyneuropathy, without long-term current use of insulin E11.42 ; Osteoarthritis, unspecified osteoarthritis type, unspecified site M19.90 ; Atherosclerosis of [place] coronary artery of [place] heart without angina pectoris I25.10 ; 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 ; History of NJ (myocardial infarction) I25.2 ; Bladder incontinence R32 [...] tract symptoms, symptom details unspecified N40.1 ; terminal press operator (current) use of inhaled steroids Z79.51 ; terminal press operator (current) use of aspirin Z79.82 ; SUSANNA (obstructive sleep apnea) G47.33 ; OAB (overactive bladder) N32.81 ; Body mass index (BMI) of 38.0 to 38.9 in adult Z68.38 ; Risk for falls Z91.81 ; Cataract extraction status, unspecified eye Z98.49 ; Presence of intraocular lens Z96.1 and Age-related osteoporosis without current pathological fracture M81.[address] [address] 08/19/2024 Pamela Whitney Dementia without behavioral disturbance, unspecified dementia type F03.90 ; Type 2 diabetes mellitus with diabetic polyneuropathy, without long-term current use of insulin E11.42 ; Osteoarthritis, unspecified osteoarthritis type, unspecified site M19.90 and Other chronic pain G89.29 Formerly [facility] [address] [place] [address] 08/19/2024 Iris Jeremy Dementia without behavioral disturbance, unspecified dementia type F03.90 ; Recurrent major depressive disorder, in full remission F33.42 ; Moderate persistent asthma, unspecified whether complicated J45.40 ; Type 2 diabetes mellitus with diabetic polyneuropathy, without long-term current use of insulin E11.42 ; Osteoarthritis, unspecified osteoarthritis type, unspecified site M19.90 ; Atherosclerosis of [place] coronary artery of [place] heart without angina pectoris I25.10 ; 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 ; History of NJ (myocardial infarction) I25.2 ; Bladder incontinence R32 [...] tract symptoms, symptom details unspecified N40.1 ; intermediate (current) use of inhaled steroids Z79.51 ; [...] gammopathy D47.2 and Pure hypercholesterolemia, unspecified E78.00 Formerly [facility] [address] [place] [address] 02/21/2025 Operations Clinical Dementia without behavioral disturbance, unspecified dementia type F03.90 ; Recurrent major depressive disorder, in full remission F33.42 ; Moderate persistent asthma, unspecified whether complicated J45.40 ; Type 2 diabetes mellitus with diabetic polyneuropathy, without long-term current use of insulin E11.42 ; Osteoarthritis, unspecified osteoarthritis type, unspecified site M19.90 ; Atherosclerosis of [place] coronary artery of [place] heart without angina pectoris I25.10 ; 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 ; History of NJ (myocardial infarction) I25.2 ; Bladder incontinence R32 [...] tract symptoms, symptom details unspecified N40.1 ; terminal press operator (current) use of inhaled steroids Z79.51 ; [...] and Other obstructive and reflux uropathy N13.[address] [address] 06/28/2024 Operations Clinical Assessments Encounter Date Diagnosis [...] this OT recommends that member qualifies for MANAGER CREDIT COLLECTIONS Program. See RN Maggie Luna's Functional Assessment in [facility] for details. 07/17/2024 Type 2 diabetes mellitus with diabetic polyneuropathy, without long-term current use of insulin (ICD-10 - E11.42) Diagnosis from [facility] 07/17/2024 Osteoarthritis, unspecified osteoarthritis type, unspecified site (ICD-10 - M19.90) Diagnosis from [facility] 08/19/2024 Atherosclerosis of [place] coronary artery of [place] heart without angina pectoris (ICD-10 - I25.10) 02/21/2025 Osteoarthritis, unspecified osteoarthritis type, unspecified site (ICD-10 - M19.90) 02/21/2025 Atherosclerosis of [place] coronary artery of [place] heart without angina pectoris (ICD-10 - I25.10) 08/19/2024 Degeneration of cervicothoracic intervertebral disc (ICD-10 - M50.33) 07/17/2024 Atherosclerosis of [place] coronary artery of [place] heart without angina pectoris (ICD-10 - I25.10) Diagnosis from [facility] 07/17/2024 Degeneration of cervicothoracic intervertebral disc (ICD-10 - M50.33) Diagnosis from [facility] 08/19/2024 History of NJ (myocardial infarction) (ICD-10 - I25.2) 02/21/2025 Degeneration of cervicothoracic intervertebral disc (ICD-10 - M50.33) 02/21/2025 History of NJ (myocardial infarction) (ICD-10 - I25.2) 08/19/2024 Bladder incontinence (ICD-10 - R32) 07/17/2024 History of NJ (myocardial infarction) (ICD-10 - I25.2) Diagnosis from [facility] 07/17/2024 Bladder incontinence (ICD-10 - R32) Diagnosis from [facility] 08/19/2024 Hypertensive heart disease without heart failure (ICD-10 - I11.9) 02/21/2025 Bladder incontinence (ICD-10 - R32) 02/21/2025 Hypertensive heart disease without heart failure (ICD-10 - I11.9) 08/19/2024 Vitamin D deficiency (ICD-10 - E55.9) 07/17/2024 Hypertensive heart disease without heart failure (ICD-10 - I11.9) Diagnosis from [facility] 08/19/2024 HLD (hyperlipidemia) (ICD-10 - E78.5) 07/17/2024 Vitamin D deficiency (ICD-10 - E55.9) Diagnosis from [facility] 02/21/2025 Vitamin D deficiency (ICD-10 - E55.9) 02/21/2025 HLD (hyperlipidemia) (ICD-10 - E78.5) 07/17/2024 HLD (hyperlipidemia) (ICD-10 - E78.5) Diagnosis from [facility] 08/19/2024 GERD (gastroesophageal reflux disease) (ICD-10 - K21.9) 07/17/2024 GERD (gastroesophageal reflux disease) (ICD-10 - K21.9) Diagnosis from [facility] 02/21/2025 GERD (gastroesophageal reflux disease) (ICD-10 - K21.9) 08/19/2024 Insomnia, unspecified type (ICD-10 - G47.00) 08/19/2024 Other chronic pain (ICD-10 - G89.29) 07/17/2024 Insomnia, unspecified type (ICD-10 - G47.00) Diagnosis from [facility] 02/21/2025 Insomnia, unspecified type (ICD-10 - G47.00) 02/21/2025 Other chronic pain (ICD-10 - G89.29) 07/17/2024 Other chronic pain (ICD-10 - G89.29) Diagnosis from [facility] 08/19/2024 Morbid (severe) obesity due to excess calories (ICD-10 - E66.01) 08/19/2024 Constipation, unspecified constipation type (ICD-10 - K59.00) 07/17/2024 Morbid (severe) obesity due to excess calories (ICD-10 - E66.01) Diagnosis from [facility] 02/21/2025 Morbid (severe) obesity due to excess calories (ICD-10 - E66.01) 02/21/2025 Constipation, unspecified constipation type (ICD-10 - K59.00) 07/17/2024 Constipation, unspecified constipation type (ICD-10 - K59.00) Diagnosis from [facility] 08/19/2024 Benign prostatic hyperplasia with lower urinary tract symptoms, symptom details unspecified (ICD-10 - N40.1) 08/19/2024 intermediate (current) use of inhaled steroids (ICD-10 - Z79.51) 07/17/2024 Benign prostatic hyperplasia with lower urinary tract symptoms, symptom details unspecified (ICD-10 - N40.1) Diagnosis from [facility] 02/21/2025 Benign prostatic hyperplasia with lower urinary tract symptoms, symptom details unspecified (ICD-10 - N40.1) 02/21/2025 terminal 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 operator (current) use of inhaled steroids (ICD-10 - Z79.51) 07/17/2024 terminal press operator (current) use of inhaled steroids (ICD-10 - Z79.51) Diagnosis from [facility] 08/19/2024 intermediate (current) use of aspirin (ICD-10 - Z79.82) 07/17/2024 intermediate (current) use of aspirin (ICD-10 - Z79.82) Diagnosis from [facility] 08/19/2024 SUSANNA (obstructive sleep apnea) (ICD-10 - G47.33) 02/21/2025 intermediate (current) use of aspirin (ICD-10 - Z79.82) 07/17/2024 SUSANNA (obstructive sleep apnea) (ICD-10 - G47.33) Diagnosis from [facility] 08/19/2024 OAB (overactive bladder) (ICD-10 - N32.81) 02/21/2025 SUSANNA (obstructive sleep apnea) (ICD-10 - G47.33) 08/19/2024 Body mass index (BMI) of 38.0 to 38.9 in adult (ICD-10 - Z68.38) 07/17/2024 OAB (overactive bladder) (ICD-10 - N32.81) Diagnosis from [facility] 02/21/2025 OAB (overactive bladder) (ICD-10 - N32.81) 02/21/2025 Body mass index (BMI) of 38.0 to 38.9 in adult (ICD-10 - Z68.38) 08/19/2024 Risk for falls (ICD-10 - Z91.81) 07/17/2024 Body mass index (BMI) of 38.0 to 38.9 in adult (ICD-10 - Z68.38) Diagnosis from [facility] 08/19/2024 Cataract extraction status, unspecified eye (ICD-10 - Z98.49) 07/17/2024 Risk for falls (ICD-10 - Z91.81) Diagnosis from [facility] 02/21/2025 Risk for falls (ICD-10 - Z91.81) [...] Insured Coverage Start Date Coverage End Date [facility] [place] SCO ([id number]) [address] [facility] [address] [place] [address] [id number] Craig Kothari Self - patient is the insured 1 9 Medical (General) History Surgical History Surgery Date(Month/Year) L MEGHANA 2001 angioplasty 1998
--- OUTSIDE RECORDS SUMMARY | 2025-03-18 11:24 | XMS_ITS | Encounter Summary ---
Author Organization [facility] Address [address] [place] [address] Care Team Providers Care Block Saw Operator Name Role Phone Navdeep Bolanos MD Primary Care Provider [phone] Encounter Details Date Type Department Care Team (Late st Contact Info) Description 03/09/2025 Telephone Infectious Disease - [facility] [address] [facility] [address] [place] [address] Faye Machuca MA Social History [...] I did obtain echocardiogram from EMR from [facility], performed on 07/02/2024. Also remind daughter to bring patient for chest x-ray. documented in this encounter Plan of Treatment Upcoming Encounters Date Type Department Care Team (Late st Contact Info) Description 05/02/2025 9:30 AM EST Office Visit Endocrinology [address] [phone] Alfredo Cole MD [address] [place] [address] 06/16/2025 3:30 PM EST Office Visit Pulmonology - [place] [address] [address] Conchita Pedraza MD [address] [address] 08/01/2025 4:30 PM EST Office Visit [facility] - [address] [phone] Navdeep Bolanos MD [address] [place] [address] 08/31/2025 9:30 AM EDT Office Visit [facility] Hematology Oncology [address] [place] [address] Etelvina Johnson MD [address] [place] [address] documented as of this encounter Visit Diagnoses Not on filedocumented in this encounter Care Teams Block Saw Operator Relationship Specialty Start Date End Date Navdeep Bolanos MD [address] [place] [address] PCP - General Internal Medicine 04/27/24 documented as of this encounter
--- OUTSIDE RECORDS SUMMARY | 2025-03-18 11:24 | XMS_ITS | Clinical Summary ---
Author Organization [facility] Address [address] [place] [address] Care Team Providers Care Director Of Research Name Role Phone Navdeep Bolanos MD Primary Care Provider [phone] Allergies No known active allergies Medications Medication [...] down for next 30 minutes 0 Active Gallagher-3 Fatty Acids (FISH OIL OMEGA-3 PO) Take [...] age to complete this topic Care Teams Director Of Research Relationship Specialty Start Date End Date Navdeep Bolanos MD PCP - General Internal Medicine 01/17/21
--- OUTSIDE RECORDS SUMMARY | 2025-03-18 11:24 | XMS_ITS | Clinical Summary ---
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 Lee: Hallucinations consistent with complex sleep hallucinations. Monoclonal gammopathy 01/18/2021 Overview (08/06/2023): Follows with hematology. Sickle cell trait ([facility] V24) 01/18/2021 Overview (08/06/2023): Following with hematology. COVID-19 06/08/2020 Genital herpes 04/06/2020 Lumbar spondylosis 03/25/2018 Overview (08/06/2023): MRI 01/15/2018 Constipation due to pain medication 01/16/2018 Moderate persistent asthma without complication 03/20/2017 Cataract 07/12/2016 Diabetic neuropathy ([facility] V24, [facility] V28) 0 07/10/2016 Gastroesophageal reflux disease 11/03/2015 Type 2 diabetes mellitus wit h neurological manifestations ([facility] V24, [facility] V28) 02/22/2015 Old [place] (myocardial infarction) 09/14/2013 Overview (08/06/2023): Hx [place] 1998. Low back pain 01/02/2012 Foot pain, left 07/01/2011 Leg cramps, sleep related 01/09/2011 SUSANNA (obstructive sleep apnea) 09/19/2010 Overview (08/06/2023): [facility] Home Polysomnogram: Date 02/11/2017; AHI 8, Unclassified apneas 0; Obstructive apneas 2; Central apneas 1; Mixed apneas 0; hypopneas 16; average oxygen saturation 94% (lowest 89% without saturations <88% for 5% or more of study) [facility] Polysomnogram: Date 11/11/2018; Wt 229#; BMI 39; [...] Type 2 diabetes mellitus wit h cataract ([facility] V24, [facility] V28) 08/01/2010 Hyperlipidemia 08/01/2010 BPH (benign prostatic hyperplasia) 08/01/2010 Neck pain 08/01/2010 Rhinitis 08/01/2010 Encounters Date Type Department Care Team Description 03/09/2025 Telephone Infectious Disease [address] [phone] [facility] 03/07/2025 3:45 PM EDT Office Visit Pulmonology [address] [phone] Conchita Pedraza MD SUSANNA (obstructive sleep apnea) (Primary Dx); Moderate persistent asthma, unspecified whether complicated; Ex-smoker 02/15/2025 Telephone Pulmonology [address] [phone] Conchita Pedraza MD 02/01/2025 Telephone Pulmonology [address] [phone] 01/12/2025 2:00 PM EDT Office Visit Adult Medicine [address] [phone] Mary Adams NP Type 2 diabetes mellitus with neurological manifestations ([facility] V24, [facility] V28) (Primary Dx); Mild dementia without behavioral disturbance, psychotic disturbance, mood disturbance, or anxiety, unspecified dementia type ([facility] V24, [facility] V28); Other fatigue; SUSANNA (obstructive sleep apnea); Hyperlipidemia, unspecified hyperlipidemia type; Lumbar spondylosis 12/22/2024 Telephone Adult Medicine [address] [phone] Navdeep Bolanos MD from Last 3 Months Immunizations Immunization Administration Dates Next Due Influenza Quadravalent, MDCK , 0.5ml, preservative free (Flucelvax) 6mo and older 03/25/2019 Influenza trivalent, 0.5mL ( Fluzone High-dose) 65yo and older 03/29/2023,04/05/2022,01/30/2021,02/28,02/18/2018,03/13/2017,02/02/2016 ,02/13/2015 Influenza trivalent, with pr eservative (Fluzone; Afluria) 6mo and older 02/10/2013,03/17/2012,02/13/2011 [employer] SARS-CoV-2 COVID -19, vector-nr, rS-Ad26, preservative free 08/28/2020 Pneumococcal conjugate 13 va lent (Prevnar 13, PCV13) 2mo and older 11/23/2015 Pneumococcal polysaccharide 23 valent (Pneumovax 23) 2yo and older 08/01/2010 Td Tetanus diptheria (Tdvax) 7yo and older 03/27/2016,07/01/2005 Zoster Live 01/08/2017 Surgical History Surgery Date Site/Laterality Comments SINUS SURGERY PROCEDURE: [place] UNLISTED PROCEDURE ACCESSORY SINUSES FOOT SURGERY PROCEDURE: HISTORICAL FOOT SURGERY HIP ARTHROPLASTY PROCEDURE: HISTORICAL HIP REPLACEMENT UPPER GASTROINTESTINAL ENDOSCOPY 11/24/2015 PROCEDURE: [place] UPPER GI ENDOSCOPY PERFORMED; COMMENT: Esophageal erosion, gastritis, duodenum normal; no H. pylori and nl esophageal biopsies COLONOSCOPY 02/25/2017 PROCEDURE: HISTORICAL COLONOSCOPY; COMMENT: Diminutive colonic polyps 3, all 3 tubular adenomas. Medical History Medical History Date Comments Hyperlipidemia 08/01/2010 DX:Hyperlipidemi a Diabetic neuropathy ([facility] V24, [facility] V28) 07/10/2016 DX:Diabetic neuropathy (HCC) Type 2 diabetes mellitus wit h cataract ([facility] V24, [facility] V28) 08/01/2010 DX:Type 2 diabetes mellitus with cataract (HCC); COMMENT: History of OK 1997 Cataract 07/12/2016 DX:Cataract Old OK (myocardial infarction) 09/14/2013 D X:Old OK (myocardial infarction); COMMENT: Hx [place] 1997. Type 2 diabetes mellitus wit h neurological manifestations ([facility] V24, [facility] V28) 02/22/2015 DX:Type 2 diabetes mellitus [...] tubular adenomas CN 7.12 with adenoma. 02/25/2017: [facility], diminutive tubular adenoma 3. HTN (hypertension) 08/01/2010 DX:HTN (hyper tension) Leg cramps, sleep related 01/09/2011 DX:Leg cramps, sleep related Low back pain 01/02/2012 DX:Low back pain Moderate persistent asthma w ithout complication 03/20/2017 DX:Moderate persistent asthm a without complication Neck pain 08/01/2010 DX:Neck pain Obesity (BMI 30-39.9) 03/20/2017 DX:Obesity (BMI 30-39.9) Obesity hypoventilation synd agatha ([facility] V24, [facility] V28) 03/20/2017 DX:Obesity hypoventilation syndrome (HCC) SUSANNA (obstructive sleep apnea) 09/19/2010 DX :SUSANNA (obstructive sleep apnea); COMMENT: [facility] Home Polysomnogram: Date 02/11/2017; AHI 8, Unclassified apneas 0; Obstructive apneas 2; Central apneas 1; Mixed apneas 0; hypopneas 16; average oxygen saturation 94% (lowest 89% without saturations <88% for 5% or more of study) 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) 03/20/2017 D [...] 05/02/2025 9:30 AM EST Office Visit Endocrinology [address] [phone] Alfredo Cole MD [address] [place] [phone] 06/16/2025 3:30 PM EST Office Visit Pulmonology - [address] [place] [phone] Conchita Pedraza MD [address] [phone] 08/01/2025 4:30 PM EST Office Visit Adult Medicine [facility] [address] [place], [place] [phone] Navdeep Bolanos MD [address] [place], [place] 08/31/2025 9:30 AM EDT Office Visit [facility] Hematology Oncology [address] [place] [phone] Etelvina Johnson MD [address] [place] [address] Health Maintenance Due Date Last Done Comments [...] Type 2 diabetes mellitus with neurological manifestations ([facility] V24, [facility] V28) POLYSOMNOGRAM WITH CPAP Routine 01/10/2025 8:41 AM EDT SUSANNA (obstructive sleep apnea) MICROALBUMIN CREATININE URINE RATIO Routine 08/05/2024 9:42 AM EST Diet-controlled diabetes mellitus (CMS/HCC V24, CMS/HCC V28) COMPREHENSIVE METABOLIC PANEL Routine 08/05/2024 9:42 AM EST Monoclonal paraproteinemia Sickle-cell trait ([facility] V24) Monoclonal gammopathy HEMOGLOBIN A1C Routine 08/05/2024 9:42 AM EST Diet-controlled diabetes mellitus ([facility] V24, [facility] V28) LIPID PANEL WITH REFLEX TO [...] LAB CHEMISTRY METHOD 08/05/2024 1:[address] [facility] Triglycerides 102 0 - 150 mg/dL LAB CHEMISTRY METHOD 08/05/2024 1:[address] [facility] HDL 54 >=40 mg/dL LAB CHEMISTRY METHOD 08/05/2024 1:[address] [facility] LDL Calculated 72 0 - 100 mg/dL LAB CHEMISTRY METHOD 08/05/2024 1:[address] [facility] VLDL Cholesterol Bhargav 20.4 mg/dL LAB CHEMISTRY METHOD 08/05/2024 1:[address] [facility] Non HDL Chol. (LDL+VLDL) 92 <145 mg/dL LAB CHEMISTRY METHOD 08/05/2024 1:[address] [facility] Chol/HDL Ratio 2.7 0.0 - 4.4 LAB CHEMISTRY METHOD 08/05/2024 1:[address] [facility] Blood Venous blood specimen / Unknown Venipuncture / Unknown 08/05/2024 9:42 AM EST 08/05/2024 9:42 AM EST us Navdeep Bolanos MD LAB BLOOD ORDERABLES Final Resu lt [facility] [address] [place] [address], [place] [phone] * Microalbumin creatinine urine ratio (08/05/2024 9:42 AM EST) Creatinine, Urine 54.0 mg/dL LAB CHEMISTRY METHOD 08/05/2024 1:04 PM [facility] Microalb, Ur 8.7 0.0 - 29.0 mg/L LAB CHEMISTRY METHOD 08/05/2024 1:[address] [facility] Microalb/Creat Ratio 16 <30 mg/g creat LAB CHEMISTRY METHOD 08/05/2024 1:[address] [facility] Urine Urine specimen obtained by clean catch procedure / Unknown Non-blood Collection / Unknown 08/05/2024 9:42 AM EST 08/05/2024 9:42 AM EST us Navdeep Bolanos MD LAB URINE ORDERABLES Final Resu lt Performing Organization Address [facility]/ZIP Co de Phone Number [facility] [address] [place] [address], [place] [phone] * Hemoglobin A1c (08/05/2024 9:42 AM EST) [facility] Hemoglobin A1C 6.2 <6.5 % LAB CHEMISTRY METHOD 08/05/2024 8:[address] [facility] Mean Bld Glu Estim. 131 mg/dL LAB CHEMISTRY METHOD 08/05/2024 8:59 PM [facility] Blood Venous blood specimen / Unknown Venipuncture / Unknown 08/05/2024 9:42 AM EST 08/05/2024 9:42 AM EST us Navdeep Bolanos MD LAB BLOOD ORDERABLES Final Resu lt Performing Organization Address [facility]/ZIP Co de Phone Number [facility] [address] [place] [address], [place] [phone] * (ABNORMAL) Comprehensive metabolic panel (08/05/2024 9:42 AM EST) [facility] Sodium 138 133 - 145 mmol/L LAB CHEMISTRY METHOD 08/05/2024 1:15 PM [facility] Potassium 4.5 3.5 - 5.5 mmol/L LAB CHEMISTRY METHOD 08/05/2024 1:15 PM [facility] Chloride 104 96 - 110 mmol/L LAB CHEMISTRY METHOD 08/05/2024 1:15 PM [facility] CO2 27 21 - 32 mmol/L LAB CHEMISTRY METHOD 08/05/2024 1:15 PM [facility] Anion Gap 7 3 - 11 LAB CHEMISTRY METHOD 08/05/2024 1:15 PM [facility] Glucose 97 70 - 100 mg/dL LAB CHEMISTRY METHOD 08/05/2024 1:15 PM [facility] BUN 19 5 - 25 mg/dL LAB CHEMISTRY METHOD 08/05/2024 1:15 PM [facility] Creatinine 1.02 0.70 - 1.30 mg/dL LAB CHEMISTRY METHOD 08/05/2024 1:15 PM [facility] eGFR 73 >=60 mL/min/1. 73m2 LAB CHEMISTRY METHOD 08/05/2024 1:15 PM [facility] Comment:Calculation based on the Chronic Kidney Disease Epidemiology Collaboration (CKD-EPI) equation refit without adjustment for race. BUN/Creatinine Ratio 18.6 LAB CHEMISTRY METHOD 08/05/2024 1:15 PM [facility] Calcium 10.7(H) 8.5 - 10.5 mg/dL LAB CHEMISTRY METHOD 08/05/2024 1:15 PM [facility] AST (SGOT) 23 10 - 42 unit/L LAB CHEMISTRY METHOD 08/05/2024 1:15 PM [facility] ALT (SGPT) 29 10 - 60 unit/L LAB CHEMISTRY METHOD 08/05/2024 1:15 PM [facility] Alkaline Phosphatase 58 42 - 121 unit/L LAB CHEMISTRY METHOD 08/05/2024 1:15 PM [facility] Total Protein 6.9 6.0 - 8.0 g/dL LAB CHEMISTRY METHOD 08/05/2024 1:15 PM [facility] Albumin 3.4 3.2 - 5.0 g/dL LAB CHEMISTRY METHOD 08/05/2024 1:15 PM [facility] Total Bilirubin 0.4 0.0 - 1.4 mg/dL LAB CHEMISTRY METHOD 08/05/2024 1:15 PM [facility] Blood Venous blood specimen / Unknown Venipuncture / Unknown 08/05/2024 9:42 AM EST 08/05/2024 9:42 AM EST Etelvina Johnson MD LAB BLOOD ORDERABLES Final R esult [facility] [address] [place] [address], * Diabetic Retinopathy Screening (03/11/2024 3:55 PM EDT) us Historical Provider MD IN CLINIC/BEDSIDE ORDERAB LES Final Result from Last 3 Months or Most Recently Relevant to Health Maintenance Insurance [employer] Member Subscriber Plan / Payer (Ef fective 2020-Present) Name:Craig Kothari Relation to Subscriber:Self Name:Craig Kothari Payer ID:[id number] Group ID:[id number] Type:Not on file Address: [place] [address] [place] [address] Care Teams 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
== END 2025-03-18 10:41 | disposition home or self-care (01) ==
LOC: HO.HUSH 09:50
PROVIDERS: PCP Internal Medicine; Visit Provider Urology
DX: N32.81 Overactive bladder (principal)

== ENCOUNTER → 2025-03-18 09:49 | Outpatient (BNVA) | payer OTHER, SELFPAY | PROVIDERS: PCP Internal Medicine; Visit Provider Urology | DX: N32.81 Overactive bladder (principal); N40.1 Benign prostatic hyperplasia with lower urinary tract symptoms; N13.8 Other obstructive and reflux uropathy | CPT/HCPCS: 51798; 81003; 99212 ==